=== PATIENT | male | born 1965 | race African-American/Black ===

== ENCOUNTER 2016-08-25 15:36 | Inpatient (IN) ==
[2016-08-25] MEDS ORDERED: ENOXAPARIN 80 MG/0.8 ML SYRINGE SUBCUT STA (15:57)
[2016-08-25] MEDS ORDERED: ASPIRIN 325 MG TABLET PO STA (15:58)
--- NOTE | 2016-08-25 16:01 | EKG Report ---
Stationary ECG Study [facility] ER Test Date: 08/25/2016 3:45:48 PM Pat Name: PAIGE LEY Department: Room: Gender: M Instructor Dramatic Arts: ROSALINDA : 1965 Requested by: Trent Carroll Order Number: [id number] Greg MD: SHERRY SEPULVEDA Intervals [place] Rate: 101 P: 32 W[place]: 128 QRS: 69 QRSD: 90 T: 62 QT: 295 QTc: 353 Interpretive Statements SINUS RHYTHM ST T ABN SUGGESTS EARLY REPOLARIZATION CONSIDER CURRENT OF INJURY IN THE RIGHT CLINICL SETTING ALTHOUGH THIS IS EUIVOCAL Electronically Signed On 08-27-16 09:44:22 GRAPHICS PROGRAMMER by SHERRY SEPULVEDA [id number]
[2016-08-25] MEDS ORDERED: HYDROCORTISONE 100 MG VIAL IV STA (16:02)
--- NOTE | 2016-08-25 16:05 | Emergency Department Note ---
Arrival - Arrival ED Nursing Triage Note: Pt sent from [facility] for c/o CP, Altered mental status, and left foot pain. Foot pain x 8 days, CP x 3 days , and AMS x 2 days family member reports. EMS reported a blood sugar of 54 given 1/2 amp of D50. Mode of Arrival: Stretcher Limitations: Altered Mental Status Source: Significant other, RN Notes Reviewed - History of Present Illness Onset (ago): day(s) (2) <Trent Claros - Last Filed: 08/25/16 16:24> <Warner Damian - Last Filed: 08/25/16 17:04> - Arrival Chief Complaint: Altered Mental Status Stated Complaint: Altered Mental Status Time Seen by Provider: 08/25/16 15:56 - History of Present Illness HPI Narrative: Patient is a 50-year-old black male with a history of renal failure status post renal transplant. The patient has had 2 days of confusion, mental status changes, and left ankle pain. EMS brought the patient to the emergency department apparently from Dr. [facility] who is found to have a low blood pressure. EMS checked the patient's blood sugar and it was noted to be in the 50s. Due to the patient's mental status and confusion patient was given supplemental D50. Patient's mental status did not really improve very much. Patient has been seen in the ER and given steroids over the past several days. He is also on tacrolimus and prednisone. Patient denies any chest pain. (Trent Claros) Allergies/Adverse Reactions: Allergies Allergy/AdvReac Type Severity Reaction Status Date / Time No Known Allergies Allergy Verified 08/11/16 22:05 Home Medications: Home Medications Medication Instructions Recorded Confirmed Type Aspirin [Ecotrin] 81 mg PO DAILY 05/16/16 08/11/16 History Carvedilol [Coreg] 0.5 tablet PO BID 05/16/16 08/11/16 History Folic Acid Tab 1 mg PO DAILY 05/16/16 08/11/16 History Magnesium 250 mg PO DAILY 05/16/16 08/11/16 History Mycophenolate Mofetil Cap 3 tablet PO BID 05/16/16 08/11/16 History [Cellcept] Pantoprazole Tab [Protonix Tab] 40 mg PO BID 05/16/16 08/11/16 History Tacrolimus [Tacrolimus Cap] 4 tablet PO Q12H 05/16/16 08/11/16 History cloNIDine TAB [Catapres Tab] 0.1 mg PO BID PRN 05/16/16 08/11/16 History predniSONE TAB [PredniSONE] 10 mg PO DAILY 05/16/16 08/11/16 History Metoclopramide Tab [Reglan Tab] 5 mg PO QID 06/01/16 08/11/16 History amLODIPine [Norvasc] 10 mg PO DAILY 06/01/16 08/11/16 History Ondansetron Tab [Zofran Tab] 4 mg PO Q6HR PRN 06/24/16 08/11/16 History Acetamin/Codeine 120-12 mg/5Ml 12.5 ml PO Q6H PRN #120 ml 08/11/16 Rx [Tylenol/Codeine Liquid] Azithromycin [Zithromax] 500 mg PO DAILY #5 tablet 08/11/16 Rx Levofloxacin Tab [Levaquin Tab] 750 mg PO DAILY #10 tablet 08/11/16 08/11/16 Rx Review of System - Review of System Constitutional: Absent: chills, fever Respiratory: Absent: cough Cardiovascular: Absent: chest pain Neurological: Present: as per HPI, confusion <Trent Claros - Last Filed: 08/25/16 16:24> Medical,Surgical,& Family Hx - Medical History Cardio: History of: Hypertension Psychological: No history of: Anxiety Disorders, Bipolar Disorder, Depression, Schizophrenia Neurology: No history of: Seizures HEENT: History of: Eye Problem (previous retinal tear RIGHT) Rheumatology: History of;: Gout Renal: History of: Renal Failure, Renal Problems (Kidney transplant - 09/15) Gastrointestinal: History of: GERD, Gastrointestinal Bleed Hematology: No history of: Blood Transfusion Reaction Reproductive: No histroy: Reproductive Cancer Other: No history of: Anesthesia Reactions, HIV - Surgical History Cardiac Surgeries: Patient Denies: Cardiac Catheterization Thoracic Surgeries: Surgical HX of;: Kidney (Renal Surgery) (transplant 2013), Organ Transplant (KIDNEY) Neurologic Surgeries: Patient denies: Neurologic Surgery HEENT Surgeries: Surgical HX of: Tonsilectomy & Adenoidectomy Patient denies: Eye Surgery Abdominal Surgeries: Surgical HX of: Abdominal Surgery (PD catheter placed and removed (Removed 2013)), Cholecystectomy, EGD Orthopedic Surgeries: Patient denies;: Orthopedic Surgery - Family History Family History: Reports;: Family Diabetes (MOM AND BROTHER), Family Hypertension (MOM AND BROTHER) Denies;: Family Anesthesia Reaction, Family Cancer, Family Heart Disease, Family Psychiatric Problems, Family Stroke - Social History Smoking Status: Former smoker <Trent Claros - Last Filed: 08/25/16 16:24> Exam <Trent Claros - Last Filed: 08/25/16 16:24> <Warner Damian - Last Filed: 08/25/16 17:04> Vital Signs: Vital Signs Temperature 96.5 F L 08/25/16 15:42 Pulse Rate 100 H 08/25/16 15:42 Respiratory Rate 26 H 08/25/16 15:42 Blood Pressure 109/74 08/25/16 15:42 O2 Sat by Pulse Oximetry 95 08/25/16 15:42 GENERAL: This is a thin chronically and acutely ill appearing thin black male in no apparent distress. VITAL SIGNS: Reviewed HEENT: Head is atraumatic and normocephalic. Pupils are equal round react to light. Extraocular movements are intact. Conjunctiva is pale. Oropharynx is benign with moist mucous membranes. NECK: Neck is soft and supple without tenderness. There are no masses. There is no lymphadenopathy. LUNGS: Lungs are clear to auscultation. Chest rises symmetrically. There is no chest wall tenderness. CV: Heart is regular rate and rhythm without murmurs rubs or gallops. ABDOMEN: Abdomen is soft, nontender to palpation. There are no abdominal abnormal masses palpated. There is no organomegaly. Bowel sounds are present and active. SKIN: Skin is warm and dry. No rash. EXTREMITIES: Patient has erythema and swelling of the lateral portion of the left ankle. This area is exceedingly tender to touch. NEUROLOGIC: Awake, alert, disoriented to time and place. Cranial nerves II through XII are grossly intact. Motor is 4 over 5 in all extremities bilaterally. (Trent Claros) (Warner Damian) Course - Consultations Time: 15:55 <Trent Claros - Last Filed: 08/25/16 16:24> - Consultations Time: 17:03 <Warner Damian - Last Filed: 08/25/16 17:04> Course Narrative: Care to Dr. Nati at 1600 (Trent Claros) - Consultations Consultation #1: Discussed with Dr. Ramos. EKG reviewed with him. EKG is not felt to represent ST elevation MA. (Trent Claros) Consultation #2: Hospitalist will admit patient (Warner Damian) Results - Labs CBC & BMP: 08/25/16 15:56 - EKG EKG results: interpreted by ERMD - Diagnostic Findings Procedure: Chest x-ray: image reviewed by me (Pulmonary nodule left lower lobe) , CT: image reviewed by me (CT head: No acute intracranial lesion or hemorrhage) <Trent Claros - Last Filed: 08/25/16 16:24> - Labs CBC & BMP: 08/25/16 15:56 08/25/16 15:56 Lab Results: I have reviewed the patients labs <Warner Damian - Last Filed: 08/25/16 17:04> - Impressions EKG: Sinus tachycardia with a rate of 101. ST segment elevation in 2 3 aVF and V2 through V6 which is normal in contour but is elevated. (Trent Claros) Critical Care Time Critical Care Time: Yes Total Critical Care Time: 60 <Warner Damian - Last Filed: 08/25/16 17:04> Disposition <Trent Claros - Last Filed: 08/25/16 16:24> Case discussed with: patient Time of Disposition: 17:04 <Warner Damian - Last Filed: 08/25/16 17:04> Clinical Impression: Altered mental status, Hypotension, Renal failure status post transplant, Left ankle pain, Hyperkalemia Disposition: Still a Patient Condition: Guarded
[2016-08-25 16:13] LABS: Basophils % 0.3 % (0.0-0.8); Eosinophils % 0.1 % (0.00-10.9); Hematocrit 36.7 VOL% (42.0-52.0); Hemoglobin 11.2 GM/DL (14.0-18.0); Immature Granulocytes % 16.9 %; Immature Granulocytes Absolute 2.64 #; Lymphocytes # 0.4 10*3/uL (1.4-4.0); Lymphocytes % 2.6 % (21.2-54.2); Mean Corpuscular HGB Conc 30.5 GM/DL (32-36); Mean Corpuscular Hemoglobin 24 PG (27-34); Mean Corpuscular Volume 79.6 FL (87-102); Mean Platelet Volume 11.2 FL (9.6-12.0); Monocytes # 1.6 10*3/uL (0.11-0.8); Monocytes % 9.9 % (1.7-12.7); Neutrophils % 70.2 % (38.7-73.9); Platelet Count 374 10*3/uL (130-400); Red Blood Count 4.61 10*6/uL (3.8-5.5); White Blood Count 15.6 10*3/uL (4.5-13.71)
--- NOTE | 2016-08-25 16:19 | CT Report ---
CT head/brain wo con Indication: Status changes. CT BRAIN WITHOUT CONTRAST DLP: 1053 mGy*cm Comparison: 06/23/2013. Date of admission: 08/25/2016. Technique: Axial noncontrast CT images of the brain were obtained. Findings: No acute hemorrhage, mass or mass effect. Ventricles and sulci are appropriate for age. Cassidy-white junction is maintained throughout. No focal bone lesions are shown. Polypoid thickening in the right maxillary sinus is present. The remainder paranasal sinuses and mastoid air cells are clear. Impression: No acute intracranial pathology. Right maxillary sinus polyp. PROCEDURE INTERPRETED AT [facility] DEPARTMENT OF RADIOLOGY Final Report Signed by: Julio De La Torre M.D.
--- NOTE | 2016-08-25 16:22 | XRay Report ---
Exam: XR chest 1V portable Date: 08/25/2016 3:57 PM Indication: Altered mental status Comparison: None Technical:AP semierect portable Findings: Examination reveals rounded area of opacification in the left lateral chest measuring up to just below 5 cm. Patchy interstitial infiltrate suspected in the infrahilar regions. This is demonstrated bilaterally. External cardiac leads are present. Mediastinum is otherwise intact. Impression: 1. 5 cm area of rounded the masslike density in the left lateral base. This could represent the underlying malignancy. Mild interstitial thickening present in the lung estrada bilaterally with coarse bronchovascular markings. CT scan of the chest with IV contrast may be beneficial PROCEDURE INTERPRETED AT [facility] DEPARTMENT OF RADIOLOGY Final Report Signed by: Dr. Lawrence Colón
[2016-08-25 16:24] LABS: INR 1.4; PT Patient Result 14.9 SECS; Partial Thromboplastin Time 38.5 SECS (0-40)
[2016-08-25] MEDS ORDERED: ENOXAPARIN 100 MG/ML SYRINGE SUBCUT ONE (16:26)
[2016-08-25] MEDS ORDERED: HYDROCORTISONE 100 MG VIAL ONE (16:26)
[2016-08-25] MEDS ORDERED: ASPIRIN 325 MG TABLET ONE (16:27)
[2016-08-25 16:31] LABS: Ammonia < 10 UMOL/L (11-32)
[2016-08-25 16:39] LABS: Alanine Aminotransferase 18 U/L (16-61); Albumin 1.9 G/DL (3.4-5.0); Alkaline Phosphatase 135 U/L (45-117); Aspartate Amino Transferase 23 U/L (0-37); Blood Urea Nitrogen 71 MG/DL (7-18); Calcium 9.5 MG/DL (8.5-10.1); Glucose 144 MG/DL (74-106); Osmolality,Calculated 302.4 MOS/KG (273-304); Sodium 140 MMOL/L (136-145); Total Protein 5.4 G/DL (6.4-8.3)
[2016-08-25 16:41] LABS: Potassium 6.4 MMOL/L (3.5-5.1)
[2016-08-25] MEDS ORDERED: SODIUM POLYSTYRENE SULFATE 15 GM/60 ML BOTTLE PO STA (16:44)
[2016-08-25] MEDS ORDERED: CALCIUM GLUCONATE 1,000 MG in SODIUM CHLORIDE 0.9% 100 ML IV ONE (16:44)
[2016-08-25 16:46] LABS: Anisocytosis 1+; Band Neutrophils 4 % (0-10); Burr Cells 1+; Lymphocytes 8 % (20-55); Microcytosis 1+; Ovalocytes Few; Platelet Estimate Adequate; Poikilocytosis 2+; Segmented Neutrophils 76 % (50-85); Tear Drop Cells Slight; Total Cells Counted 100
--- NOTE | 2016-08-25 16:48 | XRay Report ---
XR ankle 3V LT Indication: Swelling or edema. Left ankle 3 views: Soft tissue swelling is present. No radiopaque debris identified. No acute fracture. No dislocation. No CT arthritis. Impression: Soft tissue swelling left ankle. PROCEDURE INTERPRETED AT [facility] DEPARTMENT OF RADIOLOGY Final Report Signed by: Julio De La Torre M.D.
[2016-08-25] MEDS ORDERED: CALCIUM GLUCONATE 1,000 MG/10 ML VIAL IV ONE (16:53)
[2016-08-25] MEDS ORDERED: SODIUM POLYSTYRENE SULFATE 15 GM/60 ML BOTTLE ONE (16:53)
[2016-08-25] MEDS ORDERED: ZALEPLON 5 MG CAPSULE PO PRN (17:04)
[2016-08-25] MEDS ORDERED: ONDANSETRON 4 MG/2 ML VIAL IV PRN (17:04)
[2016-08-25] MEDS ORDERED: DOCUSATE SODIUM 100 MG CAPSULE PO PRN (17:04)
--- NOTE | 2016-08-25 17:49 | Hospitalist History & Physical ---
Assessment and Plan - Time spent with patient Time spent with patient: Greater than 30 minutes (due to assessment, plan and documentation) (1) Abnormal EKG Status: Acute Assessment and plan: consulted Dr. Ramos- has seen in the ED Current Visit: Yes (2) ARF (acute renal failure) Status: Acute Assessment and plan: gentle hydration baseline creatinine is typically 2.6-2.8 per pt report Current Visit: Yes (3) Altered mental status Status: Acute Assessment and plan: CT negative neuro consult Current Visit: Yes (4) Hyperkalemia Status: Acute Assessment and plan: calcium gluconate and kayexalate given in ED. redraw at 2100 tonight CBC, CMp in AM Current Visit: Yes (5) Chronic kidney disease, stage III (moderate) Status: Chronic Current Visit: Yes (6) Kidney transplant recipient Status: Chronic Current Visit: Yes History of Present Illness Chief complaint: weakness, decreased appetite History of present illness: Mr. Mcmanus is a 50 year old male who presented to our facility today with complaints of weakness. EKG was abnormal and Dr. Damian has had Dr. Ramos to look at this. Per Dr. Damian's report, ND was ruled out. His potassium is elevated at 6.4 and this has been treated in the ED with calcium gluconate and kayexalate in the ED. Repeat potassium will be drawn tonight at 2100. He did have some altered mental status and CT was negative for acute pathology. Ammonia level is normal as well. CXR was abnormal in the left lower lobe. In comparison to old films, this area has grown in size. WBC is elevated at 15.6, Gap is 19.4, Creatinine is now 3.7 GFR 23. He states that his baseline is typically 2.6-2.8. We will gently hydrate him. I have asked that Neuro see for AMS, Cardiology see for abnormal EKG, and Pulmonary see for his abnormal cxr. Will admit and continue working him up. He states that he is compliant with his anti-rejection medications as well. He lives at home and typically functions independently. Further plan and addendum to follow by Dr. Milind Clifton. Home Medications Medication Instructions Recorded Confirmed Type Aspirin [Ecotrin] 81 mg PO DAILY 05/16/16 08/25/16 History Carvedilol [Coreg] 0.5 tablet PO BID 05/16/16 08/25/16 History Folic Acid Tab 1 mg PO DAILY 05/16/16 08/25/16 History Mycophenolate Mofetil Cap 3 tablet PO Q12H 05/16/16 08/25/16 History [Cellcept] Pantoprazole Tab [Protonix Tab] 40 mg PO BID 05/16/16 08/25/16 History Tacrolimus [Tacrolimus Cap] 4 tablet PO Q12H 05/16/16 08/25/16 History predniSONE TAB [PredniSONE] 10 mg PO DAILY 05/16/16 08/25/16 History amLODIPine [Norvasc] 10 mg PO DAILY 06/01/16 08/25/16 History Allopurinol 100 mg PO DAILY 08/25/16 08/25/16 History HYDROcodone/ACETAMIN 10-325 [[place] 1 tablet PO Q4H PRN 08/25/16 08/25/16 History 10-325] Magnesium Oxide [Magnesium] 500 mg PO DAILY 08/25/16 08/25/16 History Metoclopramide Liquid [Reglan 5 ml PO BID 08/25/16 08/25/16 History Liquid] Allergies Allergy/AdvReac Type Severity Reaction Status Date / Time No Known Allergies Allergy Verified 08/11/16 22:05 Medical,Surgical,& Family Hx - Medical History Cardio: History of: Hypertension Psychological: No history of: Anxiety Disorders, Bipolar Disorder, Depression, Schizophrenia Neurology: No history of: Seizures HEENT: History of: Eye Problem (previous retinal tear RIGHT) Rheumatology: History of;: Gout Renal: History of: Renal Failure, Renal Problems (Kidney transplant - 09/15) Gastrointestinal: History of: GERD, Gastrointestinal Bleed Hematology: No history of: Blood Transfusion Reaction Reproductive: No histroy: Reproductive Cancer Other: No history of: Anesthesia Reactions, HIV - Surgical History Cardiac Surgeries: Patient Denies: Cardiac Catheterization Thoracic Surgeries: Surgical HX of;: Kidney (Renal Surgery) (transplant 2013), Organ Transplant (KIDNEY) Neurologic Surgeries: Patient denies: Neurologic Surgery HEENT Surgeries: Surgical HX of: Tonsilectomy & Adenoidectomy Patient denies: Eye Surgery Abdominal Surgeries: Surgical HX of: Abdominal Surgery (PD catheter placed and removed (Removed 2013)), Cholecystectomy, EGD Orthopedic Surgeries: Patient denies;: Orthopedic Surgery - Family History Family History: Reports;: Family Diabetes (MOM AND BROTHER), Family Hypertension (MOM AND BROTHER) Denies;: Family Anesthesia Reaction, Family Cancer, Family Heart Disease, Family Psychiatric Problems, Family Stroke - Social History Smoking Status: Former smoker Frequency of Alcohol Use: None Type of Drug Use: None Marital Status: Lives With:: Spouse Functional capacity: independent ambulation - Constitutional Constitutional: Present: weakness. Absent: chills, fever(s) - EENT Eyes: Absent: blurry vision, diplopia Ears: Absent: decreased hearing, tinnitus Nose, mouth and throat: Absent: dysphagia, headache(s) - Cardiovascular Cardiovascular: Absent: chest pain at rest, dyspnea on exertion - Respiratory Respiratory: Absent: cough, dyspnea, hemoptysis - Gastrointestinal Gastrointestinal: Absent: abdominal pain, melena, nausea, vomiting - Genitourinary Genitourinary: Absent: difficulty urinating, hematuria - Musculoskeletal Musculoskeletal: Absent: back pain, joint swelling - Neurological Neurological: Present: confusion. Absent: dizziness - Psychiatric Psychiatric: Present: confusion. Absent: anxiety, depression - Endocrine Endocrine: Absent: cold intolerance, heat intolerance - Hematologic/Lymphatic Hematologic/Lymphatic: Absent: easy bleeding, easy bruising Exam - Constitutional Vitals: Period Temp Pulse Resp BP Sys/Stewart Pulse Ox Last 24 Hr 96.5 F 100 26 109/74 95 General appearance: normal weight, no acute distress - Head Head exam: Present: normal inspection, normocephalic - Eye Eye exam: Present: EOMI. Absent: scleral icterus Pupils: Present: SELVIN, normal accommodation - ENT ENT exam: Present: normal exam, normal oropharynx - Neck Neck exam: Present: normal inspection. Absent: lymphadenopathy - Respiratory Respiratory exam: Present: clear to auscultation bilaterally. Absent: accessory muscle use - Cardiovascular Cardiovascular exam: Present: regular rate and rhythm. Absent: carotid bruit - GI/Abdominal GI/Abdominal exam: Present: normal bowel sounds, soft. Absent: tenderness - Extremities Exam Extremities exam: Present: normal inspection. Absent: edema - Back Exam Back exam: Present: normal inspection. Absent: muscle spasm - Neurological Exam Neurological exam: Present: alert, oriented X3 - Psychiatric Psychiatric exam: Present: normal affect, normal mood - Skin Skin exam: Present: normal color, warm, dry, intact Results - Labs CBC & BMP: 08/25/16 15:56 08/25/16 15:56 Lab Results: I have reviewed the past 24 hour labs
[2016-08-25] MEDS ORDERED: COLCHICINE 0.6 MG TABLET PO ONE (20:09)
[2016-08-25] MEDS: METOCLOPRAMIDE 10 MG/10 ML UDCUP PO SCH (21:10)
[2016-08-25] MEDS: CARVEDILOL 12.5 MG TABLET PO SCH (21:10)
[2016-08-25] MEDS: SODIUM CHLORIDE 0.9% 1,000 ML IV SCH (21:57)
[2016-08-25] MEDS: MYCOPHENOLATE MOFETIL 250 MG CAPSULE PO SCH (21:58)
[2016-08-25] MEDS: TACROLIMUS 0.5 MG CAPSULE PO SCH (22:18)
[2016-08-26 04:46] LABS: Basophils % 0.2 % (0.0-0.8); Hematocrit 30.3 VOL% (42.0-52.0); Hemoglobin 9.5 GM/DL (14.0-18.0); Immature Granulocytes % 11.5 %; Immature Granulocytes Absolute 1.49 #; Lymphocytes # 0.6 10*3/uL (1.4-4.0); Lymphocytes % 4.3 % (21.2-54.2); Mean Corpuscular HGB Conc 31.4 GM/DL (32-36); Mean Corpuscular Hemoglobin 24 PG (27-34); Mean Corpuscular Volume 75.8 FL (87-102); Mean Platelet Volume 10.8 FL (9.6-12.0); Monocytes # 1.3 10*3/uL (0.11-0.8); Monocytes % 10.4 % (1.7-12.7); Neutrophils # 9.5 10*3/uL (1.4-7.4); Neutrophils % 73.6 % (38.7-73.9); Platelet Count 383 10*3/uL (130-400); Red Cell Distribution Width 14.1 % (9.3-17.3); White Blood Count 12.9 10*3/uL (4.5-13.71)
[2016-08-26 05:18] LABS: Albumin 1.7 G/DL (3.4-5.0); Bilirubin,Total 0.8 MG/DL (0.2-1.0); Calcium 8.9 MG/DL (8.5-10.1); Magnesium 1.9 MG/DL (1.8-2.4); Osmolality,Calculated 308.8 MOS/KG (273-304); Potassium 4.6 MMOL/L (3.5-5.1)
[2016-08-26 05:27] LABS: Band Neutrophils 2 % (0-10); Burr Cells Slight; Elliptocytes Few; Hypochromasia Slight; Lymphocytes 4 % (20-55); Microcytosis 1+; Platelet Estimate Adequate; Segmented Neutrophils 85 % (50-85); Total Cells Counted 100
--- NOTE | 2016-08-26 06:46 | XRay Report ---
Portable chest. Indication: Shortness of breath. Comparison: August 25, 2016, and August 11, 2016. The heart is normal in size. The lung volumes are normal. Since the exam from August 11, 2016, there has been development of diffuse severe reticulonodular infiltrates. The area of peripheral parenchymal opacity laterally at the left lung base, is vaguely seen, partially secured by the reticulonodular infiltrates. I believe it is very similar in size to the previous study. When compared to yesterday's exam, the reticulonodular infiltrates have worsened as well. No pleural effusion is seen. No pneumothorax is noted. Impression: In the past 2 weeks severe reticulonodular infiltrates have developed. These are nonspecific. The area of focal parenchymal opacity at the left lateral lung base is grossly similar to previous studies. PROCEDURE INTERPRETED AT [facility] DEPARTMENT OF RADIOLOGY Final Report Signed by: Dr. Deborah Francis
[2016-08-26] MEDS: SODIUM CHLORIDE 0.9% 1,000 ML IV SCH ×3 (07:41→20:45)
[2016-08-26 07:52] LABS: Amorphous Crystals,Urine Occasional /HPF (Few); Apearance,Urine CLEAR (Clear); Bilirubin,Urine Negative (Negative); Blood, Urine Negative (Negative); Glucose,Urine (UA) Negative (Negative); Ketones,Urine Negative (Negative); Mucus,Urine Occasional /LPF (Occasional); Nitrite,Urine Negative (Negative); Protein,Urine Negative; Urine Color Yellow (Yellow); Urine Specific Gravity 1.013 (1.001-1.035); Urine Urobilinogen < 2.0 EU/DL (0.2-1.0); WBC,Urine <1 /HPF (0-6)
--- NOTE | 2016-08-26 08:10 | EKG Report ---
Stationary ECG Study [facility] Test Date: 08/26/2016 8:09:13 AM Pat Name: PAIGE LEY Department: Room: 281 Gender: M Senior Systems Analyst: : 1965 Requested by: Reena Daniels Order Number: [id number] Reading MD: SHERRY SEPULVEDA Intervals [place] Rate: 119 P: 49 MT: 130 QRS: 72 QRSD: 93 T: 59 QT: 267 QTc: 338 Interpretive Statements SINUS TACHYCARDIA ABNORMAL RHYTHM ECG Electronically Signed On 08-27-16 09:49:47 FURNACE RELINER by SHERRY SEPULVEDA [email or web address]
[2016-08-26] MEDS ORDERED: NITROGLYCERIN 2% OINT 1 INCH/GM PACK TOP ONE (08:17)
[2016-08-26] MEDS: NITROGLYCERIN 2% OINT 1 INCH/GM PACK TOP SCH ×4 (08:20→23:44)
--- NOTE | 2016-08-26 08:29 | Nephrology Consult Note ---
History of Present Illness Chief complaint: Kidney Transplant recipient History of present illness: Mr. Mcmanus is a 50 year old male with a functioning kidney transplant who presented with left ankle pain compatible with gallop. He also has worsening reticulonodular infiltrates bilaterally present on chest x-ray. He complains of vague chest pain. He has been afebrile but is generally not done well of late and has a low serum albumin and has had weight loss. On physical exam he is a tall man who is thin and has lost weight over the last year or so. Jugular venous distention and his heart without rub or gallop. He has no peripheral edema. His left foot is exquisitely tender is not significantly swollen. Uric acid on admission was 6.4 and he says this pain is compatible with previous episodes of And says he's been hurting approximately 1 week. Impression #1 #2 chronic renal impairment with a kidney transplant with a creatinine at that stable at 3-1/2. Reticulonodular infiltrates worrisome for opportunistic infection Plan pulmonary consult to evaluate for possible opportunistic pulmonary infection. I agree with use of Colchicine. Allopurinol becomes difficult to use with the immunosuppressants Home Medications Medication Instructions Recorded Confirmed Type Aspirin [Ecotrin] 81 mg PO DAILY 05/16/16 08/25/16 History Carvedilol [Coreg] 0.5 tablet PO BID 05/16/16 08/25/16 History Folic Acid Tab 1 mg PO DAILY 05/16/16 08/25/16 History Mycophenolate Mofetil Cap 3 tablet PO Q12H 05/16/16 08/25/16 History [Cellcept] Pantoprazole Tab [Protonix Tab] 40 mg PO BID 05/16/16 08/25/16 History Tacrolimus [Tacrolimus Cap] 4 tablet PO Q12H 05/16/16 08/25/16 History predniSONE TAB [PredniSONE] 10 mg PO DAILY 05/16/16 08/25/16 History amLODIPine [Norvasc] 10 mg PO DAILY 06/01/16 08/25/16 History Allopurinol 100 mg PO DAILY 08/25/16 08/25/16 History HYDROcodone/ACETAMIN 10-325 [[place] 1 tablet PO Q4H PRN 08/25/16 08/25/16 History 10-325] Magnesium Oxide [Magnesium] 500 mg PO DAILY 08/25/16 08/25/16 History Metoclopramide Liquid [Reglan 5 ml PO BID 08/25/16 08/25/16 History Liquid] Allergies Allergy/AdvReac Type Severity Reaction Status Date / Time No Known Allergies Allergy Verified 08/11/16 22:05 Medical,Surgical,& Family Hx - Medical History Cardio: History of: Hypertension Psychological: No history of: Anxiety Disorders, Bipolar Disorder, Depression, Schizophrenia Neurology: No history of: Seizures HEENT: History of: Eye Problem (previous retinal tear RIGHT) Rheumatology: History of;: Gout Renal: History of: Renal Failure, Renal Problems (Kidney transplant - 09/15) Gastrointestinal: History of: GERD, Gastrointestinal Bleed Hematology: History of: Anemia No history of: Blood Transfusion Reaction Reproductive: No histroy: Reproductive Cancer Other: No history of: Anesthesia Reactions, HIV - Surgical History Cardiac Surgeries: Patient Denies: Cardiac Catheterization Thoracic Surgeries: Surgical HX of;: Kidney (Renal Surgery) (transplant 2013), Organ Transplant (KIDNEY) Neurologic Surgeries: Patient denies: Neurologic Surgery HEENT Surgeries: Surgical HX of: Tonsilectomy & Adenoidectomy Patient denies: Eye Surgery Abdominal Surgeries: Surgical HX of: Abdominal Surgery (PD catheter placed and removed (Removed 2013)), Cholecystectomy, EGD Orthopedic Surgeries: Patient denies;: Orthopedic Surgery - Family History Family History: Reports;: Family Diabetes (MOM AND BROTHER), Family Hypertension (MOM AND BROTHER) Denies;: Family Anesthesia Reaction, Family Cancer, Family Heart Disease, Family Psychiatric Problems, Family Stroke - Social History Smoking Status: Former smoker Frequency of Alcohol Use: None Type of Drug Use: None Review of Systems 12 point system: reviewed and no additional remarkable complaints except as stated Exam - Vital Signs Vital signs: Period Temp Pulse Resp BP Sys/Stewart Pulse Ox Last 24 Hr 96.3 F-98.0 F 93-117 18-20 98-140/70-83 90-92 - General Appearance General appearance: well-developed, well-nourished, appears started age Neck: no JVD, no thyromegaly, no carotid bruit, supple Respiratory: no kyphosis, no scoliosis Cardiology: no murmurs, no rub, no gallops, no edema, regular rate, regular rhythm, normal S1, normal S2 Gastrointestinal: normoactive bowel sounds Integumentary: no rash, warm and dry Neurologic: no focal deficit, no asterixis, alert and oriented x3, reflexes 2+ and symmetric, gait normal, strength 5/5 Musculoskeletal: no deformities, no erythema, no cyanosis, no clubbing Psychiatric: mood/affect appropriate, cooperative Results - Labs CBC & BMP: 08/26/16 04:30 08/26/16 04:31 Assessment and Plan (1) Kidney transplant recipient Status: Chronic Current Visit: Yes (2) Chronic kidney disease, stage III (moderate) Status: Chronic Current Visit: Yes (3) Left ankle pain Status: Acute Current Visit: Yes
--- NOTE | 2016-08-26 08:37 | Pulmonology Consult Note ---
Assessment and Plan (1) Reticulonodular infiltrate present on imaging of chest Status: Acute Assessment and plan: The patient has worsening reticular nodular infiltrates that were not present a few weeks ago. There was a lung density present a few weeks ago. He is somewhat immunosuppressed. We will plan a bronchoscopy with transbronchial biopsies. Current Visit: Yes (2) Kidney transplant recipient Status: Chronic Assessment and plan: The patient is on immunosuppressive therapy. His creatinine is up to 3.4. Current Visit: Yes (3) Altered mental status Status: Acute Assessment and plan: The patient is quite confused. Current Visit: Yes (4) Left ankle pain Status: Acute Assessment and plan: Patient says he has gout. His uric acid level is 6.4. Current Visit: Yes (5) ARF (acute renal failure) Status: Acute Assessment and plan: He does have worsening renal insufficiency. He is getting some IV fluids. Current Visit: Yes History of Present Illness Chief complaint: abnormal chest x-ray History of present illness: Mr. Mcmanus is a 50 year old black male that apparently came in last night with some confusion and weakness. He is not a very good historian but he has been followed by renal with a previous renal transplant. He is on immunosuppressive therapy. He apparently has been having a little bit of chest pain and cough. He is complaining of his ankle hurting and felt like he had gout. Otherwise he is not complaining of much now. He was found to have a nodular density in his left lower lobe in early August. Now he comes back with worsening reticular nodular infiltrates. He has been a former smoker. He is not having definite fever. Home Medications Medication Instructions Recorded Confirmed Type Aspirin [Ecotrin] 81 mg PO DAILY 05/16/16 08/25/16 History Carvedilol [Coreg] 0.5 tablet PO BID 05/16/16 08/25/16 History Folic Acid Tab 1 mg PO DAILY 05/16/16 08/25/16 History Mycophenolate Mofetil Cap 3 tablet PO Q12H 05/16/16 08/25/16 History [Cellcept] Pantoprazole Tab [Protonix Tab] 40 mg PO BID 05/16/16 08/25/16 History Tacrolimus [Tacrolimus Cap] 4 tablet PO Q12H 05/16/16 08/25/16 History predniSONE TAB [PredniSONE] 10 mg PO DAILY 05/16/16 08/25/16 History amLODIPine [Norvasc] 10 mg PO DAILY 06/01/16 08/25/16 History Allopurinol 100 mg PO DAILY 08/25/16 08/25/16 History HYDROcodone/ACETAMIN 10-325 [Shiro 1 tablet PO Q4H PRN 08/25/16 08/25/16 History 10-325] Magnesium Oxide [Magnesium] 500 mg PO DAILY 08/25/16 08/25/16 History Metoclopramide Liquid [Reglan 5 ml PO BID 08/25/16 08/25/16 History Liquid] Allergies Allergy/AdvReac Type Severity Reaction Status Date / Time No Known Allergies Allergy Verified 08/11/16 22:05 - Constitutional Constitutional: Present: fatigue, weakness, weight loss. Absent: chills, fever( s) - EENT Eyes: Absent: loss of vision Ears: Absent: decreased hearing Nose, mouth and throat: Present: sore throat. Absent: headache(s) - Cardiovascular Cardiovascular: Present: chest pain at rest, dyspnea. Absent: orthopnea, palpitations - Respiratory Respiratory: Present: cough, dyspnea. Absent: hemoptysis, change in phlegm color - Gastrointestinal Gastrointestinal: Absent: abdominal pain, dysphagia, nausea, vomiting - Genitourinary Genitourinary: Absent: difficulty urinating, dysuria - Musculoskeletal Musculoskeletal: Present: arthralgias - Neurological Neurological: Present: confusion Exam (Pulmonay) H&P - Constitutional Vitals: Period Temp Pulse Resp BP Sys/Stewart Pulse Ox Last 24 Hr 96.3 F-98.0 F 93-117 18-20 98-140/70-83 90-92 General appearance: mild distress, under weight, other (patient does seem quite confused.) - Head Head exam: Present: normal inspection, normocephalic - Eye Eye exam: Present: EOMI. Absent: scleral icterus Pupils: Present: SELVIN - ENT ENT exam: Present: other (unable to see his hypopharynx) - Neck Neck exam: Present: tenderness. Absent: lymphadenopathy, thyromegaly - Respiratory Respiratory exam: Present: rales, rhonchi, other (patient has fairly good breath sounds bilaterally). Absent: accessory muscle use - Cardiovascular Cardiovascular exam: Present: regular rate and rhythm. Absent: gallop, systolic murmur - GI/Abdominal GI/Abdominal exam: Present: soft. Absent: distended, organomegaly, tenderness - Extremities Exam Extremities exam: Present: other (left ankle and foot is not red or swollen.). Absent: calf tenderness, edema - Neurological Exam Neurological exam: Present: altered (patient is quite confused) - Psychiatric Psychiatric exam: Absent: agitated, anxious - Skin Skin exam: Present: warm, dry Medical,Surgical,& Family Hx - Medical History Cardio: History of: Hypertension Psychological: No history of: Anxiety Disorders, Bipolar Disorder, Depression, Schizophrenia Neurology: No history of: Seizures HEENT: History of: Eye Problem (previous retinal tear RIGHT) Rheumatology: History of;: Gout Renal: History of: Renal Failure, Renal Problems (Kidney transplant - 09/15) Gastrointestinal: History of: GERD, Gastrointestinal Bleed Hematology: History of: Anemia No history of: Blood Transfusion Reaction Reproductive: No histroy: Reproductive Cancer Other: No history of: Anesthesia Reactions, HIV - Surgical History Cardiac Surgeries: Patient Denies: Cardiac Catheterization Thoracic Surgeries: Surgical HX of;: Kidney (Renal Surgery) (transplant 2013), Organ Transplant (KIDNEY) Neurologic Surgeries: Patient denies: Neurologic Surgery HEENT Surgeries: Surgical HX of: Tonsilectomy & Adenoidectomy Patient denies: Eye Surgery Abdominal Surgeries: Surgical HX of: Abdominal Surgery (PD catheter placed and removed (Removed 2013)), Cholecystectomy, EGD Orthopedic Surgeries: Patient denies;: Orthopedic Surgery - Family History Family History: Reports;: Family Diabetes (MOM AND BROTHER), Family Hypertension (MOM AND BROTHER) Denies;: Family Anesthesia Reaction, Family Cancer, Family Heart Disease, Family Psychiatric Problems, Family Stroke - Social History Smoking Status: Former smoker Frequency of Alcohol Use: None Type of Drug Use: None Results - Labs CBC & BMP: 08/26/16 04:30 08/26/16 04:31 - Diagnostic Findings Procedure: Chest x-ray: image reviewed by me, report reviewed by me (chest x- ray does have worsening reticular nodular infiltrates. There is a nodular area in his left base.)
[2016-08-26] MEDS ORDERED: COLCHICINE 0.6 MG TABLET PO ONE (08:53)
--- NOTE | 2016-08-26 08:57 | Hospitalist Progress Note ---
Assessment and Plan (1) Reticulonodular infiltrate present on imaging of chest Status: Acute Assessment and plan: The patient has reticulonodular infiltrate on chest x-ray which was consistent with opportunistic infection. The pulmonary doctor anticipates bronchoscopy soon. We will start the patient on azithromycin. We'll recheck electrolytes in the morning and give another dose of colchicine. Current Visit: Yes (2) Kidney transplant recipient Status: Chronic Current Visit: Yes (3) Altered mental status Status: Acute Current Visit: Yes Qualifiers: Altered mental status type: delirium Qualified Code(s): R41.0 - Disorientation, unspecified (4) Left ankle pain Status: Acute Current Visit: Yes Hospitalist: Subjective Interval history: The patient has some delirium. This was not present last night. The patient's speech is perseverant and mental process seems slower. The patient's left ankle pain continues but has improved some after taking colchicine last night. The patient appears diaphoretic Exam - Constitutional Vitals: Period Temp Pulse Resp BP Sys/Stewart Pulse Ox Last 24 Hr 96.3 F-98.0 F 93-117 18-20 98-140/70-83 90-92 Exam: Constitutional System: Mild distress on account of tachycardia and diaphoresis. No tremulousness. Head: Normocephalic, atraumatic. There is moderate bitemporal wasting Ears, Nose and Throat System: No evidence of Otitis or Mastoiditis. No epistaxis or discharge Eyes System: Pupils equal, round, and reactive. Extraocular muscles intact. Neck: Supple, without adenopathy, No jugular venous distention. No thyromegaly , neck mass, or prior surgery apparent. Respiratory System: Chest clear to auscultation. Cardiovascular System: Heart with regular rate and rhythm. No murmur. GI System: Abdomen soft, nontender. Normoactive bowel sounds present. Musculoskeletal System: limbs with no pedal edema. Very tender left ankle but less than yesterday Neurological System: No discernable sensory deficit. No aphasia Psychiatric System: Conversation is perseverant and confused Results - Labs CBC & BMP: 08/26/16 04:30 08/26/16 04:31 Lab Results: I have reviewed the past 24 hour labs
[2016-08-26] MEDS: MYCOPHENOLATE MOFETIL 250 MG CAPSULE PO SCH ×2 (09:03→20:46)
[2016-08-26] MEDS: TACROLIMUS 0.5 MG CAPSULE PO SCH ×2 (09:04→20:46)
[2016-08-26] MEDS: amLODIPine 10 MG TABLET PO SCH (09:04)
[2016-08-26] MEDS: predniSONE 10 MG TABLET PO SCH (09:05)
[2016-08-26] MEDS: METOCLOPRAMIDE 10 MG/10 ML UDCUP PO SCH ×2 (09:05→20:45)
[2016-08-26] MEDS: CARVEDILOL 12.5 MG TABLET PO SCH ×2 (09:05→20:46)
[2016-08-26] MEDS: FOLIC ACID 1 MG TABLET PO SCH (09:05)
[2016-08-26] MEDS: ASPIRIN EC 81 MG TABLET PO SCH (09:05)
[2016-08-26] MEDS: PANTOPRAZOLE 40 MG TABLET PO SCH (09:05)
[2016-08-26 09:24] LABS: Troponin I Only < 0.015 NG/ML (0.00-0.045)
[2016-08-26] MEDS: AZITHROMYCIN INJ 500 MG in SODIUM CHLORIDE 0.9% 250 ML IV SCH (10:55)
[2016-08-26 13:37] LABS: Troponin I Only < 0.015 NG/ML (0.00-0.045)
--- NOTE | 2016-08-26 15:35 | Neurology Consult Note ---
History of Present Illness History of present illness: Mr. Mcmanus is a 50 year old black male with a history of HTN, gout, renal failure with renal transplant, GERD, and GI bleed. He was admitted to the hospital with gouty arthritis pain as well as irregular heartbeat. Neurology is consulted to evaluate his confusion but at the present point he is not confused at all. He can tell me about his pain, but not about much else so the history is mostly obtained from his chart. According to his chart, he has tonsillectomy and addenoidectomy, dialysis cahteter placed and removed, cholecystectomy, and kidney transplant. He tells me he has never seen a machine preservative filler, but I do see where he had a hear cath with Dr. Ramos in April 2009. He is following commands and his speech is fluent. Home Medications Medication Instructions Recorded Confirmed Type Aspirin [Ecotrin] 81 mg PO DAILY 05/16/16 08/25/16 History Carvedilol [Coreg] 0.5 tablet PO BID 05/16/16 08/25/16 History Folic Acid Tab 1 mg PO DAILY 05/16/16 08/25/16 History Mycophenolate Mofetil Cap 3 tablet PO Q12H 05/16/16 08/25/16 History [Cellcept] Pantoprazole Tab [Protonix Tab] 40 mg PO BID 05/16/16 08/25/16 History Tacrolimus [Tacrolimus Cap] 4 tablet PO Q12H 05/16/16 08/25/16 History predniSONE TAB [PredniSONE] 10 mg PO DAILY 05/16/16 08/25/16 History amLODIPine [Norvasc] 10 mg PO DAILY 06/01/16 08/25/16 History Allopurinol 100 mg PO DAILY 08/25/16 08/25/16 History HYDROcodone/ACETAMIN 10-325 [Justice 1 tablet PO Q4H PRN 08/25/16 08/25/16 History 10-325] Magnesium Oxide [Magnesium] 500 mg PO DAILY 08/25/16 08/25/16 History Metoclopramide Liquid [Reglan 5 ml PO BID 08/25/16 08/25/16 History Liquid] Allergies Allergy/AdvReac Type Severity Reaction Status Date / Time No Known Allergies Allergy Verified 08/11/16 22:05 12 point system: reviewed and no additional remarkable complaints except as stated Medical,Surgical,& Family Hx - Medical History Cardio: History of: Hypertension Psychological: No history of: Anxiety Disorders, Bipolar Disorder, Depression, Schizophrenia Neurology: No history of: Seizures HEENT: History of: Eye Problem (previous retinal tear RIGHT) Rheumatology: History of;: Gout Renal: History of: Renal Failure, Renal Problems (Kidney transplant - 09/15) Gastrointestinal: History of: GERD, Gastrointestinal Bleed Hematology: History of: Anemia No history of: Blood Transfusion Reaction Reproductive: No histroy: Reproductive Cancer Other: No history of: Anesthesia Reactions, HIV - Surgical History Cardiac Surgeries: Patient Denies: Cardiac Catheterization Thoracic Surgeries: Surgical HX of;: Kidney (Renal Surgery) (transplant 2013), Organ Transplant (KIDNEY) Neurologic Surgeries: Patient denies: Neurologic Surgery HEENT Surgeries: Surgical HX of: Tonsilectomy & Adenoidectomy Patient denies: Eye Surgery Abdominal Surgeries: Surgical HX of: Abdominal Surgery (PD catheter placed and removed (Removed 2013)), Cholecystectomy, EGD Orthopedic Surgeries: Patient denies;: Orthopedic Surgery - Family History Family History: Reports;: Family Diabetes (MOM AND BROTHER), Family Hypertension (MOM AND BROTHER) Denies;: Family Anesthesia Reaction, Family Cancer, Family Heart Disease, Family Psychiatric Problems, Family Stroke - Social History Smoking Status: Former smoker Frequency of Alcohol Use: None Type of Drug Use: None Exam - Constitutional Vitals: Period Temp Pulse Resp BP Sys/Stewart Pulse Ox Last 24 Hr 96.3 F-98.0 F 93-117 18-24 98-140/67-83 90-97 Exam: GENERAL: Patient is in no acute distress. NECK: Neck is supple. There is no JVD. No carotid bruits present. No thyroid masses. CVS: First and second heart sounds are normal. There is no S3 present. Regular rate and rhythm. RESPIRATORY: Lungs are clear to auscultation without any rales or rhonchi. ABDOMEN: Soft and non-tender. Bowel sounds are present. There is no hepatosplenomegaly. EXT: There is no palpable edema. Peripheral pulses are present. Skin: No rashes Central Nervous system: General: Alert, awake and Oriented x 3 Speech: Fluent Comprehension: Intact and normal Facial expressions: Normal Cranial Nerves: Pupils are equally reactive to light. Extraocular movements are intact. No facial asymmetry seen. Usually estrada are equal. Tongue is midline. Motor: Bulk and Tone is normal. Strength Sensory: Grossly intact for all the modalities of PP, LT and temp sense Reflexes: 1+ and symmetrical Cerebellar function: Normal finger to nose and heel to solo testing. Gait: Not Tested this time Results - Labs CBC & BMP: 08/26/16 04:30 08/26/16 04:31 Assessment and Plan (1) Altered mental status Status: Acute Assessment and plan: This is likely due to metabolic encephalopathy. no evidence of stroke, TIAs, epilepsy or seizures. Mental status is back to baseline. We'll continue watchful of the patient for now. Current Visit: Yes Qualifiers: Altered mental status type: delirium Qualified Code(s): R41.0 - Disorientation, unspecified
[2016-08-26 15:55] LABS: Troponin I Only < 0.015 NG/ML (0.00-0.045)
--- NOTE | 2016-08-26 20:57 | Cardiology Consult Note ---
I, Kristine Chirinos RN, am scribing for, and in the presence of, Nazanin Fisher MD 20:56. Assessment and Plan - Time spent with patient Time spent with patient: Greater than 30 minutes (1) Abnormal EKG Status: Acute Assessment and plan: On presentation the patient had an abnormal ECG with a question of ST elevation in the inferior leads as interpreted by the computer. On evaluation of this ECG , there is significant baseline artifact obscures interpretation. Numerous ECGs didn't show any significant abnormality. There is some J-point elevation in the anterior leads but overall the ECG has a stable appearance from his baseline. His cardiac biomarkers are negative. I do not believe this represents any kind of acute coronary syndrome and his clinical presentation is not necessarily consistent with an acute cardiac presentation. Current Visit: Yes (2) Altered mental status Status: Acute Current Visit: Yes Qualifiers: Altered mental status type: delirium Qualified Code(s): R41.0 - Disorientation, unspecified (3) Kidney transplant recipient Status: Chronic Current Visit: No History of Present Illness - Data of Consult Patient: new to practice Consult date: 08/25/16 Requesting Physician: Milind Clifton - Consult Narrative Reason for consult: abnormal ekg History of present illness: Mr. Mcmanus is a 50 year old black male with a history of HTN, gout, renal failure with renal transplant, GERD, and GI bleed. He is somewhat confused. He can tell me about his pain, but not about much else so the history is mostly obtained from his chart. According to his chart, he has tonsillectomy and addenoidectomy, dialysis cahteter placed and removed, cholecystectomy, and kidney transplant. He tells me he has never seen a log brander, but I do see where he had a hear cath with Dr. Ramos in April 2009. It looks like it was done because of an abnormal stress test that was done for a possible surgery. It showed no evidence of any significant fixed coronary obstruction. He tells me he came in yesterday because of gout in his left foot. The record indicates he was brought in for complaint of chest pain and altered mental status as well. There was question of Acute CT in the ER based on EKG, but that was ruled out. We are being asked to see regarding abnormal EKG. He tells me he had some chest pain earlier this morning that was around his left rib cage that would hurt when he would take a deep breath. That was all he could tell me about it except that the nurse put something on his chest, which was Nitropaste. He couldn't really tell me if that helped or not. He would say it did, then he would say that it didn't. The only other complaint he could tell me was that his left foot is hurting. BUN and creatinine 74 and 3.4 , uric acid is 6.4. Potassium is 4.6, improved after Kayexalate. Troponins have been negative times 2. Chest X-ray showed severe reticulonodular infiltrates. He is in sinus tach with heart rates in the 110's. CC: Milind Clifton MD - Home Medications and Allergies Home Medications: Home Medications Medication Instructions Recorded Confirmed Type Aspirin [Ecotrin] 81 mg PO DAILY 05/16/16 08/25/16 History Carvedilol [Coreg] 0.5 tablet PO BID 05/16/16 08/25/16 History Folic Acid Tab 1 mg PO DAILY 05/16/16 08/25/16 History Mycophenolate Mofetil Cap 3 tablet PO Q12H 05/16/16 08/25/16 History [Cellcept] Pantoprazole Tab [Protonix Tab] 40 mg PO BID 05/16/16 08/25/16 History Tacrolimus [Tacrolimus Cap] 4 tablet PO Q12H 05/16/16 08/25/16 History predniSONE TAB [PredniSONE] 10 mg PO DAILY 05/16/16 08/25/16 History amLODIPine [Norvasc] 10 mg PO DAILY 06/01/16 08/25/16 History Allopurinol 100 mg PO DAILY 08/25/16 08/25/16 History HYDROcodone/ACETAMIN 10-325 [Sharon 1 tablet PO Q4H PRN 08/25/16 08/25/16 History 10-325] Magnesium Oxide [Magnesium] 500 mg PO DAILY 08/25/16 08/25/16 History Metoclopramide Liquid [Reglan 5 ml PO BID 08/25/16 08/25/16 History Liquid] Allergies/Adverse Reactions: Allergies Allergy/AdvReac Type Severity Reaction Status Date / Time No Known Allergies Allergy Verified 08/11/16 22:05 ROS unobtainable: due to mental status (poor historian and confused) - EENT Eyes: Present: other (previous retinal tear) Medical,Surgical,& Family Hx - Medical History Cardio: History of: Hypertension HEENT: History of: Eye Problem (previous retinal tear RIGHT) Rheumatology: History of;: Gout Renal: History of: Renal Failure, Renal Problems (Kidney transplant - 09/15) Gastrointestinal: History of: GERD, Gastrointestinal Bleed Hematology: History of: Anemia - Surgical History Cardiac Surgeries: Sugical HX of: Cardiac Catheterization (negative, done in 2008) Thoracic Surgeries: Surgical HX of;: Kidney (Renal Surgery) (transplant 2013), Organ Transplant (KIDNEY) HEENT Surgeries: Surgical HX of: Tonsilectomy & Adenoidectomy Abdominal Surgeries: Surgical HX of: Abdominal Surgery (PD catheter placed and removed (Removed 2013)), Cholecystectomy, EGD - Family History Family History: Reports;: Family Diabetes (MOM AND BROTHER), Family Hypertension (MOM AND BROTHER) - Social History Smoking Status: Former smoker Frequency of Alcohol Use: None Type of Drug Use: None Physical Examination Vital Signs Temp Pulse Resp BP Pulse Ox 96.5 F L 100 H 26 H 109/74 95 08/25/16 15:42 08/25/16 15:42 08/25/16 15:42 08/25/16 15:42 08/25/16 15:42 General: Present: Appears Well, No Apparent Distress HEENT: Present: Mucus Membranes Moist. Absent: Jaundice, Sinus Tenderness Neck: Present: Supple Neck, Midline Trachea, No JVD/HJR, No Masses Cardiac: Present: Reg Rate and Rhythm, No Murmur, Tachycardia Lungs: Present: Normal Breath Sounds, Oxygen (via NBP), No Wheeze, Rales, Rhonchi Neuro: Absent: Weakness, Essential Tremor Abdomen: Present: Soft, Active Bowel Sounds, No Masses, Non-Tender. Absent: Distended Skin: Present: Clear Musculoskeletal: Present: Pain in Joint (left foot), No Fluid Collection Extremities: Present: No Edema, Normal Upper Extr. Pulses, Normal Lower Extr. Pulses. Absent: Ulceration Noted, Cool Result/EKG - Labs CBC & BMP: 08/26/16 04:30 08/26/16 04:31 Lab Results: I have reviewed the past 24 hour labs Labs: Laboratory Results - last 24 hr 08/25/16 08/26/16 08/26/16 21:30 04:30 04:31 WBC 12.9 RBC 4.00 Hgb 9.5 L Hct 30.3 L MCV 75.8 L MCH 24 L MCHC 31.4 L RDW 14.1 Plt Count 383 MPV 10.8 Neut % (Auto) 73.6 Lymph % (Auto) 4.3 L Patrick % (Auto) 10.4 Eos % (Auto) 0.0 Baso % (Auto) 0.2 Neut # (Auto) 9.5 H Lymph # (Auto) 0.6 L Patrick # (Auto) 1.3 H Eos # (Auto) 0.0 Baso # (Auto) 0.0 Total Counted 100 Immature Gran % 11.5 Nucleated RBC % 0.0 Immature Gran # 1.49 Segmented Neutrophils 85 Band Neutrophils 2 Lymphocytes 4 L Monocytes 9 Nucleated RBCs # 0.00 Platelet Estimate Adequate Hypochromasia Slight Microcytosis 1+ Latesha Cells Slight Elliptocytes Few Morphology Comment Sodium 144 Potassium 5.5 H 4.6 Chloride 111 H Carbon Dioxide 20 L Anion Gap 17.6 H BUN 74 H Creatinine 3.40 H GFR Calculation 26 BUN/Creatinine Ratio 21.00 H Glucose 123 H Calculated Osmolality 308.8 H Calcium 8.9 Magnesium 1.9 Total Bilirubin 0.80 AST 22 ALT 17 Alkaline Phosphatase 128 H Total Creatine Kinase CK-MB (CK-2) Troponin I Total Protein 5.0 L Albumin 1.7 L Globulin 3.3 Albumin/Globulin Ratio 0.5 L Urine Color Urine Appearance Urine pH Ur Specific Newton Urine Protein Urine Glucose (UA) Urine Ketones Urine Blood Urine Nitrate Urine Bilirubin Urine Urobilinogen Urine Leukocytes Urine WBC Amorphous Crystals Urine Mucus Ur Culture Indicated? 08/26/16 08/26/16 06:42 08:37 WBC RBC Hgb Hct MCV MCH MCHC RDW Plt Count MPV Neut % (Auto) Lymph % (Auto) Patrick % (Auto) Eos % (Auto) Baso % (Auto) Neut # (Auto) Lymph # (Auto) Patrick # (Auto) Eos # (Auto) Baso # (Auto) Total Counted Immature Gran % Nucleated RBC % Immature Gran # Segmented Neutrophils Band Neutrophils Lymphocytes Monocytes Nucleated RBCs # Platelet Estimate Hypochromasia Microcytosis Latesha Cells Elliptocytes Morphology Comment Sodium Potassium Chloride Carbon Dioxide Anion Gap BUN Creatinine GFR Calculation BUN/Creatinine Ratio Glucose Calculated Osmolality Calcium Magnesium Total Bilirubin AST ALT Alkaline Phosphatase Total Creatine Kinase 30 L CK-MB (CK-2) < 1.0 Troponin I < 0.015 Total Protein Albumin Globulin Albumin/Globulin Ratio Urine Color Yellow Urine Appearance Clear Urine pH 6.0 Ur Specific Newton 1.013 Urine Protein Negative Urine Glucose (UA) Negative Urine Ketones Negative Urine Blood Negative Urine Nitrate Negative Urine Bilirubin Negative Urine Urobilinogen < 2.0 H Urine Leukocytes Negative Urine WBC <1 Amorphous Crystals Occasional Urine Mucus Occasional Ur Culture Indicated? Not indicated - EKG EKG results: interpreted by me EKG shows: tachycardia, sinus rhythm I, Nazanin Fisher MD, personally performed the services described in this documentation, ascribed by Kristine Chirinos RN in my presence, and it is both accurate and complete .
[2016-08-26] MEDS ORDERED: ENOXAPARIN 30 MG/0.3 ML SYRINGE SUBCUT SCH (21:00)
[2016-08-26] MEDS: MORPHINE 2 MG/1 ML SYRINGE IV PRN (21:12)
--- NOTE | 2016-08-26 21:45 | ECHO Report ---
Young Mcmanus 08/26/2016 Exam Date: 10:40 Referring Physician: Mara Osorio Technologist: VALERIO Age: 50 Ht (in): Wt (lb): MExam Location: [facility] Gender: Echo [id number]: Acute kidney failure, unspecified, Indications:hx kidney transplant, Weakness, Chronic fatigue, unspecified, Altered mental status, Chest pain, unspecified, Abnormal electrocardiogram [ECG] [EKG], Hyperkalemia, Hypotension BP: / HR: SinusRhythm: PoorTechnical Quality: IMPRESSIONS Normal LV systolic function, ejection fraction 60%. Grade 1/4 diastolic dysfunction. Mild concentric left ventricular hypertrophy. Mild tricuspid and pulmonic regurgitation. Pulmonary hypertension with pulmonary artery pressure estimated at 46 mmHg. MEASUREMENTS (Male / Female) Normal Values 2D ECHO LV Diastolic Diameter PLAX 3.7 cm 4.2 - 5.9 / 3.9 - 5.3 cm LV Systolic Diameter PLAX 2.4 cm LV Fractional Shortening PLAX 35.3 % IVS Diastolic Thickness 1.3 cm 0.6 - 1.0 / 0.6 - 0.9 cm LVPW Diastolic Thickness 1.3 cm 0.6 - 1.0 / 0.6 - 0.9 cm RV Internal Dim ED PLAX 2.9 cm Aortic Root Diameter 3.1 cm LA Systolic Diameter LX 3.6 cm 3.0 - 4.0 / 2.7 - 3.8 cm DOPPLER TR Peak Velocity 300.0 cm/s TR Peak Gradient 36.0 mmHg FINDINGS Left Ventricle Normal left ventricular cavity size. Mild left ventricular hypertrophy. Left ventricular ejection fraction is estimated at 60 %. Right Ventricle The right ventricle is normal in size and function. Right Atrium Normal size. Left Atrium Normal size. Mitral Valve Morphologically normal mitral valve without significant stenosis or prolapse. There is no mitral regurgitation. Aortic Valve Morphologically normal aortic valve without significant sclerosis or stenosis. There is no aortic regurgitation. Tricuspid Valve Morphologically normal tricuspid valve. Trace to mild tricuspid valve regurgitation. Tricuspid regurgitation velocities suggest a PAP of 46 mmHg. Pulmonic Valve Morphologically normal pulmonic valve. Mild pulmonary valve regurgitation. Pericardium Normal pericardium without effusion. Aorta Normal ascending aorta dimension. Nazanin Fisher MD (Electronically Signed) 26 August 2016 Final Date: 21:44
[2016-08-27] MEDS: MORPHINE 2 MG/1 ML SYRINGE IV PRN ×2 (01:24→19:40)
[2016-08-27] MEDS: SODIUM CHLORIDE 0.9% 1,000 ML IV SCH ×3 (03:59→23:32)
[2016-08-27 05:27] LABS: Basophils % 0.1 % (0.0-0.8); Hematocrit 30.6 VOL% (42.0-52.0); Hemoglobin 9.6 GM/DL (14.0-18.0); Immature Granulocytes % 8.8 %; Immature Granulocytes Absolute 1.68 #; Lymphocytes # 0.5 10*3/uL (1.4-4.0); Lymphocytes % 2.7 % (21.2-54.2); Mean Corpuscular HGB Conc 31.4 GM/DL (32-36); Mean Corpuscular Hemoglobin 24 PG (27-34); Mean Corpuscular Volume 76.1 FL (87-102); Mean Platelet Volume 11.6 FL (9.6-12.0); Monocytes # 1.3 10*3/uL (0.11-0.8); Monocytes % 6.9 % (1.7-12.7); Neutrophils # 15.5 10*3/uL (1.4-7.4); Neutrophils % 81.5 % (38.7-73.9); Platelet Count 371 10*3/uL (130-400); Red Blood Count 4.02 10*6/uL (3.8-5.5); Red Cell Distribution Width 14.1 % (9.3-17.3)
[2016-08-27 05:59] LABS: Band Neutrophils 6 % (0-10); Lymphocytes 6 % (20-55); Segmented Neutrophils 83 % (50-85); Total Cells Counted 100
[2016-08-27 06:00] LABS: Anisocytosis 1+; Platelet Estimate Normal
[2016-08-27 06:03] LABS: Calcium 9.1 MG/DL (8.5-10.1); Magnesium 1.8 MG/DL (1.8-2.4); Osmolality,Calculated 299.1 MOS/KG (273-304); Potassium 5.1 MMOL/L (3.5-5.1)
[2016-08-27] MEDS: NITROGLYCERIN 2% OINT 1 INCH/GM PACK TOP SCH ×4 (06:15→23:29)
[2016-08-27] MEDS ORDERED: PROMETHAZINE 25 MG/1 ML VIAL IM ONE (08:00)
[2016-08-27] MEDS ORDERED: GLYCOPYRROLATE 0.4 MG/2 ML VIAL IM ONE (08:00)
[2016-08-27] MEDS ORDERED: MEPERIDINE 50 MG/1 ML VIAL IM ONE (08:00)
[2016-08-27] MEDS ORDERED: LIDOCAINE 2% VISCOUS 100 ML BOTTLE SWISH/SPIT ONE (08:30)
[2016-08-27] MEDS ORDERED: LIDOCAINE 1% 20 ML VIAL MISC INJ ONE (08:30)
[2016-08-27] MEDS ORDERED: LIDOCAINE 4% TOP SOLN 50 ML BOTTLE RESP TX ONE (08:30)
[2016-08-27] MEDS ORDERED: MIDAZOLAM 2 MG/2 ML VIAL IV ONE (08:30)
[2016-08-27] MEDS: amLODIPine 10 MG TABLET PO SCH (09:00)
--- NOTE | 2016-08-27 09:06 | Pulmonology Progress Note ---
Pulmonary - PN: Subj Interval history: Patient is a 50-year-old black man that came in with some confusion and atypical chest pain and maybe some shortness of breath. He has had a previous renal transplant and is on immunosuppressive therapy. He came in complaining of gout in his left foot. He was found to have reticular nodular infiltrates throughout his lungs. He had never has had abdominal lung problems. He is felt to have a metabolic encephalopathy. He has had a low-grade fever. We will proceed with a bronchoscopy and trying to get transbronchial biopsies. Exam (Progress Note) - Constitutional Vitals: Period Temp Pulse Resp BP Sys/Stewart Pulse Ox Last 24 Hr 97.6 F-99.6 F 105-128 15-32 97-130/59-74 87-97 Exam: General appearance: mild distress, under weight, other (patient is still confused and does look ill. ) - Head Head exam: Present: normal inspection, normocephalic - Eye Eye exam: Present: EOMI. Absent: scleral icterus Pupils: Present: SELVIN - ENT ENT exam: Present: other (unable to see his hypopharynx) - Neck Neck exam: Present: tenderness. Absent: lymphadenopathy, thyromegaly - Respiratory Respiratory exam: Present: rales, rhonchi, other (patient has fairly good breath sounds bilaterally). Absent: accessory muscle use - Cardiovascular Cardiovascular exam: Present: regular rate and rhythm. Absent: gallop, systolic murmur - GI/Abdominal GI/Abdominal exam: Present: soft. Absent: distended, organomegaly, tenderness - Extremities Exam Extremities exam: Present: other (left ankle and foot is not red or swollen, he still has a lot of soreness.). Absent: calf tenderness, edema - Neurological Exam Neurological exam: Present: altered (patient is quite confused) - Psychiatric Psychiatric exam: Absent: agitated, anxious - Skin Skin exam: Present: warm, dry Results - Labs CBC & BMP: 08/27/16 03:40 08/27/16 03:40 Assessment and Plan (1) Reticulonodular infiltrate present on imaging of chest Status: Acute Assessment and plan: The patient has worsening reticular nodular infiltrates that were not present a few weeks ago. There was a lung density present a few weeks ago. He is somewhat immunosuppressed. We'll go ahead with bronchoscopy and transbronchial biopsies. Current Visit: Yes (2) Kidney transplant recipient Status: Chronic Assessment and plan: The patient is on immunosuppressive therapy. His creatinine is down to 3.0 today. Current Visit: No (3) Altered mental status Status: Acute Assessment and plan: The patient is quite confused. Neurology feels like he has an encephalopathy. Current Visit: Yes Qualifiers: Altered mental status type: delirium Qualified Code(s): R41.0 - Disorientation, unspecified (4) Left ankle pain Status: Acute Assessment and plan: Patient says he has gout. His uric acid level is 6.4. Current Visit: Yes (5) ARF (acute renal failure) Status: Acute Assessment and plan: He does have worsening renal insufficiency. He is getting some IV fluids. His creatinine is a little better at 3.0. Current Visit: Yes
--- NOTE | 2016-08-27 09:10 | Operative Note ---
Date of procedure: 08/27/16 Pre-op diagnosis: bilateral reticulonodular infiltrates Post-op diagnosis: same Procedure: The patient is a 50-year-old black man that has had a renal transplant and is on immunosuppressive therapy. Now he has diffuse reticular nodular infiltrates. A bronchoscopy is done to try to obtain a tissue diagnosis. The patient was taken to the bronchoscopy lab and a timeout was done. Demerol 50 mg, Phenergan 25 mg, Robinul 0.1 mg IM was used for preop. Versed 2 mg IV push and topical lidocaine was used for anesthesia. Procedure: The fiberoptic bronchoscope was passed transnasally through the vocal cords into the lungs. The bronchopulmonary symptoms were identified and specimens obtained. Findings: The vocal cords trachea and luz are all unremarkable. The right upper lobe, right middle lobe, right lower lobe were open. The left upper lobe , lingula, and left lower lobe were open. There are no endobronchial lesions seen. Under fluoroscopy, washings, brushings, and transbronchial biopsies were taken in the left lower lobe and lingula. Multiple biopsies were obtained in the areas of infiltrate. The patient coughs on but otherwise tolerated it well. Impression: Diffuse reticular nodular infiltrates of uncertain etiology. Plan: We will await biopsies and cultures to decide further investigation. Anesthesia: conscious sedation Surgeon / Physician: Ramon Neri Estimated blood loss: none Specimens: other (washings, brushings, and transbronchial biopsies were sent for culture, histology, and cytology.) Condition: stable Disposition: floor Results - Labs CBC & BMP: 08/27/16 03:40 08/27/16 03:40 Discharge Plan - Discharge Medications No Action Carvedilol [Coreg] 0.5 tablet PO BID Tacrolimus [Tacrolimus Cap] 4 tablet PO Q12H predniSONE TAB [PredniSONE] 10 mg PO DAILY Folic Acid Tab 1 mg PO DAILY Aspirin [Ecotrin] 81 mg PO DAILY Mycophenolate Mofetil Cap [Cellcept] 3 tablet PO Q12H Pantoprazole Tab [Protonix Tab] 40 mg PO BID amLODIPine [Norvasc] 10 mg PO DAILY HYDROcodone/ACETAMIN 10-325 [[place] 10-325] 1 tablet PO Q4H PRN PRN Reason: Pain Allopurinol 100 mg PO DAILY Magnesium Oxide [Magnesium] 500 mg PO DAILY Metoclopramide Liquid [Reglan Liquid] 5 ml PO BID - Follow Up or Referral - Forms/Instructions
[2016-08-27] MEDS ORDERED: MIDAZOLAM 2 MG/2 ML VIAL ONE (09:50)
[2016-08-27] MEDS: AZITHROMYCIN INJ 500 MG in SODIUM CHLORIDE 0.9% 250 ML IV SCH (11:32)
--- NOTE | 2016-08-27 13:32 | XRay Report ---
History is post-bronchoscopy Comparison 08/26/2016 Mediastinal contours grossly unchanged Again seen are extensive diffuse bilateral miliary opacities and some additional groundglass opacities. Apparent interval worsening could be related to diffuse edema, worsening of infiltrate or artifactual related to technical differences No pneumothorax or more focal consolidation is seen Impression: No pneumothorax seen. See above PROCEDURE INTERPRETED AT [facility] DEPARTMENT OF RADIOLOGY Final Report Signed by: Dr. Amanda Francis
--- NOTE | 2016-08-27 13:45 | Hospitalist Progress Note ---
Assessment and Plan (1) Reticulonodular infiltrate present on imaging of chest Status: Acute Assessment and plan: The patient has reticulonodular infiltrate on chest x-ray which was consistent with opportunistic infection. Dr. Neri provider bronchoscopy today. The patient shows some gram-positive cocci and fungal elements on Gram stain. I'm going to change azithromycin to reduce risk of interaction with his immunosuppressant medications. I'm going to start on cefepime and Diflucan. Current Visit: Yes (2) Kidney transplant recipient Status: Chronic Current Visit: No (3) Altered mental status Status: Acute Current Visit: Yes Qualifiers: Altered mental status type: delirium Qualified Code(s): R41.0 - Disorientation, unspecified (4) Left ankle pain Status: Acute Current Visit: Yes Hospitalist: Subjective Interval history: Mr. Mcmanus is resting quietly in bed today. He had bronchoscopy this morning. The patient has improving mental status. The patient is tolerating nasal prongs oxygen with O2 sat about 90%. Exam - Constitutional Vitals: Period Temp Pulse Resp BP Sys/Stewart Pulse Ox Last 24 Hr 97.6 F-99.6 F 106-128 10-34 90-130/59-74 87-95 Exam: Constitutional System: Mild distress on account of tachycardia and no diaphoresis today. No tremulousness. Head: Normocephalic, atraumatic. There is moderate bitemporal wasting Ears, Nose and Throat System: No evidence of Otitis or Mastoiditis. No epistaxis or discharge Eyes System: Pupils equal, round, and reactive. Extraocular muscles intact. Neck: Supple, without adenopathy, No jugular venous distention. No thyromegaly , neck mass, or prior surgery apparent. Respiratory System: Chest clear to auscultation. Cardiovascular System: Heart with regular rate and rhythm. No murmur. GI System: Abdomen soft, nontender. Normoactive bowel sounds present. Musculoskeletal System: limbs with no pedal edema. Very tender left ankle but less than yesterday Neurological System: No discernable sensory deficit. No aphasia Psychiatric System: Conversation is perseverant and confused Results - Labs CBC & BMP: 08/27/16 03:40 08/27/16 03:40 Lab Results: I have reviewed the past 24 hour labs
--- NOTE | 2016-08-27 13:55 | Nephrology Progress Note ---
Nephrology - PN: Subj Interval history: Mr. Mcmanus is seen in follow-up of his kidney transplant. His creatinine is down to 3.0 from 3.4. He underwent bronchoscopy today to evaluate the pulmonary infiltrates for any evidence of opportunistic infection. He complains still of his left foot being quite painful. His white count today was 19,000 His affect is still abnormal and he whispers and perseverates when answering questions. He does not have any edema in his chest is clear. He is having a cough but does not have any sputum production. Plan is to continue with some maintenance IV fluids. He seems to be eating poorly. Exam (PN)-Nephrology - Vital Signs Vital signs: Period Temp Pulse Resp BP Sys/Stewart Pulse Ox Last 24 Hr 97.6 F-99.6 F 106-128 10-34 90-130/59-74 87-95 - Lab 08/27/16 03:40 08/27/16 03:40 Most recent lab results Calcium 9.1 MG/DL (8.5-10.1) 08/27/16 03:40 Magnesium 1.8 MG/DL (1.8-2.4) 08/27/16 03:40 Assessment and Plan (1) Kidney transplant recipient Status: Chronic Current Visit: No (2) Chronic kidney disease, stage III (moderate) Status: Chronic Current Visit: Yes (3) Left ankle pain Status: Acute Current Visit: Yes
[2016-08-27] MEDS: ASPIRIN EC 81 MG TABLET PO SCH (13:56)
[2016-08-27] MEDS: FOLIC ACID 1 MG TABLET PO SCH (13:56)
[2016-08-27] MEDS: predniSONE 10 MG TABLET PO SCH (13:56)
[2016-08-27] MEDS: PANTOPRAZOLE 40 MG TABLET PO SCH (13:57)
[2016-08-27] MEDS: CARVEDILOL 12.5 MG TABLET PO SCH ×2 (13:58→20:43)
[2016-08-27] MEDS ORDERED: FLUCONAZOLE INJ 200 MG in PREMIX 1 EACH IV SCH (14:00)
[2016-08-27] MEDS: TACROLIMUS 0.5 MG CAPSULE PO SCH ×2 (14:03→20:43)
[2016-08-27] MEDS: MYCOPHENOLATE MOFETIL 250 MG CAPSULE PO SCH ×2 (14:04→20:43)
[2016-08-27] MEDS: METOCLOPRAMIDE 10 MG/10 ML UDCUP PO SCH ×2 (14:12→20:43)
[2016-08-27] MEDS ORDERED: CEFEPIME 1,000 MG in SODIUM CHLORIDE 0.9% 100 ML IV SCH (15:00)
--- NOTE | 2016-08-27 15:19 | Neurology Progress Note ---
Neurology - PN : Subjective Interval history: Patient seems to doing very poorly. He is lethargic and mumbling. Head CT in the past which was unremarkable. Exam (Progress Note) - Constitutional Vitals: Period Temp Pulse Resp BP Sys/Stewart Pulse Ox Last 24 Hr 97.6 F-99.6 F 106-128 10-34 90-130/59-74 87-95 Exam: GENERAL: Patient is in no acute distress. NECK: Neck is supple. There is no JVD. No carotid bruits present. No thyroid masses. CVS: First and second heart sounds are normal. There is no S3 present. Regular rate and rhythm. RESPIRATORY: Lungs are clear to auscultation without any rales or rhonchi. ABDOMEN: Soft and non-tender. Bowel sounds are present. There is no hepatosplenomegaly. EXT: There is no palpable edema. Peripheral pulses are present. Skin: No rashes Central Nervous system: General: Sleepy but arousable. Speech: Mumbling and very dysarthric type speech. Comprehension: Impaired Facial expressions: Normal Cranial Nerves: Pupils are equally reactive to light. Doll's head eye movements are positive. No facial asymmetry seen. Usually estrada are equal. Tongue is midline. Motor: Bulk and Tone is normal. Strength cannot be assessed Sensory: Cannot be assessed Reflexes: 1+ and symmetrical Cerebellar function: Cannot be assessed Gait: Not Tested this time Results - Labs CBC & BMP: 08/27/16 03:40 08/27/16 03:40 Assessment and Plan (1) Altered mental status Status: Acute Assessment and plan: This is likely due to metabolic encephalopathy. Patient mental status progressively getting worse. Repeat CT head without contrast followed by possible lumbar puncture. Stop cefepime Start Rocephin 2 g IV every 12 Ampicillin 2 g IV every 6 Hold off to acyclovir continue to get a spinal tap done Hold Lovenox for LP Current Visit: Yes Qualifiers: Altered mental status type: delirium Qualified Code(s): R41.0 - Disorientation, unspecified
--- NOTE | 2016-08-27 15:55 | CT Report ---
Exam: CT scan of brain without contrast Date: 08/27/2016 Indication: Confusion Comparison: 08/25/2016 Patient's classification: Emergency department Technical: Images were obtained from the skull base to the vertex without the use of intravenous contrast. Dose reduction was performed with decreasing kv and mA and automated exposure Total DLP: 1103.6 mGy*cm Findings: The brainstem, cerebellum and cerebral hemispheres are intact. The paranasal sinuses are unremarkable. Mastoids are intact. Faint visualization of the polyp described on previous examination the right maxillary antrum. The ventricles are located in normal position without midline shift or mass effect. The globes and sella are intact. Calcification of the falx cerebri present. The calvarium is unremarkable. Impression: 1. Small polyp in the right maxillary antrum faintly seen 2. No acute hemorrhage infarction or mass effect If additional imaging is warranted MRI is recommended without and with gadolinium enhancement PROCEDURE INTERPRETED AT [facility] DEPARTMENT OF RADIOLOGY Final Report Signed by: Dr. Lawrence Colón
[2016-08-27] MEDS: AMPICILLIN INJ 2,000 MG in SODIUM CHLORIDE 0.9% 100 ML IV SCH ×2 (17:48→20:41)
--- NOTE | 2016-08-27 18:02 | Cardiology Progress Note ---
Taran Olvera April RN, am scribing for, and in the presence of, Nazanin Fisher MD 18:02. Assessment and Plan (1) Abnormal EKG Status: Acute Assessment and plan: The patient does not have an acute coronary syndrome, and overall the initial ECG had some baseline artifact leading to misinterpretation. His echocardiogram is unremarkable. He does not appear to have any acute cardiac issues. We will sign off. Please feel free to call should any dynamic or acute cardiac issues arise. Current Visit: Yes (2) Altered mental status Status: Acute Current Visit: Yes Qualifiers: Altered mental status type: delirium Qualified Code(s): R41.0 - Disorientation, unspecified (3) Kidney transplant recipient Status: Chronic Current Visit: No Cardiology - PN: Subj Interval history: Patient is still very drowsy from his bronchoscopy this morning. Oxygen in use via mask, O2 sat 91%. Troponins have been negative. Exam (Progress Note) - Constitutional Vitals: Period Temp Pulse Resp BP Sys/Stewart Pulse Ox Last 24 Hr 97.6 F-99.6 F 105-128 10-34 90-130/59-74 87-97 General appearance: normal weight, no acute distress - Head Head exam: Absent: abrasion, hematoma - Eye Eye exam: Absent: periorbital swelling, laceration to eyelids - ENT ENT exam: Present: normal exam, normal external ear exam - Neck Neck exam: Present: normal inspection. Absent: tenderness - Respiratory Respiratory exam: Present: clear to auscultation bilaterally, other (oxygen via mask). Absent: accessory muscle use, chest wall tenderness, rhonchi, wheezes - Cardiovascular Cardiovascular exam: Present: regular rate and rhythm. Absent: bradycardia, tachycardia - GI/Abdominal GI/Abdominal exam: Present: normal bowel sounds, soft. Absent: distended, mass , tenderness - Extremities Exam Extremities exam: Present: other (gout to left foot, he moans when that foot is touched). Absent: calf tenderness, edema - Back Exam Back exam: Absent: muscle spasm, vertebral tenderness - Neurological Exam Neurological exam: Present: other (still drowsy from procedure this morning). Absent: alert - Skin Skin exam: Present: warm, dry. Absent: abrasion, rash Result/EKG - Labs CBC & BMP: 08/27/16 03:40 08/27/16 03:40 Lab Results: I have reviewed the past 24 hour labs Labs: Laboratory Results - last 24 hr 08/26/16 08/26/16 08/27/16 12:05 15:14 03:40 WBC 19.0 H D RBC 4.02 Hgb 9.6 L Hct 30.6 L MCV 76.1 L MCH 24 L MCHC 31.4 L RDW 14.1 Plt Count 371 MPV 11.6 Neut % (Auto) 81.5 H Lymph % (Auto) 2.7 L Twiggs % (Auto) 6.9 Eos % (Auto) 0.0 Baso % (Auto) 0.1 Neut # (Auto) 15.5 H Lymph # (Auto) 0.5 L [place] # (Auto) 1.3 H Eos # (Auto) 0.0 Baso # (Auto) 0.0 Total Counted 100 Immature Gran % 8.8 Nucleated RBC % 0.0 Immature Gran # 1.68 Segmented Neutrophils 83 Band Neutrophils 6 Lymphocytes 6 L Monocytes 5 Nucleated RBCs # 0.00 Platelet Estimate Normal Anisocytosis 1+ Sodium Potassium Chloride Carbon Dioxide Anion Gap BUN Creatinine GFR Calculation BUN/Creatinine Ratio Glucose Calculated Osmolality Calcium Magnesium Total Creatine Kinase 23 L D 22 L CK-MB (CK-2) < 1.0 < 1.0 Troponin I < 0.015 < 0.015 08/27/16 03:40 WBC RBC Hgb Hct MCV MCH MCHC RDW Plt Count MPV Neut % (Auto) Lymph % (Auto) Twiggs % (Auto) Eos % (Auto) Baso % (Auto) Neut # (Auto) Lymph # (Auto) Twiggs # (Auto) Eos # (Auto) Baso # (Auto) Total Counted Immature Gran % Nucleated RBC % Immature Gran # Segmented Neutrophils Band Neutrophils Lymphocytes Monocytes Nucleated RBCs # Platelet Estimate Anisocytosis Sodium 142 Potassium 5.1 Chloride 109 H Carbon Dioxide 19 L Anion Gap 19.1 H BUN 63 H D Creatinine 3.00 H GFR Calculation 30 BUN/Creatinine Ratio 21.00 H Glucose 85 Calculated Osmolality 299.1 Calcium 9.1 Magnesium 1.8 Total Creatine Kinase CK-MB (CK-2) Troponin I - EKG EKG results: interpreted by me EKG shows: sinus rhythm I, Nazanin Fisher MD, personally performed the services described in this documentation, ascribed by Kristine Chirinos RN in my presence, and it is both accurate and complete 802 .
[2016-08-27] MEDS: cefTRIAXone 2,000 MG in SODIUM CHLORIDE 0.9% 100 ML IV SCH (18:38)
[2016-08-28] MEDS: AMPICILLIN INJ 2,000 MG in SODIUM CHLORIDE 0.9% 100 ML IV SCH ×4 (03:29→23:40)
[2016-08-28] MEDS: cefTRIAXone 2,000 MG in SODIUM CHLORIDE 0.9% 100 ML IV SCH ×2 (04:06→17:10)
[2016-08-28] MEDS: MORPHINE 2 MG/1 ML SYRINGE IV PRN (05:21)
[2016-08-28 05:42] LABS: Basophils % 0.1 % (0.0-0.8); Hematocrit 30.6 VOL% (42.0-52.0); Hemoglobin 9.5 GM/DL (14.0-18.0); Immature Granulocytes % 3.1 %; Immature Granulocytes Absolute 0.53 #; Lymphocytes # 0.3 10*3/uL (1.4-4.0); Lymphocytes % 1.7 % (21.2-54.2); Mean Corpuscular Hemoglobin 24 PG (27-34); Mean Corpuscular Volume 78.3 FL (87-102); Mean Platelet Volume 11.5 FL (9.6-12.0); Monocytes # 0.2 10*3/uL (0.11-0.8); Monocytes % 1.4 % (1.7-12.7); Neutrophils # 15.8 10*3/uL (1.4-7.4); Neutrophils % 93.7 % (38.7-73.9); Platelet Count 330 10*3/uL (130-400); Red Blood Count 3.91 10*6/uL (3.8-5.5); Red Cell Distribution Width 14.5 % (9.3-17.3); White Blood Count 16.8 10*3/uL (4.5-13.71)
[2016-08-28] MEDS: NITROGLYCERIN 2% OINT 1 INCH/GM PACK TOP SCH ×3 (05:49→18:34)
[2016-08-28 06:05] LABS: Band Neutrophils 12 % (0-10); Burr Cells Slight; Elliptocytes Few; Hypochromasia Slight; Lymphocytes 2 % (20-55); Platelet Estimate Adequate; Segmented Neutrophils 83 % (50-85); Total Cells Counted 100
[2016-08-28 06:06] LABS: Microcytosis 1+
[2016-08-28 06:10] LABS: Magnesium 1.8 MG/DL (1.8-2.4); Osmolality,Calculated 308.4 MOS/KG (273-304); Potassium 5.2 MMOL/L (3.5-5.1)
[2016-08-28 08:39] LABS: ABG Base Excess -7.3 MMOL/L (-2.5-2.5); ABG HCO3 18.4 MMOL/L (20-26); ABG Oxygen Saturation 88.3 % (95-100); ABG PCO2 32.8 MM HG (35-48); ABG PH 7.339 (7.35-7.45); ABG PO2 62.3 MM HG (80-95); ABG TCO2 16.3 MMOL/L (23-27)
[2016-08-28 09:11] LABS: Basophils % 0.1 % (0.0-0.8); Hematocrit 30.5 VOL% (42.0-52.0); Hemoglobin 9.3 GM/DL (14.0-18.0); Immature Granulocytes % 3.5 %; Lymphocytes # 0.2 10*3/uL (1.4-4.0); Lymphocytes % 1.3 % (21.2-54.2); Mean Corpuscular HGB Conc 30.5 GM/DL (32-36); Mean Corpuscular Hemoglobin 24 PG (27-34); Mean Corpuscular Volume 78.8 FL (87-102); Mean Platelet Volume 11.4 FL (9.6-12.0); Monocytes # 0.4 10*3/uL (0.11-0.8); Monocytes % 2.2 % (1.7-12.7); Neutrophils # 16.1 10*3/uL (1.4-7.4); Neutrophils % 92.9 % (38.7-73.9); Platelet Count 324 10*3/uL (130-400); Red Blood Count 3.87 10*6/uL (3.8-5.5); Red Cell Distribution Width 14.5 % (9.3-17.3); White Blood Count 17.3 10*3/uL (4.5-13.71)
[2016-08-28 09:11] LABS: Calcium 8.7 MG/DL (8.5-10.1); Osmolality,Calculated 308.4 MOS/KG (273-304); Potassium 4.8 MMOL/L (3.5-5.1)
--- NOTE | 2016-08-28 09:12 | Pulmonology Progress Note ---
Pulmonary - PN: Subj Interval history: Patient is a 50-year-old black man that came in with some confusion and atypical chest pain and maybe some shortness of breath. He has had a previous renal transplant and is on immunosuppressive therapy. He came in complaining of gout in his left foot. He was found to have reticular nodular infiltrates throughout his lungs. This is been fairly rapidly progressing in the infiltrates are worsening. He is more hypoxemic today and is been moved to the ICU. The transbronchial biopsies show marked inflammation but are being sent to a reference center. So far there were no signs of cancer or granulomas. His AFB smears are been negative so far. He is on a nonrebreather now and seems to be relatively comfortable. Exam (Progress Note) - Constitutional Vitals: Period Temp Pulse Resp BP Sys/Stewart Pulse Ox Last 24 Hr 96.7 F-100.5 F 95-128 12-44 90-134/62-79 89-94 Exam: General appearance: marked distress, under weight, other (patient is tachypneic and confused and very weak. ) - Head Head exam: Present: normal inspection, normocephalic - Eye Eye exam: Present: EOMI. Absent: scleral icterus Pupils: Present: SELVIN - ENT ENT exam: Present: other (unable to see his hypopharynx) - Neck Neck exam: Present: tenderness. Absent: lymphadenopathy, thyromegaly - Respiratory Respiratory exam: Present: Patient is tachypneic and has bilateral rales. - Cardiovascular Cardiovascular exam: Present: regular rate and rhythm. Absent: gallop, systolic murmur - GI/Abdominal GI/Abdominal exam: Present: soft. Absent: distended, organomegaly, tenderness - Extremities Exam Extremities exam: Present: other (left ankle and foot is not red or swollen, he still has a lot of soreness.). Absent: calf tenderness, edema - Neurological Exam Neurological exam: Present: altered (patient is quite confused) - Psychiatric Psychiatric exam: Absent: agitated, anxious - Skin Skin exam: Present: warm, dry Results - Labs CBC & BMP: 08/28/16 04:36 08/28/16 04:36 - Diagnostic Findings Procedure: Chest x-ray: image reviewed by me, report reviewed by me (chest x- ray shows worsening bilateral reticular nodular infiltrates.) Assessment and Plan (1) Reticulonodular infiltrate present on imaging of chest Status: Acute Assessment and plan: The patient has worsening reticular nodular infiltrates that were not present a few weeks ago. There was a lung density present a few weeks ago. He is somewhat immunosuppressed. The biopsies are pending. We'll increase his steroids and cover for pneumocystis. Current Visit: Yes (2) Kidney transplant recipient Status: Chronic Assessment and plan: The patient is on immunosuppressive therapy. His creatinine is down to 3.1 today. Current Visit: No (3) Altered mental status Status: Acute Assessment and plan: The patient is quite confused. Neurology feels like he has an encephalopathy. Current Visit: Yes Qualifiers: Altered mental status type: delirium Qualified Code(s): R41.0 - Disorientation, unspecified (4) Left ankle pain Status: Acute Assessment and plan: Patient says he has gout. His uric acid level is 6.4. Current Visit: Yes (5) ARF (acute renal failure) Status: Acute Assessment and plan: He does have worsening renal insufficiency. He is getting some IV fluids. His creatinine is 3.1. Current Visit: Yes
--- NOTE | 2016-08-28 09:18 | XRay Report ---
Referring Physician: Milind Clifton Exam: XR chest 1V portable Date: August 28, 2016 at 8:19 AM Reason: Shortness of breath Comparison: Chest one view portable August 27, 2016 Findings: The heart appears stable in size but is partially obscured by prominent opacities throughout both lungs. These opacities have a nodular appearance and are concerning for pneumonia. Other considerations include pulmonary edema, and underlying neoplasm cannot be excluded. No pneumothorax is identified. The osseous structures appear stable. Impression: There are again prominent opacities throughout all both lungs. These opacities have increased within the mid and lower lung zones. PROCEDURE INTERPRETED AT [facility] DEPARTMENT OF RADIOLOGY Final Report Signed by: Dr. Arben Castro
[2016-08-28 09:41] LABS: Band Neutrophils 10 % (0-10); Burr Cells Slight; Hypochromasia Slight; Lymphocytes 2 % (20-55); Platelet Estimate Adequate; Segmented Neutrophils 87 % (50-85); Total Cells Counted 100
[2016-08-28 09:42] LABS: Microcytosis 1+
--- NOTE | 2016-08-28 09:57 | Nephrology Progress Note ---
Nephrology - PN: Subj Interval history: Mr. Mcmanus is seen in follow-up of his kidney transplant. His creatinine is staying in the 3.1-3.2 range. There is worsening hypoxemia this morning and his chest x-ray looks worse with his reticulonodular infiltrates. He is receiving Bactrim to cover for the possibility of pneumocystis and he did have some fungal elements present on stain of his bronchospasm and so antifungal's are being given as well. He is not alert but is arousable. He is continuing to receive his antirejection medicines. I agree with the considering transfer to [facility] for further diagnostic evaluation of probable opportunistic pulmonary infection. Studies from the transbronchial biopsy are being sent off and hopefully they will help make a diagnosis but apparently that will not happen quickly. For now he is it covered empirically for the fungal possibilities along with pneumocystis. Exam (PN)-Nephrology - Vital Signs Vital signs: Period Temp Pulse Resp BP Sys/Stewart Pulse Ox Last 24 Hr 96.7 F-100.5 F 95-128 20-44 109-134/65-79 89-94 - Lab 08/28/16 Unknown 08/28/16 08:30 Most recent lab results ABG pH 7.339 (7.35-7.45) L 08/28/16 08:27 ABG pCO2 32.8 MM HG (35-48) L 08/28/16 08:27 ABG pO2 62.3 MM HG (80-95) L 08/28/16 08:27 ABG HCO3 18.4 MMOL/L (20-26) L 08/28/16 08:27 ABG O2 Saturation 88.3 % (95-100) L 08/28/16 08:27 Calcium 8.7 MG/DL (8.5-10.1) 08/28/16 08:30 Magnesium 1.8 MG/DL (1.8-2.4) 08/28/16 04:36 Assessment and Plan (1) Kidney transplant recipient Status: Chronic Current Visit: No (2) Chronic kidney disease, stage III (moderate) Status: Chronic Current Visit: Yes (3) Left ankle pain Status: Acute Current Visit: Yes
[2016-08-28] MEDS: methylPREDNISolone SOD SUC 40 MG/1 ML VIAL IV SCH ×3 (10:20→23:41)
[2016-08-28] MEDS: METOCLOPRAMIDE 10 MG/10 ML UDCUP PO SCH ×2 (10:20→23:39)
[2016-08-28] MEDS: amLODIPine 10 MG TABLET PO SCH (10:22)
[2016-08-28] MEDS: PANTOPRAZOLE 40 MG TABLET PO SCH (10:22)
--- NOTE | 2016-08-28 10:22 | Hospitalist Progress Note ---
Assessment and Plan (1) Reticulonodular infiltrate present on imaging of chest Status: Acute Assessment and plan: The patient has reticulonodular infiltrate on chest x-ray which was consistent with opportunistic infection. According to start the patient on Bactrim, acyclovir, and voriconazole today. Standard broad-spectrum antibiotics continue. The patient will be observed in the critical care area and may require intubation if hypoxemia progresses. We will check PCR for CMV and serum cryptococcal antigen test and LDH for further clues. Current Visit: Yes (2) Kidney transplant recipient Status: Chronic Current Visit: No (3) Altered mental status Status: Acute Current Visit: Yes Qualifiers: Altered mental status type: delirium Qualified Code(s): R41.0 - Disorientation, unspecified (4) Left ankle pain Status: Acute Current Visit: Yes Hospitalist: Subjective Interval history: The patient has had worsening hypoxia and progression of reticular nodular infiltrate on chest x-ray. I transferred the patient to the critical care unit this morning. I coordinate care with Dr. Zhang and with Dr. Neri. I called the [facility] transfer [facility] and spoke with Dr. Gregorio Mijares for intensive care unit and with Dr. Panda for renal transplant service. There is no ICU available to accept Mr. Mcmanus but they promised to call and accept him she had one become available. They recommended that we treat the patient for possibilities of pneumocystis with IV Bactrim for CMV with ganciclovir and for fungal possibility with Voriconizole. Due to interaction with Voriconizole, Dr. Panda recommended reducing Prograft to 2 mg bid. He recommended continuing Cellcept at 750 mg bid. I coordinated care with the pharmacist to arrange this regimen. Critical Care Time: 120 minutes Exam - Constitutional Vitals: Period Temp Pulse Resp BP Sys/Stewart Pulse Ox Last 24 Hr 96.7 F-100.5 F 95-128 20-50 102-134/65-79 89-94 Exam: Constitutional System: Moderate distress on account of tachypnea and no diaphoresis today. No tremulousness. Head: Normocephalic, atraumatic. There is moderate bitemporal wasting Ears, Nose and Throat System: No evidence of Otitis or Mastoiditis. No epistaxis or discharge Eyes System: Pupils equal, round, and reactive. Extraocular muscles intact. Neck: Supple, without adenopathy, No jugular venous distention. No thyromegaly , neck mass, or prior surgery apparent. Respiratory System: Chest with diffuse rhonchi to auscultation. Cardiovascular System: Heart with regular rate and rhythm. No murmur. GI System: Abdomen soft, nontender. Normoactive bowel sounds present. Musculoskeletal System: limbs with no pedal edema. Very tender left ankle but less than yesterday Neurological System: No discernable sensory deficit. No aphasia Psychiatric System: Conversation is perseverant and confused Results - Labs CBC & BMP: 08/28/16 Unknown 08/28/16 08:30 Lab Results: I have reviewed the past 24 hour labs
[2016-08-28] MEDS: FOLIC ACID 1 MG TABLET PO SCH (10:23)
[2016-08-28] MEDS: CARVEDILOL 12.5 MG TABLET PO SCH ×2 (10:23→23:40)
[2016-08-28] MEDS: predniSONE 10 MG TABLET PO SCH (10:24)
[2016-08-28] MEDS: TACROLIMUS 0.5 MG CAPSULE PO SCH ×3 (10:24→23:41)
[2016-08-28] MEDS: SODIUM CHLORIDE 0.9% 1,000 ML IV SCH (10:30)
[2016-08-28] MEDS: MYCOPHENOLATE MOFETIL 250 MG CAPSULE PO SCH ×2 (10:33→23:42)
[2016-08-28] MEDS: ASPIRIN EC 81 MG TABLET PO SCH (10:34)
[2016-08-28] MEDS: SULFAMETH/TRIMETH INJ 160 MG in DEXTROSE 5% 250 ML IV SCH ×2 (10:57→18:33)
[2016-08-28] MEDS: VORICONAZOLE INJ 400 MG in SODIUM CHLORIDE 0.9% 100 ML IV SCH ×2 (12:16→23:47)
[2016-08-28] MEDS: GANCICLOVIR IV SCH (12:16)
[2016-08-28] MEDS: SODIUM CHLORIDE 0.9% IV SCH (12:16)
--- NOTE | 2016-08-28 12:41 | Pathology Report from [facility] ---
ACCESSION # : [id number] PATIENT NAME : Young Underwood ORDERING DR : ALYSSA CONLEY MD CLINICAL HX: Reticulonodular Infiltrate POST-OP DX: Same SPECIMEN INFO: Washing,Bronchial,LLL - 30 ml's bloody, cloudy with chunks. CLASS: I CLASS COMMENTS: Benign pulmonary cells, inflammationCELL BLOCK: Same CLASS LEGEND: CLASS 0 Material inadequate for diagnosis because of (see comment) CLASS I Absence of atypical or abnormal cells CLASS II Atypical Cytology but no evidence of malignancy CLASS III Cytology suggestive of but not conclusive for malignancy CLASS IV Cytology strongly suggestive of malignancy CLASS V Cytology conclusive for malignancy SERVICE DATE: 08/27/2016 REPORT DATE: 08/28/2016 PATHOLOGIST: Susi Prado M.D. [facility]
--- NOTE | 2016-08-28 12:41 | Pathology Report from [facility] ---
ACCESSION # : [id number] PATIENT NAME : Young Underwood ORDERING DR : ALYSSA CONLEY MD CLINICAL HX: Reticulonodular Infiltrate POST-OP DX: Same SPECIMEN INFO: Brushing,Bronchial,LLL - 1 brush (Received in [facility]). CLASS: I CLASS COMMENTS: Benign respiratory epithelium.CELL BLOCK: Same CLASS LEGEND: CLASS 0 Material inadequate for diagnosis because of (see comment) CLASS I Absence of atypical or abnormal cells CLASS II Atypical Cytology but no evidence of malignancy CLASS III Cytology suggestive of but not conclusive for malignancy CLASS IV Cytology strongly suggestive of malignancy CLASS V Cytology conclusive for malignancy SERVICE DATE: 08/27/2016 REPORT DATE: 08/28/2016 PATHOLOGIST: Susi Prado M.D. [facility]
[2016-08-28] MEDS: ALBUTEROL/IPRATROPIUM 3 ML NEB RESP TX SCH ×2 (14:20→21:06)
--- NOTE | 2016-08-28 15:29 | Neurology Progress Note ---
Neurology - PN : Subjective Interval history: Patient seems to be doing about the same. He is transferred to ICU. He feels weak all over. It looks like he probably has a fungal infection in the lungs. He is on multiple antibiotics at this time. He is on the waiting list to be transferred to [facility]. Exam (Progress Note) - Constitutional Vitals: Period Temp Pulse Resp BP Sys/Stewart Pulse Ox Last 24 Hr 96.7 F-100.5 F 95-128 18-50 92-134/57-79 88-94 Exam: GENERAL: Patient is in no acute distress. NECK: Neck is supple. There is no JVD. No carotid bruits present. No thyroid masses. CVS: First and second heart sounds are normal. There is no S3 present. Regular rate and rhythm. RESPIRATORY: Lungs are clear to auscultation without any rales or rhonchi. ABDOMEN: Soft and non-tender. Bowel sounds are present. There is no hepatosplenomegaly. EXT: There is no palpable edema. Peripheral pulses are present. Skin: No rashes Central Nervous system: General: Alert and awake sitting at the edge of the bed Speech: His speech is more fluent today Comprehension: Fair Facial expressions: Normal Cranial Nerves: Pupils are equally reactive to light. Extraocular movements are intact. No facial asymmetry seen. Usually estrada are equal. Tongue is midline. Motor: Bulk and Tone is normal. Strength symmetrical Sensory: Unreliable Reflexes: 1+ and symmetrical Cerebellar function: Slow [id number] testing Gait: Not Tested this time Results - Labs CBC & BMP: 08/28/16 Unknown 08/28/16 08:30 Assessment and Plan (1) Altered mental status Status: Acute Assessment and plan: Hold off to LP. Continue current antibiotic coverage. Patient definitely needs to be transferred to [facility]. Current Visit: Yes Qualifiers: Altered mental status type: delirium Qualified Code(s): R41.0 - Disorientation, unspecified
[2016-08-28] MEDS ORDERED: PROPOFOL 200 MG/20 ML VIAL IV ONE ×2 (16:05→16:12)
[2016-08-28] MEDS ORDERED: SUCCINYLCHOLINE 200 MG/10 ML VIAL ONE (16:06)
[2016-08-28] MEDS ORDERED: SUCCINYLCHOLINE 200 MG/10 ML VIAL IV ONE (16:13)
[2016-08-28] MEDS ORDERED: PROPOFOL 1,000 MG/100 ML BOTTLE IV ONE (16:17)
[2016-08-28] MEDS ORDERED: SODIUM CHLORIDE 0.9% 500 ML IV ONE (16:25)
[2016-08-28] MEDS: PROPOFOL 1,000 MG/100 ML BOTTLE IV SCH (16:30)
[2016-08-28 16:47] LABS: Amorphous Crystals,Urine Occasional /HPF (Few); Apearance,Urine Slightly Hazy (Clear); Bilirubin,Urine Negative (Negative); Blood, Urine Small mg/dL (Negative); Glucose,Urine (UA) Negative (Negative); Ketones,Urine Negative (Negative); Nitrite,Urine Negative (Negative); Protein,Urine Negative; Urine Color Yellow (Yellow); Urine Specific Gravity 1.015 (1.001-1.035); WBC,Urine <1 /HPF (0-6)
[2016-08-28 16:59] LABS: ABG Base Excess -10.1 MMOL/L (-2.5-2.5); ABG HCO3 16.3 MMOL/L (20-26); ABG PCO2 51.3 MM HG (35-48); ABG TCO2 17.6 MMOL/L (23-27); Allen Test Positive; Pt O2 Delivery Device Ventilator
--- NOTE | 2016-08-28 17:04 | XRay Report ---
XR chest 1V portable Indication: Intubated. Chest one view: Comparison 0822 hrs. Endotracheal tube is now present, terminating 6 in meters cephalad of luz. Consider advancing slightly. Normal heart size is again shown. Continued extensive consolidation of both lung estrada is stable. Impression: Endotracheal tube position as described. Consider advancing slightly. PROCEDURE INTERPRETED AT [facility] [place] DEPARTMENT OF RADIOLOGY Final Report Signed by: Julio De La Torre M.D.
[2016-08-28 17:24] LABS: ABG PH 7.165 (7.35-7.45)
[2016-08-28] MEDS: NOREPINEPHRINE 8 MG in SODIUM CHLORIDE 0.9% 242 ML IV SCH (17:31)
[2016-08-28] MEDS: SODIUM BICARB INJ 100 MEQ in DEXTROSE 5% 1,000 ML IV SCH (23:42)
[2016-08-29] MEDS: ALBUTEROL/IPRATROPIUM 3 ML NEB RESP TX SCH ×4 (00:58→19:26)
[2016-08-29] MEDS: SULFAMETH/TRIMETH INJ 160 MG in DEXTROSE 5% 250 ML IV SCH ×5 (02:17→21:47)
[2016-08-29] MEDS: NITROGLYCERIN 2% OINT 1 INCH/GM PACK TOP SCH ×4 (02:20→17:26)
[2016-08-29] MEDS: NOREPINEPHRINE 8 MG in SODIUM CHLORIDE 0.9% 242 ML IV SCH ×7 (02:24→23:06)
[2016-08-29] MEDS: PROPOFOL 1,000 MG/100 ML BOTTLE IV SCH ×3 (04:05→21:46)
[2016-08-29] MEDS: AMPICILLIN INJ 2,000 MG in SODIUM CHLORIDE 0.9% 100 ML IV SCH ×4 (04:06→21:48)
[2016-08-29] MEDS: methylPREDNISolone SOD SUC 40 MG/1 ML VIAL IV SCH ×4 (04:08→21:46)
[2016-08-29] MEDS: cefTRIAXone 2,000 MG in SODIUM CHLORIDE 0.9% 100 ML IV SCH ×2 (04:09→16:59)
[2016-08-29 04:10] LABS: ABG Base Excess -8.1 MMOL/L (-2.5-2.5); ABG HCO3 18.6 MMOL/L (20-26); ABG Oxygen Saturation 99.4 % (95-100); ABG PH 7.254 (7.35-7.45); ABG PO2 290.7 MM HG (80-95); ABG TCO2 19.9 MMOL/L (23-27); Pt O2 Delivery Device Ventilator
[2016-08-29] MEDS ORDERED: SODIUM BICARBONATE 50 MEQ/50 ML VIAL IV ONE ×3 (06:07→06:10)
[2016-08-29] MEDS: SODIUM BICARB INJ 100 MEQ in DEXTROSE 5% 1,000 ML IV SCH ×3 (07:07→20:21)
--- NOTE | 2016-08-29 07:13 | Pulmonology Progress Note ---
Pulmonary - PN: Subj Interval history: 50-year-old man that has had kidney transplant and is on immunosuppressive drugs. He has diffuse bilateral infiltrates almost miliary pattern. He's had a bronchoscope done with negative brushings. Washings are showing some fungal elements. Transbronchial biopsies have not been reported. He is on broad- spectrum coverage for fungus virus and bacterial infections. PO2 is up to 290 today. We will reduce his FiO2. Prognosis in this gentleman is guarded. Exam (Progress Note) - Constitutional Vitals: Period Temp Pulse Resp BP Sys/Stewart Pulse Ox Last 24 Hr 97.0 F-97.9 F 90-116 12-523 60-110/42-75 88-100 Exam: Patient is sedated. Blood pressure in the 80s systolic and he is on pressors. Pupils react to light. Orotracheal tube in place. Neck supple. Chest reveals rhonchi bilaterally. Heart normal rate rhythm no murmurs. Abdomen soft no masses bowel sounds present. Extremities no clubbing cyanosis edema. Results - Labs CBC & BMP: 08/28/16 Unknown 08/28/16 08:30 Lab Results: I have reviewed the past 24 hour labs - Diagnostic Findings Procedure: Chest x-ray: image reviewed by me (diffuse bilateral infiltrates tiny nodules ET tube is a little high. We will advance it 2 cm further into him.) Assessment and Plan (1) Acute respiratory failure Status: Acute Assessment and plan: PO2 is 290 on 100% oxygen. We will reduce FiO2. Also reduce tidal volume a little as his airway pressures are high. Current Visit: Yes (2) Kidney transplant recipient Status: Chronic Assessment and plan: He is immunocompromised due to medications for his transplant. Thus he is on broad-spectrum antibiotics for the lung infection. Current Visit: No (3) Chronic kidney disease, stage III (moderate) Status: Chronic Assessment and plan: Creatinine between 3 and 4. Nephrology following. Current Visit: Yes (4) Altered mental status Status: Acute Assessment and plan: Patient is sedated at present. Neurology following. Current Visit: Yes Qualifiers: Altered mental status type: delirium Qualified Code(s): R41.0 - Disorientation, unspecified (5) Reticulonodular infiltrate present on imaging of chest Status: Acute Assessment and plan: Very suspicious for a fungal infection. He is on voriconazole as well as antiviral and antibacterial agents. Await reports from transbronchial biopsies. Also fungal cultures pending. Current Visit: Yes
--- NOTE | 2016-08-29 07:23 | XRay Report ---
XR chest 1V portable Indication: Intubated. Chest one view: Comparison yesterday. NG tube is now present terminating in left upper quadrant. Endotracheal tube is unchanged. Heart size remains normal. Continued severe and diffuse coarsened reticular nodular opacities involve both lungs. No new infiltrates are seen. Impression: NG tube now present. Otherwise no change. PROCEDURE INTERPRETED AT [facility] DEPARTMENT OF RADIOLOGY Final Report Signed by: Julio De La Torre M.D.
[2016-08-29] MEDS ORDERED: SODIUM CHLORIDE 0.9% 500 ML IV ONE (07:48)
--- NOTE | 2016-08-29 08:17 | XRay Report ---
XR chest 1V portable Indication: Endotracheal tube position adjusted. Chest one view: Endotracheal tube has been advanced slightly, now terminating 4 cm cephalad of the luz. A left pneumothorax is now present with a deep sulcus sign. NG tube and diffuse reticulonodular interstitial lung disease is stable. Impression: Adjusted ET tube position. Left pneumothorax. Critical test result discussed with patient's nurse Deborah Leach at 0815 hrs. PROCEDURE INTERPRETED AT [facility] DEPARTMENT OF RADIOLOGY Final Report Signed by: Julio De La Torre M.D.
--- NOTE | 2016-08-29 08:48 | Hospitalist Progress Note ---
Assessment and Plan (1) Reticulonodular infiltrate present on imaging of chest Status: Acute Assessment and plan: The patient has reticulonodular infiltrate on chest x-ray which was consistent with opportunistic infection. According to start the patient on Bactrim, acyclovir, and voriconazole today. Standard broad-spectrum antibiotics continue. The patient has required mechanical ventilation due to deteriorating gas exchange. Chest tube is now being placed by Dr. Caldwell. Were also going to get a central venous access line. No microbiology as yet available. LDH is elevated consistent with pneumocystis pneumonia. Current Visit: Yes (2) Kidney transplant recipient Status: Chronic Current Visit: No (3) Altered mental status Status: Acute Current Visit: Yes Qualifiers: Altered mental status type: delirium Qualified Code(s): R41.0 - Disorientation, unspecified (4) Left ankle pain Status: Acute Current Visit: Yes Hospitalist: Subjective Interval history: The patient has had marginal hemodynamics this morning. Oxygenation has improved since the patient was started on mechanical ventilation. The morning x -ray now reveals left pneumothorax and doctor Paulette has been consult for chest tube placement. Exam - Constitutional Vitals: Period Temp Pulse Resp BP Sys/Stewart Pulse Ox Last 24 Hr 97.4 F-97.9 F 90-116 12-523 60-104/42-75 88-100 Exam: Constitutional System: Moderate distress on account of tachypnea. The patient is orally intubated and mechanically ventilated. NG tube is in place. Head: Normocephalic, atraumatic. There is moderate bitemporal wasting Ears, Nose and Throat System: No evidence of Otitis or Mastoiditis. No epistaxis or discharge Eyes System: Pupils equal, round, and reactive. Extraocular muscles intact. Neck: Supple, without adenopathy, No jugular venous distention. No thyromegaly , neck mass, or prior surgery apparent. Respiratory System: Chest with diffuse rhonchi to auscultation. Cardiovascular System: Heart with regular rate and rhythm. No murmur. GI System: Abdomen soft, nontender. Normoactive bowel sounds present. Musculoskeletal System: limbs with no pedal edema. Very tender left ankle but less than yesterday Neurological System: No discernable sensory deficit. No aphasia Results - Labs CBC & BMP: 08/28/16 Unknown 01/27/17 08:30 - Diagnostic Findings Procedure: Chest x-ray: image reviewed by me (reticular-nodular infiltrate remains and now there is a left pneumothorax)
--- NOTE | 2016-08-29 09:02 | General Surgery Consult Note ---
Assessment and Plan (1) Pneumothorax, left Status: Acute Assessment and plan: This patient has a left-sided pneumothorax and a chest tube will be placed shortly. Consent was obtained from family but I did not time to talk to them due to the emergent nature of the procedure. Current Visit: Yes History of Present Illness Chief complaint: pneumothorax left side History of present illness: Mr. Mcmanus is a 50 year old male with a history of kidney transplant who is admitted with fungal infection and developed respiratory failure requiring intubation yesterday. History was obtained from nursing staff. The lung was dropped today with a pneumothorax on chest x-ray and I was counseled that for chest tube placement. Home Medications Medication Instructions Recorded Confirmed Type Aspirin [Ecotrin] 81 mg PO DAILY 05/16/16 08/25/16 History Carvedilol [Coreg] 0.5 tablet PO BID 05/16/16 08/25/16 History Folic Acid Tab 1 mg PO DAILY 05/16/16 08/25/16 History Mycophenolate Mofetil Cap 3 tablet PO Q12H 05/16/16 08/25/16 History [Cellcept] Pantoprazole Tab [Protonix Tab] 40 mg PO BID 05/16/16 08/25/16 History Tacrolimus [Tacrolimus Cap] 4 tablet PO Q12H 05/16/16 08/25/16 History predniSONE TAB [PredniSONE] 10 mg PO DAILY 05/16/16 08/25/16 History amLODIPine [Norvasc] 10 mg PO DAILY 06/01/16 08/25/16 History Allopurinol 100 mg PO DAILY 08/25/16 08/25/16 History HYDROcodone/ACETAMIN 10-325 [[place] 1 tablet PO Q4H PRN 08/25/16 08/25/16 History 10-325] Magnesium Oxide [Magnesium] 500 mg PO DAILY 08/25/16 08/25/16 History Metoclopramide Liquid [Reglan 5 ml PO BID 08/25/16 08/25/16 History Liquid] Allergies Allergy/AdvReac Type Severity Reaction Status Date / Time No Known Allergies Allergy Verified 08/11/16 22:05 Medical,Surgical,& Family Hx - Medical History Cardio: History of: Hypertension Psychological: No history of: Anxiety Disorders, Bipolar Disorder, Depression, Schizophrenia Neurology: No history of: Seizures HEENT: History of: Eye Problem (previous retinal tear RIGHT) Rheumatology: History of;: Gout Renal: History of: Renal Failure, Renal Problems (Kidney transplant - 09/15) Gastrointestinal: History of: GERD, Gastrointestinal Bleed Hematology: History of: Anemia No history of: Blood Transfusion Reaction Reproductive: No histroy: Reproductive Cancer Other: No history of: Anesthesia Reactions, HIV - Surgical History Cardiac Surgeries: Sugical HX of: Cardiac Catheterization (negative, done in 2008) Thoracic Surgeries: Surgical HX of;: Kidney (Renal Surgery) (transplant 2013), Organ Transplant (KIDNEY) Neurologic Surgeries: Patient denies: Neurologic Surgery HEENT Surgeries: Surgical HX of: Tonsilectomy & Adenoidectomy Patient denies: Eye Surgery Abdominal Surgeries: Surgical HX of: Abdominal Surgery (PD catheter placed and removed (Removed 2013)), Cholecystectomy, EGD Orthopedic Surgeries: Patient denies;: Orthopedic Surgery - Family History Family History: Reports;: Family Diabetes (MOM AND BROTHER), Family Hypertension (MOM AND BROTHER) Denies;: Family Anesthesia Reaction, Family Cancer, Family Heart Disease, Family Psychiatric Problems, Family Stroke - Social History Smoking Status: Former smoker Frequency of Alcohol Use: None Type of Drug Use: None - Constitutional Constitutional: Present: as per HPI - EENT Nose, mouth and throat: Present: as per HPI - Cardiovascular Cardiovascular: Present: as per HPI - Respiratory Respiratory: Present: as per HPI - Gastrointestinal Gastrointestinal: Present: as per HPI - Genitourinary Genitourinary: Present: as per HPI - Musculoskeletal Musculoskeletal: Present: as per HPI - Neurological Neurological: Present: as per HPI - Endocrine Endocrine: Present: as per HPI Hematologic/Lymphatic: Present: as per HPI Exam - Constitutional Vitals: Period Temp Pulse Resp BP Sys/Stewart Pulse Ox Last 24 Hr 97.4 F-97.9 F 90-116 12-523 60-104/42-75 88-100 General appearance: normal weight, no acute distress - Head Head exam: Present: normal inspection, normocephalic - Eye Eye exam: Present: EOMI - ENT ENT exam: Present: normal exam Mouth exam: Present: normal external inspection, normal voice - Neck Neck exam: Present: normal inspection, trachea midline - Respiratory Respiratory exam: Present: clear to auscultation bilaterally. Absent: accessory muscle use, chest wall tenderness - GI/Abdominal GI/Abdominal exam: Present: soft. Absent: distended, guarding - Anus/Rectum Anus/Rectum: rectal mass - Extremities Exam Extremities exam: Present: normal inspection, normal capillary refill - Back Exam Back exam: Present: normal inspection - Neurological Exam Neurological exam: Present: alert - Skin Skin exam: Present: normal color, warm Results - Labs CBC & BMP: 08/28/16 Unknown 08/28/16 08:30 - Diagnostic Findings Procedure: Chest x-ray: image reviewed by me, report reviewed by me (left pneumothorax)
--- NOTE | 2016-08-29 09:05 | Operative Note ---
Date of procedure: 08/29/16 Pre-op diagnosis: left pneumothorax with hypotension Post-op diagnosis: same Procedure: Preoperative diagnosis Left-sided pneumothorax with hypotension Postoperative diagnosis Same Procedures performed Left sided chest tube placement Findings A doe of air was obtained on entry into the chest. The chest tube was placed at 14 cm and hooked up to a Pleur-evac with a small air leak residual in the system Complications None apparent Specimen None Anesthesia Propofol with local Indications Left-sided pneumothorax with hypotension Description of procedure The patient was rolled into the modified lateral decubitus position in his ICU bed. Consent was obtained from family but I did not discuss the procedure with them due to the emergent nature of the procedure. The left chest was prepped and draped sterilely and timeout was called. Full sterile barrier precautions were used. Local anesthetic was administered in the anterior axillary line at the level of the nipple. A nerve block was obtained in the intercostal nerve. An incision was made with an 11 blade scalpel and a hemostat was used to enter the chest cavity bluntly. A trocar based 24 Pashto chest tube was placed angling posteriorly and superiorly into the chest. It was secured at the skin at 14 cm. There was a small air leak present in the system after the chest tube was placed. He was hooked up to suction at 20 cm. A chest x-ray was ordered and an occlusive dressing was applied. Postoperative plan Chest x-ray Anesthesia: local Surgeon / Physician: Joseph Caldwell Estimated blood loss: none Specimens: none sent Condition: critical Disposition: no change Results - Labs CBC & BMP: 08/28/16 Unknown 08/28/16 08:30 Discharge Plan - Discharge Medications No Action Carvedilol [Coreg] 0.5 tablet PO BID Tacrolimus [Tacrolimus Cap] 4 tablet PO Q12H predniSONE TAB [PredniSONE] 10 mg PO DAILY Folic Acid Tab 1 mg PO DAILY Aspirin [Ecotrin] 81 mg PO DAILY Mycophenolate Mofetil Cap [Cellcept] 3 tablet PO Q12H Pantoprazole Tab [Protonix Tab] 40 mg PO BID amLODIPine [Norvasc] 10 mg PO DAILY HYDROcodone/ACETAMIN 10-325 [[place] 10-325] 1 tablet PO Q4H PRN PRN Reason: Pain Allopurinol 100 mg PO DAILY Magnesium Oxide [Magnesium] 500 mg PO DAILY Metoclopramide Liquid [Reglan Liquid] 5 ml PO BID - Follow Up or Referral - Forms/Instructions
[2016-08-29] MEDS: CARVEDILOL 12.5 MG TABLET PO SCH ×2 (09:15→21:45)
[2016-08-29] MEDS: amLODIPine 10 MG TABLET PO SCH (09:15)
--- NOTE | 2016-08-29 09:19 | XRay Report ---
XR chest 1V portable Indication: Chest tube. Chest one view: Left mid chest tube is now present with evacuation of almost all of the left pneumothorax. There is a small degree of a sulcus sign persisting on the left. Remainder of the exam is unchanged. Impression: Left chest tube placement as described with significant decrease in pneumothorax. PROCEDURE INTERPRETED AT [facility] [place] DEPARTMENT OF RADIOLOGY Final Report Signed by: Julio De La Torre M.D.
[2016-08-29] MEDS: PANTOPRAZOLE 40 MG TABLET PO SCH (09:59)
[2016-08-29] MEDS: MYCOPHENOLATE MOFETIL 250 MG CAPSULE PO SCH ×2 (09:59→21:46)
[2016-08-29] MEDS: METOCLOPRAMIDE 10 MG/10 ML UDCUP PO SCH ×2 (09:59→21:45)
[2016-08-29] MEDS: ASPIRIN EC 81 MG TABLET PO SCH (09:59)
[2016-08-29] MEDS: TACROLIMUS 0.5 MG CAPSULE PO SCH ×2 (09:59→21:46)
[2016-08-29] MEDS: FOLIC ACID 1 MG TABLET PO SCH (09:59)
[2016-08-29 10:34] LABS: Albumin 0.8 G/DL (3.4-5.0); Bilirubin,Total 0.6 MG/DL (0.2-1.0); Calcium 5.9 MG/DL (8.5-10.1); Total Protein 2.9 G/DL (6.4-8.3)
[2016-08-29 10:35] LABS: Osmolality,Calculated 328.7 MOS/KG (273-304); Potassium 4.5 MMOL/L (3.5-5.1)
--- NOTE | 2016-08-29 11:39 | Nephrology Progress Note ---
Nephrology - PN: Subj Interval history: Patient is intubated and sedate. Physical exam general patient's chronically ill-appearing, heart is regular rate and rhythm, he has no pitting edema, lungs reveal wheezes throughout worse on the left than the right, abdomen is soft with positive bowel sounds Assessment/plan 1. Renal transplant-patient continues on steroids and immunosuppressive medication, his tacrolimus has been decreased to half the usual dose 2. Pneumonia-continue antibiotics 3. Left ankle pain-patient's uric acid level was around 6.5, he is getting Solu -Medrol I would think this would be adequate treatment for an acute gout attack 4. Acute renal failure on chronic renal failure-patient's creatinine is improved since his admission, his urine output is good we'll continue to monitor this 5. Respiratory failure we'll continue ventilator support 6. Hypernatremia-we'll continue monitor this, I'll increase his free water should his sodium increase tomorrow. I will also start him on some tube feeds and water flushes this may help. 7. Metabolic acidosis will continue his bicarbonate infusion. Exam (PN)-Nephrology - Vital Signs Vital signs: Period Temp Pulse Resp BP Sys/Stewart Pulse Ox Last 24 Hr 97.4 F-98.0 F 80-113 12-523 60-104/42-75 88-100 - Lab 08/28/16 Unknown 08/29/16 09:20 Most recent lab results ABG pH 7.254 (7.35-7.45) L 08/29/16 03:28 ABG pCO2 43.0 MM HG (35-48) 08/29/16 03:28 ABG pO2 290.7 MM HG (80-95) H 08/29/16 03:28 ABG HCO3 18.6 MMOL/L (20-26) L 08/29/16 03:28 ABG O2 Saturation 99.4 % (95-100) 08/29/16 03:28 Calcium 5.9 MG/DL (8.5-10.1) L D 08/29/16 09:20 Magnesium 1.8 MG/DL (1.8-2.4) 08/28/16 04:36
[2016-08-29] MEDS: VORICONAZOLE INJ 400 MG in SODIUM CHLORIDE 0.9% 100 ML IV SCH (12:04)
[2016-08-29] MEDS: GANCICLOVIR IV SCH (12:04)
[2016-08-29] MEDS: SODIUM CHLORIDE 0.9% IV SCH (12:04)
[2016-08-29] MEDS ORDERED: NOREPINEPHRINE 4 MG/4 ML VIAL IV ONE (12:41)
[2016-08-29] MEDS ORDERED: DEXTROSE 50% 25 GM/50 ML VIAL IV PRN (13:11)
[2016-08-29] MEDS ORDERED: GLUCAGON 1 MG VIAL IM PRN (13:11)
--- NOTE | 2016-08-29 13:39 | Operative Note ---
Date of procedure: 08/29/16 Pre-op diagnosis: inadequate venous access Post-op diagnosis: same Procedure: Preoperative diagnosis Inadequate venous access Postoperative diagnosis Same Procedures performed 1. Right internal jugular vein triple-lumen catheter placement 2. Ultrasound guidance and interpretation of images Findings The right internal jugular vein is compressible and was nice and full consistent with adequate resuscitation. He was accessed and nonpulsatile venous blood return was achieved. Ultrasound was used to identify and access the vein. Triple-lumen catheter was placed using Seldinger technique. Complications None apparent Specimen none Anesthesia Propofol with local Blood loss Minimal Indications Inadequate venous access with sepsis and hypotension Description of procedure The patient was placed in Trendelenburg position and the right neck was prepped chlorhexidine and draped sterilely after it was clipped with electric clippers. Full sterile barrier precautions were used. Consent was obtained from family. The ultrasound was used to identify the vascular structures in the right neck and internal jugular vein is compressible and full. Local anesthetic was administered under ultrasound guidance and the vein was accessed on the first staple venous nonpulsatile blood return. A wire was placed easily. The needle was removed. A small skin incision was made alongside the wire with an 11 blade scalpel. Dilator was placed in the subcutaneous tissues and the catheter was then placed over the wire with Seldinger technique. Catheter some of the skin level with 3-0 silk sutures a 15 cm. A sterile dressing was applied of bypass. All 3 lumen returned blood easily and were flushed with saline. The patient was placed back in neutral position and a chest x-ray was ordered. Postoperative plan Chest x-ray Surgeon / Physician: Joseph Caldwell Specimens: none sent Condition: critical Disposition: no change Results - Labs CBC & BMP: 08/28/16 Unknown 08/29/16 09:20 Discharge Plan - Discharge Medications No Action Carvedilol [Coreg] 0.5 tablet PO BID Tacrolimus [Tacrolimus Cap] 4 tablet PO Q12H predniSONE TAB [PredniSONE] 10 mg PO DAILY Folic Acid Tab 1 mg PO DAILY Aspirin [Ecotrin] 81 mg PO DAILY Mycophenolate Mofetil Cap [Cellcept] 3 tablet PO Q12H Pantoprazole Tab [Protonix Tab] 40 mg PO BID amLODIPine [Norvasc] 10 mg PO DAILY HYDROcodone/ACETAMIN 10-325 [[place] 10-325] 1 tablet PO Q4H PRN PRN Reason: Pain Allopurinol 100 mg PO DAILY Magnesium Oxide [Magnesium] 500 mg PO DAILY Metoclopramide Liquid [Reglan Liquid] 5 ml PO BID - Follow Up or Referral - Forms/Instructions
--- NOTE | 2016-08-29 14:08 | XRay Report ---
XR chest 1V portable Indication: Central line placement. Chest one view: Since 0854 hrs., right IJ central line is in place tip in the mid SVC. The remainder of the exam is unchanged. No pneumothorax shown. Impression: Central line placement as described. PROCEDURE INTERPRETED AT [facility] DEPARTMENT OF RADIOLOGY Final Report Signed by: Julio De La Torre M.D.
[2016-08-29] MEDS: INSULIN REGULAR 100 UNIT/ML SUBCUT SCH ×2 (15:30→18:14)
[2016-08-30] MEDS: NITROGLYCERIN 2% OINT 1 INCH/GM PACK TOP SCH ×4 (00:02→17:24)
[2016-08-30] MEDS: INSULIN REGULAR 100 UNIT/ML SUBCUT SCH ×4 (00:13→18:09)
[2016-08-30] MEDS: VORICONAZOLE INJ 400 MG in SODIUM CHLORIDE 0.9% 100 ML IV SCH ×3 (00:13→23:51)
[2016-08-30] MEDS: ALBUTEROL/IPRATROPIUM 3 ML NEB RESP TX SCH ×4 (00:18→20:23)
[2016-08-30] MEDS: NOREPINEPHRINE 8 MG in SODIUM CHLORIDE 0.9% 242 ML IV SCH ×4 (02:36→17:24)
[2016-08-30 03:00] LABS: ABG HCO3 20.8 MMOL/L (20-26); ABG Oxygen Saturation 92.3 % (95-100); ABG PCO2 36.7 MM HG (35-48); ABG PH 7.371 (7.35-7.45); ABG PO2 70.2 MM HG (80-95); ABG TCO2 21.9 MMOL/L (23-27)
[2016-08-30] MEDS: cefTRIAXone 2,000 MG in SODIUM CHLORIDE 0.9% 100 ML IV SCH ×2 (03:55→15:51)
[2016-08-30] MEDS: SULFAMETH/TRIMETH INJ 160 MG in DEXTROSE 5% 250 ML IV SCH ×4 (03:55→23:40)
[2016-08-30] MEDS: methylPREDNISolone SOD SUC 40 MG/1 ML VIAL IV SCH ×4 (03:55→20:43)
[2016-08-30] MEDS: AMPICILLIN INJ 2,000 MG in SODIUM CHLORIDE 0.9% 100 ML IV SCH ×4 (03:55→20:44)
[2016-08-30] MEDS: SODIUM BICARB INJ 100 MEQ in DEXTROSE 5% 1,000 ML IV SCH ×3 (07:08→16:36)
--- NOTE | 2016-08-30 07:57 | Pulmonology Progress Note ---
Pulmonary - PN: Subj Interval history: 50-year-old man that has had kidney transplant and is on immunosuppressive drugs. He has diffuse bilateral infiltrates almost miliary pattern. He's had a bronchoscope done with negative brushings. Washings are showing some fungal elements. Transbronchial biopsies have not been reported. He is on broad- spectrum coverage for fungus virus and bacterial infections. PO2 is up to 290 today. We will reduce his FiO2. Prognosis in this gentleman is guarded. 08/30/2016 patient had spontaneous left pneumothorax yesterday and required chest tube. Lung is well expanded now. He self extubated early this morning. His PO2 is 70 on a nonrebreathing mask at present. He seems comfortable. Chest x-ray looks a little worse but probably from loss of increased airway pressures. We will try to keep him off the ventilator. Ordered BiPAP to use at bedtime and as needed if his O2 sats dropped. Of course he may require reintubation as he does have ARDS. Exam (Progress Note) - Constitutional Vitals: Period Temp Pulse Resp BP Sys/Stewart Pulse Ox Last 24 Hr 96.7 F-98.0 F 76-104 8-38 69-123/46-78 90-100 Exam: Patient is alert Blood pressure in the 110s systolic and he is off pressors. Pupils react to light. NR mask in place. Neck supple. Chest reveals rhonchi bilaterally. Has left chest tube. No visible air leak. Heart normal rate rhythm no murmurs. Abdomen soft no masses bowel sounds present. Extremities no clubbing cyanosis edema. Results - Labs CBC & BMP: 08/28/16 Unknown 08/29/16 09:20 Lab Results: I have reviewed the past 24 hour labs - Diagnostic Findings Procedure: Chest x-ray: image reviewed by me (diffuse bilateral infiltrates. Left chest tube in place.) Assessment and Plan (1) Acute respiratory failure Status: Acute Assessment and plan: PO2 is 290 on 100% oxygen. We will reduce FiO2. Also reduce tidal volume a little as his airway pressures are high. 08/30/2016 patient now on nonrebreathing mask after extubating himself. Hopefully we can keep him off the ventilator now. Ordered BiPAP to use if needed. However may require reintubation during the course of the day. Current Visit: Yes (2) Kidney transplant recipient Status: Chronic Assessment and plan: He is immunocompromised due to medications for his transplant. Thus he is on broad-spectrum antibiotics for the lung infection. 08/30/2016 immunocompromise due to the above. Current Visit: No (3) Chronic kidney disease, stage III (moderate) Status: Chronic Assessment and plan: Creatinine between 3 and 4. Nephrology following. 08/30/2016 creatinine down to 2.4. Current Visit: Yes (4) Altered mental status Status: Acute Assessment and plan: Patient is sedated at present. Neurology following. 08/30/2016 he is a bit confused. Current Visit: Yes Qualifiers: Altered mental status type: delirium Qualified Code(s): R41.0 - Disorientation, unspecified (5) Reticulonodular infiltrate present on imaging of chest Status: Acute Assessment and plan: Very suspicious for a fungal infection. He is on voriconazole as well as antiviral and antibacterial agents. Await reports from transbronchial biopsies. Also fungal cultures pending. 08/30/2016 still no definitive diagnosis from bronchial specimens. Transbronchial biopsy has not been reported as yet. He is on broad-spectrum antibiotics for fungal bacterial or viral infection. Current Visit: Yes
--- NOTE | 2016-08-30 07:58 | XRay Report ---
XR chest 1V portable Indication: Intubated. Chest one view: Since yesterday, patient has been extubated. NG tube, central line, left basilar chest tube, borderline cardiomegaly are unchanged. Lung volumes have decreased slightly with increasing hazy obscuration of both lung bases superimposed on severe diffuse interstitial lung disease. No significant left pneumothorax is seen on the current exam. Impression: Worsening pulmonary hypoinflation with progressive atelectasis following extubation. PROCEDURE INTERPRETED AT [facility] DEPARTMENT OF RADIOLOGY Final Report Signed by: Julio De La Torre M.D.
--- NOTE | 2016-08-30 08:10 | Nephrology Progress Note ---
Nephrology - PN: Subj Interval history: Patient complains of being thirsty. Review of systems pulmonary-the nurse relates that he coughed out his ET tube last night Physical exam general patient's chronically ill-appearing, heart is regular rate and rhythm, he has no pitting edema, lungs reveal coarse breath sounds throughout, abdomen is soft with positive bowel sounds, neuropsych-patient was saying something about an empty aspirin bottle next to his bed Assessment/plan 1. Pneumonia-continue IV antibiotics 2. Renal transplant-continue his immunosuppressive 3. Hypernatremia-I'm going to increase the free water in his tube feeds and allow him to drink as well 4. Metabolic acidosis-we'll continue the bicarbonate infusion 5. Acute renal failure-patient's creatinine is improving, his creatinine today is 2.4 mg/dL Exam (PN)-Nephrology - Vital Signs Vital signs: Period Temp Pulse Resp BP Sys/Stewart Pulse Ox Last 24 Hr 96.7 F-97.1 F 76-104 8-38 69-123/46-78 90-100 - Lab 08/28/16 Unknown 08/29/16 09:20 Most recent lab results ABG pH 7.371 (7.35-7.45) 08/30/16 02:47 ABG pCO2 36.7 MM HG (35-48) 08/30/16 02:47 ABG pO2 70.2 MM HG (80-95) L 08/30/16 02:47 ABG HCO3 20.8 MMOL/L (20-26) 08/30/16 02:47 ABG O2 Saturation 92.3 % (95-100) L 08/30/16 02:47 Calcium 5.9 MG/DL (8.5-10.1) L D 08/29/16 09:20 Magnesium 1.8 MG/DL (1.8-2.4) 08/28/16 04:36
[2016-08-30] MEDS: amLODIPine 10 MG TABLET PO SCH (09:16)
[2016-08-30] MEDS: CARVEDILOL 12.5 MG TABLET PO SCH (09:16)
[2016-08-30] MEDS: METOCLOPRAMIDE 10 MG/10 ML UDCUP PO SCH ×2 (09:28→20:42)
[2016-08-30] MEDS: MYCOPHENOLATE MOFETIL 250 MG CAPSULE PO SCH ×2 (09:29→20:41)
[2016-08-30] MEDS: TACROLIMUS 0.5 MG CAPSULE PO SCH ×2 (09:29→22:15)
[2016-08-30] MEDS: PANTOPRAZOLE 40 MG TABLET PO SCH (09:30)
[2016-08-30] MEDS: ASPIRIN EC 81 MG TABLET PO SCH (09:30)
[2016-08-30] MEDS: FOLIC ACID 1 MG TABLET PO SCH (09:30)
[2016-08-30] MEDS: SODIUM CHLORIDE 0.9% IV SCH (11:47)
[2016-08-30] MEDS: GANCICLOVIR IV SCH (11:47)
--- NOTE | 2016-08-30 13:23 | Hospitalist Progress Note ---
Assessment and Plan (1) Reticulonodular infiltrate present on imaging of chest Status: Acute Assessment and plan: The patient has reticulonodular infiltrate on chest x-ray which was consistent with opportunistic infection. The patient is presently on Bactrim, acyclovir, and voriconazole. Standard broad-spectrum antibiotics continue. The patient has required mechanical ventilation but is now breathing spontaneously with supplemental oxygen. Chest tube has been placed by Dr. Caldwell. LDH is elevated consistent with pneumocystis pneumonia. Current Visit: Yes (2) Kidney transplant recipient Status: Chronic Current Visit: No (3) Altered mental status Status: Acute Current Visit: Yes Qualifiers: Altered mental status type: delirium Qualified Code(s): R41.0 - Disorientation, unspecified (4) Left ankle pain Status: Acute Current Visit: Yes Hospitalist: Subjective Interval history: The patient extubated himself last night. He has been having tachypnea but breathing effectively early this morning until now. Urine output and hemodynamics are improving. Exam - Constitutional Vitals: Period Temp Pulse Resp BP Sys/Setwart Pulse Ox Last 24 Hr 96.7 F-98.3 F 76-108 8-42 80-123/50-85 87-100 Exam: Constitutional System: Moderate distress on account of tachypnea. The patient is no longer intubated. He is breathing spontaneously with tachypnea. NG tube is in place. Head: Normocephalic, atraumatic. There is moderate bitemporal wasting Ears, Nose and Throat System: No evidence of Otitis or Mastoiditis. No epistaxis or discharge Eyes System: Pupils equal, round, and reactive. Extraocular muscles intact. Neck: Supple, without adenopathy, No jugular venous distention. No thyromegaly , neck mass, or prior surgery apparent. Respiratory System: Chest with diffuse rhonchi to auscultation. Cardiovascular System: Heart with regular rate and rhythm. No murmur. GI System: Abdomen soft, nontender. Normoactive bowel sounds present. Musculoskeletal System: limbs with no pedal edema. Very tender left ankle but less than yesterday Neurological System: No discernable sensory deficit. No aphasia Results - Labs CBC & BMP: 08/28/16 Unknown 08/29/16 09:20 Lab Results: I have reviewed the past 24 hour labs
--- NOTE | 2016-08-30 13:37 | General Surgery Progress Note ---
Assessment and Plan (1) Pneumothorax, left Status: Acute Assessment and plan: The airleak appears to have sealed. Continue chest tube to suction for another 24 hours. Current Visit: Yes Subjective Patient reports: Present: no new complaints, afebrile Narrative: The patient self extubated last night. Exam - Constitutional Vitals: Period Temp Pulse Resp BP Sys/Stewart Pulse Ox Last 24 Hr 96.7 F-98.3 F 76-108 8-42 80-123/50-85 87-100 General appearance: normal weight, mild distress - Head Head exam: Present: normal inspection, normocephalic - Eye Eye exam: Present: EOMI Pupils: Present: SELVIN - ENT ENT exam: Present: normal exam Mouth exam: Present: normal external inspection, normal voice - Neck Neck exam: Present: normal inspection, trachea midline - Respiratory Respiratory exam: Present: rales, rhonchi, other (chest tube with no air leak present. Minimal drainage.). Absent: stridor, wheezes - Cardiovascular Cardiovascular exam: Present: tachycardia. Absent: irregular rhythm, systolic murmur - GI/Abdominal GI/Abdominal exam: Present: normal bowel sounds, soft. Absent: tenderness, rebound - Extremities Exam Extremities exam: Present: normal inspection, normal capillary refill - Back Exam Back exam: Present: normal inspection - Neurological Exam Neurological exam: Present: alert, oriented X3 Speech: Present: normal - Skin Skin exam: Present: normal color, warm Results - Labs CBC & BMP: 08/28/16 Unknown 08/29/16 09:20 - Diagnostic Findings Procedure: Chest x-ray: image reviewed by me, report reviewed by me
[2016-08-30] MEDS ORDERED: PROPOFOL 200 MG/20 ML VIAL IV ONE ×2 (14:10→14:18)
[2016-08-30] MEDS ORDERED: SUCCINYLCHOLINE 200 MG/10 ML VIAL ONE (14:10)
[2016-08-30] MEDS ORDERED: SUCCINYLCHOLINE 200 MG/10 ML VIAL IV ONE (14:19)
[2016-08-30] MEDS: PROPOFOL 1,000 MG/100 ML BOTTLE IV SCH ×2 (14:30→23:35)
[2016-08-30 15:05] LABS: ABG Base Excess -3.6 MMOL/L (-2.5-2.5); ABG HCO3 22.3 MMOL/L (20-26); ABG Oxygen Saturation 92.8 % (95-100); ABG PCO2 43.7 MM HG (35-48); ABG PH 7.325 (7.35-7.45); ABG TCO2 23.6 MMOL/L (23-27); Pt O2 Delivery Device Ventilator
--- NOTE | 2016-08-30 15:14 | XRay Report ---
XR chest 1V portable Indication: Intubated. Chest one view: Since this morning, patient is now intubated. Endotracheal tube is 3 cm cephalad of luz. Left basilar chest tube, NG tube, central line, diffuse opacification both lung estrada, obscuration of both lung bases and obscured cardiac borders are unchanged in this morning. Impression: Adequate intubation. Otherwise no change. PROCEDURE INTERPRETED AT [facility] DEPARTMENT OF RADIOLOGY Final Report Signed by: Julio De La Torre M.D.
[2016-08-31] MEDS: CARVEDILOL 12.5 MG TABLET PO SCH ×3 (00:23→21:15)
[2016-08-31] MEDS: NITROGLYCERIN 2% OINT 1 INCH/GM PACK TOP SCH ×4 (00:55→17:49)
[2016-08-31] MEDS: INSULIN REGULAR 100 UNIT/ML SUBCUT SCH ×5 (00:58→23:26)
[2016-08-31] MEDS: ALBUTEROL/IPRATROPIUM 3 ML NEB RESP TX SCH ×4 (01:51→20:45)
[2016-08-31] MEDS: SODIUM BICARB INJ 100 MEQ in DEXTROSE 5% 1,000 ML IV SCH ×2 (02:22→16:08)
[2016-08-31] MEDS: methylPREDNISolone SOD SUC 40 MG/1 ML VIAL IV SCH ×4 (03:53→21:16)
[2016-08-31 03:54] LABS: ABG Base Excess -2.9 MMOL/L (-2.5-2.5); ABG Oxygen Saturation 99.1 % (95-100); ABG PCO2 43.7 MM HG (35-48); ABG PH 7.328 (7.35-7.45); ABG TCO2 21.3 MMOL/L (23-27); Allen Test Positive; Pt O2 Delivery Device Ventilator
[2016-08-31] MEDS: SULFAMETH/TRIMETH INJ 160 MG in DEXTROSE 5% 250 ML IV SCH ×4 (03:54→23:01)
[2016-08-31] MEDS: AMPICILLIN INJ 2,000 MG in SODIUM CHLORIDE 0.9% 100 ML IV SCH ×4 (03:54→21:16)
[2016-08-31 04:33] LABS: Basophils % 0.1 % (0.0-0.8); Hematocrit 26.8 VOL% (42.0-52.0); Hemoglobin 8.7 GM/DL (14.0-18.0); Immature Granulocytes Absolute 0.24 #; Lymphocytes # 0.1 10*3/uL (1.4-4.0); Lymphocytes % 1.2 % (21.2-54.2); Mean Corpuscular HGB Conc 32.5 GM/DL (32-36); Mean Corpuscular Hemoglobin 24 PG (27-34); Mean Corpuscular Volume 75.1 FL (87-102); Mean Platelet Volume 12.8 FL (9.6-12.0); Monocytes # 0.2 10*3/uL (0.11-0.8); Monocytes % 2.5 % (1.7-12.7); NRBC # 0.03 10*3/uL; Neutrophils # 7.6 10*3/uL (1.4-7.4); Neutrophils % 93.2 % (38.7-73.9); Platelet Count 257 10*3/uL (130-400); Red Blood Count 3.57 10*6/uL (3.8-5.5); White Blood Count 8.1 10*3/uL (4.5-13.71)
[2016-08-31 04:46] LABS: Calcium 8.4 MG/DL (8.5-10.1); Osmolality,Calculated 325.8 MOS/KG (273-304); Potassium 4.2 MMOL/L (3.5-5.1)
[2016-08-31] MEDS: cefTRIAXone 2,000 MG in SODIUM CHLORIDE 0.9% 100 ML IV SCH ×2 (05:00→16:08)
[2016-08-31 05:01] LABS: Phosphorous 5.4 MG/DL (2.5-4.9)
[2016-08-31] MEDS ORDERED: HYALURONIDASE 200 UNIT/ML VIAL SUBCUT ONE (05:41)
[2016-08-31 05:46] LABS: Lymphocytes 3 % (20-55); Segmented Neutrophils 97 % (50-85)
[2016-08-31 05:47] LABS: Elliptocytes Few; Platelet Estimate Normal; Tear Drop Cells 2+
[2016-08-31 05:48] LABS: Burr Cells 2+
[2016-08-31 05:49] LABS: Total Cells Counted 100
--- NOTE | 2016-08-31 07:51 | XRay Report ---
Referring Physician: Anil Ortiz MD Exam: XR chest 1V portable Date: August 31, 2016 at 3:24 AM Reason: Mechanical ventilation, respiratory failure Comparison: Chest one view portable August 30, 2016 Findings: An endotracheal tube, right IJ catheter, feeding tube and left chest tube are again present. The cardiac silhouette is partially obscured but appears stable in size. There are prominent heterogeneous opacities within both lungs, mainly at the lower lung zones. This could represent pulmonary edema and/or pneumonia. No pneumothorax is identified, but there is scattered soft tissue air at the left chest wall. This could also be mild right pleural fluid and minimal left pleural fluid. The osseous structures appear stable. Impression: There has been no significant change. PROCEDURE INTERPRETED AT [facility] DEPARTMENT OF RADIOLOGY Final Report Signed by: Dr. Arben Castro
--- NOTE | 2016-08-31 08:09 | Hospitalist Progress Note ---
Assessment and Plan (1) Reticulonodular infiltrate present on imaging of chest Status: Acute Assessment and plan: The patient has reticulonodular infiltrate on chest x-ray which was consistent with opportunistic infection. The patient is presently on Bactrim, acyclovir, and voriconazole. Standard broad-spectrum antibiotics continue. Chest tube has been placed by Dr. Caldwell. LDH is elevated consistent with pneumocystis pneumonia. We have no culture data available yet with the exception of Yojana which was cultured from the bronchoscopy specimens Current Visit: Yes (2) Kidney transplant recipient Status: Chronic Current Visit: No (3) Altered mental status Status: Acute Current Visit: Yes Qualifiers: Altered mental status type: delirium Qualified Code(s): R41.0 - Disorientation, unspecified (4) Left ankle pain Status: Acute Current Visit: Yes Hospitalist: Subjective Interval history: This is a 50-year-old man with renal transplant taking immunosuppressant regimen. He presented to the hospital with shortness of breath and developed respiratory failure which appears to be due to pneumocystis. I coordinated care with the renal transplant service at [facility]. They recommended threefold treatment with Bactrim for pneumocystis, Voriconazole for fungal disease possibilities, and ganciclovir for CMV. The patient remains on broad-spectrum antibiotic as well. The patient is tolerating tube feedings. The patient is mechanically ventilated and oxygenation which was difficult at first has begun to improve. The patient developed pneumothorax on the left-hand side probably on account of pneumocystis. I anticipate slow steady recovery if the patient if no further complications occur. Renal function has been stable with creatinine of about 3. Exam - Constitutional Vitals: Period Temp Pulse Resp BP Sys/Stewart Pulse Ox Last 24 Hr 97.3 F-97.8 F 85-108 15-45 86-121/53-85 75-100 Exam: Constitutional System: Moderate distress on account of tachypnea. The patient extubated himself on Wednesday morning but tired and required reintubation on Wednesday evening Head: Normocephalic, atraumatic. There is moderate bitemporal wasting Ears, Nose and Throat System: No evidence of Otitis or Mastoiditis. No epistaxis or discharge Eyes System: Pupils equal, round, and reactive. Extraocular muscles intact. Neck: Supple, without adenopathy, No jugular venous distention. No thyromegaly , neck mass, or prior surgery apparent. Respiratory System: Chest with diffuse rhonchi to auscultation. There is a left chest tube and right internal jugular central venous line Cardiovascular System: Heart with regular rate and rhythm. No murmur. GI System: Abdomen soft, nontender. Normoactive bowel sounds present. Musculoskeletal System: limbs with no pedal edema. Very tender left ankle but less than when admitted Neurological System: No discernable sensory deficit. No aphasia Results - Labs CBC & BMP: 08/31/16 03:40 08/31/16 03:40 Lab Results: I have reviewed the past 24 hour labs
[2016-08-31] MEDS ORDERED: SODIUM CHLORIDE 0.9% 250 ML IV PRN (08:14)
--- NOTE | 2016-08-31 08:16 | Pulmonology Progress Note ---
Pulmonary - PN: Subj Interval history: Patient is a 50-year-old black man that came in with some confusion and atypical chest pain and maybe some shortness of breath. He has had a previous renal transplant and is on immunosuppressive therapy. He came in complaining of gout in his left foot. He was found to have reticular nodular infiltrates throughout his lungs. He developed worsening respiratory failure and has been on the ventilator. He self extubated himself over the weekend had to be reintubated. He did develop a left pneumothorax and has a chest tube now. His lung compliance is not very bad and his chest x-ray is a little more stable. So far there is been nothing on cultures other than yeast. His oxygenation is better. Exam (Progress Note) - Constitutional Vitals: Period Temp Pulse Resp BP Sys/Stewart Pulse Ox Last 24 Hr 97.3 F-97.8 F 85-108 15-45 86-121/53-85 75-100 Exam: General appearance: no distress, under weight, he looks reasonably comfortable on the ventilator at present. - Head Head exam: Present: normal inspection, normocephalic - Eye Eye exam: Present: EOMI. Absent: scleral icterus Pupils: Present: SELVIN - ENT ENT exam: Present: The ET tube is in good position. - Neck Neck exam: Present: tenderness. Absent: lymphadenopathy, thyromegaly - Respiratory Respiratory exam: Present: He has good breath sounds bilaterally with very mild crackles. He has a left chest tube in place with no air leak now. - Cardiovascular Cardiovascular exam: Present: regular rate and rhythm. Absent: gallop, systolic murmur - GI/Abdominal GI/Abdominal exam: Present: soft. Absent: distended, organomegaly, tenderness - Extremities Exam Extremities exam: Present: other (left ankle and foot is not red or swollen, he still has a lot of soreness.). Absent: calf tenderness, edema - Neurological Exam Neurological exam: Present: Patient does respond and does require sedation. - Psychiatric Psychiatric exam: Absent: agitated, anxious - Skin Skin exam: Present: warm, dry Results - Labs CBC & BMP: 08/31/16 03:40 08/31/16 03:40 Labs: His PO2 is 214 with a PCO2 of 43 and pH is 7.32 - Diagnostic Findings Procedure: Chest x-ray: image reviewed by me, report reviewed by me (chest x- ray still shows extensive bilateral infiltrates although it may be a little better.) Assessment and Plan (1) Reticulonodular infiltrate present on imaging of chest Status: Acute Assessment and plan: The patient has worsening reticular nodular infiltrates that were not present a few weeks ago. There was a lung density present a few weeks ago. He is somewhat immunosuppressed. Nothing is showing up on culture so far. We'll continue broad-spectrum antibiotics. Current Visit: Yes (2) Kidney transplant recipient Status: Chronic Assessment and plan: The patient is on immunosuppressive therapy. His creatinine is down to 3.2 today. Current Visit: No (3) Altered mental status Status: Acute Assessment and plan: The patient responding now on the ventilator but he does require some sedation. Current Visit: Yes Qualifiers: Altered mental status type: delirium Qualified Code(s): R41.0 - Disorientation, unspecified (4) Left ankle pain Status: Acute Assessment and plan: Patient says he has gout. His uric acid level is 6.4. Current Visit: Yes (5) ARF (acute renal failure) Status: Acute Assessment and plan: He does have worsening renal insufficiency. His creatinine is fairly stable at 3.2. Current Visit: Yes
[2016-08-31 08:33] LABS: ABG Base Excess -2.2 MMOL/L (-2.5-2.5); ABG HCO3 23.4 MMOL/L (20-26); ABG Oxygen Saturation 97.4 % (95-100); ABG PCO2 43.3 MM HG (35-48); ABG TCO2 24.7 MMOL/L (23-27); Allen Test Positive; Pt O2 Delivery Device Ventilator
[2016-08-31] MEDS: PROPOFOL 1,000 MG/100 ML BOTTLE IV SCH ×2 (09:03→16:51)
[2016-08-31] MEDS: amLODIPine 10 MG TABLET PO SCH (09:10)
[2016-08-31] MEDS: ASPIRIN EC 81 MG TABLET PO SCH (09:53)
[2016-08-31] MEDS: PANTOPRAZOLE 40 MG TABLET PO SCH (09:53)
[2016-08-31] MEDS: FOLIC ACID 1 MG TABLET PO SCH (09:53)
[2016-08-31] MEDS: METOCLOPRAMIDE 10 MG/10 ML UDCUP PO SCH ×2 (09:53→21:15)
[2016-08-31] MEDS: NOREPINEPHRINE 8 MG in SODIUM CHLORIDE 0.9% 242 ML IV SCH ×2 (09:55→17:49)
[2016-08-31] MEDS: TACROLIMUS 0.5 MG CAPSULE PO SCH ×2 (10:42→21:17)
[2016-08-31] MEDS: MYCOPHENOLATE MOFETIL 250 MG CAPSULE PO SCH ×2 (10:43→21:14)
--- NOTE | 2016-08-31 10:43 | General Surgery Progress Note ---
Assessment and Plan (1) Pneumothorax, left Status: Acute Assessment and plan: The airleak appears to have returned and is very small. Continue chest tube to suction for another 24 hours. Current Visit: Yes Subjective Patient reports: Present: afebrile Narrative: The patient was reintubated yesterday. Exam - Constitutional Vitals: Period Temp Pulse Resp BP Sys/Stewart Pulse Ox Last 24 Hr 97.3 F-98.4 F 85-105 15-45 86-129/53-85 75-100 General appearance: normal weight, mild distress - Head Head exam: Present: normal inspection, normocephalic - ENT ENT exam: Present: normal exam Mouth exam: Present: normal external inspection - Neck Neck exam: Present: normal inspection, trachea midline - Respiratory Respiratory exam: Present: decreased breath sounds, rales, rhonchi, other ( chest she has a very small air leak and minimal drainage). Absent: accessory muscle use, chest wall tenderness - Cardiovascular Cardiovascular exam: Present: RRR. Absent: systolic murmur, tachycardia - GI/Abdominal GI/Abdominal exam: Present: soft. Absent: tenderness, rebound - Extremities Exam Extremities exam: Present: normal inspection, normal capillary refill - Back Exam Back exam: Present: normal inspection - Neurological Exam Neurological exam: Present: alert, oriented X3 Speech: Present: normal - Skin Skin exam: Present: normal color, warm Results - Labs CBC & BMP: 08/31/16 03:40 08/31/16 03:40 - Diagnostic Findings Procedure: Chest x-ray: image reviewed by me, report reviewed by me
[2016-08-31] MEDS: VORICONAZOLE INJ 400 MG in SODIUM CHLORIDE 0.9% 100 ML IV SCH ×2 (12:16→23:01)
[2016-08-31] MEDS: GANCICLOVIR IV SCH (13:59)
[2016-08-31] MEDS: SODIUM CHLORIDE 0.9% IV SCH (13:59)
--- NOTE | 2016-08-31 15:35 | Nephrology Progress Note ---
Nephrology - PN: Subj Interval history: Ms. Mcmanus is seen in follow-up of his kidney transplant. He has stable renal function with a creatinine of 3.2. He's developed a left pneumothorax and has a chest tube and is still requiring ventilator assistance. His chest x- rays generally no worse than it was on Wednesday in fact may be a touch better he continues to receive antifungal treatment. His bronchial washings did grow Yojana albicans. Is also receiving other therapy for empiric treatment of opportunistic infection specifically pneumocystis. Exam (PN)-Nephrology - Vital Signs Vital signs: Period Temp Pulse Resp BP Sys/Stewart Pulse Ox Last 24 Hr 97.3 F-98.8 F 85-105 14-32 93-129/53-74 94-100 - Lab 08/31/16 03:40 08/31/16 03:40 Most recent lab results ABG pH 7.350 (7.35-7.45) 08/31/16 08:20 ABG pCO2 43.3 MM HG (35-48) 08/31/16 08:20 ABG pO2 110.0 MM HG (80-95) H 08/31/16 08:20 ABG HCO3 23.4 MMOL/L (20-26) 08/31/16 08:20 ABG O2 Saturation 97.4 % (95-100) 08/31/16 08:20 Calcium 8.4 MG/DL (8.5-10.1) L 08/31/16 03:40 Phosphorus 5.4 MG/DL (2.5-4.9) H 08/31/16 03:40 Magnesium 2.0 MG/DL (1.8-2.4) 08/31/16 03:40 Assessment and Plan (1) Kidney transplant recipient Status: Chronic Current Visit: No (2) Chronic kidney disease, stage III (moderate) Status: Chronic Current Visit: Yes (3) Left ankle pain Status: Acute Current Visit: Yes
--- NOTE | 2016-08-31 16:42 | Neurology Progress Note ---
Neurology - PN : Subjective Interval history: Patient is a 50-year-old black man that came in with some confusion and atypical chest pain and maybe some shortness of breath. He has had a previous renal transplant and is on immunosuppressive therapy. He came in complaining of gout in his left foot. He was found to have reticular nodular infiltrates throughout his lungs. He developed worsening respiratory failure and has been on the ventilator. He self extubated himself over the weekend had to be reintubated. He did develop a left pneumothorax and has a chest tube now. Mentally seems to be doing okay even though he is on vent and on to prevent. He is following commands appropriately. Exam (Progress Note) - Constitutional Vitals: Period Temp Pulse Resp BP Sys/Stewart Pulse Ox Last 24 Hr 97.3 F-98.8 F 85-105 14-32 93-129/53-74 95-100 Exam: GENERAL: Patient is in no acute distress. NECK: Neck is supple. There is no JVD. No carotid bruits present. No thyroid masses. CVS: First and second heart sounds are normal. There is no S3 present. Regular rate and rhythm. RESPIRATORY: Lungs are clear to auscultation without any rales or rhonchi. ABDOMEN: Soft and non-tender. Bowel sounds are present. There is no hepatosplenomegaly. EXT: There is no palpable edema. Peripheral pulses are present. Skin: No rashes Central Nervous system: General: Alert and awake Speech: On vent Comprehension: Fair Facial expressions: Normal Cranial Nerves: Pupils are equally reactive to light. Extraocular movements are intact. No facial asymmetry seen. Visual estrada are equal. Tongue is midline. Motor: Bulk and Tone is normal. Strength symmetrical, moving all 4 extremities. Sensory: Unreliable Reflexes: 1+ and symmetrical Cerebellar function: Slow [id number] testing Gait: Not Tested this time Results - Labs CBC & BMP: 08/31/16 03:40 08/31/16 03:40 Assessment and Plan (1) Altered mental status Status: Acute Assessment and plan: Hold off to LP. Continue current antibiotic coverage. No new recommendations from neuro standpoint. Continued supportive management. Current Visit: Yes Qualifiers: Altered mental status type: delirium Qualified Code(s): R41.0 - Disorientation, unspecified
[2016-09-01] MEDS: ALBUTEROL/IPRATROPIUM 3 ML NEB RESP TX SCH ×4 (01:01→19:50)
[2016-09-01] MEDS: NITROGLYCERIN 2% OINT 1 INCH/GM PACK TOP SCH ×4 (02:08→17:47)
[2016-09-01] MEDS: cefTRIAXone 2,000 MG in SODIUM CHLORIDE 0.9% 100 ML IV SCH ×2 (03:05→16:03)
[2016-09-01] MEDS: methylPREDNISolone SOD SUC 40 MG/1 ML VIAL IV SCH ×4 (03:05→21:20)
[2016-09-01] MEDS: AMPICILLIN INJ 2,000 MG in SODIUM CHLORIDE 0.9% 100 ML IV SCH ×4 (03:06→21:20)
[2016-09-01] MEDS: PROPOFOL 1,000 MG/100 ML BOTTLE IV SCH ×4 (03:14→21:30)
[2016-09-01 03:31] LABS: Allen Test Positive; Pt O2 Delivery Device Ventilator
[2016-09-01 03:32] LABS: ABG HCO3 24.4 MMOL/L (20-26); ABG PCO2 48.5 MM HG (35-48); ABG PO2 123.8 MM HG (80-95); ABG TCO2 25.9 MMOL/L (23-27)
[2016-09-01 03:47] LABS: Basophils % 0.1 % (0.0-0.8); Hematocrit 34.5 VOL% (42.0-52.0); Hemoglobin 11.2 GM/DL (14.0-18.0); Immature Granulocytes Absolute 0.19 #; Lymphocytes # 0.1 10*3/uL (1.4-4.0); Lymphocytes % 1.3 % (21.2-54.2); Mean Corpuscular HGB Conc 32.5 GM/DL (32-36); Mean Corpuscular Hemoglobin 25 PG (27-34); Mean Corpuscular Volume 77.9 FL (87-102); Mean Platelet Volume 12.8 FL (9.6-12.0); Monocytes # 0.2 10*3/uL (0.11-0.8); Monocytes % 1.9 % (1.7-12.7); NRBC # 0.03 10*3/uL; Neutrophils # 9.2 10*3/uL (1.4-7.4); Neutrophils % 94.7 % (38.7-73.9); Platelet Count 229 T/CUMM (130-400); Red Blood Count 4.43 MC/CUMM (3.8-5.5); Red Cell Distribution Width 15.6 % (9.3-17.3); White Blood Count 9.7 T/CUMM (4-12)
[2016-09-01] MEDS: SULFAMETH/TRIMETH INJ 160 MG in DEXTROSE 5% 250 ML IV SCH ×3 (03:51→16:02)
[2016-09-01 04:01] LABS: Lactic Acid 2.7 MMOL/L (0.4-2.0)
[2016-09-01 04:10] LABS: Blood Urea Nitrogen 102 MG/DL (7-18); Calcium 8.6 MG/DL (8.5-10.1); Glucose 307 MG/DL (74-106); Magnesium 2.1 MG/DL (1.8-2.4); Osmolality,Calculated 326.1 MOS/KG (273-304); Potassium 4.5 MMOL/L (3.5-5.1); Sodium 142 MMOL/L (136-145); Troponin I Only < 0.015 NG/ML (0.00-0.045)
[2016-09-01 05:18] LABS: Hypochromasia 2+; Lymphocytes 2 % (20-55); Microcytosis 1+; Nucleated Red Blood Cells 1 (0-5); Segmented Neutrophils 97 % (50-85); Total Cells Counted 100
[2016-09-01 05:19] LABS: Platelet Estimate Adequate
[2016-09-01] MEDS: INSULIN REGULAR 100 UNIT/ML SUBCUT SCH ×3 (06:00→17:54)
--- NOTE | 2016-09-01 07:08 | XRay Report ---
Referring Physician: Milind Clifton Exam: XR chest 1V portable Date: September 01, 2016 at 3:28 AM Reason: Pneumonia Comparison: Chest one view portable August 31, 2016 Findings: An endotracheal tube, feeding tube, right IJ catheter and left chest tube are again present. The cardiac silhouette is upper normal in size. There are prominent heterogeneous opacities within both lungs, mainly at the lower lung zones. This could represent pulmonary edema and/or pneumonia. Pneumonia is favored. No pneumothorax is identified, but there is mild soft tissue air at the left chest wall. The osseous structures appear stable. Impression: There is slight improved aeration of both lungs. However, there are persistent prominent opacities bilaterally. PROCEDURE INTERPRETED AT [facility] DEPARTMENT OF RADIOLOGY Final Report Signed by: Dr. Arben Castro
--- NOTE | 2016-09-01 07:48 | Pulmonology Progress Note ---
Pulmonary - PN: Subj Interval history: Patient is a 50-year-old black man that came in with some confusion and atypical chest pain and maybe some shortness of breath. He has had a previous renal transplant and is on immunosuppressive therapy. He came in complaining of gout in his left foot. He was found to have reticular nodular infiltrates throughout his lungs. He developed worsening respiratory failure and has been on the ventilator. He self extubated himself over the weekend had to be reintubated. He did develop a left pneumothorax and has a chest tube now. He is still tachypneic on the ventilator but is x-ray is improving. He is not having any fever now and his blood pressure stable. His urine output has been adequate but his creatinine is 3.2. Overall he is relatively stable on the ventilator. Exam (Progress Note) - Constitutional Vitals: Period Temp Pulse Resp BP Sys/Stewart Pulse Ox Last 24 Hr 97.3 F-98.8 F 93-106 14-32 95-129/54-75 94-100 Exam: General appearance: no distress, under weight, he looks reasonably comfortable on the ventilator at present. He is still tachypneic with his oxygenation is okay. - Head Head exam: Present: normal inspection, normocephalic - Eye Eye exam: Present: EOMI. Absent: scleral icterus Pupils: Present: SELVIN - ENT ENT exam: Present: The ET tube is in good position. - Neck Neck exam: Present: tenderness. Absent: lymphadenopathy, thyromegaly - Respiratory Respiratory exam: Present: He has good breath sounds bilaterally and his lungs sound okay but he does have some crackles and rhonchi present. He has a left chest tube in place with no air leak now. - Cardiovascular Cardiovascular exam: Present: regular rate and rhythm. Absent: gallop, systolic murmur - GI/Abdominal GI/Abdominal exam: Present: soft. Absent: distended, organomegaly, tenderness - Extremities Exam Extremities exam: Present: other (left ankle and foot is not red or swollen, he still has a lot of soreness.). Absent: calf tenderness, edema - Neurological Exam Neurological exam: Present: Patient does respond and does require sedation. - Psychiatric Psychiatric exam: Absent: agitated, anxious - Skin Skin exam: Present: warm, dry Results - Labs CBC & BMP: 09/01/16 03:30 09/01/16 03:30 Labs: His PO2 is 123 with a PCO2 of 48 and a pH is 7.32. - Diagnostic Findings Procedure: Chest x-ray: image reviewed by me, report reviewed by me (chest x- ray does show improvement in the infiltrates.) Assessment and Plan (1) Reticulonodular infiltrate present on imaging of chest Status: Acute Assessment and plan: The patient has worsening reticular nodular infiltrates that were not present a few weeks ago. There was a lung density present a few weeks ago. He is somewhat immunosuppressed. Nothing is showing up on culture so far. We'll continue broad-spectrum antibiotics. His x-ray does appear to be improving now. We'll continue with his broad-spectrum antibiotics so far. Current Visit: Yes (2) Kidney transplant recipient Status: Chronic Assessment and plan: The patient is on immunosuppressive therapy. His creatinine is stable at 3.2 today. Current Visit: No (3) Altered mental status Status: Acute Assessment and plan: The patient responding now on the ventilator but he does require some sedation. Current Visit: Yes Qualifiers: Altered mental status type: delirium Qualified Code(s): R41.0 - Disorientation, unspecified (4) Left ankle pain Status: Acute Assessment and plan: Patient says he has gout. His uric acid level is 6.4. Current Visit: Yes (5) ARF (acute renal failure) Status: Acute Assessment and plan: He does have worsening renal insufficiency. His creatinine is fairly stable at 3.2. Current Visit: Yes
--- NOTE | 2016-09-01 08:42 | Nephrology Progress Note ---
Nephrology - PN: Subj Interval history: Mr. Young Mcmanus is seen in follow-up of his kidney transplant and pneumonia. His creatinine is stable at 3.2. He remains on a ventilator and has his left chest tube which is to gravity drainage now with no gross airleak. He has some chemosis or scleral edema on the right particularly. He is unresponsive, sedate on the ventilator. His chest x-ray appears to be improving. Plan is for continued antibiotic and antifungal therapy. He has grown Yojana albicans from bronchial washings. Exam (PN)-Nephrology - Vital Signs Vital signs: Period Temp Pulse Resp BP Sys/Stewart Pulse Ox Last 24 Hr 97.3 F-98.8 F 93-106 14-32 95-122/54-75 94-100 - Lab 09/01/16 03:30 09/01/16 03:30 Most recent lab results ABG pH 7.320 (7.35-7.45) L 09/01/16 03:05 ABG pCO2 48.5 MM HG (35-48) H 09/01/16 03:05 ABG pO2 123.8 MM HG (80-95) H 09/01/16 03:05 ABG HCO3 24.4 MMOL/L (20-26) 09/01/16 03:05 ABG O2 Saturation 98.0 % (95-100) 09/01/16 03:05 Calcium 8.6 MG/DL (8.5-10.1) 09/01/16 03:30 Phosphorus 5.4 MG/DL (2.5-4.9) H 08/31/16 03:40 Magnesium 2.1 MG/DL (1.8-2.4) 09/01/16 03:30 Assessment and Plan (1) Kidney transplant recipient Status: Chronic Current Visit: No (2) Chronic kidney disease, stage III (moderate) Status: Chronic Current Visit: Yes (3) Left ankle pain Status: Acute Current Visit: Yes
[2016-09-01] MEDS: ASPIRIN EC 81 MG TABLET PO SCH (08:48)
[2016-09-01] MEDS: FOLIC ACID 1 MG TABLET PO SCH (08:48)
[2016-09-01] MEDS: PANTOPRAZOLE 40 MG TABLET PO SCH (08:48)
[2016-09-01] MEDS: CARVEDILOL 12.5 MG TABLET PO SCH ×2 (08:48→21:21)
[2016-09-01] MEDS: METOCLOPRAMIDE 10 MG/10 ML UDCUP PO SCH ×2 (08:50→21:21)
[2016-09-01] MEDS: MYCOPHENOLATE MOFETIL 250 MG CAPSULE PO SCH ×2 (08:50→21:22)
[2016-09-01] MEDS: amLODIPine 10 MG TABLET PO SCH (08:50)
--- NOTE | 2016-09-01 09:20 | Hospitalist Progress Note ---
Assessment and Plan (1) Acute respiratory failure Status: Acute Assessment and plan: He likely has underlying PNA, Agree with current antibiotics especially given his immunosuppressed state. Appreciate pulmonology for assistance with vent management. Current Visit: Yes (2) Chronic kidney disease, stage III (moderate) Status: Chronic Current Visit: Yes (3) Reticulonodular infiltrate present on imaging of chest Status: Acute Current Visit: Yes (4) Hyperglycemia, drug-induced Status: Acute Assessment and plan: hyperglycemia is likely related to steroids he is receiving we'll continue with sliding scale insulin. Current Visit: Yes Hospitalist: Subjective Interval history: Due to-year-old male with history of chronic disease and history of renal transplantation with chronic immunosuppressive medications presented and was found to have reticular nodule infiltrates. Patient eventually progressed to respiratory failure where he required intubation. There were no overnight events. He is on broad-spectrum antibiotics thus for only Yojana albicans growing from his bronchial washings. Exam - Constitutional Vitals: Period Temp Pulse Resp BP Sys/Stewart Pulse Ox Last 24 Hr 97.3 F-98.8 F 93-106 14-32 95-122/54-75 94-100 General appearance: no acute distress - Head Head exam: Present: normocephalic, atraumatic - Eye Eye exam: Present: other (scleral edema) - Respiratory Respiratory exam: Present: rhonchi - Cardiovascular Cardiovascular exam: Present: regular rate and rhythm - GI/Abdominal GI/Abdominal exam: Present: hypoactive bowel sounds, soft - Neurological Exam Neurological exam: Present: other (sedated) - Skin Skin exam: Present: warm, dry Results - Labs CBC & BMP: 09/01/16 03:30 09/01/16 03:30 - Diagnostic Findings Procedure: Chest x-ray: report reviewed by me (bilateral lower opacities but improved areation)
[2016-09-01] MEDS: TACROLIMUS 0.5 MG CAPSULE PO SCH ×2 (09:38→21:21)
--- NOTE | 2016-09-01 11:21 | General Surgery Progress Note ---
Assessment and Plan (1) Pneumothorax, left Status: Acute Assessment and plan: There is no air leak today. The chest tube was placed to waterseal. Repeat chest x-ray tomorrow. Current Visit: Yes Subjective Patient reports: Present: no new complaints, afebrile Exam - Constitutional Vitals: Period Temp Pulse Resp BP Sys/Stewart Pulse Ox Last 24 Hr 97.3 F-98.8 F 93-106 14-32 95-122/54-75 94-100 General appearance: normal weight, mild distress - Head Head exam: Present: normal inspection - Eye Eye exam: Present: EOMI - ENT ENT exam: Present: normal exam Mouth exam: Present: normal external inspection - Neck Neck exam: Present: normal inspection, trachea midline - Respiratory Respiratory exam: Present: other (chest tube with no air leak, minimal output) - Cardiovascular Cardiovascular exam: Present: RRR. Absent: tachycardia - GI/Abdominal GI/Abdominal exam: Present: soft. Absent: tenderness, rebound - Extremities Exam Extremities exam: Present: normal inspection, normal capillary refill - Back Exam Back exam: Present: normal inspection - Neurological Exam Neurological exam: Present: alert, oriented X3 Speech: Present: normal - Skin Skin exam: Present: normal color, warm Results - Labs CBC & BMP: 09/01/16 03:30 09/01/16 03:30 - Diagnostic Findings Procedure: Chest x-ray: image reviewed by me, report reviewed by me
[2016-09-01] MEDS: SODIUM CHLORIDE 0.9% IV SCH (11:34)
[2016-09-01] MEDS: GANCICLOVIR IV SCH (11:34)
[2016-09-01] MEDS: VORICONAZOLE INJ 400 MG in SODIUM CHLORIDE 0.9% 100 ML IV SCH (11:34)
[2016-09-01] MEDS: SODIUM BICARB INJ 100 MEQ in DEXTROSE 5% 1,000 ML IV SCH ×3 (12:08→16:03)
--- NOTE | 2016-09-01 14:00 | Physician Query Form ---
CLICK EDIT DOCUMENT TO SELECT QUERY ANSWER --> OK --> SIGN Terra Dillon RN Clinical Social Work Case Manager W) [phone] (f) [phone] [email or web address] PROVIDERS: Make your selection(s) from the choices in EACH section by typing an "x" and enter comments in the comment section. Please use your independent medical judgment in providing your response. This request does not imply that any particular answer is desired or expected. CLINICAL INDICATORS: (Providers should not edit this section) Based on documentation of "His bronchial washings did grow Yojana albicans". Pt. treated with IV Diflucan. Based on the above, could you clarify the appropriate diagnosis, if significant , that supports the above abnormalities and additional evaluation, monitoring, and/or treatment rendered: (x ) Pt. treated for yojana of the lung ( ) Pt. not treated for yojana of the lung ( ) Other, please specify: ( ) Clinically unable to determine COMMENTS: Use of terms such as suspected, likely, or probable (associated with a specific diagnosis that is being evaluated, monitored, or treated as if it exists) are acceptable and can be restated in the discharge summary if not ruled out. MTDD
[2016-09-01] MEDS: SODIUM CHLORIDE 0.45% 1,000 ML IV SCH (16:33)
[2016-09-02] MEDS: SULFAMETH/TRIMETH INJ 160 MG in DEXTROSE 5% 250 ML IV SCH ×5 (00:05→22:28)
[2016-09-02] MEDS: VORICONAZOLE INJ 400 MG in SODIUM CHLORIDE 0.9% 100 ML IV SCH ×3 (00:06→23:46)
[2016-09-02] MEDS: ALBUTEROL/IPRATROPIUM 3 ML NEB RESP TX SCH ×4 (01:04→19:48)
[2016-09-02] MEDS: INSULIN REGULAR 100 UNIT/ML SUBCUT SCH ×5 (01:04→23:54)
[2016-09-02] MEDS: NITROGLYCERIN 2% OINT 1 INCH/GM PACK TOP SCH ×4 (01:06→17:22)
[2016-09-02] MEDS: MORPHINE 2 MG/1 ML SYRINGE IV PRN ×3 (01:47→22:21)
[2016-09-02] MEDS: cefTRIAXone 2,000 MG in SODIUM CHLORIDE 0.9% 100 ML IV SCH ×2 (03:39→15:47)
[2016-09-02] MEDS: methylPREDNISolone SOD SUC 40 MG/1 ML VIAL IV SCH ×4 (03:41→22:18)
[2016-09-02 04:00] LABS: ABG Base Excess -3.7 MMOL/L (-2.5-2.5); ABG HCO3 21.4 MMOL/L (20-26); ABG Oxygen Saturation 98.2 % (95-100); ABG PCO2 45.1 MM HG (35-48); ABG PH 7.309 (7.35-7.45); ABG TCO2 20.6 MMOL/L (23-27); Allen Test Positive; Pt O2 Delivery Device Ventilator
[2016-09-02] MEDS: AMPICILLIN INJ 2,000 MG in SODIUM CHLORIDE 0.9% 100 ML IV SCH ×4 (04:58→22:18)
[2016-09-02] MEDS: PROPOFOL 1,000 MG/100 ML BOTTLE IV SCH ×3 (05:05→23:15)
--- NOTE | 2016-09-02 06:14 | XRay Report ---
Referring Physician: Joseph Caldwell Exam: XR chest 1V portable Date: September 02, 2016 at 3:21 AM Reason: Chest tube Comparison: Chest one view portable September 01, 2016 Findings: An endotracheal tube, feeding tube, right IJ catheter and left chest tube are again present. The cardiac silhouette is upper normal in size. There are heterogeneous opacities throughout both lungs, mainly at the lower lung zones. This could represent pulmonary edema and/or pneumonia. No pneumothorax is identified. The osseous structures appear stable. Impression: There is decreased soft tissue air at the left chest wall and minimal improved aeration at the left lung base. The study is otherwise similar to before. PROCEDURE INTERPRETED AT [facility] DEPARTMENT OF RADIOLOGY Final Report Signed by: Dr. Arben Castro
--- NOTE | 2016-09-02 07:15 | Event Note ---
The patient appears to have no changes. His chest tube has minimal output and there is no air leak on water seal with good reexpansion of the lung on chest x- ray. I would prefer to leave the chest tube in until the patient is extubated because this occurred while he was on the ventilator from presumed barotrauma. I have discussed this plan with the nurses and I will loosely follow the patient until extubation. If it appears as though he is going to fail extubation for a prolonged period of time, we can consider removing the chest tube prior to extubation to reduce risk of infection but for now I like to sit tight and try to wait until he is extubated to remove the tube
[2016-09-02] MEDS: NOREPINEPHRINE 8 MG in SODIUM CHLORIDE 0.9% 242 ML IV SCH ×2 (07:30→16:36)
--- NOTE | 2016-09-02 07:51 | Pulmonology Progress Note ---
Pulmonary - PN: Subj Interval history: Patient is a 50-year-old black man that came in with some confusion and atypical chest pain and maybe some shortness of breath. He has had a previous renal transplant and is on immunosuppressive therapy. He came in complaining of gout in his left foot. He was found to have reticular nodular infiltrates throughout his lungs. He developed worsening respiratory failure and has been on the ventilator. He self extubated himself over the weekend had to be reintubated. He did develop a left pneumothorax and has a chest tube now. The patient has been fairly stable on the ventilator and his lung compliance is better. His chest x-ray is much improved. So far there still nothing on culture. Transbronchial biopsies are still pending. He still has a low-grade fever but his vital signs been stable. His urine output has been okay. Overall he continues to improve. Exam (Progress Note) - Constitutional Vitals: Period Temp Pulse Resp BP Sys/Stewart Pulse Ox Last 24 Hr 97.2 F-99.4 F 90-109 18-31 85-116/53-71 96-100 Exam: General appearance: no distress, under weight, he looks reasonably comfortable on the ventilator at present. He is responding and looks more comfortable. - Head Head exam: Present: normal inspection, normocephalic - Eye Eye exam: Present: EOMI. has some scleral edema now. Pupils: Present: SELVIN - ENT ENT exam: Present: The ET tube is in good position. - Neck Neck exam: Present: tenderness. Absent: lymphadenopathy, thyromegaly - Respiratory Respiratory exam: Present: He has good breath sounds bilaterally and his lungs sound better with better air movement. His lung compliance is much better. He has no air leak now. - Cardiovascular Cardiovascular exam: Present: regular rate and rhythm. Absent: gallop, systolic murmur - GI/Abdominal GI/Abdominal exam: Present: soft. Absent: distended, organomegaly, tenderness - Extremities Exam Extremities exam: Present: other (left ankle and foot is not red or swollen, he still has a lot of soreness.). Absent: calf tenderness, edema - Neurological Exam Neurological exam: Present: Patient does respond and does require sedation. - Psychiatric Psychiatric exam: Absent: agitated, anxious - Skin Skin exam: Present: warm, dry Results - Labs CBC & BMP: 09/01/16 03:30 09/01/16 03:30 Labs: His PO2 is 128 with a PCO2 of 45 and a pH is 7.3 - Diagnostic Findings Procedure: Chest x-ray: image reviewed by me, report reviewed by me (chest x- ray shows improving infiltrates bilaterally.) Assessment and Plan (1) Reticulonodular infiltrate present on imaging of chest Status: Acute Assessment and plan: The patient has diffuse reticular nodule infiltrates that are improving. This looks like he has an improving infection. We will check on his transbronchial biopsies. We'll continue broad-spectrum antibiotics for now. Current Visit: Yes (2) Kidney transplant recipient Status: Chronic Assessment and plan: The patient is on immunosuppressive therapy. His creatinine is stable at 3.2 today. He does have fairly good urine output. Current Visit: No (3) Altered mental status Status: Acute Assessment and plan: The patient responding now on the ventilator but he does require some sedation. Current Visit: Yes Qualifiers: Altered mental status type: delirium Qualified Code(s): R41.0 - Disorientation, unspecified (4) Left ankle pain Status: Acute Assessment and plan: Patient says he has gout. His uric acid level is 6.4. Current Visit: Yes (5) ARF (acute renal failure) Status: Acute Assessment and plan: He does have worsening renal insufficiency. His creatinine is fairly stable at 3.2. He is diuresing reasonably well at present. Current Visit: Yes
--- NOTE | 2016-09-02 08:07 | Nephrology Progress Note ---
Nephrology - PN: Subj Interval history: Mr. Mcmanus is seen in follow-up of his chronic renal failure his functioning kidney transplant. Creatinine is been ranging 3.2 3.4. He remains ventilated but chest x-ray is improving. Does not appear to be leaking with his left chest tube to waterseal and the plan is to leave that until he is extubated. His serum albumin is 0.8. We will supplement that with some 25% albumin. Exam (PN)-Nephrology - Vital Signs Vital signs: Period Temp Pulse Resp BP Sys/Stewart Pulse Ox Last 24 Hr 97.2 F-99.4 F 90-109 18-31 85-116/53-71 96-100 - Lab 09/01/16 03:30 09/01/16 03:30 Most recent lab results ABG pH 7.309 (7.35-7.45) L 09/02/16 03:55 ABG pCO2 45.1 MM HG (35-48) 09/02/16 03:55 ABG pO2 128.0 MM HG (80-95) H 09/02/16 03:55 ABG HCO3 21.4 MMOL/L (20-26) 09/02/16 03:55 ABG O2 Saturation 98.2 % (95-100) 09/02/16 03:55 Calcium 8.6 MG/DL (8.5-10.1) 09/01/16 03:30 Phosphorus 5.4 MG/DL (2.5-4.9) H 08/31/16 03:40 Magnesium 2.1 MG/DL (1.8-2.4) 09/01/16 03:30 Assessment and Plan (1) Kidney transplant recipient Status: Chronic Current Visit: No (2) Chronic kidney disease, stage III (moderate) Status: Chronic Current Visit: Yes (3) Left ankle pain Status: Acute Current Visit: Yes
[2016-09-02 08:14] LABS: Basophils % 0.1 % (0.0-0.8); Hemoglobin 10.8 GM/DL (14.0-18.0); Immature Granulocytes % 2.5 %; Immature Granulocytes Absolute 0.26 #; Lymphocytes # 0.1 10*3/uL (1.4-4.0); Mean Corpuscular HGB Conc 32.7 GM/DL (32-36); Mean Corpuscular Hemoglobin 25 PG (27-34); Mean Corpuscular Volume 77.1 FL (87-102); Mean Platelet Volume 13.6 FL (9.6-12.0); Monocytes # 0.2 10*3/uL (0.11-0.8); Monocytes % 1.5 % (1.7-12.7); NRBC # 0.03 10*3/uL; Neutrophils # 9.8 10*3/uL (1.4-7.4); Neutrophils % 94.9 % (38.7-73.9); Platelet Count 200 T/CUMM (130-400); Red Blood Count 4.28 MC/CUMM (3.8-5.5); Red Cell Distribution Width 15.4 % (9.3-17.3); White Blood Count 10.4 T/CUMM (4-12)
[2016-09-02 08:36] LABS: Calcium 9.1 MG/DL (8.5-10.1); Osmolality,Calculated 328.5 MOS/KG (273-304); Potassium 4.8 MMOL/L (3.5-5.1)
[2016-09-02 08:42] LABS: Hypochromasia 1+; Lymphocytes 1 % (20-55); Microcytosis 1+; Segmented Neutrophils 98 % (50-85); Total Cells Counted 100
[2016-09-02 08:43] LABS: Platelet Estimate Adequate
[2016-09-02] MEDS: ALBUMIN 25% 12.5 GM in PREMIX 1 EACH IV SCH ×2 (09:22→10:19)
[2016-09-02] MEDS: PANTOPRAZOLE 40 MG TABLET PO SCH (09:24)
[2016-09-02] MEDS: ASPIRIN EC 81 MG TABLET PO SCH (09:24)
[2016-09-02] MEDS: METOCLOPRAMIDE 10 MG/10 ML UDCUP PO SCH ×2 (09:24→20:10)
[2016-09-02] MEDS: FOLIC ACID 1 MG TABLET PO SCH (09:25)
[2016-09-02] MEDS: TACROLIMUS 0.5 MG CAPSULE PO SCH ×2 (09:25→22:16)
--- NOTE | 2016-09-02 09:25 | Hospitalist Progress Note ---
Assessment and Plan (1) Acute respiratory failure Status: Acute Assessment and plan: He likely has underlying PNA, Agree with current antibiotics especially given his immunosuppressed state. Appreciate pulmonology for assistance with vent management. 09/02/16; chest xray is better today and will continue with antibiotics and weaning protocol per pulmonology Current Visit: Yes (2) Chronic kidney disease, stage III (moderate) Status: Chronic Current Visit: Yes (3) Reticulonodular infiltrate present on imaging of chest Status: Acute Current Visit: Yes (4) Hyperglycemia, drug-induced Status: Acute Assessment and plan: hyperglycemia is likely related to steroids he is receiving we'll continue with sliding scale insulin. Current Visit: Yes (5) Hypoalbuminemia Status: Acute Assessment and plan: he will be started on albumin replacement as he does have some edema Current Visit: Yes Hospitalist: Subjective Interval history: 50-year-old male history of chronic kidney disease ICU bed 122 respiratory distress with appears to be pneumonia. Overall his chest x-ray is improving. [facility] immunosuppressant medications secondary to renal transplantation. Exam - Constitutional Vitals: Period Temp Pulse Resp BP Sys/Stewart Pulse Ox Last 24 Hr 97.2 F-99.4 F 90-109 18-31 85-116/53-71 95-100 General appearance: no acute distress - Head Head exam: Present: normocephalic, atraumatic - Respiratory Respiratory exam: Present: rhonchi - Cardiovascular Cardiovascular exam: Present: regular rate and rhythm - GI/Abdominal GI/Abdominal exam: Present: normal bowel sounds, soft - Neurological Exam Neurological exam: Present: other (sedated) - Skin Skin exam: Present: warm, intact Results - Labs CBC & BMP: 09/02/16 08:07 09/02/16 08:07
[2016-09-02] MEDS: MYCOPHENOLATE MOFETIL 250 MG CAPSULE PO SCH ×2 (09:26→20:09)
[2016-09-02] MEDS: CARVEDILOL 12.5 MG TABLET PO SCH ×2 (09:27→20:10)
[2016-09-02] MEDS: amLODIPine 10 MG TABLET PO SCH (09:28)
[2016-09-02] MEDS: GANCICLOVIR IV SCH (11:40)
[2016-09-02] MEDS: SODIUM CHLORIDE 0.9% IV SCH (11:40)
[2016-09-02] MEDS: SODIUM CHLORIDE 0.45% 1,000 ML IV SCH (12:42)
--- NOTE | 2016-09-02 17:26 | Neurology Progress Note ---
Neurology - PN : Subjective Interval history: A little more sleepy today. Still following commands occasionally. No other new problems reported. No seizures reported. Is still on vent. Exam (Progress Note) - Constitutional Vitals: Period Temp Pulse Resp BP Sys/Stewart Pulse Ox Last 24 Hr 96.9 F-99.4 F 90-105 18-31 85-120/40-74 95-100 Exam: GENERAL: Patient is in no acute distress. NECK: Neck is supple. There is no JVD. No carotid bruits present. No thyroid masses. CVS: First and second heart sounds are normal. There is no S3 present. Regular rate and rhythm. RESPIRATORY: Lungs are clear to auscultation without any rales or rhonchi. ABDOMEN: Soft and non-tender. Bowel sounds are present. There is no hepatosplenomegaly. EXT: There is no palpable edema. Peripheral pulses are present. Skin: No rashes Central Nervous system: General: Sleepy but arousable Speech: On vent Comprehension: Fair Facial expressions: Normal Cranial Nerves: Pupils are equally reactive to light. Extraocular movements are intact. No facial asymmetry seen. Visual estrada are equal. Tongue is midline. Motor: Bulk and Tone is normal. Strength symmetrical, moving all 4 extremities however very weakly today. Sensory: Unreliable Reflexes: 1+ and symmetrical Cerebellar function: Slow [id number] testing Gait: Not Tested this time Results - Labs CBC & BMP: 09/02/16 08:07 09/02/16 08:07 Assessment and Plan (1) Altered mental status Status: Acute Assessment and plan: Continue current antibiotic coverage. No new recommendations from neuro standpoint. Continued supportive management. We'll continue watchful observation. Current Visit: Yes Qualifiers: Altered mental status type: delirium Qualified Code(s): R41.0 - Disorientation, unspecified
[2016-09-03] MEDS: ALBUTEROL/IPRATROPIUM 3 ML NEB RESP TX SCH ×4 (00:36→20:15)
[2016-09-03] MEDS: NITROGLYCERIN 2% OINT 1 INCH/GM PACK TOP SCH ×4 (00:45→17:20)
[2016-09-03 03:40] LABS: Allen Test Positive; Pt O2 Delivery Device Ventilator
[2016-09-03 03:41] LABS: ABG Base Excess -3.2 MMOL/L (-2.5-2.5); ABG HCO3 21.7 MMOL/L (20-26); ABG Oxygen Saturation 97.5 % (95-100); ABG PCO2 40.5 MM HG (35-48); ABG PH 7.348 (7.35-7.45); ABG TCO2 20.2 MMOL/L (23-27)
[2016-09-03] MEDS: methylPREDNISolone SOD SUC 40 MG/1 ML VIAL IV SCH ×4 (04:45→21:43)
[2016-09-03] MEDS: AMPICILLIN INJ 2,000 MG in SODIUM CHLORIDE 0.9% 100 ML IV SCH ×4 (04:45→21:43)
[2016-09-03] MEDS: cefTRIAXone 2,000 MG in SODIUM CHLORIDE 0.9% 100 ML IV SCH ×2 (04:45→16:49)
[2016-09-03] MEDS: SULFAMETH/TRIMETH INJ 160 MG in DEXTROSE 5% 250 ML IV SCH ×4 (04:45→23:19)
[2016-09-03 05:51] LABS: Basophils % 0.1 % (0.0-0.8); Hematocrit 31.5 VOL% (42.0-52.0); Hemoglobin 10.3 GM/DL (14.0-18.0); Immature Granulocytes % 2.4 %; Immature Granulocytes Absolute 0.21 #; Lymphocytes # 0.1 10*3/uL (1.4-4.0); Lymphocytes % 1.2 % (21.2-54.2); Mean Corpuscular HGB Conc 32.7 GM/DL (32-36); Mean Corpuscular Hemoglobin 25 PG (27-34); Mean Platelet Volume 12.8 FL (9.6-12.0); Monocytes # 0.2 10*3/uL (0.11-0.8); NRBC # 0.03 10*3/uL; Neutrophils # 8.4 10*3/uL (1.4-7.4); Neutrophils % 94.3 % (38.7-73.9); Platelet Count 196 T/CUMM (130-400); Red Blood Count 4.09 MC/CUMM (3.8-5.5); Red Cell Distribution Width 15.4 % (9.3-17.3); White Blood Count 8.9 T/CUMM (4-12)
[2016-09-03 06:24] LABS: Hypochromasia 1+; Lymphocytes 2 % (20-55); Ovalocytes Slight; Platelet Estimate Normal; Segmented Neutrophils 97 % (50-85); Total Cells Counted 100
[2016-09-03 06:25] LABS: Microcytosis 1+
[2016-09-03 06:27] LABS: Osmolality,Calculated 331.5 MOS/KG (273-304); Potassium 5.3 MMOL/L (3.5-5.1)
[2016-09-03 06:38] LABS: Phosphorous 7.4 MG/DL (2.5-4.9)
[2016-09-03] MEDS: INSULIN REGULAR 100 UNIT/ML SUBCUT SCH ×4 (06:42→23:18)
[2016-09-03] MEDS: PROPOFOL 1,000 MG/100 ML BOTTLE IV SCH ×2 (06:55→15:31)
--- NOTE | 2016-09-03 07:55 | XRay Report ---
Referring Physician: Joseph Caldwell Exam: XR chest 1V portable Date: September 03, 2016 at 6:25 AM Reason: Respiratory distress Comparison: Chest one view portable September 02, 2016 Findings: An endotracheal tube, right IJ catheter, feeding tube and left chest tube are again in place. The cardiac silhouette is normal in size. There are heterogeneous opacities throughout both lungs, mainly within the lower lung zones. This could represent pulmonary edema and/or pneumonia. No pneumothorax is identified. The osseous structures appear stable. Impression: There has been no significant change. PROCEDURE INTERPRETED AT [facility] DEPARTMENT OF RADIOLOGY Final Report Signed by: Dr. Arben Castro [facility]US[facility]
--- NOTE | 2016-09-03 07:55 | Pulmonology Progress Note ---
Pulmonary - PN: Subj Interval history: Patient is a 50-year-old black man that came in with some confusion and atypical chest pain and maybe some shortness of breath. He has had a previous renal transplant and is on immunosuppressive therapy. He came in complaining of gout in his left foot. He was found to have reticular nodular infiltrates throughout his lungs. He developed worsening respiratory failure and has been on the ventilator. He self extubated himself over the weekend had to be reintubated. He did develop a left pneumothorax and has a chest tube now. The patient has done better the last few days and is more responsive. His oxygenation has improved and his lung compliance is much better. His chest x- rays improving in the infiltrates are much less. His biopsy report is still pending. He has good urine output with an albumin infusion but his creatinine is still 3.4. Overall he is reasonably stable at this point. Exam (Progress Note) - Constitutional Vitals: Period Temp Pulse Resp BP Sys/Stewart Pulse Ox Last 24 Hr 96.9 F-98.4 F 86-105 20-29 82-120/40-74 95-100 Exam: General appearance: no distress, under weight, he looks reasonably comfortable on the ventilator at present. He is responding and moving his extremities. His vital signs are stable on the ventilator. - Head Head exam: Present: normal inspection, normocephalic - Eye Eye exam: Present: EOMI. has some scleral edema now. The swelling is better today. Pupils: Present: SELVIN - ENT ENT exam: Present: The ET tube is in good position. - Neck Neck exam: Present: tenderness. Absent: lymphadenopathy, thyromegaly - Respiratory Respiratory exam: Present: He has good breath sounds bilaterally and his lungs sound better with better air movement. His lung compliance is much better. He has no air leak now. - Cardiovascular Cardiovascular exam: Present: regular rate and rhythm. Absent: gallop, systolic murmur - GI/Abdominal GI/Abdominal exam: Present: soft. Absent: distended, organomegaly, tenderness - Extremities Exam Extremities exam: Present: other (left ankle and foot is not red or swollen, he still has a lot of soreness.). Absent: calf tenderness, edema - Neurological Exam Neurological exam: Present: Patient does respond and is following commands. - Psychiatric Psychiatric exam: Absent: agitated, anxious - Skin Skin exam: Present: warm, dry Results - Labs CBC & BMP: 09/03/16 03:19 09/03/16 03:19 Labs: His PO2 is 107 with a PCO2 of 40 and pH is 7.34 - Diagnostic Findings Procedure: Chest x-ray: image reviewed by me, report reviewed by me (chest x- ray shows improvement of the bilateral infiltrates.) Assessment and Plan (1) Reticulonodular infiltrate present on imaging of chest Status: Acute Assessment and plan: The patient has diffuse reticular nodule infiltrates that are improving. This looks like he has an improving infection. His transbronchial biopsies are still pending. We will continue present therapy since he is improving. We will start weaning trials. Current Visit: Yes (2) Kidney transplant recipient Status: Chronic Assessment and plan: The patient is on immunosuppressive therapy. His creatinine is stable at 3.4 today. He does have fairly good urine output. Current Visit: No (3) Altered mental status Status: Acute Assessment and plan: The patient responding now on the ventilator but he does require some sedation. He does follow commands easily. Current Visit: Yes Qualifiers: Altered mental status type: delirium Qualified Code(s): R41.0 - Disorientation, unspecified (4) Left ankle pain Status: Acute Assessment and plan: Patient says he has gout. His uric acid level is 6.4. Current Visit: Yes (5) ARF (acute renal failure) Status: Acute Assessment and plan: He does have worsening renal insufficiency. His creatinine is fairly stable at 3.4. He is diuresing reasonably well at present. Current Visit: Yes
[2016-09-03] MEDS: ALBUMIN 25% 12.5 GM in PREMIX 1 EACH IV SCH (08:17)
[2016-09-03] MEDS: TACROLIMUS 0.5 MG CAPSULE PO SCH ×2 (08:18→20:15)
[2016-09-03] MEDS: FOLIC ACID 1 MG TABLET PO SCH (08:18)
[2016-09-03] MEDS: ASPIRIN EC 81 MG TABLET PO SCH (08:18)
[2016-09-03] MEDS: MYCOPHENOLATE MOFETIL 250 MG CAPSULE PO SCH ×2 (08:18→20:15)
[2016-09-03] MEDS: PANTOPRAZOLE 40 MG TABLET PO SCH (08:18)
[2016-09-03] MEDS: amLODIPine 10 MG TABLET PO SCH (08:19)
[2016-09-03] MEDS: METOCLOPRAMIDE 10 MG/10 ML UDCUP PO SCH ×2 (08:19→20:15)
[2016-09-03] MEDS: SODIUM CHLORIDE 0.45% 1,000 ML IV SCH ×3 (08:36→15:41)
--- NOTE | 2016-09-03 08:39 | Hospitalist Progress Note ---
Assessment and Plan (1) Acute respiratory failure Status: Acute Assessment and plan: He likely has underlying PNA, Agree with current antibiotics especially given his immunosuppressed state. Appreciate pulmonology for assistance with vent management. 09/02/16; chest xray is better today and will continue with antibiotics and weaning protocol per pulmonology 09/03/16: This is likely secondary to underlying lung. Continue with current mechanical mental support of her pulmonology's note they will begin to initiate weaning trials. It appears that his mental status is improving S once sedation started down he appears to be following simple commands. Current Visit: Yes (2) Chronic kidney disease, stage III (moderate) Status: Chronic Current Visit: Yes (3) Reticulonodular infiltrate present on imaging of chest Status: Acute Assessment and plan: 09/03/16: most likely infection cause as appears to be improving with antibiotics. Current Visit: Yes (4) Hyperglycemia, drug-induced Status: Acute Assessment and plan: hyperglycemia is likely related to steroids he is receiving we'll continue with sliding scale insulin. Current Visit: Yes (5) Hypoalbuminemia Status: Acute Assessment and plan: he will be started on albumin replacement as he does have some edema Current Visit: Yes (6) Kidney transplant recipient Status: Chronic Current Visit: No (7) Hyperkalemia, diminished renal excretion Status: Acute Assessment and plan: will give some Kayexalate given he has not had a bowel movement over the past few days also Current Visit: Yes Hospitalist: Subjective Interval history: 50-year-old male who presented with some confusion and developed some respiratory distress initially to be intubated. His chest x-ray did reveal reticular nodular patient is a bilateral lungs. Overall clinically is fixed chest x-ray still shows the diffuse opacities but is slowly improving as his mental status once sedation is turned down. Patient is on several antibiotics along with antifungal given he was on immunosuppressive medications as result of being a renal transplant recipient. Exam - Constitutional Vitals: Period Temp Pulse Resp BP Sys/Stewart Pulse Ox Last 24 Hr 96.7 F-98.4 F 86-105 20-29 82-120/40-74 95-100 General appearance: no acute distress - Head Head exam: Present: normocephalic, atraumatic - Respiratory Respiratory exam: Present: clear to auscultation bilaterally - Cardiovascular Cardiovascular exam: Present: regular rate and rhythm - GI/Abdominal GI/Abdominal exam: Present: normal bowel sounds, soft - Skin Skin exam: Present: warm, intact Results - Labs CBC & BMP: 09/03/16 03:19 09/03/16 03:19 - Diagnostic Findings Procedure: Chest x-ray: report reviewed by me (table of bilateral opacities in both lungs greater basilar)
[2016-09-03] MEDS ORDERED: SODIUM POLYSTYRENE SULFATE 15 GM/60 ML BOTTLE PO STA (08:41)
[2016-09-03] MEDS: CARVEDILOL 12.5 MG TABLET PO SCH ×2 (10:14→20:15)
[2016-09-03] MEDS: GANCICLOVIR IV SCH (12:04)
[2016-09-03] MEDS: VORICONAZOLE INJ 400 MG in SODIUM CHLORIDE 0.9% 100 ML IV SCH ×2 (12:04→23:18)
[2016-09-03] MEDS: SODIUM CHLORIDE 0.9% IV SCH (12:04)
--- NOTE | 2016-09-03 13:53 | Nephrology Progress Note ---
Nephrology - PN: Subj Interval history: Mr. Mcmanus is seen in follow-up of his chronic renal impairment with a functioning kidney transplant. He is edematous and is responsive despite being sedated on a ventilator. His blood pressures 100 210 systolic off pressors. He needs to be diuresed and we will try that paying attention to his BUN and creatinine as we do that and of course his blood pressure. Should we drop his pressure we may not be able to diurese him. He does have the chemosis of the right eye and particular and we will use some Lacri-Lube to try to minimize the drying that's likely going on. Exam (PN)-Nephrology - Vital Signs Vital signs: Period Temp Pulse Resp BP Sys/Stewart Pulse Ox Last 24 Hr 96.7 F-97.4 F 86-102 12-33 82-106/55-68 97-100 - Lab 09/03/16 03:19 09/03/16 03:19 Most recent lab results ABG pH 7.348 (7.35-7.45) L 09/03/16 03:20 ABG pCO2 40.5 MM HG (35-48) 09/03/16 03:20 ABG pO2 107.0 MM HG (80-95) H 09/03/16 03:20 ABG HCO3 21.7 MMOL/L (20-26) 09/03/16 03:20 ABG O2 Saturation 97.5 % (95-100) 09/03/16 03:20 Calcium 9.0 MG/DL (8.5-10.1) 09/03/16 03:19 Phosphorus 7.4 MG/DL (2.5-4.9) H 09/03/16 03:19 Magnesium 2.0 MG/DL (1.8-2.4) 09/03/16 03:19 Assessment and Plan (1) Kidney transplant recipient Status: Chronic Current Visit: No (2) Chronic kidney disease, stage III (moderate) Status: Chronic Current Visit: Yes (3) Left ankle pain Status: Acute Current Visit: Yes
[2016-09-03] MEDS ORDERED: FUROSEMIDE INJ 100 MG in SODIUM CHLORIDE 0.9% 50 ML IV ONE ×2 (13:55→16:00)
[2016-09-03] MEDS: NOREPINEPHRINE 8 MG in SODIUM CHLORIDE 0.9% 242 ML IV SCH (16:50)
[2016-09-03] MEDS: MINERAL OIL/PETROLATUM OPH OINT 3.5 GM TUBE RIGHT EYE SCH (20:15)
[2016-09-04] MEDS: NITROGLYCERIN 2% OINT 1 INCH/GM PACK TOP SCH ×5 (00:32→23:50)
[2016-09-04] MEDS: PROPOFOL 1,000 MG/100 ML BOTTLE IV SCH ×4 (00:33→18:22)
[2016-09-04] MEDS: ALBUTEROL/IPRATROPIUM 3 ML NEB RESP TX SCH ×4 (01:08→19:46)
[2016-09-04] MEDS: cefTRIAXone 2,000 MG in SODIUM CHLORIDE 0.9% 100 ML IV SCH ×2 (03:52→15:50)
[2016-09-04] MEDS: SULFAMETH/TRIMETH INJ 160 MG in DEXTROSE 5% 250 ML IV SCH ×4 (03:53→22:45)
[2016-09-04] MEDS: AMPICILLIN INJ 2,000 MG in SODIUM CHLORIDE 0.9% 100 ML IV SCH ×4 (03:53→21:20)
[2016-09-04] MEDS: methylPREDNISolone SOD SUC 40 MG/1 ML VIAL IV SCH ×4 (03:53→21:20)
[2016-09-04 04:56] LABS: Basophils % 0.1 % (0.0-0.8); Hematocrit 30.2 VOL% (42.0-52.0); Immature Granulocytes % 2.2 %; Immature Granulocytes Absolute 0.24 #; Lymphocytes # 0.1 10*3/uL (1.4-4.0); Lymphocytes % 1.3 % (21.2-54.2); Mean Corpuscular HGB Conc 33.1 GM/DL (32-36); Mean Corpuscular Hemoglobin 25 PG (27-34); Mean Corpuscular Volume 74.4 FL (87-102); Mean Platelet Volume 13.6 FL (9.6-12.0); Monocytes # 0.2 10*3/uL (0.11-0.8); Monocytes % 1.9 % (1.7-12.7); NRBC # 0.03 10*3/uL; Neutrophils # 10.2 10*3/uL (1.4-7.4); Neutrophils % 94.5 % (38.7-73.9); Platelet Count 234 T/CUMM (130-400); Red Blood Count 4.06 MC/CUMM (3.8-5.5); Red Cell Distribution Width 15.2 % (9.3-17.3); White Blood Count 10.8 T/CUMM (4-12)
[2016-09-04 05:22] LABS: Osmolality,Calculated 336.7 MOS/KG (273-304); Potassium 4.9 MMOL/L (3.5-5.1)
[2016-09-04 06:05] LABS: Hypochromasia 1+; Lymphocytes 2 % (20-55); Microcytosis 1+; Platelet Estimate Adequate; Segmented Neutrophils 97 % (50-85); Total Cells Counted 100
[2016-09-04 06:06] LABS: Ovalocytes Slight
[2016-09-04] MEDS: INSULIN REGULAR 100 UNIT/ML SUBCUT SCH ×3 (06:41→17:46)
--- NOTE | 2016-09-04 06:59 | General Surgery Progress Note ---
Assessment and Plan (1) Pneumothorax, left Status: Acute Assessment and plan: Continue chest tube to water seal. I'll see the patient again on Wednesday and the surgery team can see him as needed over the weekend otherwise. Current Visit: Yes Subjective Patient reports: Present: no new complaints, afebrile Exam - Constitutional Vitals: Period Temp Pulse Resp BP Sys/Stewart Pulse Ox Last 24 Hr 95.5 F-97.4 F 90-107 12-33 90-124/58-85 96-100 General appearance: mild distress, over weight - Head Head exam: Present: normal inspection, normocephalic - Eye Eye exam: Present: EOMI Pupils: Present: SELVIN - ENT ENT exam: Present: normal exam Mouth exam: Present: normal external inspection, normal voice - Neck Neck exam: Present: normal inspection, trachea midline - Respiratory Respiratory exam: Present: other (chest tube has no air leak. Minimal output.) - GI/Abdominal GI/Abdominal exam: Present: normal bowel sounds, soft. Absent: tenderness, rebound - Extremities Exam Extremities exam: Present: normal inspection, normal capillary refill - Back Exam Back exam: Present: normal inspection - Skin Skin exam: Present: normal color, warm Results - Labs CBC & BMP: 09/04/16 03:45 09/04/16 03:45 - Diagnostic Findings Procedure: Chest x-ray: image reviewed by me
--- NOTE | 2016-09-04 07:34 | XRay Report ---
Referring Physician: Joseph Caldwell Exam: XR chest 1V portable Date: September 04, 2016 at 3:08 AM Reason: Respiratory failure Comparison: Chest 2 views September 03, 2016 Findings: An endotracheal tube, right IJ catheter, feeding tube and left chest tube are again in place. The cardiac silhouette is normal in size. There are scattered heterogeneous opacities within both lungs, mainly at the lung bases. This could represent pulmonary edema and/or pneumonia. No pneumothorax is identified. The osseous structures appear stable. Impression: There has been no significant change. PROCEDURE INTERPRETED AT [facility] DEPARTMENT OF RADIOLOGY Final Report Signed by: Dr. Arben Castro
[2016-09-04] MEDS: PANTOPRAZOLE 40 MG VIAL IV SCH (08:10)
[2016-09-04] MEDS: METOCLOPRAMIDE 10 MG/10 ML UDCUP PO SCH ×2 (08:10→21:21)
[2016-09-04] MEDS: ASPIRIN EC 81 MG TABLET PO SCH (08:10)
[2016-09-04] MEDS: FOLIC ACID 1 MG TABLET PO SCH (08:11)
[2016-09-04] MEDS: TACROLIMUS 0.5 MG CAPSULE PO SCH ×2 (08:11→21:22)
[2016-09-04] MEDS: MYCOPHENOLATE MOFETIL 250 MG CAPSULE PO SCH ×2 (08:11→21:22)
[2016-09-04] MEDS: CARVEDILOL 12.5 MG TABLET PO SCH ×2 (08:11→21:24)
[2016-09-04] MEDS: amLODIPine 10 MG TABLET PO SCH (08:11)
[2016-09-04] MEDS: ALBUMIN 25% 12.5 GM in PREMIX 1 EACH IV SCH (08:12)
--- NOTE | 2016-09-04 08:59 | Nephrology Progress Note ---
Nephrology - PN: Subj Interval history: Mr. Mcmanus is seen in follow-up of his chronic renal impairment. His creatinine is 3.5 BUN is now 155 which is due to steroids and altered volume. He is edematous and quite hypoalbuminemic. He is receiving 12-1/2 g of albumin IV daily in addition to his tube feedings. Did receive some Lasix yesterday and did not have a big diuresis but with his pressure of 95 200 think is probably best to continue to emphasize nutrition, control blood sugars better and continued to supplement albumin for now rather than trying to diurese him. His chest x-ray is much improved. He remains on therapy for pneumocystis, fungal and bacterial infections. The transbronchial biopsy pathology has been sent off and is pending but he is clearly improving. He is arousable and is stable on the ventilator with good long compliance. Our plan is to continue support and I think his BUN will settle back down once he is able to come off steroids. Exam (PN)-Nephrology - Vital Signs Vital signs: Period Temp Pulse Resp BP Sys/Stewart Pulse Ox Last 24 Hr 95.5 F-97.4 F 94-107 12-33 90-124/58-85 96-100 - Lab 09/04/16 03:45 09/04/16 03:45 Most recent lab results ABG pH 7.348 (7.35-7.45) L 09/03/16 03:20 ABG pCO2 40.5 MM HG (35-48) 09/03/16 03:20 ABG pO2 107.0 MM HG (80-95) H 09/03/16 03:20 ABG HCO3 21.7 MMOL/L (20-26) 09/03/16 03:20 ABG O2 Saturation 97.5 % (95-100) 09/03/16 03:20 Calcium 9.0 MG/DL (8.5-10.1) 09/04/16 03:45 Phosphorus 7.4 MG/DL (2.5-4.9) H 09/03/16 03:19 Magnesium 2.0 MG/DL (1.8-2.4) 09/03/16 03:19 Assessment and Plan (1) Kidney transplant recipient Status: Chronic Current Visit: No (2) Chronic kidney disease, stage III (moderate) Status: Chronic Current Visit: Yes (3) Left ankle pain Status: Acute Current Visit: Yes
[2016-09-04] MEDS: INSULIN GLARGINE 100 UNIT/ML SUBCUT SCH (09:23)
--- NOTE | 2016-09-04 09:23 | Pulmonology Progress Note ---
Pulmonary - PN: Subj Interval history: Patient is a 50-year-old black man that came in with some confusion and atypical chest pain and maybe some shortness of breath. He has had a previous renal transplant and is on immunosuppressive therapy. He came in complaining of gout in his left foot. He was found to have reticular nodular infiltrates throughout his lungs. He developed worsening respiratory failure and has been on the ventilator. He self extubated himself over the weekend had to be reintubated. He did develop a left pneumothorax and has a chest tube now. The patient has done better the last few days and is more responsive. He did do 4 hours of CPAP yesterday. His chest x-ray is much improved. His oxygenation has been stable. His biopsies are still pending. Exam (Progress Note) - Constitutional Vitals: Period Temp Pulse Resp BP Sys/Stewart Pulse Ox Last 24 Hr 95.5 F-97.4 F 94-107 12-33 90-124/58-85 96-100 Exam: General appearance: no distress, under weight, he looks reasonably comfortable on the ventilator at present. He is responding and moving his extremities. He did do CPAP fairly well. - Head Head exam: Present: normal inspection, normocephalic - Eye Eye exam: Present: EOMI. has some scleral edema now. The swelling is better today. Pupils: Present: SELVIN - ENT ENT exam: Present: The ET tube is in good position. - Neck Neck exam: Present: tenderness. Absent: lymphadenopathy, thyromegaly - Respiratory Respiratory exam: Present: He has good breath sounds bilaterally and his lungs sound better with better air movement. His lung compliance is much better. He has no air leak now. - Cardiovascular Cardiovascular exam: Present: regular rate and rhythm. Absent: gallop, systolic murmur - GI/Abdominal GI/Abdominal exam: Present: soft. Absent: distended, organomegaly, tenderness - Extremities Exam Extremities exam: Present: other (left ankle and foot is not red or swollen, he still has a lot of soreness.). Absent: calf tenderness, edema - Neurological Exam Neurological exam: Present: Patient does respond and is following commands. - Psychiatric Psychiatric exam: Absent: agitated, anxious - Skin Skin exam: Present: warm, dry Results - Labs CBC & BMP: 09/04/16 03:45 09/04/16 03:45 - Diagnostic Findings Procedure: Chest x-ray: image reviewed by me, report reviewed by me (his chest x -ray continues to improve.) Assessment and Plan (1) Reticulonodular infiltrate present on imaging of chest Status: Acute Assessment and plan: The patient has diffuse reticular nodule infiltrates that are improving. This looks like he has an improving infection. His transbronchial biopsies are still pending. He is starting to wean better and his chest x-ray continues to improve. Hopefully can extubate him in a few days. Current Visit: Yes (2) Kidney transplant recipient Status: Chronic Assessment and plan: The patient is on immunosuppressive therapy. His creatinine is stable at 3.5 today. He does have fairly good urine output. Current Visit: No (3) Altered mental status Status: Acute Assessment and plan: The patient responding now on the ventilator but he does require some sedation. He does follow commands easily. Overall he does look better. Current Visit: Yes Qualifiers: Altered mental status type: delirium Qualified Code(s): R41.0 - Disorientation, unspecified (4) Left ankle pain Status: Acute Assessment and plan: Patient says he has gout. He is not having much swelling now. Current Visit: Yes (5) ARF (acute renal failure) Status: Acute Assessment and plan: He does have worsening renal insufficiency. His creatinine is fairly stable at 3.5. His urine output has been stable. Current Visit: Yes
--- NOTE | 2016-09-04 09:28 | Hospitalist Progress Note ---
Assessment and Plan (1) Acute respiratory failure Status: Acute Assessment and plan: He likely has underlying PNA, Agree with current antibiotics especially given his immunosuppressed state. Appreciate pulmonology for assistance with vent management. 09/02/16; chest xray is better today and will continue with antibiotics and weaning protocol per pulmonology 09/03/16: This is likely secondary to underlying lung. Continue with current mechanical mental support of her pulmonology's note they will begin to initiate weaning trials. It appears that his mental status is improving S once sedation started down he appears to be following simple commands. 09/04/16: continue current vent management, IV abx/antifungal as he is responding and until final bronchial washings are back. Current Visit: Yes (2) Chronic kidney disease, stage III (moderate) Status: Chronic Assessment and plan: elevated BUN, appreciate renal and there recommendations Current Visit: Yes (3) Reticulonodular infiltrate present on imaging of chest Status: Acute Assessment and plan: 09/03/16: most likely infection cause as appears to be improving with antibiotics. Current Visit: Yes (4) Hyperglycemia, drug-induced Status: Acute Assessment and plan: hyperglycemia is likely related to steroids he is receiving we'll continue with sliding scale insulin. Current Visit: Yes (5) Hypoalbuminemia Status: Acute Assessment and plan: he will be started on albumin replacement as he does have some edema 09/04/16: currently receiving daily replacement Current Visit: Yes (6) Kidney transplant recipient Status: Chronic Current Visit: No (7) Hyperkalemia, diminished renal excretion Status: Resolved Assessment and plan: will give some Kayexalate given he has not had a bowel movement over the past few days also Current Visit: Yes (8) Hyperglycemia, drug-induced Status: Acute Assessment and plan: may have to increase insulin dosage and start some basal insulin Current Visit: Yes Hospitalist: Subjective Interval history: She is a 50-year-old male that was on immunosuppressive medication receiving a renal transplantation. She presented with complaints of shortness of breath and eventually developed respiratory distress we had to be intubated. Currently he is on broad-spectrum antibiotics and antifungal and appears to be improving. His chest x-ray is slowly improving. He dated approximately 4 hours yesterday per the nursing staff with his weaning protocol. He still has elevation in his BU in which renal failure was relates related to the steroids and imbalance in this volume with him also having a low albumin. Exam - Constitutional Vitals: Period Temp Pulse Resp BP Sys/Stewart Pulse Ox Last 24 Hr 95.5 F-97.4 F 94-107 12-33 90-124/58-85 96-100 General appearance: no acute distress - Respiratory Respiratory exam: Present: clear to auscultation bilaterally - Cardiovascular Cardiovascular exam: Present: regular rate and rhythm - GI/Abdominal GI/Abdominal exam: Present: normal bowel sounds, soft - Extremities Exam Extremities exam: Present: edema - Neurological Exam Neurological exam: Present: other (sedated) - Skin Skin exam: Present: warm, dry Results - Labs CBC & BMP: 09/04/16 03:45 09/04/16 03:45
--- NOTE | 2016-09-04 10:13 | EKG Report ---
Stationary ECG Study [facility] Test Date: 09/04/2016 9:39:59 AM Pat Name: PAIGE LEY Department: Room: 122 Gender: M Tableau Analyst: JE : 1965 Requested by: Julio Beckett Order Number: [id number] Reading MD: VITA WAGGONER Intervals [place] Rate: 87 P: 44 ID: [id number] QRS: 51 QRSD: 100 T: 38 QT: 368 QTc: 413 Interpretive Statements SINUS RHYTHM Electronically Signed On 09-04-16 18:05:39 BRAKE RELINER by VITA WAGGONER [email or web address]
[2016-09-04 10:26] LABS: Troponin I Only 0.022 NG/ML (0.00-0.045)
[2016-09-04] MEDS: SODIUM CHLORIDE 0.9% IV SCH (11:04)
[2016-09-04] MEDS: VORICONAZOLE INJ 400 MG in SODIUM CHLORIDE 0.9% 100 ML IV SCH ×2 (11:04→22:45)
[2016-09-04] MEDS: GANCICLOVIR IV SCH (11:04)
[2016-09-04] MEDS: SODIUM CHLORIDE 0.45% 1,000 ML IV SCH ×2 (14:05→16:52)
[2016-09-04] MEDS: NOREPINEPHRINE 8 MG in SODIUM CHLORIDE 0.9% 242 ML IV SCH (17:26)
[2016-09-04] MEDS: MINERAL OIL/PETROLATUM OPH OINT 3.5 GM TUBE RIGHT EYE SCH (21:21)
[2016-09-05] MEDS: INSULIN REGULAR 100 UNIT/ML SUBCUT SCH ×4 (00:02→18:26)
[2016-09-05] MEDS: ALBUTEROL/IPRATROPIUM 3 ML NEB RESP TX SCH ×4 (02:11→19:37)
[2016-09-05 02:44] LABS: ABG Base Excess -4.5 MMOL/L (-2.5-2.5); ABG HCO3 20.6 MMOL/L (20-26); ABG Oxygen Saturation 94.9 % (95-100); ABG PCO2 35.3 MM HG (35-48); ABG PH 7.366 (7.35-7.45); ABG PO2 81.3 MM HG (80-95); ABG TCO2 18.5 MMOL/L (23-27); Allen Test Positive; Pt O2 Delivery Device Ventilator
[2016-09-05] MEDS: PROPOFOL 1,000 MG/100 ML BOTTLE IV SCH ×4 (03:00→20:07)
[2016-09-05] MEDS: AMPICILLIN INJ 2,000 MG in SODIUM CHLORIDE 0.9% 100 ML IV SCH ×4 (03:57→21:07)
[2016-09-05] MEDS: methylPREDNISolone SOD SUC 40 MG/1 ML VIAL IV SCH ×4 (03:57→21:08)
[2016-09-05] MEDS: cefTRIAXone 2,000 MG in SODIUM CHLORIDE 0.9% 100 ML IV SCH ×2 (03:58→16:19)
[2016-09-05] MEDS: SULFAMETH/TRIMETH INJ 160 MG in DEXTROSE 5% 250 ML IV SCH ×4 (04:56→22:32)
[2016-09-05 05:12] LABS: Calcium 9.1 MG/DL (8.5-10.1); Osmolality,Calculated 335.8 MOS/KG (273-304); Potassium 5.3 MMOL/L (3.5-5.1)
[2016-09-05] MEDS: NITROGLYCERIN 2% OINT 1 INCH/GM PACK TOP SCH ×4 (05:32→23:52)
--- NOTE | 2016-09-05 08:14 | Pulmonology Progress Note ---
Pulmonary - PN: Subj Interval history: Patient is a 50-year-old black man that came in with some confusion and atypical chest pain and maybe some shortness of breath. He has had a previous renal transplant and is on immunosuppressive therapy. He came in complaining of gout in his left foot. He was found to have reticular nodular infiltrates throughout his lungs. He developed worsening respiratory failure and has been on the ventilator. He self extubated himself over the weekend had to be reintubated. He did develop a left pneumothorax and has a chest tube now. The patient has been stable on the ventilator and his chest x-ray is improving. Yesterday he did CPAP for hours. His oxygenation has been stable and he has been more alert. We still do not have his path report back yet. Exam (Progress Note) - Constitutional Vitals: Period Temp Pulse Resp BP Sys/Stewart Pulse Ox Last 24 Hr 96.8 F-99.1 F 70-111 18-33 86-119/55-73 94-100 Exam: General appearance: no distress, under weight, he looks reasonably comfortable on the ventilator at present. He is responding and moving his extremities. He continues to do CPAP very well now. - Head Head exam: Present: normal inspection, normocephalic - Eye Eye exam: Present: EOMI. the sclerae edema is much better now. Pupils: Present: SELVIN - ENT ENT exam: Present: The ET tube is in good position. - Neck Neck exam: Present: tenderness. Absent: lymphadenopathy, thyromegaly - Respiratory Respiratory exam: Present: He has good breath sounds bilaterally and his lungs sound better with better air movement. His lung compliance is much better. He has no air leak now. - Cardiovascular Cardiovascular exam: Present: regular rate and rhythm. Absent: gallop, systolic murmur - GI/Abdominal GI/Abdominal exam: Present: soft. Absent: distended, organomegaly, tenderness - Extremities Exam Extremities exam: Present: other (left ankle and foot is not red or swollen, he still has a lot of soreness.). Absent: calf tenderness, edema - Neurological Exam Neurological exam: Present: Patient does respond and is following commands. - Psychiatric Psychiatric exam: Absent: agitated, anxious - Skin Skin exam: Present: warm, dry Results - Labs CBC & BMP: 09/04/16 03:45 09/05/16 04:45 Labs: His PO2 is 81 with a PCO2 of 35 and a pH of 7.36. - Diagnostic Findings Procedure: Chest x-ray: image reviewed by me, report reviewed by me (chest x- ray continues to improve.) Assessment and Plan (1) Reticulonodular infiltrate present on imaging of chest Status: Acute Assessment and plan: The patient has diffuse reticular nodule infiltrates that are improving. This looks like he has an improving infection. His transbronchial biopsies are still pending. He is doing CPAP trials well and is doing much better. We will try to extubate him Wednesday. Current Visit: Yes (2) Kidney transplant recipient Status: Chronic Assessment and plan: The patient is on immunosuppressive therapy. His creatinine is stable at 3.6 today. He does have fairly good urine output. Current Visit: No (3) Altered mental status Status: Acute Assessment and plan: The patient responding now on the ventilator but he does require some sedation. He does follow commands easily. He has been moving his extremities okay. Current Visit: Yes Qualifiers: Altered mental status type: delirium Qualified Code(s): R41.0 - Disorientation, unspecified (4) Left ankle pain Status: Acute Assessment and plan: Patient says he has gout. He is not having much swelling now. Current Visit: Yes (5) ARF (acute renal failure) Status: Acute Assessment and plan: He does have worsening renal insufficiency. His creatinine is fairly stable at 3.6. His urine output has been stable. Current Visit: Yes
[2016-09-05] MEDS: PANTOPRAZOLE 40 MG VIAL IV SCH (08:40)
[2016-09-05] MEDS: INSULIN GLARGINE 100 UNIT/ML SUBCUT SCH (08:41)
[2016-09-05] MEDS: ASPIRIN EC 81 MG TABLET PO SCH (08:49)
[2016-09-05] MEDS: METOCLOPRAMIDE 10 MG/10 ML UDCUP PO SCH ×2 (08:49→21:08)
[2016-09-05] MEDS: MYCOPHENOLATE MOFETIL 250 MG CAPSULE PO SCH ×2 (08:50→21:09)
[2016-09-05] MEDS: CARVEDILOL 12.5 MG TABLET PO SCH ×2 (08:50→21:08)
[2016-09-05] MEDS: amLODIPine 10 MG TABLET PO SCH (08:51)
[2016-09-05] MEDS: FOLIC ACID 1 MG TABLET PO SCH (08:51)
[2016-09-05] MEDS: TACROLIMUS 0.5 MG CAPSULE PO SCH ×2 (08:51→21:08)
--- NOTE | 2016-09-05 09:16 | XRay Report ---
Portable chest Date:[09/05/2016] Clinical history: Ventilator Comparison: 09/04/2016 Technique: Portable AP sitting chest Findings: The heart is normal in size with stable supportive devices. Left chest tube unchanged in position with no definite pneumothorax. Minimal reduction diffuse parenchymal findings in the lungs with stable mediastinum and osseous structures. Impression: Minimally improved edema/infiltration. Stable left chest tube with no definite pneumothorax. PROCEDURE INTERPRETED AT [facility] DEPARTMENT OF RADIOLOGY Final Report Signed by: Dr. Rea Maxwell
--- NOTE | 2016-09-05 09:55 | Hospitalist Progress Note ---
Assessment and Plan (1) Pneumothorax, left Status: Acute Assessment and plan: CT in place Current Visit: Yes (2) Reticulonodular infiltrate present on imaging of chest Status: Acute Assessment and plan: pulm following, abx Current Visit: Yes (3) Acute respiratory failure Status: Acute Current Visit: Yes (4) Altered mental status Status: Acute Current Visit: Yes Qualifiers: Altered mental status type: delirium Qualified Code(s): R41.0 - Disorientation, unspecified (5) Kidney transplant recipient Status: Chronic Assessment and plan: nephro on board monitoring Current Visit: No (6) Chronic kidney disease, stage III (moderate) Status: Chronic Assessment and plan: per nephro Current Visit: Yes (7) Self extubation Status: Acute Assessment and plan: Self extubate over the weekend and got reintubated developed pneumothorax currently on CT as stated above Current Visit: Yes Hospitalist: Subjective Interval history: Patient intubated on mechanical ventilation. No acute events reported by the nurse. ROS unobtainable due to patient's current condition. No fever or vomiting reported. Of note the patient pulled out the ET tube over the weekend and was reintubated again and developed chest pneumothorax and the chest tube is currently in place. Exam - Constitutional Vitals: Period Temp Pulse Resp BP Sys/Stewart Pulse Ox Last 24 Hr 96.8 F-99.1 F 70-113 18-33 92-119/55-73 96-100 Exam: General: Intubated on mechanical ventilation, NAD Neck: No JVD Heart S1-S2 present, RRR Lungs:Coarse Exp BS on Rt chest anteriorly, no wheezing. Chest tube in place abd: soft, NT Ext:mild Todd edema skin: warm, dry : no scrotal edema Results - Labs CBC & BMP: 09/04/16 03:45 09/05/16 04:45
[2016-09-05] MEDS: GANCICLOVIR IV SCH (10:36)
[2016-09-05] MEDS: VORICONAZOLE INJ 400 MG in SODIUM CHLORIDE 0.9% 100 ML IV SCH ×2 (10:36→22:33)
[2016-09-05] MEDS: SODIUM CHLORIDE 0.9% IV SCH (10:36)
--- NOTE | 2016-09-05 13:04 | Nephrology Progress Note ---
Nephrology - PN: Subj Interval history: He remains on the ventilator. Blood pressure is stable. Exam (PN)-Nephrology - Vital Signs Vital signs: Period Temp Pulse Resp BP Sys/Stewart Pulse Ox Last 24 Hr 96.8 F-99.1 F 70-113 18-33 92-119/55-73 96-100 Exam: Gen.: Sedated on ventilator ENT: Pupils equal round reactive to light. Neck: Supple. No JVD or bruit. Cardiovascular: Regular rate and rhythm. No murmur rub or gallop Lungs: Clear. Chest tube on left Abdomen: Soft. Nontender. Positive bowel sounds. No organomegaly Extremities: 2+ edema - Lab 09/04/16 03:45 09/05/16 04:45 Most recent lab results ABG pH 7.366 (7.35-7.45) 09/05/16 02:30 ABG pCO2 35.3 MM HG (35-48) 09/05/16 02:30 ABG pO2 81.3 MM HG (80-95) 09/05/16 02:30 ABG HCO3 20.6 MMOL/L (20-26) 09/05/16 02:30 ABG O2 Saturation 94.9 % (95-100) L 09/05/16 02:30 Calcium 9.1 MG/DL (8.5-10.1) 09/05/16 04:45 Phosphorus 7.4 MG/DL (2.5-4.9) H 09/03/16 03:19 Magnesium 2.0 MG/DL (1.8-2.4) 09/03/16 03:19 Assessment and Plan (1) Chronic kidney disease, stage III (moderate) Status: Chronic Assessment and plan: 50-year-old man with: * Renal transplant * Chronic renal failure stage III. Renal function stable. Albumin low * Pneumonia * Pneumothorax Current Visit: Yes (2) Acute respiratory failure Status: Acute Current Visit: Yes (3) Hypoalbuminemia Status: Acute Current Visit: Yes (4) Pneumothorax, left Status: Acute Current Visit: Yes (5) Reticulonodular infiltrate present on imaging of chest Status: Acute Current Visit: Yes (6) Kidney transplant recipient Status: Chronic Current Visit: No
[2016-09-05] MEDS ORDERED: SODIUM POLYSTYRENE SULFATE 15 GM/60 ML BOTTLE PO STA (15:51)
[2016-09-05] MEDS: ALBUTEROL 2.5 MG/3 ML NEB RESP TX SCH ×2 (16:15→16:22)
[2016-09-05] MEDS: SODIUM CHLORIDE 0.45% 1,000 ML IV SCH ×2 (17:03→20:09)
[2016-09-05] MEDS: NOREPINEPHRINE 8 MG in SODIUM CHLORIDE 0.9% 242 ML IV SCH (18:17)
[2016-09-05] MEDS: MINERAL OIL/PETROLATUM OPH OINT 3.5 GM TUBE RIGHT EYE SCH (21:09)
[2016-09-06] MEDS: INSULIN REGULAR 100 UNIT/ML SUBCUT SCH ×4 (00:23→17:58)
[2016-09-06] MEDS: ALBUTEROL/IPRATROPIUM 3 ML NEB RESP TX SCH ×4 (00:24→20:06)
[2016-09-06] MEDS: AMPICILLIN INJ 2,000 MG in SODIUM CHLORIDE 0.9% 100 ML IV SCH ×4 (03:08→21:03)
[2016-09-06] MEDS: methylPREDNISolone SOD SUC 40 MG/1 ML VIAL IV SCH ×3 (03:08→21:01)
[2016-09-06] MEDS: cefTRIAXone 2,000 MG in SODIUM CHLORIDE 0.9% 100 ML IV SCH ×2 (03:09→15:31)
[2016-09-06] MEDS: SULFAMETH/TRIMETH INJ 160 MG in DEXTROSE 5% 250 ML IV SCH ×4 (03:50→22:49)
[2016-09-06] MEDS: PROPOFOL 1,000 MG/100 ML BOTTLE IV SCH ×4 (04:47→21:50)
[2016-09-06] MEDS: NITROGLYCERIN 2% OINT 1 INCH/GM PACK TOP SCH ×4 (05:32→23:57)
--- NOTE | 2016-09-06 07:33 | Pulmonology Progress Note ---
Pulmonary - PN: Subj Interval history: Patient is a 50-year-old black man that came in with some confusion and atypical chest pain and maybe some shortness of breath. He has had a previous renal transplant and is on immunosuppressive therapy. He came in complaining of gout in his left foot. He was found to have reticular nodular infiltrates throughout his lungs. He developed worsening respiratory failure and has been on the ventilator. He self extubated himself over the weekend had to be reintubated. He did develop a left pneumothorax and has a chest tube now. The patient was very restless yesterday and had to be sedated. He is comfortable at present on the ventilator. His O2 saturations are okay and his chest x-ray looks better. His blood pressure and heart rate of been okay. Exam (Progress Note) - Constitutional Vitals: Period Temp Pulse Resp BP Sys/Stewart Pulse Ox Last 24 Hr 97.4 F-99.1 F 99-113 15-28 89-116/50-73 96-98 Exam: General appearance: no distress, under weight, he looks reasonably comfortable on the ventilator at present. He is sedated this morning. - Head Head exam: Present: normal inspection, normocephalic - Eye Eye exam: Present: EOMI. the sclerae edema is much better now. Pupils: Present: SELVIN - ENT ENT exam: Present: The ET tube is in good position. - Neck Neck exam: Present: tenderness. Absent: lymphadenopathy, thyromegaly - Respiratory Respiratory exam: Present: He has good breath sounds bilaterally and his lungs sound better with better air movement. His lung compliance is much better. He has no air leak now. - Cardiovascular Cardiovascular exam: Present: regular rate and rhythm. Absent: gallop, systolic murmur - GI/Abdominal GI/Abdominal exam: Present: soft. Absent: distended, organomegaly, tenderness - Extremities Exam Extremities exam: Present: other (left ankle and foot is not red or swollen, he still has a lot of soreness.). Absent: calf tenderness, edema - Neurological Exam Neurological exam: Present: Patient does respond and is following commands. He did get a little anxious yesterday. - Psychiatric Psychiatric exam: Absent: agitated, anxious - Skin Skin exam: Present: warm, dry Results - Labs CBC & BMP: 09/04/16 03:45 09/05/16 04:45 - Diagnostic Findings Procedure: Chest x-ray: image reviewed by me, report reviewed by me (chest x- ray looks better.) Assessment and Plan (1) Reticulonodular infiltrate present on imaging of chest Status: Acute Assessment and plan: The patient has diffuse reticular nodule infiltrates that are improving. This looks like he has an improving infection. His transbronchial biopsies are still pending. He is doing CPAP trials well and is doing much better. Overall his lungs look better and will try to extubate him tomorrow. Current Visit: Yes (2) Kidney transplant recipient Status: Chronic Assessment and plan: The patient is on immunosuppressive therapy. His creatinine is stable at 3.6 today. He does have fairly good urine output. Current Visit: No (3) Altered mental status Status: Acute Assessment and plan: The patient responding now on the ventilator but he does require some sedation. He was anxious yesterday and is sedated now. Current Visit: Yes Qualifiers: Altered mental status type: delirium Qualified Code(s): R41.0 - Disorientation, unspecified (4) Left ankle pain Status: Acute Assessment and plan: Patient says he has gout. He is not having much swelling now. Current Visit: Yes (5) ARF (acute renal failure) Status: Acute Assessment and plan: He does have worsening renal insufficiency. He has no lab this morning. Current Visit: Yes
--- NOTE | 2016-09-06 08:31 | Hospitalist Progress Note ---
Assessment and Plan (1) Pneumothorax, left Status: Acute Assessment and plan: CT in place Current Visit: Yes (2) Reticulonodular infiltrate present on imaging of chest Status: Acute Assessment and plan: pulm following, abx Current Visit: Yes (3) Acute respiratory failure Status: Acute Current Visit: Yes (4) Altered mental status Status: Acute Current Visit: Yes Qualifiers: Altered mental status type: delirium Qualified Code(s): R41.0 - Disorientation, unspecified (5) Kidney transplant recipient Status: Chronic Assessment and plan: nephro on board monitoring Current Visit: No (6) Chronic kidney disease, stage III (moderate) Status: Chronic Assessment and plan: per nephro Current Visit: Yes (7) Self extubation Status: Acute Assessment and plan: Self extubate over the weekend and got reintubated developed pneumothorax currently on CT as stated above Current Visit: Yes (8) Hyperkalemia Status: Acute Current Visit: Yes (9) Hyperkalemia Status: Acute Assessment and plan: was 5.3. Given Kayexalate and albuterol treatment will check potassium today. Current Visit: Yes Hospitalist: Subjective Interval history: Patient still intubated on mechanical ventilation and sedation. No fever or seizure reported overnight. Otherwise unobtainable because of the patient's current condition. Exam - Constitutional Vitals: Period Temp Pulse Resp BP Sys/Stewart Pulse Ox Last 24 Hr 97.4 F-98.6 F 99-113 15-28 89-116/50-73 96-98 Exam: General: Intubated on mechanical ventilation and sedation, NAD Neck: No JVD Heart S1-S2 present, RRR Lungs:Coarse Exp BS on Rt chest anteriorly, no wheezing. Chest tube in place on the left side abd: soft, NT Ext:mild upper and lower extremities edema skin: warm, dry : no scrotal edema Results - Labs CBC & BMP: 09/04/16 03:45 09/05/16 04:45
[2016-09-06] MEDS: PANTOPRAZOLE 40 MG VIAL IV SCH (08:38)
[2016-09-06] MEDS: INSULIN GLARGINE 100 UNIT/ML SUBCUT SCH (08:42)
[2016-09-06] MEDS: METOCLOPRAMIDE 10 MG/10 ML UDCUP PO SCH ×2 (08:44→21:02)
[2016-09-06] MEDS: MYCOPHENOLATE MOFETIL 250 MG CAPSULE PO SCH ×2 (08:44→21:02)
[2016-09-06] MEDS: CARVEDILOL 12.5 MG TABLET PO SCH (08:45)
[2016-09-06] MEDS: TACROLIMUS 0.5 MG CAPSULE PO SCH ×2 (08:45→21:02)
[2016-09-06] MEDS: FOLIC ACID 1 MG TABLET PO SCH (08:45)
[2016-09-06] MEDS: ASPIRIN EC 81 MG TABLET PO SCH (08:45)
--- NOTE | 2016-09-06 08:45 | XRay Report ---
Portable chest Date:[09/06/2016] Clinical history: Ventilator Comparison: 09/05/2016 Technique: Portable AP sitting chest Findings: The heart is normal in size with stable supportive devices. Reduced parenchymal findings in the lungs with no significant pneumothorax in patient with residual left chest tube. Stable mediastinum and osseous structures. Impression: Supportive devices are stable in position with improved pulmonary edema/infiltration. No definite pneumothorax identified. PROCEDURE INTERPRETED AT [facility] DEPARTMENT OF RADIOLOGY Final Report Signed by: Dr. Rea Maxwell
[2016-09-06] MEDS: amLODIPine 10 MG TABLET PO SCH (08:50)
[2016-09-06 09:49] LABS: Calcium 9.2 MG/DL (8.5-10.1); Osmolality,Calculated 342.8 MOS/KG (273-304); Potassium 5.6 MMOL/L (3.5-5.1)
[2016-09-06] MEDS ORDERED: SODIUM POLYSTYRENE SULFATE 15 GM/60 ML BOTTLE RECTAL ONE (10:32)
[2016-09-06] MEDS ORDERED: ALBUTEROL 2.5 MG/3 ML NEB RESP TX ONE (10:37)
[2016-09-06] MEDS: GANCICLOVIR IV SCH (11:06)
[2016-09-06] MEDS: VORICONAZOLE INJ 400 MG in SODIUM CHLORIDE 0.9% 100 ML IV SCH ×2 (11:06→22:49)
[2016-09-06] MEDS: SODIUM CHLORIDE 0.9% IV SCH (11:06)
--- NOTE | 2016-09-06 12:00 | Nephrology Progress Note ---
Nephrology - PN: Subj Interval history: Blood pressure has been low since yesterday. He remains on the ventilator Exam (PN)-Nephrology - Vital Signs Vital signs: Period Temp Pulse Resp BP Sys/Stewart Pulse Ox Last 24 Hr 97.4 F-98.6 F 99-113 15-28 89-116/50-73 96-97 Exam: en.: Sedated on ventilator ENT: Pupils equal round reactive to light. Neck: Supple. No JVD or bruit. Cardiovascular: Regular rate and rhythm. No murmur rub or gallop Lungs: Clear. Chest tube on left Abdomen: Soft. Nontender. Positive bowel sounds. No organomegaly Extremities: 2+ edema - Lab 09/04/16 03:45 09/06/16 09:00 Most recent lab results ABG pH 7.366 (7.35-7.45) 09/05/16 02:30 ABG pCO2 35.3 MM HG (35-48) 09/05/16 02:30 ABG pO2 81.3 MM HG (80-95) 09/05/16 02:30 ABG HCO3 20.6 MMOL/L (20-26) 09/05/16 02:30 ABG O2 Saturation 94.9 % (95-100) L 09/05/16 02:30 Calcium 9.2 MG/DL (8.5-10.1) 09/06/16 09:00 Phosphorus 7.4 MG/DL (2.5-4.9) H 09/03/16 03:19 Magnesium 2.0 MG/DL (1.8-2.4) 09/03/16 03:19 Assessment and Plan (1) Chronic kidney disease, stage III (moderate) Status: Chronic Assessment and plan: 50-year-old man with: * Renal transplant. * Chronic renal failure stage III. Renal function worse, likely due to hypotension. Systolic pressure has been less than 100 since yesterday. Amlodipine discontinued. Coreg decreased to 3.125 mg * Pneumonia * Pneumothorax Current Visit: Yes (2) Acute respiratory failure Status: Acute Current Visit: Yes (3) Hypoalbuminemia Status: Acute Current Visit: Yes (4) Pneumothorax, left Status: Acute Current Visit: Yes (5) Reticulonodular infiltrate present on imaging of chest Status: Acute Current Visit: Yes (6) Kidney transplant recipient Status: Chronic Current Visit: No
[2016-09-06] MEDS: SODIUM CHLORIDE 0.45% 1,000 ML IV SCH (16:31)
[2016-09-06] MEDS: NOREPINEPHRINE 8 MG in SODIUM CHLORIDE 0.9% 242 ML IV SCH (17:45)
[2016-09-06] MEDS: CARVEDILOL 3.125 MG TABLET PO SCH (21:02)
[2016-09-06] MEDS: MINERAL OIL/PETROLATUM OPH OINT 3.5 GM TUBE RIGHT EYE SCH (21:03)
[2016-09-07] MEDS: INSULIN REGULAR 100 UNIT/ML SUBCUT SCH ×5 (00:07→23:54)
[2016-09-07] MEDS: ALBUTEROL/IPRATROPIUM 3 ML NEB RESP TX SCH ×4 (01:18→18:49)
[2016-09-07] MEDS: AMPICILLIN INJ 2,000 MG in SODIUM CHLORIDE 0.9% 100 ML IV SCH ×4 (03:48→20:50)
[2016-09-07] MEDS: cefTRIAXone 2,000 MG in SODIUM CHLORIDE 0.9% 100 ML IV SCH ×2 (03:48→16:06)
[2016-09-07 04:28] LABS: Calcium 9.2 MG/DL (8.5-10.1); Osmolality,Calculated 348.5 MOS/KG (273-304); Potassium 5.6 MMOL/L (3.5-5.1)
[2016-09-07] MEDS: SULFAMETH/TRIMETH INJ 160 MG in DEXTROSE 5% 250 ML IV SCH ×4 (04:54→22:17)
[2016-09-07] MEDS: PROPOFOL 1,000 MG/100 ML BOTTLE IV SCH ×3 (04:55→19:48)
[2016-09-07 05:00] LABS: ABG Base Excess -4.9 MMOL/L (-2.5-2.5); ABG HCO3 20.4 MMOL/L (20-26); ABG Oxygen Saturation 98.5 % (95-100); ABG PCO2 35.3 MM HG (35-48); ABG PH 7.361 (7.35-7.45); ABG TCO2 18.4 MMOL/L (23-27); Allen Test Positive; Pt O2 Delivery Device Ventilator
[2016-09-07] MEDS: NITROGLYCERIN 2% OINT 1 INCH/GM PACK TOP SCH ×4 (05:23→23:21)
[2016-09-07] MEDS: SODIUM CHLORIDE 0.45% 1,000 ML IV SCH ×2 (05:23→16:54)
--- NOTE | 2016-09-07 07:23 | XRay Report ---
XR chest 1V portable Indication: Ventilator Comparison: Chest x-ray dated September 06, 2016 Technique: Single frontal view of the chest Findings: Endotracheal tube and right-sided central venous catheter appear grossly unchanged in positioning. Interval repositioning of the left-sided chest tube with tip projecting over the left hemidiaphragm. No new focal consolidation, pleural effusion, or pneumothorax. Osseous and surrounding soft tissue structures appear grossly unchanged. IMPRESSION: No adverse interval change. PROCEDURE INTERPRETED AT [facility] DEPARTMENT OF RADIOLOGY Final Report Signed by: Dr Don Ordonez
--- NOTE | 2016-09-07 07:30 | General Surgery Progress Note ---
Assessment and Plan (1) Pneumothorax, left Status: Acute Assessment and plan: Continue chest tube to water seal. Leave chest tube in place until patient is off of positive pressure ventilation Current Visit: Yes Subjective Patient reports: Present: afebrile Exam - Constitutional Vitals: Period Temp Pulse Resp BP Sys/Stewart Pulse Ox Last 24 Hr 98 F-98.7 F 93-118 15-28 84-123/47-73 91-997 General appearance: no acute distress, over weight - Head Head exam: Present: normal inspection, normocephalic - Eye Eye exam: Present: EOMI - ENT ENT exam: Present: normal exam Mouth exam: Present: normal external inspection - Neck Neck exam: Present: normal inspection, trachea midline - Respiratory Respiratory exam: Present: other (chest tube with no air leak or drainage). Absent: clear to auscultation bilaterally, accessory muscle use, chest wall tenderness - Cardiovascular Cardiovascular exam: Present: RRR. Absent: systolic murmur, tachycardia - GI/Abdominal GI/Abdominal exam: Present: soft. Absent: tenderness, rebound - Extremities Exam Extremities exam: Present: normal inspection, normal capillary refill - Back Exam Back exam: Present: normal inspection - Neurological Exam Neurological exam: Present: alert, oriented X3 Speech: Present: normal - Skin Skin exam: Present: normal color, warm Results - Labs CBC & BMP: 09/04/16 03:45 09/07/16 03:45 - Diagnostic Findings Procedure: Chest x-ray: image reviewed by me
--- NOTE | 2016-09-07 07:45 | Pulmonology Progress Note ---
Pulmonary - PN: Subj Interval history: Patient is a 50-year-old black man that has had a previous kidney transplant and came in with diffuse infiltrates that worsened fairly quickly. He had a be put on the ventilator. We did get transbronchial biopsies but they're still pending. His been on multiple antibiotics and his chest x-ray has continued to improve over the past week. His oxygenation is better and his x-rays are markedly improved. However his renal function is a little worse and he has significant peripheral edema. His blood pressure has been on the low side and his medicines have been adjusted. He has been getting restless and agitated when trying to do CPAP. He should be able to come off the ventilator soon. Exam (Progress Note) - Constitutional Vitals: Period Temp Pulse Resp BP Sys/Stewart Pulse Ox Last 24 Hr 98 F-98.7 F 93-118 15-28 84-123/47-73 91-997 Exam: General appearance: no distress, under weight, he looks reasonably comfortable on the ventilator when he is sedated but he's been agitated at times. - Head Head exam: Present: normal inspection, normocephalic - Eye Eye exam: Present: EOMI. the sclerae edema is much better now. Pupils: Present: SELVIN - ENT ENT exam: Present: The ET tube is in good position. - Neck Neck exam: Present: tenderness. Absent: lymphadenopathy, thyromegaly - Respiratory Respiratory exam: Present: He has good breath sounds bilaterally and his lungs sound better with better air movement. His lung compliance is much better. He has no air leak now. - Cardiovascular Cardiovascular exam: Present: regular rate and rhythm. Absent: gallop, systolic murmur - GI/Abdominal GI/Abdominal exam: Present: soft. Absent: distended, organomegaly, tenderness - Extremities Exam Extremities exam: Present: He does have a lot of swelling in his arms and legs now. - Neurological Exam Neurological exam: Present: Patient has been restless over the weekend and has required sedation. - Psychiatric Psychiatric exam: Absent: agitated, anxious - Skin Skin exam: Present: warm, dry Results - Labs CBC & BMP: 09/04/16 03:45 09/07/16 03:45 Labs: His PO2 is 128 with a PCO2 of 35 and a pH is 7.36. - Diagnostic Findings Procedure: Chest x-ray: image reviewed by me, report reviewed by me (chest x- ray shows improved infiltrates.) Assessment and Plan (1) Reticulonodular infiltrate present on imaging of chest Status: Acute Assessment and plan: The patient has diffuse reticular nodule infiltrates that are improving. This looks like he has an improving infection. His transbronchial biopsies are still pending. He has not done as well on CPAP trials because of his anxiety. Otherwise his lungs are much better. Current Visit: Yes (2) Kidney transplant recipient Status: Chronic Assessment and plan: The patient is on immunosuppressive therapy. His creatinine is stable at 4.0 today. He does have fairly good urine output. Current Visit: No (3) Altered mental status Status: Acute Assessment and plan: The patient has been responding fairly well but he still gets very restless. Current Visit: Yes Qualifiers: Altered mental status type: delirium Qualified Code(s): R41.0 - Disorientation, unspecified (4) Left ankle pain Status: Acute Assessment and plan: Patient says he has gout. He is not having much swelling now. Current Visit: Yes (5) ARF (acute renal failure) Status: Acute Assessment and plan: He does have worsening renal insufficiency. His creatinine is up to 4.0. Current Visit: Yes
[2016-09-07 08:19] LABS: Calcium 9.1 MG/DL (8.5-10.1); Osmolality,Calculated 344.7 MOS/KG (273-304); Potassium 5.6 MMOL/L (3.5-5.1)
[2016-09-07] MEDS: INSULIN GLARGINE 100 UNIT/ML SUBCUT SCH (08:25)
[2016-09-07] MEDS: methylPREDNISolone SOD SUC 40 MG/1 ML VIAL IV SCH ×2 (08:26→20:48)
[2016-09-07] MEDS: TACROLIMUS 0.5 MG CAPSULE PO SCH ×2 (08:26→20:50)
[2016-09-07] MEDS: MYCOPHENOLATE MOFETIL 250 MG CAPSULE PO SCH ×2 (08:26→20:49)
[2016-09-07] MEDS: PANTOPRAZOLE 40 MG VIAL IV SCH (08:26)
[2016-09-07] MEDS: FOLIC ACID 1 MG TABLET PO SCH (08:27)
[2016-09-07] MEDS: ASPIRIN EC 81 MG TABLET PO SCH (08:27)
[2016-09-07] MEDS: CARVEDILOL 3.125 MG TABLET PO SCH ×2 (08:27→20:49)
[2016-09-07] MEDS: METOCLOPRAMIDE 10 MG/10 ML UDCUP PO SCH ×2 (08:29→20:49)
--- NOTE | 2016-09-07 09:03 | Hospitalist Progress Note ---
Assessment and Plan (1) Pneumothorax, left Status: Acute Assessment and plan: CT in place, surgery service following Current Visit: Yes (2) Reticulonodular infiltrate present on imaging of chest Status: Acute Assessment and plan: pulm following, abx Current Visit: Yes (3) Acute respiratory failure Status: Acute Current Visit: Yes (4) Altered mental status Status: Acute Current Visit: Yes Qualifiers: Altered mental status type: delirium Qualified Code(s): R41.0 - Disorientation, unspecified (5) Kidney transplant recipient Status: Chronic Assessment and plan: nephro on board monitoring Current Visit: No (6) Chronic kidney disease, stage III (moderate) Status: Chronic Assessment and plan: per nephro Current Visit: Yes (7) Self extubation Status: Acute Assessment and plan: Self extubate over the weekend and got reintubated developed pneumothorax currently on CT as stated above Current Visit: Yes (8) Hyperkalemia Status: Acute Assessment and plan: kayexalate and albuterol. K 5.6 Current Visit: Yes (9) Fluid overload Status: Acute Assessment and plan: The cause is multifactorial but patient has retained large amount of fluid since admission. Nephrology is following we'll see if the patient can tolerate diureses or if he is a candidate for dialysis temporarily. We'll check left upper extremity ultrasound since it is larger than the right side. Current Visit: Yes Hospitalist: Subjective Interval history: No acute events overnight reported. Patient still intubated on mechanical ventilation. No fever or seizure reported overnight. ROS unobtainable because of patient's current condition. Exam - Constitutional Vitals: Period Temp Pulse Resp BP Sys/Stewart Pulse Ox Last 24 Hr 97.2 F-98.7 F 93-118 15-28 84-123/47-73 91-997 Exam: General: Intubated on mechanical ventilation and sedation, NAD Neck: No JVD Heart distant S1-S2, RRR Lungs:Coarse Exp BS on Rt chest anteriorly, no wheezing. Chest tube in place on the left side abd: soft, NT Ext:mild upper and lower extremities edema skin: warm, dry : no scrotal edema Results - Labs CBC & BMP: 09/04/16 03:45 09/07/16 07:32
[2016-09-07] MEDS: VORICONAZOLE INJ 400 MG in SODIUM CHLORIDE 0.9% 100 ML IV SCH ×2 (10:00→22:17)
--- NOTE | 2016-09-07 11:48 | Ultrasound Report ---
US venous doppler UE LT Indication: Left upper extremity more edematous than the right. Comparison: None. Technique: Grayscale, spectral, and color Doppler interrogation of the left upper extremity veins was performed. Augmentation and compression was performed. Findings: Grayscale, color Doppler, and pulsed Doppler evaluation of the veins of the left upper extremity demonstrate no evidence of deep venous thrombosis. Please note that the distal cephalic and proximal-mid basilic veins are not visualized. IMPRESSION: No evidence of deep venous thrombosis in the left upper extremity. PROCEDURE INTERPRETED AT [facility] ([facility]) DEPARTMENT OF RADIOLOGY Final Report Signed by: Dr Don Ordonez
[2016-09-07] MEDS: GANCICLOVIR IV SCH (12:50)
[2016-09-07] MEDS: SODIUM CHLORIDE 0.9% IV SCH (12:50)
[2016-09-07] MEDS ORDERED: LORazepam 2 MG/1 ML VIAL IV ONE (13:03)
--- NOTE | 2016-09-07 14:12 | CT Report ---
CT head/brain wo con Indication: New onset tremors, corneal edema Comparison: CT brain dated August 27, 2016. Technique: Multiple axial tomographic images of the brain were obtained without use of intravenous contrast. Findings: Midline structures are nondisplaced. There is no acute intracranial hemorrhage or evidence of hydrocephalus. Mild periventricular and subcortical hypoattenuation noted which is nonspecific but consistent with chronic microvascular ischemic change. Bilateral mastoid effusions, greater on the right. Patchy mucosal thickening of the paranasal sinuses. IMPRESSION: Bilateral mastoid effusions noted, greater on the right. Mastoiditis not excluded. Paranasal sinus disease noted. No acute intracranial hemorrhage, midline shift, or hydrocephalus. PROCEDURE INTERPRETED AT [facility] DEPARTMENT OF RADIOLOGY Final Report Signed by: Dr Don Ordonez
--- NOTE | 2016-09-07 14:27 | Nephrology Progress Note ---
Nephrology - PN: Subj Interval history: Mr. Mcmanus is seen in follow-up of his chronic renal failure with his renal transplant. His creatinine is crept up to 4 but his BUN is now 199. This is due to multiple factors including steroids and worsening kidney function. He is arousable once sedation is turned off. He is still on the ventilator. His chest x-ray is much improved over admission. He had a very low albumin last week and has been receiving IV albumin. He still has generous peripheral edema and his weight reflects that. This may be difficult to remove with dialysis due to the low albumin but we will try to do that. I think lowering his BUN and getting rid of some of this fluid may well help. As mentioned we may find that he's resistant to attempts to remove volume. We will ask Dr. Caldwell to place a femoral dialysis catheter. I think this will be only needed short term as his renal function should return to baseline. Exam (PN)-Nephrology - Vital Signs Vital signs: Period Temp Pulse Resp BP Sys/Stewart Pulse Ox Last 24 Hr 97.2 F-98.4 F 105-118 16-28 83-123/42-97 91-997 - Lab 09/04/16 03:45 09/07/16 07:32 Most recent lab results ABG pH 7.361 (7.35-7.45) 09/07/16 04:35 ABG pCO2 35.3 MM HG (35-48) 09/07/16 04:35 ABG pO2 128.0 MM HG (80-95) H 09/07/16 04:35 ABG HCO3 20.4 MMOL/L (20-26) 09/07/16 04:35 ABG O2 Saturation 98.5 % (95-100) 09/07/16 04:35 Calcium 9.1 MG/DL (8.5-10.1) 09/07/16 07:32 Phosphorus 8.0 MG/DL (2.5-4.9) H 09/07/16 03:45 Magnesium 2.0 MG/DL (1.8-2.4) 09/07/16 03:45 Assessment and Plan (1) Kidney transplant recipient Status: Chronic Current Visit: No (2) Chronic kidney disease, stage III (moderate) Status: Chronic Current Visit: Yes (3) Left ankle pain Status: Acute Current Visit: Yes
--- NOTE | 2016-09-07 17:16 | Neurology Progress Note ---
Neurology - PN : Subjective Interval history: Patient developed some questionable jerking and shaking this morning. The exact duration is not known but it didn't last more than a few seconds. CT of the head revealed no acute abnormalities. EEG has also been done. Exam (Progress Note) - Constitutional Vitals: Period Temp Pulse Resp BP Sys/Stewart Pulse Ox Last 24 Hr 97.2 F-98.4 F 102-118 16-26 74-123/42-97 91-997 Exam: GENERAL: Patient is in no acute distress. NECK: Neck is supple. There is no JVD. No carotid bruits present. No thyroid masses. CVS: First and second heart sounds are normal. There is no S3 present. Regular rate and rhythm. RESPIRATORY: Lungs are clear to auscultation without any rales or rhonchi. ABDOMEN: Soft and non-tender. Bowel sounds are present. There is no hepatosplenomegaly. EXT: There is no palpable edema. Peripheral pulses are present. Skin: No rashes Central Nervous system: General: Sleepy but arousable Speech: On vent Comprehension: Fair Facial expressions: Normal Cranial Nerves: Pupils are equally reactive to light. Extraocular movements are intact. No facial asymmetry seen. Visual estrada are equal. Tongue is midline. Motor: Bulk and Tone is normal. Strength symmetrical, moving all 4 extremities however very weakly today. Sensory: Unreliable Reflexes: 1+ and symmetrical Cerebellar function: Slow [id number] testing Gait: Not Tested this time Results - Labs CBC & BMP: 09/04/16 03:45 09/07/16 07:32 Assessment and Plan (1) Altered mental status Status: Acute Assessment and plan: Continue current supportive management. I doubt he had a seizure. No new recommendations from neuro standpoint. We'll continue watchful observation. We will review EEG once available. Current Visit: Yes Qualifiers: Altered mental status type: delirium Qualified Code(s): R41.0 - Disorientation, unspecified
[2016-09-07] MEDS: MUPIROCIN 2% OINT 22 GM TUBE TOP SCH ×2 (20:48→21:11)
[2016-09-08] MEDS: MUPIROCIN 2% OINT 22 GM TUBE TOP SCH ×2 (01:33→05:38)
[2016-09-08] MEDS: ALBUTEROL/IPRATROPIUM 3 ML NEB RESP TX SCH ×4 (01:34→19:18)
[2016-09-08] MEDS: AMPICILLIN INJ 2,000 MG in SODIUM CHLORIDE 0.9% 100 ML IV SCH (03:12)
[2016-09-08] MEDS: cefTRIAXone 2,000 MG in SODIUM CHLORIDE 0.9% 100 ML IV SCH (03:12)
[2016-09-08] MEDS: SULFAMETH/TRIMETH INJ 160 MG in DEXTROSE 5% 250 ML IV SCH (04:05)
[2016-09-08 04:16] LABS: Basophils % 0.1 % (0.0-0.8); Hemoglobin 7.9 GM/DL (14.0-18.0); Immature Granulocytes % 2.5 %; Lymphocytes # 0.2 10*3/uL (1.4-4.0); Lymphocytes % 0.9 % (21.2-54.2); Mean Corpuscular HGB Conc 32.9 GM/DL (32-36); Mean Corpuscular Hemoglobin 25 PG (27-34); Mean Corpuscular Volume 76.7 FL (87-102); Mean Platelet Volume 13.4 FL (9.6-12.0); Monocytes # 0.5 10*3/uL (0.11-0.8); Monocytes % 2.5 % (1.7-12.7); Neutrophils # 18.5 10*3/uL (1.4-7.4); Platelet Count 303 T/CUMM (130-400); Red Blood Count 3.13 MC/CUMM (3.8-5.5); Red Cell Distribution Width 15.8 % (9.3-17.3); White Blood Count 19.7 T/CUMM (4-12)
[2016-09-08 04:39] LABS: Lymphocytes 2 % (20-55); Platelet Estimate Adequate; Segmented Neutrophils 97 % (50-85); Total Cells Counted 100
[2016-09-08 04:40] LABS: Hypochromasia Slight; Microcytosis 1+
[2016-09-08 04:56] LABS: Calcium 9.1 MG/DL (8.5-10.1); Osmolality,Calculated 347.4 MOS/KG (273-304)
[2016-09-08 04:59] LABS: Potassium 6.3 MMOL/L (3.5-5.1)
[2016-09-08] MEDS: NITROGLYCERIN 2% OINT 1 INCH/GM PACK TOP SCH ×3 (05:38→18:02)
[2016-09-08] MEDS ORDERED: SODIUM BICARBONATE 50 MEQ/50 ML VIAL IV ONE (05:48)
[2016-09-08] MEDS: INSULIN REGULAR 100 UNIT/ML SUBCUT SCH ×4 (06:01→23:33)
--- NOTE | 2016-09-08 06:34 | Pulmonology Progress Note ---
Pulmonary - PN: Subj Interval history: Patient is a 50-year-old black man that has had a previous kidney transplant and came in with diffuse infiltrates that worsened fairly quickly. He had a be put on the ventilator. We did get transbronchial biopsies but they're still pending. His been on multiple antibiotics and his chest x-ray has continued to improve over the past week. His oxygenation is better and his x-rays are markedly improved. He continues to have problems with poor urine output and anasarca and peripheral edema. He is going to have a dialysis catheter placed today and start dialysis. He had a negative CT of his head yesterday there is a question of some seizures although it did not sound like it. Patient still gets agitated when off sedation. Overall his pulmonary status is better and looks like he could probably come off the ventilator soon. Exam (Progress Note) - Constitutional Vitals: Period Temp Pulse Resp BP Sys/Stewart Pulse Ox Last 24 Hr 97.2 F-98.3 F 102-119 20-26 72-122/42-97 96-997 Exam: General appearance: no distress, under weight, he looks reasonably comfortable on the ventilator when he is sedated but he's been agitated at times. - Head Head exam: Present: normal inspection, normocephalic - Eye Eye exam: Present: EOMI. the sclerae edema is much better now. Pupils: Present: SELVIN - ENT ENT exam: Present: The ET tube is in good position. - Neck Neck exam: Present: tenderness. Absent: lymphadenopathy, thyromegaly - Respiratory Respiratory exam: Present: He has good breath sounds bilaterally and his lungs sound better with better air movement. His lung compliance is much better. He has no air leak now. His chest x-rays better and his lungs sound okay. - Cardiovascular Cardiovascular exam: Present: regular rate and rhythm. Absent: gallop, systolic murmur - GI/Abdominal GI/Abdominal exam: Present: soft. Absent: distended, organomegaly, tenderness - Extremities Exam Extremities exam: Present: He does have a lot of swelling in his arms and legs now. - Neurological Exam Neurological exam: Present: Patient has been restless over the weekend and has required sedation. - Psychiatric Psychiatric exam: Absent: agitated, anxious - Skin Skin exam: Present: warm, dry Results - Labs CBC & BMP: 09/08/16 03:50 09/08/16 03:50 - Diagnostic Findings Procedure: Chest x-ray: image reviewed by me, report reviewed by me (chest x- ray shows improvement in the infiltrates.) Assessment and Plan (1) Reticulonodular infiltrate present on imaging of chest Status: Acute Assessment and plan: The patient has diffuse reticular nodule infiltrates that are improving. This looks like he has an improving infection. His transbronchial biopsies are still pending. His chest x-ray has improved but he still doesn't do CPAP very well. He will have dialysis today. Current Visit: Yes (2) Kidney transplant recipient Status: Chronic Assessment and plan: The patient is on immunosuppressive therapy. His creatinine is stable at 3.9 today. He does have fairly good urine output. Current Visit: No (3) Altered mental status Status: Acute Assessment and plan: The patient has been responding fairly well but he still gets very restless. He did have a negative CT of his head. Current Visit: Yes Qualifiers: Altered mental status type: delirium Qualified Code(s): R41.0 - Disorientation, unspecified (4) Left ankle pain Status: Acute Assessment and plan: Patient says he has gout. He is not having much swelling now. Current Visit: Yes (5) ARF (acute renal failure) Status: Acute Assessment and plan: He does have worsening renal insufficiency. His creatinine is up to 3.9. Current Visit: Yes
--- NOTE | 2016-09-08 07:25 | General Surgery Progress Note ---
Assessment and Plan (1) Pneumothorax, left Status: Acute Assessment and plan: Continue chest tube to water seal. Leave chest tube in place until patient is off of positive pressure ventilation Current Visit: Yes (2) ARF (acute renal failure) Status: Acute Assessment and plan: The patient will have a temporary dialysis catheter placed in the groin today. We have obtained consent from family. Current Visit: Yes Subjective Patient reports: Present: afebrile Narrative: The patient is failing weaning trials on the ventilator. His potassium is 6.3 today and nephrology's request dialysis catheter. This is both for volume overload and hyperkalemia. His chest tube has no air leak. Exam - Constitutional Vitals: Period Temp Pulse Resp BP Sys/Stewart Pulse Ox Last 24 Hr 97.2 F-98.3 F 102-119 20-26 72-122/42-97 96-100 General appearance: normal weight, mild distress - Head Head exam: Present: normal inspection - Eye Eye exam: Present: EOMI - ENT ENT exam: Present: normal exam Mouth exam: Present: normal external inspection - Neck Neck exam: Present: normal inspection, trachea midline - Respiratory Respiratory exam: Present: clear to auscultation bilaterally, other (there is no air leak on the chest tube). Absent: accessory muscle use, chest wall tenderness - Cardiovascular Cardiovascular exam: Present: tachycardia. Absent: systolic murmur - GI/Abdominal GI/Abdominal exam: Present: normal bowel sounds, soft. Absent: distended - Extremities Exam Extremities exam: Present: normal inspection, normal capillary refill Results - Labs CBC & BMP: 09/08/16 03:50 09/08/16 03:50 - Diagnostic Findings Procedure: Chest x-ray: image reviewed by me (no pneumothorax)
--- NOTE | 2016-09-08 07:51 | XRay Report ---
XR chest 1V portable Indication: Ventilator Comparison: Chest x-ray dated September 07, 2016 Technique: Single frontal view of the chest Findings: Endotracheal tube stable positioning. Right-sided vascular catheter appears grossly unchanged. Left-sided chest tube appears similar in positioning considering change in technique. Minimal bibasilar opacities appear similar to prior examination. Osseous and surrounding soft tissue structures appear grossly unchanged. IMPRESSION: No adverse interval change. PROCEDURE INTERPRETED AT [facility] DEPARTMENT OF RADIOLOGY Final Report Signed by: Dr Don Ordonez
--- NOTE | 2016-09-08 08:28 | Nephrology Progress Note ---
Nephrology - PN: Subj Interval history: Mr. Mcmanus is seen in follow-up of his chronic renal failure with his kidney transplant. Creatinine is now 3.9 BUNs 199. Potassium 63. We will begin dialysis today to decrease this volume and help with some of his metabolic issues. We will plan to dialyze about 2 hours today and get what fluid we can he may require albumin support to do that. We will probably be dialyzing daily in an effort to get rid of this fluid. Appreciate Dr. Caldwell open up again the dialysis catheter. Mr. Mcmanus remains on the ventilator but he is responsive. Exam (PN)-Nephrology - Vital Signs Vital signs: Period Temp Pulse Resp BP Sys/Stewart Pulse Ox Last 24 Hr 97.4 F-98.3 F 102-120 20-26 72-122/42-97 96-100 - Lab 09/08/16 03:50 09/08/16 03:50 Most recent lab results ABG pH 7.361 (7.35-7.45) 09/07/16 04:35 ABG pCO2 35.3 MM HG (35-48) 09/07/16 04:35 ABG pO2 128.0 MM HG (80-95) H 09/07/16 04:35 ABG HCO3 20.4 MMOL/L (20-26) 09/07/16 04:35 ABG O2 Saturation 98.5 % (95-100) 09/07/16 04:35 Calcium 9.1 MG/DL (8.5-10.1) 09/08/16 03:50 Phosphorus 8.0 MG/DL (2.5-4.9) H 09/07/16 03:45 Magnesium 2.0 MG/DL (1.8-2.4) 09/07/16 03:45 Assessment and Plan (1) Kidney transplant recipient Status: Chronic Current Visit: No (2) Chronic kidney disease, stage III (moderate) Status: Chronic Current Visit: Yes (3) Left ankle pain Status: Acute Current Visit: Yes
--- NOTE | 2016-09-08 09:12 | Hospitalist Progress Note ---
Assessment and Plan (1) Acute respiratory failure Status: Acute Assessment and plan: He likely has underlying PNA, Agree with current antibiotics especially given his immunosuppressed state. Appreciate pulmonology for assistance with vent management. 09/02/16; chest xray is better today and will continue with antibiotics and weaning protocol per pulmonology 09/03/16: This is likely secondary to underlying lung. Continue with current mechanical mental support of her pulmonology's note they will begin to initiate weaning trials. It appears that his mental status is improving S once sedation started down he appears to be following simple commands. 09/04/16: continue current vent management, IV abx/antifungal as he is responding and until final bronchial washings are back. 09/08/16: His chest x-ray is slowly improving. They will continue with the weaning process per pulmonology protocol. Current Visit: Yes (2) Chronic kidney disease, stage III (moderate) Status: Chronic Assessment and plan: elevated BUN, appreciate renal and there recommendations 09/08/16: His creatinine is staying fairly stable but his BUN and his continue to rise. He does have 3-4+ pitting edema. Despite him given albumin over the weekend he is developed more edema. He will began hemodialysis today. I discussed this with Dr. Zhang who states that he will only given approximately 2 hours as he does not want to drop his BUN to fast which can cause seizure. At this time I do appreciate nephrology for their input and assistance. We'll continue to monitor patient closely. Also have to monitor his blood pressure as he is running a little over side of normal and this could drop even further wants dialysis is initiated. Current Visit: Yes (3) Reticulonodular infiltrate present on imaging of chest Status: Acute Assessment and plan: 09/03/16: most likely infection cause as appears to be improving with antibiotics. Current Visit: Yes (4) Hyperglycemia, drug-induced Status: Acute Assessment and plan: hyperglycemia is likely related to steroids he is receiving we'll continue with sliding scale insulin. Current Visit: Yes (5) Hypoalbuminemia Status: Acute Assessment and plan: he will be started on albumin replacement as he does have some edema 09/04/16: currently receiving daily replacement Current Visit: Yes (6) Kidney transplant recipient Status: Chronic Current Visit: No (7) Hyperkalemia, diminished renal excretion Status: Resolved Assessment and plan: will give some Kayexalate given he has not had a bowel movement over the past few days also Current Visit: Yes (8) Hyperglycemia, drug-induced Status: Acute Assessment and plan: may have to increase insulin dosage and start some basal insulin Current Visit: Yes Hospitalist: Subjective Interval history: Patient there have with a initially thought were seizure-like activity on yesterday but EEG been done and CT were negative. These is since resolved. He does have significant amount of edema with plans to start dialysis today. I do agree with Dr. Neri about de-escalating antibiotics as bronchial washings only grew out use he is on antifungal. Exam - Constitutional Vitals: Period Temp Pulse Resp BP Sys/Stewart Pulse Ox Last 24 Hr 97.4 F-98.3 F 102-124 20-26 72-122/45-97 96-100 General appearance: other (critically ill-appearing male who is sedated and intubated appears to be comfortable on mechanical ventilation) - Respiratory Respiratory exam: Present: clear to auscultation bilaterally - Cardiovascular Cardiovascular exam: Present: regular rate and rhythm - GI/Abdominal GI/Abdominal exam: Present: normal bowel sounds, soft - Extremities Exam Extremities exam: Present: edema - Neurological Exam Neurological exam: Present: other (sedated) - Skin Skin exam: Present: warm, intact Results - Labs CBC & BMP: 09/08/16 03:50 09/08/16 03:50
--- NOTE | 2016-09-08 09:29 | Ophthalmology Consultation ---
Assessment and Plan (1) Chemosis of conjunctiva of both eyes Problem details: The inferior conjunctiva is chemotic ou and some exposure/ drying is noted Status: Acute Assessment and plan: The chemosis is related to his systemic fluid overload and should resolve as his condition improves... For now we will attempt to limit the exposure and drying of this tissue... Bacitracin oph ointment and lacrilube should be applied to exposed conjunctival tissue at least QID and as often as needed to prevent drying. Will recheck daily until improved. Current Visit: Yes History of Present Illness Chief complaint: conjunctival edema and exposure, corneal abrasion History of present illness: Mr. Mcmanus is a 50 year old male with h/o kidney transplantation currently in ICU and on vent with resp. failure. Past ocular history is not available. Ophthalmology is consulted to evaluate swollen and exposed conjunctiva and r/o corneal abrasion. Home Medications Medication Instructions Recorded Confirmed Type Aspirin [Ecotrin] 81 mg PO DAILY 05/16/16 08/25/16 History Carvedilol [Coreg] 0.5 tablet PO BID 05/16/16 08/25/16 History Folic Acid Tab 1 mg PO DAILY 05/16/16 08/25/16 History Mycophenolate Mofetil Cap 3 tablet PO Q12H 05/16/16 08/25/16 History [Cellcept] Pantoprazole Tab [Protonix Tab] 40 mg PO BID 05/16/16 08/25/16 History Tacrolimus [Tacrolimus Cap] 4 tablet PO Q12H 05/16/16 08/25/16 History predniSONE TAB [PredniSONE] 10 mg PO DAILY 05/16/16 08/25/16 History amLODIPine [Norvasc] 10 mg PO DAILY 06/01/16 08/25/16 History Allopurinol 100 mg PO DAILY 08/25/16 08/25/16 History HYDROcodone/ACETAMIN 10-325 [Reading 1 tablet PO Q4H PRN 08/25/16 08/25/16 History 10-325] Magnesium Oxide [Magnesium] 500 mg PO DAILY 08/25/16 08/25/16 History Metoclopramide Liquid [Reglan 5 ml PO BID 08/25/16 08/25/16 History Liquid] Allergies Allergy/AdvReac Type Severity Reaction Status Date / Time No Known Allergies Allergy Verified 08/11/16 22:05 Medical,Surgical,& Family Hx - Medical History Cardio: History of: Hypertension Psychological: No history of: Anxiety Disorders, Bipolar Disorder, Depression, Schizophrenia Neurology: No history of: Seizures HEENT: History of: Eye Problem (previous retinal tear RIGHT) Rheumatology: History of;: Gout Renal: History of: Renal Failure, Renal Problems (Kidney transplant - 09/15) Gastrointestinal: History of: GERD, Gastrointestinal Bleed Hematology: History of: Anemia No history of: Blood Transfusion Reaction Reproductive: No histroy: Reproductive Cancer Other: No history of: Anesthesia Reactions, HIV - Surgical History Cardiac Surgeries: Sugical HX of: Cardiac Catheterization (negative, done in 2008) Thoracic Surgeries: Surgical HX of;: Kidney (Renal Surgery) (transplant 2013), Organ Transplant (KIDNEY) Neurologic Surgeries: Patient denies: Neurologic Surgery HEENT Surgeries: Surgical HX of: Tonsilectomy & Adenoidectomy Patient denies: Eye Surgery Abdominal Surgeries: Surgical HX of: Abdominal Surgery (PD catheter placed and removed (Removed 2013)), Cholecystectomy, EGD Orthopedic Surgeries: Patient denies;: Orthopedic Surgery - Family History Family History: Reports;: Family Diabetes (MOM AND BROTHER), Family Hypertension (MOM AND BROTHER) Denies;: Family Anesthesia Reaction, Family Cancer, Family Heart Disease, Family Psychiatric Problems, Family Stroke - Social History Smoking Status: Former smoker Frequency of Alcohol Use: None Type of Drug Use: None Ophthalmology Exam - Constitutional Vitals: Vital Signs Temp Pulse Resp BP Pulse Ox 98.2 F 116 H 22 79/50 100 09/08/16 04:00 09/08/16 09:00 09/08/16 09:00 09/08/16 09:00 09/08/16 09:00 Intake and Output 09/07/16 09/08/16 09/08/16 23:59 07:59 15:59 Intake Total 520 / 520 958.3 / 958.3 0 / 0 Output Total 800 / 800 690 / 690 370 / 370 Balance -280 / -280 268.3 / 268.3 -370 / -370 Intake: IV 460 / 460 868.3 / 868.3 Ampicillin Inj 2,000 mg 100 / 100 100 / 100 In Ns 100 ml @ 200 mls/hr IV Q6H COUNTS INCLUDE 234 BEDS AT THE [facility] Rx#: [id number] DIPRIVAN 1,000 mg In 100 0 / 0 48.3 / 48.3 ml @ 10 MCG/KG/MIN 4.491 mls/hr IV TITRATE IB[facility] Rx# :[id number] Bactrim Inj 160 mg In D5 260 / 260 520 / 520 250 ml @ 167 mls/hr IV Q6H [facility] Rx#:[id number] Vfend Inj 400 mg In Ns 100 / 100 100 ml @ 50 mls/hr IV Q12H [facility] Rx#:[id number] Rocephin 2,000 mg In Ns 100 / 100 100 / 100 100 ml @ 200 mls/hr IV Q12H COUNTS INCLUDE 234 BEDS AT THE [facility] Rx#:[id number] Oral 0 / 0 0 / 0 0 / 0 Tube Feeding Flush 60 / 60 90 / 90 0 / 0 Output: Chest Tube Drainage 0 / 0 0 / 0 0 / 0 Left Lateral Chest 0 / 0 0 / 0 0 / 0 Urine 800 / 800 690 / 690 370 / 370 Stool 0 / 0 0 / 0 0 / 0 Other: Tube Feeding 45 45 45 Emesis 0 0 Voiding Method Indwelling Catheter Indwelling Catheter Indwelling Catheter Weight 44.497 kg Patient Weight 09/08/16 23:59 Weight 44.497 kg - Expanded Eye Exam Eye Exam Slit lamp exam: performed (bedside exam only (ICU on vent)) Eyelids: bilateral: normal inspection Pupils: Bilateral: size mm (2-3 mm ou; poorly reactive) Sclera: bilateral: normal inspection (There is 2+ inferior chemosis with some exposure and drying) Anterior chamber: bilateral: normal inspection Posterior chamber: bilateral: deferred (dilated exam deferred for now (vent)) Results - Labs CBC & BMP: 09/08/16 03:50 09/08/16 03:50
[2016-09-08] MEDS: METOCLOPRAMIDE 10 MG/10 ML UDCUP PO SCH ×2 (09:36→20:07)
[2016-09-08] MEDS: PANTOPRAZOLE 40 MG VIAL IV SCH (09:36)
[2016-09-08] MEDS: methylPREDNISolone SOD SUC 40 MG/1 ML VIAL IV SCH ×2 (09:37→20:08)
[2016-09-08] MEDS: INSULIN GLARGINE 100 UNIT/ML SUBCUT SCH (09:37)
[2016-09-08] MEDS: FOLIC ACID 1 MG TABLET PO SCH (09:38)
[2016-09-08] MEDS: TACROLIMUS 0.5 MG CAPSULE PO SCH ×2 (09:38→20:08)
[2016-09-08] MEDS: CARVEDILOL 3.125 MG TABLET PO SCH ×2 (09:38→20:08)
[2016-09-08] MEDS: ASPIRIN EC 81 MG TABLET PO SCH (09:38)
[2016-09-08] MEDS: MYCOPHENOLATE MOFETIL 250 MG CAPSULE PO SCH ×2 (09:38→20:08)
[2016-09-08] MEDS: VORICONAZOLE INJ 400 MG in SODIUM CHLORIDE 0.9% 100 ML IV SCH (10:57)
[2016-09-08] MEDS: BACITRACIN OPH OINT 3.5 GM TUBE BOTH EYES SCH ×10 (10:58→22:57)
--- NOTE | 2016-09-08 12:28 | Operative Note ---
Date of procedure: 09/08/16 Pre-op diagnosis: acute renal failure with hyperkalemia and volume overload Post-op diagnosis: same Procedure: Preoperative diagnosis Acute renal failure with hyperkalemia and volume overload Postoperative diagnosis Same Procedures performed Right femoral dialysis catheter placement Ultrasound guidance and interpretation of images Findings The common femoral vein was accessed in a similar technique was used to place a dialysis catheter. Complications none apparent Specimens None Anesthesia None Blood loss Minimal Indications Acute renal failure with volume overload and hyperkalemia Description of procedure The patient was placed supine position in his ICU bed. The right groin was clipped with closure clippers and prepped and draped sterilely with chlorhexidine. Full sterile barrier precautions were used. Ultrasound was used to identify the right common femoral vein which was accessed with a needle and Seldinger technique was used to place a dialysis catheter 20 cm in length with 3 lm. All 3 ports returned blood easily and were flushed with saline and heparin. Nonpulsatile venous blood return was obtained from all 3 lm. Ultrasound was repeated confirm venous placement of the catheter. Catheter ready for use Implants: 20cm dialysis catheter Surgeon / Physician: Joseph Caldwell Estimated blood loss: minimal Condition: critical Disposition: no change Results - Labs CBC & BMP: 09/08/16 03:50 09/08/16 03:50 Discharge Plan - Discharge Medications No Action Carvedilol [Coreg] 0.5 tablet PO BID Tacrolimus [Tacrolimus Cap] 4 tablet PO Q12H predniSONE TAB [PredniSONE] 10 mg PO DAILY Folic Acid Tab 1 mg PO DAILY Aspirin [Ecotrin] 81 mg PO DAILY Mycophenolate Mofetil Cap [Cellcept] 3 tablet PO Q12H Pantoprazole Tab [Protonix Tab] 40 mg PO BID amLODIPine [Norvasc] 10 mg PO DAILY HYDROcodone/ACETAMIN 10-325 [[place] 10-325] 1 tablet PO Q4H PRN PRN Reason: Pain Allopurinol 100 mg PO DAILY Magnesium Oxide [Magnesium] 500 mg PO DAILY Metoclopramide Liquid [Reglan Liquid] 5 ml PO BID - Follow Up or Referral - Forms/Instructions
[2016-09-08 14:21] LABS: Hepatitis A Ab IgM Quant 0.18 Index; Hepatitis A Ab IgM Result Negative (Negative); Hepatitis B Core IgM Quant 0.19 Index; Hepatitis B Core IgM Result Negative (Negative); Hepatitis B Surface Ag Quant < 0.10 Index; Hepatitis B Surface Ag Result Negative (Negative); Hepatitis C Virus Ab Quant 0.05 Index; Hepatitis C Virus Ab Result Negative (Negative)
[2016-09-08] MEDS: SODIUM CHLORIDE 0.45% 1,000 ML IV SCH ×2 (14:43→17:01)
[2016-09-08] MEDS: ALBUMIN 25% 12.5 GM in PREMIX 1 EACH IV PRN (15:04)
--- NOTE | 2016-09-08 15:10 | Dialysis Note ---
Dialysis Note - Dialysis Note Mr. Mcmanus is tolerating his first hemodialysis. His blood pressure is about 85 systolic were giving albumin to support that. Fluid removal is going to be difficult with this hypotension but we will continue to try. Our plan is to dialyze tomorrow and try for more fluid.
--- NOTE | 2016-09-08 15:14 | Neurology Progress Note ---
Neurology - PN : Subjective Interval history: Mr. Cooper is is still on vent. He is getting dialyzed right now. EEG revealed one seizure. Exam (Progress Note) - Constitutional Vitals: Period Temp Pulse Resp BP Sys/Stewart Pulse Ox Last 24 Hr 97.4 F-98.3 F 107-124 20-111 71-114/43-79 96-100 Exam: GENERAL: Patient is in no acute distress. NECK: Neck is supple. There is no JVD. No carotid bruits present. No thyroid masses. CVS: First and second heart sounds are normal. There is no S3 present. Regular rate and rhythm. RESPIRATORY: Lungs are clear to auscultation without any rales or rhonchi. ABDOMEN: Soft and non-tender. Bowel sounds are present. There is no hepatosplenomegaly. EXT: There is no palpable edema. Peripheral pulses are present. Skin: No rashes Central Nervous system: General: Sleepy but arousable Speech: On vent Comprehension: Fair Facial expressions: Normal Cranial Nerves: Pupils are equally reactive to light. Extraocular movements are intact. No facial asymmetry seen. Visual estrada are equal. Tongue is midline. Motor: Bulk and Tone is normal. Strength symmetrical, moving all 4 extremities however very weakly today. Sensory: Unreliable Reflexes: 1+ and symmetrical Cerebellar function: Slow [id number] testing Gait: Not Tested this time Results - Labs CBC & BMP: 09/08/16 03:50 09/08/16 03:50 Assessment and Plan (1) Altered mental status Status: Acute Assessment and plan: Continue current supportive management. Patient had one seizure on EEG recorded. We'll start Keppra 500 IV every 12 Current Visit: Yes Qualifiers: Altered mental status type: delirium Qualified Code(s): R41.0 - Disorientation, unspecified
[2016-09-08] MEDS ORDERED: HEPARIN 10,000 UNIT/10 ML VIAL IV SCH (16:00)
[2016-09-08] MEDS: PROPOFOL 1,000 MG/100 ML BOTTLE IV SCH (16:59)
[2016-09-08] MEDS: DESITIN 4OZ/NYSTATIN 15 GRAM MIXTURE PASTE TOP SCH (20:58)
[2016-09-09] MEDS: NITROGLYCERIN 2% OINT 1 INCH/GM PACK TOP SCH ×4 (00:27→17:35)
[2016-09-09] MEDS: BACITRACIN OPH OINT 3.5 GM TUBE BOTH EYES SCH ×23 (00:28→23:30)
[2016-09-09] MEDS: ALBUTEROL/IPRATROPIUM 3 ML NEB RESP TX SCH ×4 (01:35→19:07)
[2016-09-09 04:45] LABS: Basophils % 0.1 % (0.0-0.8); Hematocrit 19.5 VOL% (42.0-52.0); Immature Granulocytes % 4.5 %; Lymphocytes # 0.1 10*3/uL (1.4-4.0); Lymphocytes % 1.2 % (21.2-54.2); Mean Corpuscular HGB Conc 32.8 GM/DL (32-36); Mean Corpuscular Hemoglobin 25 PG (27-34); Mean Corpuscular Volume 75.3 FL (87-102); Mean Platelet Volume 14.1 FL (9.6-12.0); Monocytes # 0.3 10*3/uL (0.11-0.8); Neutrophils # 10.1 10*3/uL (1.4-7.4); Neutrophils % 91.2 % (38.7-73.9); Platelet Count 272 T/CUMM (130-400); Red Blood Count 2.59 MC/CUMM (3.8-5.5); Red Cell Distribution Width 15.9 % (9.3-17.3); White Blood Count 11.1 T/CUMM (4-12)
[2016-09-09 05:04] LABS: Hemoglobin 6.4 GM/DL (14.0-18.0)
[2016-09-09 05:11] LABS: Calcium 8.6 MG/DL (8.5-10.1)
[2016-09-09] MEDS: INSULIN REGULAR 100 UNIT/ML SUBCUT SCH ×3 (05:14→17:40)
[2016-09-09 05:18] LABS: Hypersegmented Neutrophil Few; Hypochromasia 1+; Lymphocytes 2 % (20-55); Microcytosis 1+; Nucleated Red Blood Cells 1 (0-5); Platelet Estimate Adequate; Segmented Neutrophils 96 % (50-85); Total Cells Counted 100
[2016-09-09 05:19] LABS: Ovalocytes Slight
[2016-09-09] MEDS ORDERED: SODIUM CHLORIDE 0.9% 250 ML IV PRN (05:27)
--- NOTE | 2016-09-09 06:12 | Pulmonology Progress Note ---
Pulmonary - PN: Subj Interval history: Patient is a 50-year-old black man that has had a previous kidney transplant and came in with diffuse infiltrates that worsened fairly quickly. He had a be put on the ventilator. We did get transbronchial biopsies but they're still pending. His been on multiple antibiotics and his chest x-ray has continued to improve over the past week. His oxygenation is better and his x-rays are markedly improved. He continues to have problems with poor urine output and anasarca and peripheral edema. He underwent dialysis yesterday but was not able to get out much fluid because of his blood pressure. He is still been quite comfortable on the ventilator. His EEG showed seizure and he started on medications. He has not been able to do CPAP very well lately. His pathology report mainly just showed inflammation and no signs of malignancy or granulomas. There apparently was no signs of pneumocystis or other unusual organisms. His pneumonia is improving. Exam (Progress Note) - Constitutional Vitals: Period Temp Pulse Resp BP Sys/Stewart Pulse Ox Last 24 Hr 97.6 F-98.8 F 95-124 8-111 71-113/41-79 98-100 Exam: General appearance: no distress, under weight, he looks reasonably comfortable on the ventilator. - Head Head exam: Present: normal inspection, normocephalic - Eye Eye exam: Present: EOMI. the sclerae edema is still present. Pupils: Present: SELVIN - ENT ENT exam: Present: The ET tube is in good position. - Neck Neck exam: Present: tenderness. Absent: lymphadenopathy, thyromegaly - Respiratory Respiratory exam: Present: He has good breath sounds bilaterally and his lungs sound better with better air movement. His lung compliance is much better. He has no air leak now. He still has some rhonchi but is moving air okay. - Cardiovascular Cardiovascular exam: Present: regular rate and rhythm. Absent: gallop, systolic murmur - GI/Abdominal GI/Abdominal exam: Present: soft. Absent: distended, organomegaly, tenderness - Extremities Exam Extremities exam: Present: He does have a lot of swelling in his arms and legs now. He remains quite edematous. - Neurological Exam Neurological exam: Present: Patient has been restless over the weekend and has required sedation. - Psychiatric Psychiatric exam: Absent: agitated, anxious - Skin Skin exam: Present: warm, dry Results - Labs CBC & BMP: 09/09/16 02:40 09/09/16 02:40 Assessment and Plan (1) Reticulonodular infiltrate present on imaging of chest Status: Acute Assessment and plan: The patient has diffuse reticular nodule infiltrates that are improving. This looks like he has an improving infection. His transbronchial biopsies did not show anything but inflammation. We will stop the sulfa since it may be causing some problems with his kidneys. Overall his pneumonia is getting better. Current Visit: Yes (2) Kidney transplant recipient Status: Chronic Assessment and plan: The patient is on immunosuppressive therapy. His creatinine is stable at 3.5 today. He will probably get dialysis again today. Current Visit: No (3) Altered mental status Status: Acute Assessment and plan: The patient apparently had a seizure on his EKG and is getting medications. Current Visit: Yes Qualifiers: Altered mental status type: delirium Qualified Code(s): R41.0 - Disorientation, unspecified (4) Left ankle pain Status: Acute Assessment and plan: Patient says he has gout. He is not having much swelling now. Current Visit: Yes (5) ARF (acute renal failure) Status: Acute Assessment and plan: He does have worsening renal insufficiency. He was started on dialysis yesterday. Current Visit: Yes (6) Anemia Status: Acute Assessment and plan: His hemoglobin is now down to 6.4 and he will need transfusions. Current Visit: Yes
--- NOTE | 2016-09-09 07:45 | General Surgery Progress Note ---
Assessment and Plan (1) Pneumothorax, left Status: Acute Assessment and plan: The chest tube will be removed today. I was hoping to leave it in until the patient was off of positive pressure but I think at this point it is becoming a source of infection risk as a foreign body in the lung is been out for several days on chest x-ray. It does look like there may be a small pneumothorax on the right side on today's found but I canceled this as a rib intrapleural line we will follow this with radiology shortly. Current Visit: Yes (2) ARF (acute renal failure) Status: Acute Assessment and plan: Continue dialysis as tolerated through groin catheter. Current Visit: Yes Subjective Patient reports: Present: afebrile Narrative: A dialysis catheter was place in the right femoral vein yesterday. The patient still on the ventilator. Chest x-ray shows no pneumothorax with chest tube coursing down towards the diaphragm. Exam - Constitutional Vitals: Period Temp Pulse Resp BP Sys/Stewart Pulse Ox Last 24 Hr 97.6 F-98.8 F 95-124 8-111 71-113/41-79 98-100 General appearance: no acute distress, over weight - Head Head exam: Present: normal inspection, normocephalic - Eye Eye exam: Present: EOMI - ENT ENT exam: Present: normal exam Mouth exam: Present: normal external inspection - Neck Neck exam: Present: normal inspection, trachea midline - Respiratory Respiratory exam: Present: clear to auscultation bilaterally, other (no air leak on chest tube, no drainage). Absent: accessory muscle use, chest wall tenderness - Cardiovascular Cardiovascular exam: Present: tachycardia. Absent: irregular rhythm, systolic murmur - GI/Abdominal GI/Abdominal exam: Present: soft. Absent: tenderness, rebound - Extremities Exam Extremities exam: Present: normal inspection, normal capillary refill - Back Exam Back exam: Present: normal inspection - Skin Skin exam: Present: normal color, warm Results - Labs CBC & BMP: 09/09/16 02:40 09/09/16 02:40 - Diagnostic Findings Procedure: Chest x-ray: image reviewed by me
--- NOTE | 2016-09-09 07:47 | XRay Report ---
XR chest 1V portable Indication: Chest tube Comparison: Chest x-ray dated September 08, 2016 Technique: Single frontal view of the chest Findings: Lines and tubes appear grossly unchanged in positioning. Mildly progressed bibasilar atelectasis/consolidation. Trace right pneumothorax suggested inferiorly. Question trace left pneumothorax. Osseous and surrounding soft tissue structures appear grossly unchanged. IMPRESSION: As above. Findings discussed with nurse Maritza Richardson at time of dictation. PROCEDURE INTERPRETED AT [facility] DEPARTMENT OF RADIOLOGY Final Report Signed by: Dr Don Ordonez
--- NOTE | 2016-09-09 08:21 | Nephrology Progress Note ---
Nephrology - PN: Subj Interval history: Mr. Mcmanus is seen in follow-up of his acute superimposed on chronic renal failure with his kidney transplant. He underwent 2 hours of hemodialysis yesterday and tolerated it poorly with hypotension. His BUN is down but we did not get much fluid off. We will try again today with by giving more albumin during dialysis hoping to mobilize fluid and intravascular compartment. His hematocrit is below 20 and he'll receive 2 units packed red cells today. I'll outlook is poor. Tacrolimus level was checked 1 week ago and was therapeutic but we need to continue to watch that. Exam (PN)-Nephrology - Vital Signs Vital signs: Period Temp Pulse Resp BP Sys/Stewart Pulse Ox Last 24 Hr 97.6 F-98.8 F 95-121 8-111 71-113/41-74 98-100 - Lab 09/09/16 02:40 09/09/16 02:40 Most recent lab results ABG pH 7.361 (7.35-7.45) 09/07/16 04:35 ABG pCO2 35.3 MM HG (35-48) 09/07/16 04:35 ABG pO2 128.0 MM HG (80-95) H 09/07/16 04:35 ABG HCO3 20.4 MMOL/L (20-26) 09/07/16 04:35 ABG O2 Saturation 98.5 % (95-100) 09/07/16 04:35 Calcium 8.6 MG/DL (8.5-10.1) 09/09/16 02:40 Phosphorus 8.0 MG/DL (2.5-4.9) H 09/07/16 03:45 Magnesium 2.0 MG/DL (1.8-2.4) 09/07/16 03:45 Assessment and Plan (1) Kidney transplant recipient Status: Chronic Current Visit: No (2) Chronic kidney disease, stage III (moderate) Status: Chronic Current Visit: Yes (3) Left ankle pain Status: Acute Current Visit: Yes
--- NOTE | 2016-09-09 08:33 | Hospitalist Progress Note ---
Assessment and Plan (1) Acute respiratory failure Status: Acute Assessment and plan: He likely has underlying PNA, Agree with current antibiotics especially given his immunosuppressed state. Appreciate pulmonology for assistance with vent management. 09/02/16; chest xray is better today and will continue with antibiotics and weaning protocol per pulmonology 09/03/16: This is likely secondary to underlying lung. Continue with current mechanical mental support of her pulmonology's note they will begin to initiate weaning trials. It appears that his mental status is improving S once sedation started down he appears to be following simple commands. 09/04/16: continue current vent management, IV abx/antifungal as he is responding and until final bronchial washings are back. 09/08/16: His chest x-ray is slowly improving. They will continue with the weaning process per pulmonology protocol. 09/09/16: X-ray is improving us for BRONCHIAL wash cultures have been negative. He is still intubated. Current Visit: Yes (2) Chronic kidney disease, stage III (moderate) Status: Chronic Assessment and plan: elevated BUN, appreciate renal and there recommendations 09/08/16: His creatinine is staying fairly stable but his BUN and his continue to rise. He does have 3-4+ pitting edema. Despite him given albumin over the weekend he is developed more edema. He will began hemodialysis today. I discussed this with Dr. Zhang who states that he will only given approximately 2 hours as he does not want to drop his BUN to fast which can cause seizure. At this time I do appreciate nephrology for their input and assistance. We'll continue to monitor patient closely. Also have to monitor his blood pressure as he is running a little over side of normal and this could drop even further wants dialysis is initiated. 09/09/16:Steadily rise his BUN and and edema he did do approximately 2 hours of hemodialysis on yesterday. According to nephrology note they were unable to remove a significant amount of fluid given he more hypotensive. He will do dialysis again today. He also does feel has hyperkalemia and anemia which will be addressed during hemodialysis. Current Visit: Yes (3) Reticulonodular infiltrate present on imaging of chest Status: Acute Assessment and plan: 09/03/16: most likely infection cause as appears to be improving with antibiotics. Current Visit: Yes (4) Hyperglycemia, drug-induced Status: Acute Assessment and plan: hyperglycemia is likely related to steroids he is receiving we'll continue with sliding scale insulin. Current Visit: Yes (5) Hypoalbuminemia Status: Acute Assessment and plan: he will be started on albumin replacement as he does have some edema 09/04/16: currently receiving daily replacement Current Visit: Yes (6) Kidney transplant recipient Status: Chronic Current Visit: No (7) Hyperkalemia, diminished renal excretion Status: Resolved Assessment and plan: will give some Kayexalate given he has not had a bowel movement over the past few days also Current Visit: Yes (8) Hyperglycemia, drug-induced Status: Acute Assessment and plan: may have to increase insulin dosage and start some basal insulin Current Visit: Yes (9) Anemia in CKD (chronic kidney disease) Status: Acute Assessment and plan: Plan is for him to receive 2 units of blood during dialysis today. Current Visit: Yes (10) Chemosis of conjunctiva of both eyes Status: Acute Assessment and plan: Appreciate ophthalmology for their input will continue with their recommendations. Current Visit: Yes Hospitalist: Subjective Interval history: Patient is 50-year-old male with history of renal transplant who is on chronic immunosuppressive medications were present and quickly developed respiratory distress with bilateral reticulonodular infiltrates. He was initially covered with broad-spectrum antibiotics and antifungals given his immunosuppressive history. Restrictive standpoint he is somewhat improved. He still is somewhat hypotensive and becomes even more hypotensive while initiated on hemodialysis yesterday. Exam - Constitutional Vitals: Period Temp Pulse Resp BP Sys/Stewart Pulse Ox Last 24 Hr 97.6 F-98.8 F 95-121 8-111 71-113/41-74 98-100 General appearance: other (sedated and intubated) - Head Head exam: Present: normocephalic, atraumatic - Eye Eye exam: Present: other (chemosis of bilateral eyes) - Respiratory Respiratory exam: Present: clear to auscultation bilaterally - Cardiovascular Cardiovascular exam: Present: tachycardia - GI/Abdominal GI/Abdominal exam: Present: normal bowel sounds, soft - Extremities Exam Extremities exam: Present: edema - Skin Skin exam: Present: warm, intact Results - Labs CBC & BMP: 09/09/16 02:40 09/09/16 02:40
[2016-09-09] MEDS: PANTOPRAZOLE 40 MG VIAL IV SCH (09:28)
[2016-09-09] MEDS: methylPREDNISolone SOD SUC 40 MG/1 ML VIAL IV SCH ×2 (09:28→20:52)
[2016-09-09] MEDS: TACROLIMUS 0.5 MG CAPSULE PO SCH ×2 (09:46→20:56)
[2016-09-09] MEDS: ASPIRIN EC 81 MG TABLET PO SCH (09:46)
[2016-09-09] MEDS: METOCLOPRAMIDE 10 MG/10 ML UDCUP PO SCH ×2 (09:46→20:57)
[2016-09-09] MEDS: CARVEDILOL 3.125 MG TABLET PO SCH ×2 (09:46→20:56)
[2016-09-09] MEDS: MYCOPHENOLATE MOFETIL 250 MG CAPSULE PO SCH ×2 (09:46→20:57)
[2016-09-09] MEDS: FOLIC ACID 1 MG TABLET PO SCH (09:46)
[2016-09-09] MEDS: INSULIN GLARGINE 100 UNIT/ML SUBCUT SCH (09:47)
[2016-09-09] MEDS: DESITIN 4OZ/NYSTATIN 15 GRAM MIXTURE PASTE TOP SCH ×2 (09:47→21:08)
--- NOTE | 2016-09-09 09:47 | Operative Note ---
Date of procedure: 09/09/16 Pre-op diagnosis: right sided pneumothorax Post-op diagnosis: same Procedure: Preoperative diagnosis Right sided pneumothorax on positive pressure ventilation Postoperative diagnosis Same Procedures performed Right-sided chest tube placement Findings There was no doe of air on entry into the chest. Chest tube was placed at 16 cm Complications None apparent Blood loss Minimal Anesthesia propofol with local Indications Right-sided pneumothorax Description of procedure The patient was placed in the supine position on the in his right arm was placed above his head. The chest wall was prepped with chlorhexidine and draped sterilely. Timeout was called. Local anesthetic was administered in the fifth intercosta and an incision was made 11 blade scalpel. The chest was entered bluntly with a hemostat and a trocar base chest tube system was used to place a 24 [place] chest tube at 16 cm which went in easily and was secured at the skin with 0 silk suture. An occlusive Vaseline gauze type dressing was applied and the chest tube was hooked up to a Pleur-evac system on low suction at 20 cm. Chest x-ray was ordered. Postoperative plan Chest x-ray Implants: 24 [place] chest tube Anesthesia: local Surgeon / Physician: Joseph Caldwell Condition: critical Disposition: no change Results - Labs CBC & BMP: 09/09/16 02:40 09/09/16 02:40 Discharge Plan - Discharge Medications No Action Carvedilol [Coreg] 0.5 tablet PO BID Tacrolimus [Tacrolimus Cap] 4 tablet PO Q12H predniSONE TAB [PredniSONE] 10 mg PO DAILY Folic Acid Tab 1 mg PO DAILY Aspirin [Ecotrin] 81 mg PO DAILY Mycophenolate Mofetil Cap [Cellcept] 3 tablet PO Q12H Pantoprazole Tab [Protonix Tab] 40 mg PO BID amLODIPine [Norvasc] 10 mg PO DAILY HYDROcodone/ACETAMIN 10-325 [[place] 10-325] 1 tablet PO Q4H PRN PRN Reason: Pain Allopurinol 100 mg PO DAILY Magnesium Oxide [Magnesium] 500 mg PO DAILY Metoclopramide Liquid [Reglan Liquid] 5 ml PO BID - Follow Up or Referral - Forms/Instructions
--- NOTE | 2016-09-09 10:44 | XRay Report ---
XR chest 1V portable Indication: Chest tube Comparison: 08 September 2016 Findings: The heart and mediastinum are stable in size and configuration. Small pneumothorax is present on the right similar to previous exam. Chest tube is been added in the right hemithorax. Remaining lines and tubes are unchanged in position. The pulmonary vascularity is normal in caliber. No lung infiltrates, effusions, pneumothorax or other abnormality is demonstrated. Impression: Addition of chest tube on the right, no other significant changes. PROCEDURE INTERPRETED AT [facility] DEPARTMENT OF RADIOLOGY Final Report Signed by: Dr. Mike Toledo
--- NOTE | 2016-09-09 11:43 | Ophthalmology Progress Note ---
Assessment and Plan (1) Chemosis of conjunctiva of both eyes Problem details: The inferior conjunctiva is chemotic ou and some exposure/ drying is noted Status: Acute Assessment and plan: The chemosis is stable today.... the conjunctival tissue is being lubricated appropriately...will continue current care and may add steroid ointment in next 1-2 days if not improving Current Visit: Yes Ophthalmology Exam - Constitutional Vitals: Vital Signs Temp Pulse Resp BP Pulse Ox 97.1 F L 105 H 22 115/77 99 09/09/16 08:00 09/09/16 10:00 09/09/16 10:00 09/09/16 10:00 09/09/16 10:00 Intake and Output 09/08/16 09/09/16 09/09/16 23:59 07:59 15:59 Intake Total 215 / 215 90 / 90 196.7 / 196.7 Output Total 555 / 555 675 / 675 370 / 370 Balance -340 / -340 -585 / -585 -173.3 / -173.3 Intake: IV 155 / 155 106.7 / 106.7 Albumin 25% 12.5 gm/50 ml 50 / 50 In Premix 1 Each @ 120 mls/hr IV ONCE PRN Rx#: [id number] DIPRIVAN 1,000 mg In 100 1.7 / 1.7 ml @ 10 MCG/KG/MIN 4.491 mls/hr IV TITRATE [facility] Rx# :[id number] Keppra Inj 500 mg In Ns 105 / 105 105 / 105 100 ml @ 400 mls/hr IV Q12H [facility] Rx#:[id number] Oral 0 / 0 Tube Feeding Flush 60 / 60 90 / 90 90 / 90 Output: Chest Tube Drainage 0 / 0 Left Lateral Chest 0 / 0 Urine 555 / 555 675 / 675 370 / 370 Stool 0 / 0 Other: Tube Feeding 45 45 45 Emesis 0 Voiding Method Indwelling Catheter Indwelling Catheter Indwelling Catheter Weight 103.1 kg Patient Weight 09/09/16 23:59 Weight 103.1 kg - Expanded Eye Exam Eye Exam Eyelids: bilateral: other (stable chemosis ou) Results - Labs CBC & BMP: 09/09/16 02:40 09/09/16 02:40
[2016-09-09] MEDS: ALBUMIN 25% 12.5 GM in PREMIX 1 EACH IV PRN (14:15)
--- NOTE | 2016-09-09 15:40 | Pathology Report from [facility] ---
ACCESSION # : [id number] PATIENT NAME : Paige Mcmanus ORDERING DR : ALYSSA CONLEY MD CLINICAL HX: Infiltrate (reticulonodular infiltrate) POST-OP DX: Same SPECIMEN INFO: LLL bronchial biopsies x 6 GROSS DESCRIPTION: The specimen is received in formalin labeled with the patient 's name Paige Mcmanus consists of multiple hester pink white mucosal tissue fragments measuring 0.8 x 0.9 cm. Submitted in one cassette. DIAGNOSIS FOR PAIGE MCMANUS: LLL BRONCHIAL BIOPSIES x 6: Inflammatory process, referred to [facility] for evaluation.The following is a consultation report from Dr. Vladimir Stewart at [facility], [place], [place]:LUNG, LEFT LOWER LOBE, BRONCHIAL BIOPSIES: Nodular intra-alveolar collections of polymorphonuclear cells with focal organization. One likely possibility is organizing bronchopneumonia. Given the clinical history, a search for unusual organisms might be worthwhile.Special stains: AFB negative; GMS fungus negative; Pneumocystis stain shows some non-specific staining which appears to debris within macrophages.(APS/ BLW). SERVICE DATE: 08/27/2016 REPORT DATE: 09/09/2016 PATHOLOGIST: Susi Prado M.D. [facility]
[2016-09-09] MEDS: PROPOFOL 1,000 MG/100 ML BOTTLE IV SCH (16:13)
--- NOTE | 2016-09-09 16:23 | Dialysis Note ---
Dialysis Note - Dialysis Note Mr. Levine is seen during his hemodialysis. He is not allowing fluid removal. That is he is dropping his blood pressure with attempts at fluid removal. He is receiving 2 units packed red cells today and has received 12-1/ 2 g of albumin on dialysis today. He is awake on a ventilator he is responding and following commands eyes are open and is making eye contact. His quinine will be tomorrow. We will plan to dialyze him again tomorrow and hopefully be able to get fluid off then but we anticipated that dialysis would not be a great way to get fluid off but we will continue to try
[2016-09-09] MEDS: SODIUM CHLORIDE 0.45% 1,000 ML IV SCH (17:28)
[2016-09-10] MEDS: INSULIN REGULAR 100 UNIT/ML SUBCUT SCH ×4 (00:04→17:57)
[2016-09-10] MEDS: NITROGLYCERIN 2% OINT 1 INCH/GM PACK TOP SCH ×4 (00:07→17:57)
[2016-09-10] MEDS: BACITRACIN OPH OINT 3.5 GM TUBE BOTH EYES SCH ×23 (00:30→23:30)
[2016-09-10] MEDS: ALBUTEROL/IPRATROPIUM 3 ML NEB RESP TX SCH ×4 (02:39→20:09)
[2016-09-10] MEDS: SODIUM CHLORIDE 0.45% 1,000 ML IV SCH ×2 (03:21→16:11)
[2016-09-10 03:47] LABS: Hemoglobin 8.1 GM/DL (14.0-18.0); Immature Granulocytes % 7.5 %; Immature Granulocytes Absolute 0.57 #; Lymphocytes # 0.2 10*3/uL (1.4-4.0); Mean Corpuscular HGB Conc 32.4 GM/DL (32-36); Mean Corpuscular Hemoglobin 26 PG (27-34); Mean Corpuscular Volume 81.2 FL (87-102); Mean Platelet Volume 13.7 FL (9.6-12.0); Monocytes # 0.3 10*3/uL (0.11-0.8); Monocytes % 3.8 % (1.7-12.7); Neutrophils # 6.6 10*3/uL (1.4-7.4); Neutrophils % 86.7 % (38.7-73.9); Platelet Count 240 T/CUMM (130-400); Red Blood Count 3.08 MC/CUMM (3.8-5.5); Red Cell Distribution Width 16.9 % (9.3-17.3); White Blood Count 7.6 T/CUMM (4-12)
[2016-09-10 04:02] LABS: Calcium 8.4 MG/DL (8.5-10.1); Magnesium 1.9 MG/DL (1.8-2.4); Osmolality,Calculated 334.1 MOS/KG (273-304); Potassium 5.6 MMOL/L (3.5-5.1)
[2016-09-10 04:13] LABS: Phosphorous 6.7 MG/DL (2.5-4.9); Prealbumin 28.8 MG/DL (20-40)
[2016-09-10 05:25] LABS: Band Neutrophils 1 % (0-10); Lymphocytes 2 % (20-55); Segmented Neutrophils 94 % (50-85); Total Cells Counted 100
[2016-09-10 05:40] LABS: Hypochromasia 1+; Microcytosis 1+
[2016-09-10 05:41] LABS: Ovalocytes Slight; Platelet Estimate Adequate
--- NOTE | 2016-09-10 07:31 | XRay Report ---
XR chest 1V portable Indication: Chest tubes Comparison: Chest x-ray dated September 09, 2016 Technique: Single frontal view of the chest Findings: Lines and tubes stable in positioning. Continued mild bibasilar atelectasis/consolidation with question of small bilateral pleural fluid. No definite pneumothorax. Cardiomediastinal silhouette is stable in appearance. Osseous and soft tissue structures appear grossly unchanged. IMPRESSION: No adverse interval change. PROCEDURE INTERPRETED AT [facility] DEPARTMENT OF RADIOLOGY Final Report Signed by: Dr Don Ordonez
--- NOTE | 2016-09-10 08:25 | General Surgery Progress Note ---
Assessment and Plan (1) Pneumothorax, left Status: Acute Assessment and plan: I decided to leave the left-sided chest tube in yesterday when the patient had developed a right-sided pneumothorax and he now has bilateral chest tubes. There is no air leak. I like to keep the tubes and until he is off positive pressure since she has developed pneumothorax bilaterally well on the ventilator. Current Visit: Yes (2) ARF (acute renal failure) Status: Acute Assessment and plan: Continue dialysis as tolerated through groin catheter. Current Visit: Yes Subjective Patient reports: Present: afebrile Exam - Constitutional Vitals: Period Temp Pulse Resp BP Sys/Stewart Pulse Ox Last 24 Hr 97.2 F-97.6 F 90-113 12-26 81-115/55-78 98-100 General appearance: mild distress, over weight - Head Head exam: Present: normal inspection - Eye Eye exam: Present: EOMI - ENT ENT exam: Present: normal exam Mouth exam: Present: normal external inspection - Neck Neck exam: Present: normal inspection, trachea midline - Respiratory Respiratory exam: Present: clear to auscultation bilaterally, other (bilateral chest tubes with no discernable air leak.). Absent: accessory muscle use, chest wall tenderness - Cardiovascular Cardiovascular exam: Present: tachycardia. Absent: irregular rhythm, systolic murmur - GI/Abdominal GI/Abdominal exam: Present: soft. Absent: tenderness, rebound - Extremities Exam Extremities exam: Present: normal inspection, normal capillary refill - Back Exam Back exam: Present: normal inspection - Neurological Exam Neurological exam: Present: alert, oriented X3 Speech: Present: normal - Skin Skin exam: Present: normal color, warm Results - Labs CBC & BMP: 09/10/16 02:50 09/10/16 02:50 - Diagnostic Findings Procedure: Chest x-ray: image reviewed by me, report reviewed by me
--- NOTE | 2016-09-10 08:32 | Hospitalist Progress Note ---
Assessment and Plan (1) Acute respiratory failure Status: Acute Assessment and plan: He likely has underlying PNA, Agree with current antibiotics especially given his immunosuppressed state. Appreciate pulmonology for assistance with vent management. 09/02/16; chest xray is better today and will continue with antibiotics and weaning protocol per pulmonology 09/03/16: This is likely secondary to underlying lung. Continue with current mechanical mental support of her pulmonology's note they will begin to initiate weaning trials. It appears that his mental status is improving S once sedation started down he appears to be following simple commands. 09/04/16: continue current vent management, IV abx/antifungal as he is responding and until final bronchial washings are back. 09/08/16: His chest x-ray is slowly improving. They will continue with the weaning process per pulmonology protocol. 09/09/16: X-ray is improving us for BRONCHIAL wash cultures have been negative. He is still intubated. 09/10/16: Clinical he is doing much better. Plan is to try to extubate him today. He'll has a right chest TV in the CDU developing small right pneumothorax. Current Visit: Yes (2) Chronic kidney disease, stage III (moderate) Status: Chronic Assessment and plan: elevated BUN, appreciate renal and there recommendations 09/08/16: His creatinine is staying fairly stable but his BUN and his continue to rise. He does have 3-4+ pitting edema. Despite him given albumin over the weekend he is developed more edema. He will began hemodialysis today. I discussed this with Dr. Zhang who states that he will only given approximately 2 hours as he does not want to drop his BUN to fast which can cause seizure. At this time I do appreciate nephrology for their input and assistance. We'll continue to monitor patient closely. Also have to monitor his blood pressure as he is running a little over side of normal and this could drop even further wants dialysis is initiated. 09/09/16:Steadily rise his BUN and and edema he did do approximately 2 hours of hemodialysis on yesterday. According to nephrology note they were unable to remove a significant amount of fluid given he more hypotensive. He will do dialysis again today. He also does feel has hyperkalemia and anemia which will be addressed during hemodialysis. Current Visit: Yes (3) Reticulonodular infiltrate present on imaging of chest Status: Acute Assessment and plan: 09/03/16: most likely infection cause as appears to be improving with antibiotics. 09/10/16: Antibiotics have been stopped as stress x-rays much improved. Cultures along with bronchial washings were all negative. Current Visit: Yes (4) Hyperglycemia, drug-induced Status: Acute Assessment and plan: hyperglycemia is likely related to steroids he is receiving we'll continue with sliding scale insulin. Current Visit: Yes (5) Hypoalbuminemia Status: Acute Assessment and plan: he will be started on albumin replacement as he does have some edema 09/04/16: currently receiving daily replacement Current Visit: Yes (6) Kidney transplant recipient Status: Chronic Current Visit: No (7) Hyperkalemia, diminished renal excretion Status: Resolved Assessment and plan: will give some Kayexalate given he has not had a bowel movement over the past few days also Current Visit: Yes (8) Hyperglycemia, drug-induced Status: Acute Assessment and plan: may have to increase insulin dosage and start some basal insulin Current Visit: Yes (9) Anemia in CKD (chronic kidney disease) Status: Acute Assessment and plan: Plan is for him to receive 2 units of blood during dialysis today. Current Visit: Yes (10) Chemosis of conjunctiva of both eyes Status: Acute Assessment and plan: Appreciate ophthalmology for their input will continue with their recommendations. Current Visit: Yes Hospitalist: Subjective Interval history: Patient had an uneventful night. He is awake and following simple commands this morning. He does have a right chest tube in. Exam - Constitutional Vitals: Period Temp Pulse Resp BP Sys/Stewart Pulse Ox Last 24 Hr 97.2 F-97.6 F 90-113 12-26 81-115/55-78 98-100 General appearance: no acute distress (intubated) - Head Head exam: Present: normocephalic, atraumatic - Eye Eye exam: Present: conjunctival injection Pupils: Present: SELVIN - ENT ENT exam: Present: normal exam - Respiratory Respiratory exam: Present: clear to auscultation bilaterally - Cardiovascular Cardiovascular exam: Present: regular rate and rhythm - GI/Abdominal GI/Abdominal exam: Present: normal bowel sounds, soft - Extremities Exam Extremities exam: Present: edema - Neurological Exam Neurological exam: Present: alert - Skin Skin exam: Present: warm, intact Results - Labs CBC & BMP: 09/10/16 02:50 09/10/16 02:50
[2016-09-10] MEDS: TACROLIMUS 0.5 MG CAPSULE PO SCH ×2 (08:40→21:41)
[2016-09-10] MEDS: METOCLOPRAMIDE 10 MG/10 ML UDCUP PO SCH ×2 (08:40→21:40)
[2016-09-10] MEDS: CARVEDILOL 3.125 MG TABLET PO SCH ×2 (08:41→21:40)
[2016-09-10] MEDS: ASPIRIN EC 81 MG TABLET PO SCH (08:41)
[2016-09-10] MEDS: FOLIC ACID 1 MG TABLET PO SCH (08:42)
[2016-09-10] MEDS: MYCOPHENOLATE MOFETIL 250 MG CAPSULE PO SCH ×2 (08:42→21:40)
[2016-09-10] MEDS: methylPREDNISolone SOD SUC 40 MG/1 ML VIAL IV SCH ×2 (08:42→21:41)
[2016-09-10] MEDS: INSULIN GLARGINE 100 UNIT/ML SUBCUT SCH (08:42)
[2016-09-10] MEDS: PANTOPRAZOLE 40 MG VIAL IV SCH (08:43)
[2016-09-10] MEDS: DESITIN 4OZ/NYSTATIN 15 GRAM MIXTURE PASTE TOP SCH ×2 (08:43→21:53)
--- NOTE | 2016-09-10 09:12 | Pulmonology Progress Note ---
Pulmonary - PN: Subj Interval history: Patient is a 50-year-old black man that has had a previous kidney transplant and came in with diffuse infiltrates that worsened fairly quickly. He had a be put on the ventilator. We did get transbronchial biopsies but they're still pending. His been on multiple antibiotics and his chest x-ray has continued to improve over the past week. His oxygenation is better and his x-rays are markedly improved. He continues to have problems with poor urine output and anasarca and peripheral edema. He underwent dialysis yesterday but was not able to get out much fluid because of his blood pressure. He also had to get a right chest tube for small pneumothorax. He actually looks much better today and is more alert. He has done CPAP without any problems. His chest x-ray looks better. We will try him off the ventilator today. Exam (Progress Note) - Constitutional Vitals: Period Temp Pulse Resp BP Sys/Stewart Pulse Ox Last 24 Hr 97.2 F-97.6 F 90-113 12-26 81-115/55-78 98-100 Exam: General appearance: no distress, under weight, he is more alert and trying to respond a little better. - Head Head exam: Present: normal inspection, normocephalic - Eye Eye exam: Present: EOMI. the sclerae edema is still present. The chemosis looks better. Pupils: Present: SELVIN - ENT ENT exam: Present: The ET tube is in good position. - Neck Neck exam: Present: tenderness. Absent: lymphadenopathy, thyromegaly - Respiratory Respiratory exam: Present: He has good breath sounds bilaterally and his lungs sound better with better air movement. His lung compliance is much better. He has no air leak now. He did get a right chest tube also. He is doing fairly well on CPAP. - Cardiovascular Cardiovascular exam: Present: regular rate and rhythm. Absent: gallop, systolic murmur - GI/Abdominal GI/Abdominal exam: Present: soft. Absent: distended, organomegaly, tenderness - Extremities Exam Extremities exam: Present: He has less swelling of his extremities. - Neurological Exam Neurological exam: Present: Patient is more alert and cooperative now. - Psychiatric Psychiatric exam: Absent: agitated, anxious - Skin Skin exam: Present: warm, dry Results - Labs CBC & BMP: 09/10/16 02:50 09/10/16 02:50 - Diagnostic Findings Procedure: Chest x-ray: image reviewed by me, report reviewed by me (chest x- ray shows mild bibasilar infiltrates.) Assessment and Plan (1) Reticulonodular infiltrate present on imaging of chest Status: Acute Assessment and plan: The patient has diffuse reticular nodule infiltrates that are improving. This looks like he has an improving infection. His transbronchial biopsies did not show anything but inflammation. We will stop the sulfa since it may be causing some problems with his kidneys. His respiratory status has improved. We will try him off the ventilator today. Current Visit: Yes (2) Kidney transplant recipient Status: Chronic Assessment and plan: The patient is on immunosuppressive therapy. His creatinine is better at 2.9 after dialysis. Current Visit: No (3) Altered mental status Status: Acute Assessment and plan: The patient apparently had a seizure on his EKG and is getting medications. Current Visit: Yes Qualifiers: Altered mental status type: delirium Qualified Code(s): R41.0 - Disorientation, unspecified (4) Left ankle pain Status: Resolved Assessment and plan: Patient says he has gout. He is not having any swelling now. Current Visit: No (5) ARF (acute renal failure) Status: Acute Assessment and plan: He does have worsening renal insufficiency. He was started on dialysis and does seem to be doing better. Current Visit: Yes (6) Anemia Status: Acute Assessment and plan: His hemoglobin is better after transfusions. His hematocrit is 25 today. Current Visit: Yes
--- NOTE | 2016-09-10 09:23 | Nephrology Progress Note ---
Nephrology - PN: Subj Interval history: Mr. Mcmanus is seen in follow-up of his acute on chronic renal impairment in his kidney transplant. He is improved and is responding appropriately today. He will likely be extubated today. He remains hypotensive with pressures of approximately 95 systolic. We been having a difficult time getting fluid off with dialysis but he has improved and his BUN is falling. I do not know if the improvement in his mental status is due to the improved BUN but for now we will continue with dialysis to try to get some of this excess fluid off and further lower his BUN. Hopefully will soon be able to come off steroids. He is making good urine volumes. We will check another tacrolimus level tomorrow morning. Exam (PN)-Nephrology - Vital Signs Vital signs: Period Temp Pulse Resp BP Sys/Stewart Pulse Ox Last 24 Hr 97.2 F-97.6 F 90-113 12- 81-115/55-78 98-100 - Lab 09/10/16 02:50 09/10/16 02:50 Most recent lab results ABG pH 7.361 (7.35-7.45) 09/07/16 04:35 ABG pCO2 35.3 MM HG (35-48) 09/07/16 04:35 ABG pO2 128.0 MM HG (80-95) H 09/07/16 04:35 ABG HCO3 20.4 MMOL/L (20-26) 09/07/16 04:35 ABG O2 Saturation 98.5 % (95-100) 09/07/16 04:35 Calcium 8.4 MG/DL (8.5-10.1) L 09/10/16 02:50 Phosphorus 6.7 MG/DL (2.5-4.9) H 09/10/16 02:50 Magnesium 2.0 MG/DL (1.8-2.4) 09/10/16 02:50 Assessment and Plan (1) Kidney transplant recipient Status: Chronic Current Visit: No (2) Chronic kidney disease, stage III (moderate) Status: Chronic Current Visit: Yes
--- NOTE | 2016-09-10 12:12 | Ophthalmology Progress Note ---
Assessment and Plan (1) Chemosis of conjunctiva of both eyes Problem details: The inferior conjunctiva is chemotic ou and some exposure/ drying is noted Status: Acute Assessment and plan: The chemosis is showing early improvement today, left side better than right. For now we will continue current lubrication and recheck daily. Current Visit: Yes Ophthalmology Exam - Constitutional Vitals: Vital Signs Temp Pulse Resp BP Pulse Ox 97.3 F L 114 H 28 H 100/65 100 09/10/16 04:00 09/10/16 11:00 09/10/16 11:00 09/10/16 11:00 09/10/16 11:00 Intake and Output 09/09/16 09/10/16 09/10/16 23:59 07:59 15:59 Intake Total 225 / 225 1195 / 1195 60 / 60 Output Total 772 / 772 775 / 775 705 / 705 Balance -547 / -547 420 / 420 -645 / -645 Intake: IV 105 / 105 1105 / 1105 1/2Ns 1,000 ml @ 30 mls/ 1000 / 1000 hr IV .Q24H IBETH Rx#: [id number] Keppra Inj 500 mg In Ns 105 / 105 105 / 105 100 ml @ 400 mls/hr IV Q12H IBETH Rx#:[id number] Tube Feeding Flush 120 / 120 90 / 90 60 / 60 Output: Chest Tube Drainage 2 / 2 10 / 10 Left Lateral Chest 0 / 0 Right Lateral Chest 2 / 2 10 / 10 Urine 770 / 770 775 / 775 695 / 695 Other: Tube Feeding 45 45 45 Voiding Method Indwelling Catheter Indwelling Catheter Indwelling Catheter # Bowel Movements 1 1 1 Weight 102.4 kg Patient Weight 09/10/16 23:59 Weight 102.4 kg - Expanded Eye Exam Eye Exam Eyelids: bilateral: other (conjunctival chemosis is slowly improving) Sclera: bilateral: normal inspection Anterior chamber: bilateral: normal inspection Results - Labs CBC & BMP: 09/10/16 02:50 09/10/16 02:50
--- NOTE | 2016-09-10 15:09 | Neurology Progress Note ---
Benja Olvera Chassity, am scribing for, and in the presence of, Abdiaziz King MD 15 :03. Neurology - PN : Subjective Interval history: Patient is alert and awake. He is following commands. Moving all 4 extremities. He had a few shaking spells this morning but it is unclear weather or not it is seizures. Exam (Progress Note) - Constitutional Vitals: Period Temp Pulse Resp BP Sys/Stewart Pulse Ox Last 24 Hr 97.1 F-98.8 F 94-117 8-25 85-115/45-78 98-100 Exam: GENERAL: Patient is in no acute distress. NECK: Neck is supple. There is no JVD. No carotid bruits present. No thyroid masses. CVS: First and second heart sounds are normal. There is no S3 present. Regular rate and rhythm. RESPIRATORY: Lungs are clear to auscultation without any rales or rhonchi. ABDOMEN: Soft and non-tender. Bowel sounds are present. There is no hepatosplenomegaly. EXT: There is no palpable edema. Peripheral pulses are present. Skin: No rashes Central Nervous system: General: alert and awake Speech: On vent Comprehension: Fair Facial expressions: Normal Cranial Nerves: Pupils are equally reactive to light. Extraocular movements are intact. No facial asymmetry seen. Visual estrada are equal. Tongue is midline. Motor: Bulk and Tone is normal. Strength symmetrical, moving all 4 extremities however very weakly today. Sensory: Unreliable Reflexes: 1+ and symmetrical Cerebellar function: Slow [id number] testing Gait: Not Tested this time Results - Labs CBC & BMP: 09/09/16 02:40 09/09/16 02:40 Assessment and Plan (1) Altered mental status Status: Acute Assessment and plan: Continue current supportive management. Continue Keppra 500 IV Q 12. Current Visit: Yes Qualifiers: Altered mental status type: delirium Qualified Code(s): R41.0 - Disorientation, unspecified Fernando Olvera Aamir, MD, personally performed the services described in this documentation, ascribed by Shelby Yousif in my presence, and it is both accurate and complete 509 .
--- NOTE | 2016-09-10 15:11 | Neurology Progress Note ---
Neurology - PN : Subjective Interval history: Patient seems to be doing better. He is extubated. He is alert and awake and following simple commands. He is edematous in all 4 extremities though. He is getting dialysis. Exam (Progress Note) - Constitutional Vitals: Period Temp Pulse Resp BP Sys/Stewart Pulse Ox Last 24 Hr 97.2 F-97.6 F 88-120 12-38 81-115/55-77 20-100 Exam: GENERAL: Patient is in no acute distress. NECK: Neck is supple. There is no JVD. No carotid bruits present. No thyroid masses. CVS: First and second heart sounds are normal. There is no S3 present. Regular rate and rhythm. RESPIRATORY: Lungs are clear to auscultation without any rales or rhonchi. ABDOMEN: Soft and non-tender. Bowel sounds are present. There is no hepatosplenomegaly. EXT: There is no palpable edema. Peripheral pulses are present. Skin: No rashes Central Nervous system: General: alert and awake Speech: Extubated however is still cannot talk much. Comprehension: Fair Facial expressions: Normal Cranial Nerves: Pupils are equally reactive to light. Extraocular movements are intact. No facial asymmetry seen. Visual estrada are equal. Tongue is midline. Motor: Bulk and Tone is normal. Strength symmetrical, moving all 4 extremities however very weakly . Sensory: Unreliable Reflexes: 1+ and symmetrical Cerebellar function: Slow [id number] testing Gait: Not Tested this time Results - Labs CBC & BMP: 09/10/16 02:50 09/10/16 02:50 Assessment and Plan (1) Altered mental status Status: Acute Assessment and plan: Patient has been seizure-free. Continue current supportive management. Continue current AEDs. We will watch him closely. Current Visit: Yes Qualifiers: Altered mental status type: delirium Qualified Code(s): R41.0 - Disorientation, unspecified
[2016-09-10] MEDS: ALBUMIN 25% 12.5 GM in PREMIX 1 EACH IV PRN (15:18)
[2016-09-10] MEDS: PROPOFOL 1,000 MG/100 ML BOTTLE IV SCH (16:11)
[2016-09-10] MEDS: ACETAMINOPHEN 325 MG TABLET PO PRN (19:33)
[2016-09-10] MEDS: ACETAMINOPHEN/CODEINE 120-12 MG/5 ML 12.5 ML UDCUP PO PRN (21:38)
[2016-09-10] MEDS: NOREPINEPHRINE 8 MG in SODIUM CHLORIDE 0.9% 242 ML IV SCH (23:05)
[2016-09-11] MEDS: BACITRACIN OPH OINT 3.5 GM TUBE BOTH EYES SCH ×24 (00:30→23:30)
[2016-09-11] MEDS: ALBUTEROL/IPRATROPIUM 3 ML NEB RESP TX SCH ×4 (01:14→20:54)
[2016-09-11] MEDS: INSULIN REGULAR 100 UNIT/ML SUBCUT SCH ×4 (01:14→18:34)
[2016-09-11] MEDS: NITROGLYCERIN 2% OINT 1 INCH/GM PACK TOP SCH ×4 (01:15→17:37)
[2016-09-11] MEDS: ACETAMINOPHEN/CODEINE 120-12 MG/5 ML 12.5 ML UDCUP PO PRN ×4 (01:42→21:34)
[2016-09-11 03:45] LABS: ABG Base Excess -2.1 MMOL/L (-2.5-2.5); ABG HCO3 22.6 MMOL/L (20-26); ABG Oxygen Saturation 99.4 % (95-100); ABG PH 7.409 (7.35-7.45); ABG TCO2 20.7 MMOL/L (23-27); Pt O2 Delivery Device BIPAP
[2016-09-11 04:34] LABS: Calcium 8.2 MG/DL (8.5-10.1); Osmolality,Calculated 328.7 MOS/KG (273-304); Potassium 5.3 MMOL/L (3.5-5.1)
[2016-09-11 04:51] LABS: Hematocrit 21.2 VOL% (42.0-52.0); Hemoglobin 6.8 GM/DL (14.0-18.0); Immature Granulocytes % 18.8 %; Immature Granulocytes Absolute 0.75 #; Lymphocytes # 0.1 10*3/uL (1.4-4.0); Lymphocytes % 3.3 % (21.2-54.2); Mean Corpuscular HGB Conc 32.1 GM/DL (32-36); Mean Corpuscular Hemoglobin 27 PG (27-34); Mean Corpuscular Volume 82.5 FL (87-102); Mean Platelet Volume 13.1 FL (9.6-12.0); Monocytes # 0.2 10*3/uL (0.11-0.8); Neutrophils % 73.9 % (38.7-73.9); Platelet Count 210 T/CUMM (130-400); Red Blood Count 2.57 MC/CUMM (3.8-5.5); Red Cell Distribution Width 16.2 % (9.3-17.3)
[2016-09-11 05:40] LABS: Band Neutrophils 5 % (0-10); Lymphocytes 1 % (20-55); Segmented Neutrophils 88 % (50-85); Total Cells Counted 100
[2016-09-11 05:44] LABS: Hypochromasia 1+; Microcytosis 1+
[2016-09-11 05:45] LABS: Ovalocytes Slight; Platelet Estimate Adequate
--- NOTE | 2016-09-11 07:18 | Case Mgmt Physician Query Form ---
LONG STAY PHYSICIAN RECERTIFICATION *This form is to be completed for all Medicare patients before they reach day 20 of their hospitalization. Please complete each section as appropriate.* I certify that hospitalization, and continued hospitalization, for this patient is medically necessary as follows: 1) Reasons of either continued hospitalization of the patient for medical treatment or medically required diagnostic study or special or unusual services for cost outlier cases are as follows: Complicated medical illness with Respiratory failure requiring prolong intubation, IVONE on CKD and now with upper GI bleed 2) Estimated time patient will need to remain in hospital: 3) Plan for Post Hospital Care: ( ) Home with Primary Care Follow up ( ) Home with Home Health Follow up (x ) LTACH/ Acute Care Rehab/ SNF/Custodial ( ) Other: If you have any questions, please contact me. Thank you, Amanda Moy RN Case Management P: [phone] F [phone] E: [email or web address]
--- NOTE | 2016-09-11 07:52 | XRay Report ---
XR chest 1V portable Indication: Bilateral chest tubes Comparison: Chest x-ray dated September 10, 2016 Technique: Single frontal view of the chest Findings: Interval extubation. Left-sided chest tube and right-sided venous catheter appear grossly unchanged. Right-sided chest tube appears grossly unchanged. Cardiomediastinal silhouette is stable in configuration. Grossly unchanged bibasilar opacification considering change in technique. Osseous and surrounding soft tissue structures appear grossly unchanged. IMPRESSION: No adverse interval change. PROCEDURE INTERPRETED AT [facility] DEPARTMENT OF RADIOLOGY Final Report Signed by: Dr Don Ordonez
--- NOTE | 2016-09-11 08:08 | General Surgery Progress Note ---
Assessment and Plan (1) Pneumothorax, left Status: Acute Assessment and plan: We will place both chest tubes on water seal. If the patient remains extubated over the weekend and I'll start moving his chest tubes on Wednesday. Current Visit: Yes (2) ARF (acute renal failure) Status: Acute Assessment and plan: Continue dialysis as tolerated through groin catheter. Current Visit: Yes Subjective Patient reports: Present: no new complaints, afebrile Narrative: The patient was extubated yesterday. He is on BiPAP right now. Exam - Constitutional Vitals: Period Temp Pulse Resp BP Sys/Stewart Pulse Ox Last 24 Hr 97.8 F-97.9 F 88-128 16-39 81-126/51-79 20-100 General appearance: no acute distress, over weight - Head Head exam: Present: normal inspection, normocephalic - Eye Eye exam: Present: EOMI Pupils: Present: SELVIN - ENT ENT exam: Present: normal exam Mouth exam: Present: normal external inspection, normal voice - Neck Neck exam: Present: normal inspection, trachea midline - Respiratory Respiratory exam: Present: clear to auscultation bilaterally, other (there is no air leak on either chest tube. There is no drainage from the Pleur-evac.). Absent: accessory muscle use, chest wall tenderness - Cardiovascular Cardiovascular exam: Present: tachycardia. Absent: irregular rhythm, systolic murmur - GI/Abdominal GI/Abdominal exam: Present: normal bowel sounds, soft. Absent: distended, tenderness - Extremities Exam Extremities exam: Present: normal inspection, normal capillary refill - Back Exam Back exam: Present: normal inspection - Neurological Exam Neurological exam: Present: alert, oriented X3 Speech: Present: normal - Skin Skin exam: Present: normal color, warm Results - Labs CBC & BMP: 09/11/16 03:45 09/11/16 03:45 - Diagnostic Findings Procedure: Chest x-ray: image reviewed by me
--- NOTE | 2016-09-11 08:18 | Pulmonology Progress Note ---
Pulmonary - PN: Subj Interval history: Patient is a 50-year-old black man that has had a previous kidney transplant and came in with diffuse infiltrates that worsened fairly quickly. He had a be put on the ventilator. We did get transbronchial biopsies but they're still pending. His been on multiple antibiotics and his chest x-ray has continued to improve over the past week. His oxygenation is better and his x-rays are markedly improved. He continues to have problems with poor urine output and anasarca and peripheral edema. He underwent dialysis yesterday but was not able to get out much fluid because of his blood pressure. He also had to get a right chest tube for small pneumothorax. He was extubated yesterday and for sometime he did have a little bit of trouble with his breathing. He did require BiPAP some. He got more fluid off with dialysis yesterday. He actually looks much more comfortable today. He is resting comfortably on 50% oxygen. His chest x-ray and ABGs are quite stable. He does look a little more alert and calmer this morning. Exam (Progress Note) - Constitutional Vitals: Period Temp Pulse Resp BP Sys/Stewart Pulse Ox Last 24 Hr 97.8 F-97.9 F 88-128 16-39 81-126/51-79 20-100 Exam: General appearance: no distress, under weight, he is more alert and looks quite comfortable this morning. - Head Head exam: Present: normal inspection, normocephalic - Eye Eye exam: Present: EOMI. the sclerae edema is still present. The chemosis looks better. Pupils: Present: SELVIN - ENT ENT exam: Present: Has dry mucous membranes and intact cranial nerves . - Neck Neck exam: Present: tenderness. Absent: lymphadenopathy, thyromegaly - Respiratory Respiratory exam: Present: He has good breath sounds bilaterally and his lungs sound better with only some minimal rhonchi now. Her chest tubes appear stable with no air leak. - Cardiovascular Cardiovascular exam: Present: regular rate with a sinus tachycardia. Absent: gallop, systolic murmur - GI/Abdominal GI/Abdominal exam: Present: soft. No tenderness or rebound. The anasarca is better. Absent: distended, organomegaly, tenderness - Extremities Exam Extremities exam: Present: He has less swelling of his extremities. - Neurological Exam Neurological exam: Present: Patient is more alert and cooperative now. He seems to be resting fairly well now. - Psychiatric Psychiatric exam: Absent: agitated, anxious - Skin Skin exam: Present: warm, dry Results - Labs CBC & BMP: 09/11/16 03:45 09/11/16 03:45 Labs: His PO2 is 185 with a PCO2 of 35 and a pH of 7.4 - Diagnostic Findings Procedure: Chest x-ray: image reviewed by me, report reviewed by me (chest x- ray still shows mild bibasilar infiltrates) Assessment and Plan (1) Reticulonodular infiltrate present on imaging of chest Status: Acute Assessment and plan: The patient has diffuse reticular nodule infiltrates that are improving. This looks like he has an improving infection. His transbronchial biopsies did not show anything but inflammation. We will stop the sulfa since it may be causing some problems with his kidneys. He was extubated yesterday and did have some problems for a little while. He looks like he is breathing better today. Current Visit: Yes (2) Kidney transplant recipient Status: Chronic Assessment and plan: The patient is on immunosuppressive therapy. His creatinine is better at 2.4 after dialysis. Current Visit: No (3) Altered mental status Status: Acute Assessment and plan: The patient apparently had a seizure on his EEG and is getting medications. He is fairly alert now. Current Visit: Yes Qualifiers: Altered mental status type: delirium Qualified Code(s): R41.0 - Disorientation, unspecified (4) ARF (acute renal failure) Status: Acute Assessment and plan: He does have worsening renal insufficiency. He was started on dialysis and does seem to be doing better. He will probably continue with dialysis today. Current Visit: Yes (5) Anemia Status: Acute Assessment and plan: His hemoglobin is down to 6.8 again. He will probably need to be transfused soon. Current Visit: Yes
[2016-09-11] MEDS: PANTOPRAZOLE 40 MG VIAL IV SCH ×2 (09:34→21:48)
[2016-09-11] MEDS: methylPREDNISolone SOD SUC 40 MG/1 ML VIAL IV SCH ×2 (09:34→21:34)
[2016-09-11] MEDS: INSULIN GLARGINE 100 UNIT/ML SUBCUT SCH (09:35)
[2016-09-11] MEDS: FOLIC ACID 1 MG TABLET PO SCH (09:35)
[2016-09-11] MEDS: MYCOPHENOLATE MOFETIL 250 MG CAPSULE PO SCH ×2 (09:35→21:33)
[2016-09-11] MEDS: ASPIRIN EC 81 MG TABLET PO SCH (09:35)
[2016-09-11] MEDS: METOCLOPRAMIDE 10 MG/10 ML UDCUP PO SCH ×2 (09:35→21:33)
[2016-09-11] MEDS: TACROLIMUS 0.5 MG CAPSULE PO SCH ×2 (09:35→21:34)
[2016-09-11] MEDS: DESITIN 4OZ/NYSTATIN 15 GRAM MIXTURE PASTE TOP SCH ×2 (09:36→21:37)
[2016-09-11] MEDS: CARVEDILOL 3.125 MG TABLET PO SCH ×2 (09:40→21:34)
--- NOTE | 2016-09-11 12:36 | Gastrointestinal Consult Note ---
Assessment and Plan (1) Gastrointestinal hemorrhage with melena Status: Acute Assessment and plan: I strongly suspect this patient has NG tube erosions that have resulted in his bleeding with his mental status change he is unlikely to be able to do without some sort of additional feeding-- I suggest we consider use of a Dobbhoff instead, since he cannot come off of the tube feeds likely for the next day or 2. Protonix 40 mg twice daily as strongly suggested as well. At this particular point I feel that he is too unstable to consider doing endoscopic evaluation for the melena. Current Visit: Yes (2) Moderate malnutrition Status: Acute Assessment and plan: The patient will likely require ongoing Dobbhoff feeding until he is able to take oral nutrition himself without risk of aspiration and in a sufficient quantity to circumvent need for additional feedings. I don't see this happening in the immediate future on CPAP and is unstable as he is. Current Visit: Yes (3) Acute posthemorrhagic anemia Status: Acute Assessment and plan: Into the watching the patient post transfusion, her David twice daily and minimize use of anticoagulants. Current Visit: Yes History of Present Illness Chief complaint: anemia with hematocrit down to 19% and dark stools History of present illness: Mr. Mcmanus is a 50 year old male who has a history of prior kidney transplant in 2013 who was brought in with a opportunistic infection secondary to his medial suppressive drugs and acute an mental status change which is at this point been treated with antibiotics/antifungal agents after initial bronchoscopy on 08/27 demonstrating nodules and up the left pneumothorax treated with chest tube 08/29-- the patient self extubated back on August 30 but had to be reintubated and is recently just been able to come off the vent as of today. He is on CPAP at the bedside now he does not complain of any abdominal pain but still has required his NG tube over these last several weeks to give him nutritional repletion. He is guaiac 4+ positive with dark stools and has had a decrease in his hematocrit, despite recently going on dialysis in order to treatment of his opportunistic infection. He has required a total of 4 units thus far it appears that he is about to get another 2 units after his hematocrit dropped down to 19.5% on 09/09/16, he did not respond well to the first 2 units given as his hematocrit is still 21.2% today on 09/11/16. His baseline hematocrit runs between 34 and 36%. Nurses state that he does not typically have diarrhea or constipation. He is unable to provide much in the way of verbal history at this time. Most of the history is taken from the chart and the EMR. Bronchial washings just showed Yojana albicans for which he has completed treatment. Home Medications Medication Instructions Recorded Confirmed Type Aspirin [Ecotrin] 81 mg PO DAILY 05/16/16 08/25/16 History Carvedilol [Coreg] 0.5 tablet PO BID 05/16/16 08/25/16 History Folic Acid Tab 1 mg PO DAILY 05/16/16 08/25/16 History Mycophenolate Mofetil Cap 3 tablet PO Q12H 05/16/16 08/25/16 History [Cellcept] Pantoprazole Tab [Protonix Tab] 40 mg PO BID 05/16/16 08/25/16 History Tacrolimus [Tacrolimus Cap] 4 tablet PO Q12H 05/16/16 08/25/16 History predniSONE TAB [PredniSONE] 10 mg PO DAILY 05/16/16 08/25/16 History amLODIPine [Norvasc] 10 mg PO DAILY 06/01/16 08/25/16 History Allopurinol 100 mg PO DAILY 08/25/16 08/25/16 History HYDROcodone/ACETAMIN 10-325 [[place] 1 tablet PO Q4H PRN 08/25/16 08/25/16 History 10-325] Magnesium Oxide [Magnesium] 500 mg PO DAILY 08/25/16 08/25/16 History Metoclopramide Liquid [Reglan 5 ml PO BID 08/25/16 08/25/16 History Liquid] Allergies Allergy/AdvReac Type Severity Reaction Status Date / Time No Known Allergies Allergy Verified 08/11/16 22:05 Medical,Surgical,& Family Hx - Medical History Cardio: History of: Hypertension Psychological: No history of: Anxiety Disorders, Bipolar Disorder, Depression, Schizophrenia Neurology: No history of: Seizures HEENT: History of: Eye Problem (previous retinal tear RIGHT) Rheumatology: History of;: Gout Renal: History of: Renal Failure, Renal Problems (Kidney transplant - 09/15) Gastrointestinal: History of: GERD, Gastrointestinal Bleed Hematology: History of: Anemia No history of: Blood Transfusion Reaction Reproductive: No histroy: Reproductive Cancer Other: No history of: Anesthesia Reactions, HIV - Surgical History Cardiac Surgeries: Sugical HX of: Cardiac Catheterization (negative, done in 2008) Thoracic Surgeries: Surgical HX of;: Kidney (Renal Surgery) (transplant 2013), Organ Transplant (KIDNEY) Neurologic Surgeries: Patient denies: Neurologic Surgery HEENT Surgeries: Surgical HX of: Tonsilectomy & Adenoidectomy Patient denies: Eye Surgery Abdominal Surgeries: Surgical HX of: Abdominal Surgery (PD catheter placed and removed (Removed 2013)), Cholecystectomy, EGD Orthopedic Surgeries: Patient denies;: Orthopedic Surgery - Family History Family History: Reports;: Family Diabetes (MOM AND BROTHER), Family Hypertension (MOM AND BROTHER) Denies;: Family Anesthesia Reaction, Family Cancer, Family Heart Disease, Family Psychiatric Problems, Family Stroke - Social History Smoking Status: Former smoker Frequency of Alcohol Use: None Type of Drug Use: None ROS unobtainable: due to mental status Exam - Constitutional Vitals: Period Temp Pulse Resp BP Sys/Stewart Pulse Ox Last 24 Hr 97.0 F-97.9 F 88-128 16-39 81-126/51-79 20-100 General appearance: severe distress Exam: Constitutional: Well-developed, well-nourished, swollen black male who is groggy and in respiratory distress/tachypnea Head and face: Head: Normocephalic atraumatic but somewhat swollen Eyes: Conjunctiva without injection, no gross scleral icterus, pupils equal and round bilaterally-- he has profuse lacrimation from his right eye Ears: Intact to conversation in both ears Nose: External appearance is normal, nares patent Mouth: Unable to assess secondary to CPAP Neck: Normal appearance, no masses or tenderness, trachea midline Thyroid: Gland midline and appropriate size for age Respiratory: Patient is tachypnic was somewhat coarse respiratory sounds and decreased breath sounds at the bases Cardiovascular: Regular rate and rhythm, normal S1, S2, the exam is without rubs, murmurs or gallops. Gastrointestinal: Nontender to palpation, normal active bowel sounds, tone normal without rigidity or guarding, no masses present, no hepatomegaly, no spleen tip felt. No rectal exam obtained-- nurses report dark stools that are grossly guaiac positive on Hemoccult. Lymphatic: Neck without adenopathy, axilla without lymphadenopathy present Musculoskeletal: The patient has 2+ edema in all extremities Skin and subcutaneous tissue: No rashes or ulcerations noted, normal skin turgor, digits and nails without clubbing/cyanosis/deformities. Neurologic: The patient simply shakes his head no to all questions asked Psychiatric: Unable to assess secondary to patient's mental status. Results - Labs CBC & BMP: 09/11/16 03:45 09/11/16 03:45
--- NOTE | 2016-09-11 13:00 | Hospitalist Progress Note ---
Assessment and Plan (1) Kidney transplant recipient Status: Chronic Current Visit: No (2) Hypotension Status: Acute Assessment and plan: He is back on Levophed again. Current Visit: Yes (3) Reticulonodular infiltrate present on imaging of chest Status: Acute Assessment and plan: Continue present management as per Pulmonary. Current Visit: Yes (4) Gastrointestinal hemorrhage with melena Status: Acute Assessment and plan: GI has been consulted. Current Visit: Yes (5) Acute respiratory failure Status: Acute Assessment and plan: Stable on BiPAP post extubation. Continue present management as per Pulmonary. Current Visit: Yes (6) Acute posthemorrhagic anemia Status: Acute Assessment and plan: His anemia is multifactorial. His Hct has decreased to 21. He will be transfused 2 units of PRBC's. Current Visit: Yes (7) ARF (acute renal failure) Status: Acute Assessment and plan: He continues on hemodialysis as per Nephrology. Current Visit: Yes Hospitalist: Subjective Interval history: Pulmonary, Cardiology, Nephrology, and Neurology notes are appreciated. Patient is awake and comfortable. He has experienced a large hemoccult positive BM. Exam - Constitutional Vitals: Period Temp Pulse Resp BP Sys/Stewart Pulse Ox Last 24 Hr 97.0 F-97.9 F 88-128 16-39 81-126/51-79 20-100 General appearance: no acute distress - Head Head exam: Present: normal inspection - Neck Neck exam: Present: normal inspection - Respiratory Respiratory exam: Present: clear to auscultation bilaterally, other (BiPAP) - Cardiovascular Cardiovascular exam: Present: regular rate and rhythm - GI/Abdominal GI/Abdominal exam: Present: normal bowel sounds, soft - Extremities Exam Extremities exam: Present: normal inspection - Neurological Exam Neurological exam: Present: alert - Skin Skin exam: Present: normal color Results - Labs CBC & BMP: 09/11/16 03:45 09/11/16 03:45
--- NOTE | 2016-09-11 13:33 | Dialysis Note ---
Dialysis Note - Dialysis Note Mr. Mcmanus is seen during his hemodialysis. He is awake blood pressure is 95 systolic and we will be giving 2 units of packed red cells during dialysis and giving albumin as needed to support his blood pressure. We hope to be a remove about 3 kg of fluid he is grossly edematous still. He is breathing with BiPAP and is awake and seems is oriented
--- NOTE | 2016-09-11 15:02 | Neurology Progress Note ---
Neurology - PN : Subjective Interval history: Neurologically the patient is unchanged. No new problems reported. No more seizures reported. Following commands. Moving all 4 extremities weakly. Exam (Progress Note) - Constitutional Vitals: Period Temp Pulse Resp BP Sys/Stewart Pulse Ox Last 24 Hr 96.8 F-97.9 F 93-128 16-39 81-126/51-79 85-100 Exam: GENERAL: Patient is in no acute distress. NECK: Neck is supple. There is no JVD. No carotid bruits present. No thyroid masses. CVS: First and second heart sounds are normal. There is no S3 present. Regular rate and rhythm. RESPIRATORY: Lungs are clear to auscultation without any rales or rhonchi. ABDOMEN: Soft and non-tender. Bowel sounds are present. There is no hepatosplenomegaly. EXT: There is no palpable edema. Peripheral pulses are present. Skin: No rashes Central Nervous system: General: alert and awake Speech: Extubated however is still cannot talk much. Comprehension: Fair Facial expressions: Normal Cranial Nerves: Pupils are equally reactive to light. Extraocular movements are intact. No facial asymmetry seen. Visual estrada are equal. Tongue is midline. Motor: Bulk and Tone is normal. Strength symmetrical, moving all 4 extremities however very weakly . Sensory: Unreliable Reflexes: 1+ and symmetrical Cerebellar function: Slow [id number] testing Gait: Not Tested this time Results - Labs CBC & BMP: 09/11/16 03:45 09/11/16 03:45 Assessment and Plan (1) Altered mental status Status: Acute Assessment and plan: Patient has been seizure-free. Continue current supportive management. Continue current AEDs. We will watch him closely. No new recommendations today Current Visit: Yes Qualifiers: Altered mental status type: delirium Qualified Code(s): R41.0 - Disorientation, unspecified
--- NOTE | 2016-09-11 16:10 | XRay Report ---
Portable chest Date: 09/11/2016 Clinical history: Feeding tube placement Comparison: 09/11/2016 Technique: Portable AP sitting chest Findings: The tip of the feeding tube projects in the medial fundus of the stomach. Impression: The tip of the feeding tube projects in the medial fundus of the stomach. Ideally the tube should be advanced farther into the stomach. PROCEDURE INTERPRETED AT [facility] DEPARTMENT OF RADIOLOGY Final Report Signed by: Dr. Rea Maxwell
[2016-09-11] MEDS: PROPOFOL 1,000 MG/100 ML BOTTLE IV SCH (17:33)
[2016-09-11] MEDS: SODIUM CHLORIDE 0.45% 1,000 ML IV SCH ×2 (17:34→17:35)
[2016-09-11] MEDS: NOREPINEPHRINE 8 MG in SODIUM CHLORIDE 0.9% 242 ML IV SCH (17:36)
[2016-09-12] MEDS: NITROGLYCERIN 2% OINT 1 INCH/GM PACK TOP SCH ×4 (00:19→18:18)
[2016-09-12] MEDS: INSULIN REGULAR 100 UNIT/ML SUBCUT SCH ×4 (00:19→17:56)
[2016-09-12] MEDS: BACITRACIN OPH OINT 3.5 GM TUBE BOTH EYES SCH ×20 (00:20→23:30)
[2016-09-12] MEDS: ALBUTEROL/IPRATROPIUM 3 ML NEB RESP TX SCH ×4 (01:04→20:14)
--- NOTE | 2016-09-12 07:58 | Pulmonology Progress Note ---
Pulmonary - PN: Subj Interval history: Patient with history of kidney transplant. Clinically doing better now. Weaned off bipap this mornig. Sats are staying good. Exam (Progress Note) - Constitutional Vitals: Period Temp Pulse Resp BP Sys/Stewart Pulse Ox Last 24 Hr 96.8 F-97.6 F 86-125 13-44 76-131/52-89 50-100 General appearance: no acute distress - ENT ENT exam: Present: normal exam - Respiratory Respiratory exam: Absent: accessory muscle use, stridor, wheezes Results - Labs CBC & BMP: 09/11/16 03:45 09/11/16 03:45 Lab Results: I have reviewed the past 24 hour labs Assessment and Plan (1) Kidney transplant recipient Status: Chronic Assessment and plan: Getting dialysis later today per nursing report. Requiring small amount of levophed to keep BP up for dilaysis Current Visit: No (2) Reticulonodular infiltrate present on imaging of chest Status: Acute Assessment and plan: stable. Nonspecific inflammation on transbrnochs per report. Doing ok off bipap at this point. Will cont to monitor Current Visit: Yes
--- NOTE | 2016-09-12 08:52 | Nephrology Progress Note ---
Nephrology - PN: Subj Interval history: Mr. Mcmanus is seen in follow-up of his acute on chronic renal failure and renal transplant. He's been dialyze daily this week in an effort to lower his BUN and try to remove some of this considerable edema. He still has a good bit of edema but we were able to get off over 2 L of ultrafiltrate yesterday. We will ultrafilter him again today and dialyze him. His it he is arousable and his chest is clear. He does have quite a bit of edema and is hypoalbuminemic. We can use the albumin for blood pressure support during dialysis. He is requiring very little vasopressor and has a systolic 110. Exam (PN)-Nephrology - Vital Signs Vital signs: Period Temp Pulse Resp BP Sys/Stewart Pulse Ox Last 24 Hr 96.8 F-97.6 F 86-125 13-44 76-131/52-89 50-100 - Lab 09/11/16 03:45 09/11/16 03:45 Most recent lab results ABG pH 7.409 (7.35-7.45) 09/11/16 03:10 ABG pCO2 35.0 MM HG (35-48) 09/11/16 03:10 ABG pO2 185.0 MM HG (80-95) H 09/11/16 03:10 ABG HCO3 22.6 MMOL/L (20-26) 09/11/16 03:10 ABG O2 Saturation 99.4 % (95-100) 09/11/16 03:10 Calcium 8.2 MG/DL (8.5-10.1) L 09/11/16 03:45 Phosphorus 6.7 MG/DL (2.5-4.9) H 09/10/16 02:50 Magnesium 2.0 MG/DL (1.8-2.4) 09/11/16 03:45 Assessment and Plan (1) Kidney transplant recipient Status: Chronic Current Visit: No (2) Chronic kidney disease, stage III (moderate) Status: Chronic Current Visit: Yes
[2016-09-12 09:05] LABS: Basophils % 0.4 % (0.0-0.8); Eosinophils % 0.4 % (0.00-10.9); Hematocrit 25.2 VOL% (42.0-52.0); Hemoglobin 8.3 GM/DL (14.0-18.0); Immature Granulocytes % 11.1 %; Immature Granulocytes Absolute 0.27 #; Lymphocytes # 0.2 10*3/uL (1.4-4.0); Lymphocytes % 6.6 % (21.2-54.2); Mean Corpuscular HGB Conc 32.9 GM/DL (32-36); Mean Corpuscular Hemoglobin 28 PG (27-34); Mean Corpuscular Volume 85.4 FL (87-102); Mean Platelet Volume 12.7 FL (9.6-12.0); Monocytes # 0.1 10*3/uL (0.11-0.8); Monocytes % 4.5 % (1.7-12.7); Neutrophils # 1.9 10*3/uL (1.4-7.4); Platelet Count 191 T/CUMM (130-400); Red Blood Count 2.95 MC/CUMM (3.8-5.5); White Blood Count 2.4 T/CUMM (4-12)
[2016-09-12] MEDS: PANTOPRAZOLE 40 MG VIAL IV SCH ×2 (09:21→21:26)
[2016-09-12] MEDS: METOCLOPRAMIDE 10 MG/10 ML UDCUP PO SCH ×2 (09:21→21:25)
[2016-09-12] MEDS: FOLIC ACID 1 MG TABLET PO SCH (09:22)
[2016-09-12] MEDS: MYCOPHENOLATE MOFETIL 250 MG CAPSULE PO SCH ×2 (09:22→21:25)
[2016-09-12] MEDS: methylPREDNISolone SOD SUC 40 MG/1 ML VIAL IV SCH ×2 (09:22→21:26)
[2016-09-12] MEDS: TACROLIMUS 0.5 MG CAPSULE PO SCH ×2 (09:22→21:25)
[2016-09-12] MEDS: CARVEDILOL 3.125 MG TABLET PO SCH ×2 (09:23→21:25)
[2016-09-12] MEDS: DESITIN 4OZ/NYSTATIN 15 GRAM MIXTURE PASTE TOP SCH (09:24)
[2016-09-12 09:31] LABS: Band Neutrophils 3 % (0-10); Hypochromasia 1+; Lymphocytes 7 % (20-55); Platelet Estimate Normal; Segmented Neutrophils 86 % (50-85); Total Cells Counted 100
[2016-09-12 09:32] LABS: Microcytosis 1+
[2016-09-12 10:29] LABS: Alanine Aminotransferase 47 U/L (16-61); Albumin 1.3 G/DL (3.4-5.0); Alkaline Phosphatase 136 U/L (45-117); Aspartate Amino Transferase 25 U/L (0-37); Bilirubin,Total < 0.39 MG/DL (0.2-1.0); Blood Urea Nitrogen 91 MG/DL (7-18); Calcium 8.4 MG/DL (8.5-10.1); Glucose 98 MG/DL (74-106); Osmolality,Calculated 319.4 MOS/KG (273-304); Potassium 4.4 MMOL/L (3.5-5.1); Sodium 147 MMOL/L (136-145); Total Protein 3.2 G/DL (6.4-8.3)
--- NOTE | 2016-09-12 11:30 | Hospitalist Progress Note ---
Assessment and Plan (1) Kidney transplant recipient Status: Chronic Current Visit: No (2) Hypotension Status: Acute Assessment and plan: He is off Levophed.. Current Visit: Yes (3) Reticulonodular infiltrate present on imaging of chest Status: Acute Assessment and plan: Continue present management as per Pulmonary. Current Visit: Yes (4) Gastrointestinal hemorrhage with melena Status: Acute Assessment and plan: He is stable. Hct today is 25.7. Current Visit: Yes (5) Acute respiratory failure Status: Acute Assessment and plan: As above. Continue present management as per Pulmonary. Current Visit: Yes (6) Acute posthemorrhagic anemia Status: Acute Assessment and plan: His anemia is multifactorial. His Hct increased to 25.7 post transfusion. Current Visit: Yes (7) ARF (acute renal failure) Status: Acute Assessment and plan: He continues on hemodialysis as per Nephrology. Current Visit: Yes (8) Diabetes mellitus Status: Acute Assessment and plan: He was begun on glargine 30 units daily while on high dose steroids. He requires now a reduction of his glargine dose. Since his steroids have been decreased, the present dose is too high. Will decrease the dose to 15 units daily. Current Visit: Yes Qualifiers: Diabetes mellitus type: type 1 Diabetes mellitus complication status: with kidney complications Hospitalist: Subjective Interval history: He is significantly better today. He underwent dialysis yesterday with removal of 2100 ml of fluid. He is off BiPAP and on a ventimask. He is much more alert and active. His HR has decreased to approximately 90/min. Exam - Constitutional Vitals: Period Temp Pulse Resp BP Sys/Stewart Pulse Ox Last 24 Hr 96.8 F-97.6 F 86-125 13-44 76-131/52-89 50-100 General appearance: no acute distress - Head Head exam: Present: normal inspection - Neck Neck exam: Present: normal inspection - Respiratory Respiratory exam: Present: clear to auscultation bilaterally - Cardiovascular Cardiovascular exam: Present: regular rate and rhythm - GI/Abdominal GI/Abdominal exam: Present: normal bowel sounds, soft, other (nontender) - Extremities Exam Extremities exam: Present: normal inspection - Neurological Exam Neurological exam: Present: alert - Skin Skin exam: Present: normal color Results - Labs CBC & BMP: 09/12/16 08:54 09/12/16 08:54
[2016-09-12] MEDS: INSULIN GLARGINE 100 UNIT/ML SUBCUT SCH (12:00)
--- NOTE | 2016-09-12 13:11 | Dialysis Note ---
Dialysis Note - Dialysis Note Mr. Dowell is seen during his hemodialysis. He is tolerating well today and is more alert his blood pressure is staying up enough to where able to get fluid off. We'll get an 3 kg off today. We will continue our efforts said removing fluid with dialysis of next week. We anticipate his next dialysis on September 14
--- NOTE | 2016-09-12 13:57 | Gastrointestinal Progress Note ---
Assessment and Plan (1) Gastrointestinal hemorrhage with melena Status: Acute Assessment and plan: I strongly suspect this patient has NG tube erosions that have resulted in his bleeding with his mental status change he is unlikely to be able to do without some sort of additional feeding-- I suggest we consider use of a Dobbhoff instead, since he cannot come off of the tube feeds likely for the next day or 2. Protonix 40 mg twice daily as strongly suggested as well. At this particular point I feel that he is too unstable to consider doing endoscopic evaluation for the melena. 09/12/16-- over the last 24 hours patient has made a remarkable recovery, with hematocrit now stable and minimal passage of any further blood per rectum-- he is talking would like to have some food, since his Dobbhoff is in place I will likely try him on some clear liquids to see how he tolerates this and then removed the Dobbhoff if he does adequately this afternoon. May consider a full liquid diet versus a renal diet tomorrow if he feels up to it. Current Visit: Yes (2) Moderate malnutrition Status: Acute Assessment and plan: The patient will likely require ongoing Dobbhoff feeding until he is able to take oral nutrition himself without risk of aspiration and in a sufficient quantity to circumvent need for additional feedings. I don't see this happening in the immediate future on CPAP and is unstable as he is. 09/12/16--We'll continue watching the patient's hematocrit and clear liquid diet this afternoon with potential removal of the Dobbhoff if he tolerates clears, without choking or aspiration. Potential advancement to a more solid diet tomorrow. Current Visit: Yes (3) Acute posthemorrhagic anemia Status: Acute Assessment and plan: Continue watching the patient post transfusion, protonix twice daily and minimize use of anticoagulants. Again the hematocrit is stable at 25%. We will continue monitoring this. Current Visit: Yes Gastroenterology - PN: Subj Interval history: The patient is now able answer questions and can converse in a more logical fashion. He states that he is famished, and actually use that word and describing the way that he feels. He states that he is able to chew and would like to have something more solid but I think we need to start him on some clear liquid diet before we advance him further. I will hold off his tube feeds and if he does adequately tomorrow morning will likely start either full liquid diet versus renal diet as appropriate. At present he is tolerating 45 mL per hour per Dobbhoff. His hematocrit is stable. His output from the rectum has been dark per nursing staff although she has not witnessed this is herself today. Exam (Progress Note) - Constitutional Vitals: Period Temp Pulse Resp BP Sys/Stewart Pulse Ox Last 24 Hr 96.8 F-97.6 F 86-125 13-44 76-131/52-89 50-100 General appearance: no acute distress - Head Head exam: Present: normocephalic - Eye Eye exam: Present: EOMI - Respiratory Respiratory exam: Present: clear to auscultation bilaterally, other (currently on nasal cannula). Absent: rhonchi, stridor, wheezes - Cardiovascular Cardiovascular exam: Present: regular rate and rhythm - GI/Abdominal GI/Abdominal exam: Present: normal bowel sounds, tenderness (none), soft. Absent: distended, guarding, rebound - Extremities Exam Extremities exam: Present: edema (there was severe especially in the left upper extremity) - Neurological Exam Neurological exam: Present: alert, oriented X3, altered - Psychiatric Psychiatric exam: Present: normal mood - Skin Skin exam: Present: warm Results - Labs CBC & BMP: 09/12/16 08:54 09/12/16 08:54
[2016-09-12] MEDS: NOREPINEPHRINE 8 MG in SODIUM CHLORIDE 0.9% 242 ML IV SCH (17:45)
[2016-09-12] MEDS: SODIUM CHLORIDE 0.45% 1,000 ML IV SCH (17:55)
[2016-09-13] MEDS: DESITIN 4OZ/NYSTATIN 15 GRAM MIXTURE PASTE TOP SCH ×3 (00:16→21:26)
[2016-09-13] MEDS: BACITRACIN OPH OINT 3.5 GM TUBE BOTH EYES SCH ×12 (00:16→21:25)
[2016-09-13] MEDS: NITROGLYCERIN 2% OINT 1 INCH/GM PACK TOP SCH ×4 (00:18→17:35)
[2016-09-13] MEDS: ALBUTEROL/IPRATROPIUM 3 ML NEB RESP TX SCH ×4 (00:42→19:59)
[2016-09-13 08:09] LABS: Hematocrit 25.2 VOL% (42.0-52.0); Hemoglobin 8.1 GM/DL (14.0-18.0); Immature Granulocytes % 13.6 %; Immature Granulocytes Absolute 0.34 #; Lymphocytes # 0.2 10*3/uL (1.4-4.0); Lymphocytes % 6.8 % (21.2-54.2); Mean Corpuscular HGB Conc 32.1 GM/DL (32-36); Mean Corpuscular Hemoglobin 28 PG (27-34); Mean Corpuscular Volume 87.5 FL (87-102); Mean Platelet Volume 12.5 FL (9.6-12.0); Monocytes # 0.2 10*3/uL (0.11-0.8); Monocytes % 9.6 % (1.7-12.7); Neutrophils # 1.8 10*3/uL (1.4-7.4); Platelet Count 188 T/CUMM (130-400); Red Blood Count 2.88 MC/CUMM (3.8-5.5); Red Cell Distribution Width 15.9 % (9.3-17.3); White Blood Count 2.5 T/CUMM (4-12)
[2016-09-13] MEDS: methylPREDNISolone SOD SUC 40 MG/1 ML VIAL IV SCH (08:29)
[2016-09-13] MEDS: INSULIN GLARGINE 100 UNIT/ML SUBCUT SCH (08:29)
[2016-09-13] MEDS: TACROLIMUS 0.5 MG CAPSULE PO SCH ×2 (08:30→21:22)
[2016-09-13] MEDS: CARVEDILOL 3.125 MG TABLET PO SCH ×2 (08:30→21:22)
[2016-09-13] MEDS: MYCOPHENOLATE MOFETIL 250 MG CAPSULE PO SCH ×2 (08:30→21:20)
[2016-09-13] MEDS: PANTOPRAZOLE 40 MG VIAL IV SCH ×2 (08:30→21:26)
[2016-09-13] MEDS: FOLIC ACID 1 MG TABLET PO SCH (08:30)
[2016-09-13] MEDS: METOCLOPRAMIDE 10 MG/10 ML UDCUP PO SCH ×2 (08:30→21:24)
[2016-09-13] MEDS: INSULIN REGULAR 100 UNIT/ML SUBCUT SCH ×4 (08:31→21:24)
--- NOTE | 2016-09-13 08:33 | Hospitalist Progress Note ---
Assessment and Plan (1) Kidney transplant recipient Status: Chronic Current Visit: No (2) Hypotension Status: Acute Assessment and plan: BP is 111/66 today. Current Visit: Yes (3) Reticulonodular infiltrate present on imaging of chest Status: Acute Assessment and plan: Continue present management as per Pulmonary. He is not on antibiotics. Current Visit: Yes (4) Gastrointestinal hemorrhage with melena Status: Acute Assessment and plan: No further evidence of bleeding. As per GI. Current Visit: Yes (5) Acute respiratory failure Status: Acute Assessment and plan: As above. Continue present management as per Pulmonary. Current Visit: Yes (6) Acute posthemorrhagic anemia Status: Acute Assessment and plan: His anemia is multifactorial. His H/H today is 25.2/8.1. Current Visit: Yes (7) ARF (acute renal failure) Status: Acute Assessment and plan: He continues on hemodialysis as per Nephrology. Current Visit: Yes (8) Diabetes mellitus Status: Acute Assessment and plan: He continues on glargine 15 units daily and regular insulin coverage. Current Visit: Yes Qualifiers: Diabetes mellitus type: type 1 Diabetes mellitus complication status: with kidney complications Hospitalist: Subjective Interval history: Patient is doing very well. He is awake and alert. He is tolerating a liquid diet and requesting solid food. He is not experiencing dyspnea or having any BRBPR. Exam - Constitutional Vitals: Period Temp Pulse Resp BP Sys/Stewart Pulse Ox Last 24 Hr 97.0 F-99.2 F 82-112 17-35 83-138/58-90 93-100 General appearance: no acute distress - Head Head exam: Present: normal inspection - Neck Neck exam: Present: normal inspection - Respiratory Respiratory exam: Present: clear to auscultation bilaterally - Cardiovascular Cardiovascular exam: Present: regular rate and rhythm - GI/Abdominal GI/Abdominal exam: Present: normal bowel sounds, soft, other (nontender) - Extremities Exam Extremities exam: Present: normal inspection - Neurological Exam Neurological exam: Present: alert - Skin Skin exam: Present: normal color Results - Labs CBC & BMP: 09/13/16 08:02 09/12/16 08:54
--- NOTE | 2016-09-13 08:45 | Ophthalmology Progress Note ---
Assessment and Plan (1) Chemosis of conjunctiva of both eyes Problem details: The inferior conjunctiva is chemotic ou and some exposure/ drying is noted Status: Acute Assessment and plan: Much better today.... the chemosis is near resolution today....will decrease topical lubrication to TID and recheck tomorrow Current Visit: Yes Opthalmology - PN: Subj Interval history: This morning he is awake and states eyes are a little blurry but no discomfort Ophthalmology Exam - Constitutional Vitals: Vital Signs Temp Pulse Resp BP Pulse Ox 98.2 F 99 H 20 111/66 96 09/13/16 08:00 09/13/16 08:00 09/13/16 08:00 09/13/16 08:00 09/13/16 08:00 Intake and Output 09/12/16 09/13/16 09/13/16 23:59 07:59 15:59 Intake Total 1135.5 / 1135.5 225 / 225 240 / 240 Output Total 3490 / 3490 660 / 660 135 / 135 Balance -2354.5 / -2354.5 -435 / -435 105 / 105 Intake: IV 915.5 / 915.5 105 / 105 Levophed 8 mg In Ns 242 1.5 / 1.5 ml @ 2 MCG/MIN 3.75 mls/ hr IV TITRATE IBETH Rx#: [id number] 1/2Ns 1,000 ml @ 30 mls/ 809 / 809 hr IV .Q24H IBETH Rx#: [id number] Keppra Inj 500 mg In Ns 105 / 105 105 / 105 100 ml @ 400 mls/hr IV Q12H IBETH Rx#:[id number] Oral 220 / 220 120 / 120 240 / 240 Output: Chest Tube Drainage 0 / 0 0 / 0 Left Lateral Chest 0 / 0 0 / 0 Right Lateral Chest 0 / 0 0 / 0 Urine 490 / 490 660 / 660 135 / 135 Stool 0 / 0 0 / 0 Hemodialysis 3000 / 3000 Other: Emesis 0 Voiding Method Indwelling Catheter Indwelling Catheter Indwelling Catheter # Bowel Movements 1 Weight 95 kg Patient Weight 09/13/16 23:59 Weight 95 kg - Expanded Eye Exam Eye Exam Eyelids: bilateral: normal inspection, other (Chemosis near resolution OU) Sclera: bilateral: normal inspection Anterior chamber: bilateral: normal inspection Posterior chamber: bilateral: deferred Results - Labs CBC & BMP: 09/13/16 08:02 09/12/16 08:54
[2016-09-13 08:46] LABS: Band Neutrophils 1 % (0-10); Hypochromasia 1+; Lymphocytes 7 % (20-55); Microcytosis 1+; Ovalocytes Slight; Platelet Estimate Normal; Segmented Neutrophils 86 % (50-85); Total Cells Counted 100
--- NOTE | 2016-09-13 08:59 | Nephrology Progress Note ---
Nephrology - PN: Subj Interval history: Mr. Mcmanus is seen in follow-up of his chronic renal failure and acute component in the presence of his kidney transplant. He is now extubated and conversant he is oriented and calm. He has considerable edema and blood pressure is better now to 110 systolic without any pressors. Our plan is to continue efforts at decreasing this edema with dialysis. We will also try diuretic therapy now that his blood pressure is better. We'll decrease his steroids. He was taking 10 mg of prednisone at home we will resume 20 mg of prednisone and stop the IV steroids for now. He is eating and swallowing without difficulty. He is able to take his medicines. Exam (PN)-Nephrology - Vital Signs Vital signs: Period Temp Pulse Resp BP Sys/Stewart Pulse Ox Last 24 Hr 97.0 F-99.2 F 82-112 17-35 83-138/58-90 93-100 - Lab 09/13/16 08:02 09/12/16 08:54 Most recent lab results ABG pH 7.409 (7.35-7.45) 09/11/16 03:10 ABG pCO2 35.0 MM HG (35-48) 09/11/16 03:10 ABG pO2 185.0 MM HG (80-95) H 09/11/16 03:10 ABG HCO3 22.6 MMOL/L (20-26) 09/11/16 03:10 ABG O2 Saturation 99.4 % (95-100) 09/11/16 03:10 Calcium 8.4 MG/DL (8.5-10.1) L 09/12/16 08:54 Phosphorus 6.7 MG/DL (2.5-4.9) H 09/10/16 02:50 Magnesium 2.0 MG/DL (1.8-2.4) 09/11/16 03:45 Assessment and Plan (1) Kidney transplant recipient Status: Chronic Current Visit: No (2) Chronic kidney disease, stage III (moderate) Status: Chronic Current Visit: Yes
[2016-09-13 10:19] LABS: Albumin 1.3 G/DL (3.4-5.0); Bilirubin,Total 0.4 MG/DL (0.2-1.0); Calcium 8.3 MG/DL (8.5-10.1); Osmolality,Calculated 315.7 MOS/KG (273-304); Potassium 4.2 MMOL/L (3.5-5.1); Total Protein 3.3 G/DL (6.4-8.3)
--- NOTE | 2016-09-13 11:18 | Event Note ---
09/13/[address] in [address] with no air leak and minimal drainage
[2016-09-13] MEDS: predniSONE 20 MG TABLET PO SCH (12:29)
[2016-09-13] MEDS: FUROSEMIDE 40 MG/4 ML VIAL IV SCH (15:37)
--- NOTE | 2016-09-13 16:22 | Gastrointestinal Progress Note ---
Assessment and Plan (1) Gastrointestinal hemorrhage with melena Status: Acute Assessment and plan: I strongly suspect this patient has NG tube erosions that have resulted in his bleeding with his mental status change he is unlikely to be able to do without some sort of additional feeding-- I suggest we consider use of a Dobbhoff instead, since he cannot come off of the tube feeds likely for the next day or 2. Protonix 40 mg twice daily as strongly suggested as well. At this particular point I feel that he is too unstable to consider doing endoscopic evaluation for the melena. 09/12/16-- over the last 24 hours patient has made a remarkable recovery, with hematocrit now stable and minimal passage of any further blood per rectum-- he is talking would like to have some food, since his Dobbhoff is in place I will likely try him on some clear liquids to see how he tolerates this and then removed the Dobbhoff if he does adequately this afternoon. May consider a full liquid diet versus a renal diet tomorrow if he feels up to it. 09/13/16--the patient is now taking renal diet adequately, he has his Dobbhoff removed and has not vomiting any blood, stools seem brown at this time and his hematocrit is completely stable. Given his recent illness we will hold off on pursuing endoscopy at this time. If he begins to have again hematemesis or melena in the short-term would certainly consider pursuing endoscopy at that time. Current Visit: Yes (2) Moderate malnutrition Status: Acute Assessment and plan: The patient will likely require ongoing Dobbhoff feeding until he is able to take oral nutrition himself without risk of aspiration and in a sufficient quantity to circumvent need for additional feedings. I don't see this happening in the immediate future on CPAP and is unstable as he is. 09/12/16--We'll continue watching the patient's hematocrit and clear liquid diet this afternoon with potential removal of the Dobbhoff if he tolerates clears, without choking or aspiration. Potential advancement to a more solid diet tomorrow. 09/13/16-- The patient's hematocrit has been stable and he is now starting on a renal diet, I expect that he will have some mild diarrhea with this (as he has bowel edema that will prevent him from maximally digesting his nutrients), this diarrhea will improve with time. Current Visit: Yes (3) Acute posthemorrhagic anemia Status: Acute Assessment and plan: Continue watching the patient post transfusion, protonix twice daily and minimize use of anticoagulants. Again the hematocrit is stable at 25%. We will continue monitoring this. 09/13/16-- No change, we'll be sending off at this time, please contact me again if I can be of any further help. Current Visit: Yes Gastroenterology - PN: Subj Interval history: She is doing fine today. He is tolerating his feeds well and was switched over to solid diet. He is having bowel movements that are not black, and his hematocrit is stable at 25.2%. For my standpoint he can be sent up to the floor. Exam (Progress Note) - Constitutional Vitals: Period Temp Pulse Resp BP Sys/Stewart Pulse Ox Last 24 Hr 98.2 F-99.5 F 77-112 17-35 83-138/59-90 93-100 General appearance: no acute distress - Head Head exam: Present: normocephalic, atraumatic - Eye Eye exam: Present: EOMI Pupils: Present: SELVIN - Neck Neck exam: Present: normal inspection - Respiratory Respiratory exam: Present: clear to auscultation bilaterally. Absent: rhonchi, stridor, wheezes - Cardiovascular Cardiovascular exam: Present: regular rate and rhythm, systolic murmur - GI/Abdominal GI/Abdominal exam: Present: normal bowel sounds, soft. Absent: distended, guarding, tenderness, rebound - Neurological Exam Neurological exam: Present: alert, oriented X3, other (the patient's mentation appears to be completely intact including his sense of humor) - Psychiatric Psychiatric exam: Present: normal affect, normal mood - Skin Skin exam: Present: warm Results - Labs CBC & BMP: 09/13/16 08:02 09/13/16 08:00
[2016-09-13] MEDS: SODIUM CHLORIDE 0.45% 1,000 ML IV SCH (17:33)
[2016-09-13] MEDS: ACETAMINOPHEN 325 MG TABLET PO PRN (21:22)
[2016-09-14] MEDS: NITROGLYCERIN 2% OINT 1 INCH/GM PACK TOP SCH ×4 (01:08→17:53)
[2016-09-14] MEDS: ALBUTEROL/IPRATROPIUM 3 ML NEB RESP TX SCH ×4 (01:50→19:25)
[2016-09-14] MEDS: ACETAMINOPHEN 325 MG TABLET PO PRN ×2 (02:53→09:02)
[2016-09-14] MEDS: SODIUM CHLORIDE 0.45% 1,000 ML IV SCH ×2 (03:45→16:34)
[2016-09-14 04:03] LABS: Hematocrit 25.1 VOL% (42.0-52.0); Hemoglobin 8.2 GM/DL (14.0-18.0); Immature Granulocytes % 13.8 %; Immature Granulocytes Absolute 0.19 #; Lymphocytes # 0.2 10*3/uL (1.4-4.0); Lymphocytes % 16.7 % (21.2-54.2); Mean Corpuscular HGB Conc 32.7 GM/DL (32-36); Mean Corpuscular Hemoglobin 28 PG (27-34); Mean Corpuscular Volume 84.5 FL (87-102); Mean Platelet Volume 13.1 FL (9.6-12.0); Monocytes # 0.2 10*3/uL (0.11-0.8); Monocytes % 12.3 % (1.7-12.7); Neutrophils # 0.8 10*3/uL (1.4-7.4); Neutrophils % 57.2 % (38.7-73.9); Platelet Count 214 T/CUMM (130-400); Red Blood Count 2.97 MC/CUMM (3.8-5.5); White Blood Count 1.4 T/CUMM (4-12)
[2016-09-14 04:28] LABS: Albumin 1.3 G/DL (3.4-5.0); Bilirubin,Total 0.6 MG/DL (0.2-1.0); Calcium 8.4 MG/DL (8.5-10.1); Osmolality,Calculated 308.8 MOS/KG (273-304); Total Protein 3.3 G/DL (6.4-8.3)
[2016-09-14] MEDS: ACETAMINOPHEN/CODEINE 120-12 MG/5 ML 12.5 ML UDCUP PO PRN ×2 (04:34→10:39)
[2016-09-14 05:01] LABS: Band Neutrophils 2 % (0-10); Hypochromasia 1+; Lymphocytes 21 % (20-55); Microcytosis 1+; Segmented Neutrophils 67 % (50-85); Total Cells Counted 100
[2016-09-14 05:02] LABS: Platelet Estimate Adequate
[2016-09-14] MEDS: INSULIN REGULAR 100 UNIT/ML SUBCUT SCH ×4 (07:43→21:30)
--- NOTE | 2016-09-14 08:25 | General Surgery Progress Note ---
Assessment and Plan (1) Pneumothorax, left Status: Acute Assessment and plan: Follow-up chest film today. Remove chest tubes if no pneumothorax Current Visit: Yes (2) ARF (acute renal failure) Status: Acute Assessment and plan: Continue dialysis as tolerated through groin catheter. Current Visit: Yes Subjective Patient reports: Present: no new complaints, afebrile Exam - Constitutional Vitals: Period Temp Pulse Resp BP Sys/Stewart Pulse Ox Last 24 Hr 97.6 F-99.5 F 77-121 18-33 98-120/65-87 86-100 General appearance: normal weight, no acute distress - Head Head exam: Present: normal inspection, normocephalic - Eye Eye exam: Present: EOMI Pupils: Present: SELVIN - ENT ENT exam: Present: normal exam Mouth exam: Present: normal external inspection, normal voice - Neck Neck exam: Present: normal inspection, trachea midline - Respiratory Respiratory exam: Present: clear to auscultation bilaterally, other (bilateral chest tubes with no air leak and no drainage). Absent: accessory muscle use, chest wall tenderness - Cardiovascular Cardiovascular exam: Present: tachycardia. Absent: irregular rhythm, systolic murmur - GI/Abdominal GI/Abdominal exam: Present: soft. Absent: tenderness, rebound - Extremities Exam Extremities exam: Present: normal inspection, normal capillary refill - Back Exam Back exam: Present: normal inspection - Neurological Exam Neurological exam: Present: alert, oriented X3 Speech: Present: normal - Skin Skin exam: Present: normal color, warm Results - Labs CBC & BMP: 09/14/16 03:11 09/14/16 03:11
[2016-09-14] MEDS: INSULIN GLARGINE 100 UNIT/ML SUBCUT SCH (08:28)
--- NOTE | 2016-09-14 08:38 | Nephrology Progress Note ---
Nephrology - PN: Subj Interval history: Mr. Mcmanus is seen in follow-up of his acute on chronic renal failure with his renal transplant. He is better in that he is awake and appropriate. He still has considerable edema. His blood pressures better to 115 systolic off of pressors. His white count is down to 1400 and I think this reflects tacrolimus and CellCept toxicity. We will reduce the dose of those drugs and continue with efforts at diuresis and dialysis to remove fluid. I'd like to get rid of some of the peripheral edema and hopes that we can get him ambulatory quicker. We have a tacrolimus level pending and we will check a mycophenolate level as well. Exam (PN)-Nephrology - Vital Signs Vital signs: Period Temp Pulse Resp BP Sys/Stewart Pulse Ox Last 24 Hr 97.6 F-99.5 F 77-121 18-33 98-120/65-87 86-100 - Lab 09/14/16 03:11 09/14/16 03:11 Most recent lab results ABG pH 7.409 (7.35-7.45) 09/11/16 03:10 ABG pCO2 35.0 MM HG (35-48) 09/11/16 03:10 ABG pO2 185.0 MM HG (80-95) H 09/11/16 03:10 ABG HCO3 22.6 MMOL/L (20-26) 09/11/16 03:10 ABG O2 Saturation 99.4 % (95-100) 09/11/16 03:10 Calcium 8.4 MG/DL (8.5-10.1) L 09/14/16 03:11 Phosphorus 6.7 MG/DL (2.5-4.9) H 09/10/16 02:50 Magnesium 2.0 MG/DL (1.8-2.4) 09/11/16 03:45 Assessment and Plan (1) Kidney transplant recipient Status: Chronic Current Visit: No (2) Chronic kidney disease, stage III (moderate) Status: Chronic Current Visit: Yes
--- NOTE | 2016-09-14 08:39 | XRay Report ---
Portable chest Date: 09/14/2016 Clinical history: Chest 2 Comparison: 09/11/2016 Technique: Portable AP sitting chest Findings: The heart is minimally enlarged with removal of the nasogastric tube. Stable right IJ CVP line and bilateral chest tubes. Progressive diffuse parenchymal findings with minimally larger pleural effusions. No significant pneumothorax. Stable mediastinum and osseous structures. Impression: Motion artifact. Progressive bilateral pneumonia/pulmonary edema with larger pleural effusions. Stable supportive devices with no significant pneumothorax. PROCEDURE INTERPRETED AT [facility] OF [facility]OLOG[facility] Final Report Signed by: Dr. Rea Maxwell
[2016-09-14] MEDS ORDERED: methylPREDNISolone SOD SUC 125 MG/2 ML VIAL IV ONE (08:44)
--- NOTE | 2016-09-14 08:49 | Pulmonology Progress Note ---
Pulmonary - PN: Subj Interval history: Patient is a 50-year-old black man that has had a previous kidney transplant and came in with diffuse infiltrates that worsened fairly quickly. He had a be put on the ventilator. We did get transbronchial biopsies but they're still pending. His been on multiple antibiotics and his chest x-ray has continued to improve over the past week. His oxygenation is better and his x-rays are markedly improved. He continues to have problems with poor urine output and anasarca and peripheral edema. He underwent dialysis yesterday but was not able to get out much fluid because of his blood pressure. He also had to get a right chest tube for small pneumothorax. Over the weekend he did fairly well and he seems to be more alert. He is breathing comfortably on low-flow oxygen. He says he feels better. He still has some edema and will have dialysis today. He does not have any air leaks and hopefully can get his chest tubes out today. Exam (Progress Note) - Constitutional Vitals: Period Temp Pulse Resp BP Sys/Stewart Pulse Ox Last 24 Hr 97.6 F-99.5 F 77-121 18-33 98-120/65-87 86-100 Exam: General appearance: no distress, under weight, he is more alert and seems to be talking better and in no distress. - Head Head exam: Present: normal inspection, normocephalic - Eye Eye exam: Present: EOMI. the sclerae edema is still present. The chemosis looks better. Pupils: Present: SELVIN - ENT ENT exam: Present: Has dry mucous membranes and intact cranial nerves . - Neck Neck exam: Present: tenderness. Absent: lymphadenopathy, thyromegaly - Respiratory Respiratory exam: Present: He has good breath sounds bilaterally and his lungs do sound clear today. His chest tubes appear stable with no air leak. - Cardiovascular Cardiovascular exam: Present: regular rate with no definite gallop. - GI/Abdominal GI/Abdominal exam: Present: soft. No tenderness or rebound. The anasarca is better. Absent: distended, organomegaly, tenderness - Extremities Exam Extremities exam: Present: He has less swelling of his extremities. - Neurological Exam Neurological exam: Present: Patient is more alert and cooperative now. He is talking better today. - Psychiatric Psychiatric exam: Absent: agitated, anxious - Skin Skin exam: Present: warm, dry Results - Labs CBC & BMP: 09/14/16 03:11 09/14/16 03:11 - Diagnostic Findings Procedure: Chest x-ray: image reviewed by me, report reviewed by me (chest x- ray is a poor inspiratory view with bibasilar infiltrates.) Assessment and Plan (1) Reticulonodular infiltrate present on imaging of chest Status: Acute Assessment and plan: The patient has diffuse reticular nodule infiltrates and the biopsies were negative for definite organism. Clinically he has been doing better. Hopefully we can increase his activity. Current Visit: Yes (2) Kidney transplant recipient Status: Chronic Assessment and plan: The patient is on immunosuppressive therapy. His counts are on the low side and his medicines are being reduced. He will have dialysis today. Current Visit: No (3) Altered mental status Status: Acute Assessment and plan: The patient apparently had a seizure on his EEG and is getting medications. He is talking more appropriate today. Current Visit: Yes Qualifiers: Altered mental status type: delirium Qualified Code(s): R41.0 - Disorientation, unspecified (4) ARF (acute renal failure) Status: Acute Assessment and plan: He is doing better and his creatinine is down to 1.9. He will get dialysis today. Current Visit: Yes (5) Anemia Status: Acute Assessment and plan: His hematocrit is around 25 and stable. Current Visit: Yes
[2016-09-14] MEDS ORDERED: FUROSEMIDE 20 MG/2 ML VIAL ONE (08:54)
[2016-09-14] MEDS: METOCLOPRAMIDE 10 MG/10 ML UDCUP PO SCH ×2 (09:00→21:28)
[2016-09-14] MEDS: FUROSEMIDE 40 MG/4 ML VIAL IV SCH ×2 (09:01→16:33)
[2016-09-14] MEDS: ASPIRIN EC 81 MG TABLET PO SCH (09:03)
[2016-09-14] MEDS: CARVEDILOL 3.125 MG TABLET PO SCH ×2 (09:03→21:28)
[2016-09-14] MEDS: FOLIC ACID 1 MG TABLET PO SCH (09:03)
[2016-09-14] MEDS: predniSONE 20 MG TABLET PO SCH (09:03)
[2016-09-14] MEDS: BACITRACIN OPH OINT 3.5 GM TUBE BOTH EYES SCH ×3 (09:04→21:29)
[2016-09-14] MEDS: DESITIN 4OZ/NYSTATIN 15 GRAM MIXTURE PASTE TOP SCH ×2 (09:04→21:29)
--- NOTE | 2016-09-14 09:35 | Hospitalist Progress Note ---
Assessment and Plan (1) Acute respiratory failure Status: Acute Assessment and plan: He likely has underlying PNA, Agree with current antibiotics especially given his immunosuppressed state. Appreciate pulmonology for assistance with vent management. 09/02/16; chest xray is better today and will continue with antibiotics and weaning protocol per pulmonology 09/03/16: This is likely secondary to underlying lung. Continue with current mechanical mental support of her pulmonology's note they will begin to initiate weaning trials. It appears that his mental status is improving S once sedation started down he appears to be following simple commands. 09/04/16: continue current vent management, IV abx/antifungal as he is responding and until final bronchial washings are back. 09/08/16: His chest x-ray is slowly improving. They will continue with the weaning process per pulmonology protocol. 09/09/16: X-ray is improving us for BRONCHIAL wash cultures have been negative. He is still intubated. 09/10/16: Clinical he is doing much better. Plan is to try to extubate him today. He'll has a right chest TV in the CDU developing small right pneumothorax. 09/14/16: Abdomen extubated tolerating nasal cannula. His O2 sats are good he still has bilateral chest tubes and chest x-ray still shows pulmonary edema with bilateral pleural effusions. Pulmonology is managing we'll continue with the recommendations. Current Visit: Yes (2) Chronic kidney disease, stage III (moderate) Status: Chronic Assessment and plan: elevated BUN, appreciate renal and there recommendations 09/08/16: His creatinine is staying fairly stable but his BUN and his continue to rise. He does have 3-4+ pitting edema. Despite him given albumin over the weekend he is developed more edema. He will began hemodialysis today. I discussed this with Dr. Zhang who states that he will only given approximately 2 hours as he does not want to drop his BUN to fast which can cause seizure. At this time I do appreciate nephrology for their input and assistance. We'll continue to monitor patient closely. Also have to monitor his blood pressure as he is running a little over side of normal and this could drop even further wants dialysis is initiated. 09/09/16:Steadily rise his BUN and and edema he did do approximately 2 hours of hemodialysis on yesterday. According to nephrology note they were unable to remove a significant amount of fluid given he more hypotensive. He will do dialysis again today. He also does feel has hyperkalemia and anemia which will be addressed during hemodialysis. Current Visit: Yes (3) Hyperglycemia, drug-induced Status: Acute Assessment and plan: hyperglycemia is likely related to steroids he is receiving we'll continue with sliding scale insulin. Current Visit: Yes (4) Hypoalbuminemia Status: Acute Assessment and plan: he will be started on albumin replacement as he does have some edema 09/04/16: currently receiving daily replacement Current Visit: Yes (5) Kidney transplant recipient Status: Chronic Current Visit: No (6) Hyperkalemia, diminished renal excretion Status: Resolved Assessment and plan: will give some Kayexalate given he has not had a bowel movement over the past few days also Current Visit: Yes (7) Anemia in CKD (chronic kidney disease) Status: Acute Assessment and plan: Plan is for him to receive 2 units of blood during dialysis today. Current Visit: Yes (8) Leukopenia Status: Acute Assessment and plan: This is acute I do agree with nephrology assessment this is likely due to his immunosuppressive medications that he takes for his renal cell transportation. Please level drawn and per nephrology's recommendations his dosages have been decreased. Current Visit: Yes (9) Left ankle pain Status: Acute Assessment and plan: Given the warmth of the left ankle along with the swelling and being very tender to the touch I'm concerned that he likely has an acute gout flare. We' ll go ahead and give him a one-time dose of 125 of IV methylprednisolone as you are he is on daily prednisone. Will have to stay away from NSAIDs because he had a recent GI bleed and his underlying renal function. Also will continue to obtain a orthopedic consultation for possible aspiration to thin fluid to the lab for analyses. Current Visit: Yes Hospitalist: Subjective Interval history: Bed asleep but he is arousable. He still has increased work breathing. His only complaint is left ankle pain which is swollen but he does have generalized anasarca with peripheral edema. The left ankle is also warmer than the right Exam - Constitutional Vitals: Period Temp Pulse Resp BP Sys/Stewart Pulse Ox Last 24 Hr 97.6 F-99.5 F 77-121 18-33 98-120/65-79 86-100 General appearance: no acute distress - Head Head exam: Present: normocephalic, atraumatic - Eye Eye exam: Present: EOMI Pupils: Present: SELVIN - Neck Neck exam: Present: normal inspection - Respiratory Respiratory exam: Present: clear to auscultation bilaterally - Cardiovascular Cardiovascular exam: Present: regular rate and rhythm - GI/Abdominal GI/Abdominal exam: Present: normal bowel sounds, soft - Extremities Exam Extremities exam: Present: edema - Expanded Left Lower Ankle exam: Present: swelling, tenderness - Neurological Exam Neurological exam: Present: alert, oriented X3, CN II-XII intact - Psychiatric Psychiatric exam: Present: normal affect, normal mood - Skin Skin exam: Present: warm, intact Results - Labs CBC & BMP: 09/14/16 03:11 09/14/16 03:11 - Diagnostic Findings Procedure: Chest x-ray: report reviewed by me (pulmonary edema with bilateral pleural effusions)
[2016-09-14] MEDS: PANTOPRAZOLE 40 MG VIAL IV SCH ×2 (09:39→21:28)
[2016-09-14] MEDS: TACROLIMUS 0.5 MG CAPSULE PO SCH ×2 (09:39→21:28)
--- NOTE | 2016-09-14 15:13 | Neurology Progress Note ---
Neurology - PN : Subjective Interval history: Patient seems to be doing much better neurologically. No new problems reported. No more seizures reported. More alert and awake and talking. Following commands appropriately. Exam (Progress Note) - Constitutional Vitals: Period Temp Pulse Resp BP Sys/Stewart Pulse Ox Last 24 Hr 97.6 F-98.8 F 84-129 18-33 94-120/60-79 86-99 Exam: GENERAL: Patient is in no acute distress. NECK: Neck is supple. There is no JVD. No carotid bruits present. No thyroid masses. CVS: First and second heart sounds are normal. There is no S3 present. Regular rate and rhythm. RESPIRATORY: Lungs are clear to auscultation without any rales or rhonchi. ABDOMEN: Soft and non-tender. Bowel sounds are present. There is no hepatosplenomegaly. EXT: There is no palpable edema. Peripheral pulses are present. Skin: No rashes Central Nervous system: General: alert and awake Speech: Fluent Comprehension: Fair Facial expressions: Normal Cranial Nerves: Pupils are equally reactive to light. Extraocular movements are intact. No facial asymmetry seen. Visual estrada are equal. Tongue is midline. Motor: Bulk and Tone is normal. Strength symmetrical, moving all 4 extremities however very weakly . Sensory: Unreliable Reflexes: 1+ and symmetrical Cerebellar function: Slow [id number] testing Gait: Not Tested this time Results - Labs CBC & BMP: 09/14/16 03:11 09/14/16 03:11 Assessment and Plan (1) Altered mental status Status: Acute Assessment and plan: Patient has been seizure-free. Change Keppra to by mouth Continue other supportive treatment. Current Visit: Yes Qualifiers: Altered mental status type: delirium Qualified Code(s): R41.0 - Disorientation, unspecified
--- NOTE | 2016-09-14 16:01 | XRay Report ---
Portable chest Date: 09/14/2016 Clinical history: Removal of chest tubes Comparison: 09/14/2016 Technique: Portable AP sitting chest Findings: The heart is minimally enlarged with interval removal of the chest tubes. Stable right IJ CVP line. Persistent diffuse parenchymal findings are noted in the lungs with small pleural effusions. Small right lateral pneumothorax in the right lower lung zone. The finding measures 6 mm from the pleural line to the lateral chest wall in the area of the chest tube tract. Impression: Removal of the chest tubes. Residual very small right pneumothorax laterally in the right lower lung zone in the area of the chest tube tract. Persistent diffuse pulmonary edema/infiltration with associated atelectasis and small pleural effusions. This report was called to patient's nurse, Michaela at 3:50 PM on 09/14/2016. Portable chest results PROCEDURE INTERPRETED AT [facility] DEPARTMENT OF RADIOLOGY Final Report Signed by: Dr. Rea Maxwell
[2016-09-14] MEDS: levETIRAcetam 500 MG TABLET PO SCH (21:28)
[2016-09-15] MEDS: NITROGLYCERIN 2% OINT 1 INCH/GM PACK TOP SCH ×2 (00:42→06:37)
[2016-09-15] MEDS: ALBUTEROL/IPRATROPIUM 3 ML NEB RESP TX SCH ×4 (03:01→19:46)
--- NOTE | 2016-09-15 07:18 | XRay Report ---
XR chest 1V portable Indication: Chest tubes. Chest one view: No chest tubes are present. Central line, borderline cardiomegaly and granular opacification of both lung estrada diffusely appears unchanged. The tiny right lateral base pneumothorax is almost completely resolved, decreased from yesterday. Impression: Decreasing right pneumothorax at the lateral right lung base. Otherwise no change. PROCEDURE INTERPRETED AT [facility] DEPARTMENT OF RADIOLOGY Final Report Signed by: Julio De La Torre M.D.
--- NOTE | 2016-09-15 07:23 | Pulmonology Progress Note ---
Pulmonary - PN: Subj Interval history: Patient is a 50-year-old black man that has had a previous kidney transplant and came in with diffuse infiltrates that worsened fairly quickly. He had a be put on the ventilator. We did get transbronchial biopsies but they're still pending. His been on multiple antibiotics and his chest x-ray has continued to improve over the past week. His oxygenation is better and his x-rays are markedly improved. He has continued to get better and looks quite comfortable now. He is on low-flow oxygen and says he's not that short of breath. He is more alert and talking clearly. 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 He has not been able to use his arms and legs very well at all. He is starting physical therapy. His chest tubes are out and his chest x-ray still shows infiltrates but is stable. Exam (Progress Note) - Constitutional Vitals: Period Temp Pulse Resp BP Sys/Stewart Pulse Ox Last 24 Hr 98.3 F-99.0 F 81-129 15-33 94-131/60-83 89-100 Exam: General appearance: no distress, under weight, he is more alert and looks much more calmer and more comfortable. - Head Head exam: Present: normal inspection, normocephalic - Eye Eye exam: Present: EOMI. the sclerae edema is still present. The chemosis looks better. Pupils: Present: SELVIN - ENT ENT exam: Present: Has dry mucous membranes and intact cranial nerves . - Neck Neck exam: Present: tenderness. Absent: lymphadenopathy, thyromegaly - Respiratory Respiratory exam: Present: He has good breath sounds bilaterally and his lungs do sound clear today. His chest tubes are out now. - Cardiovascular Cardiovascular exam: Present: regular rate with no definite gallop. - GI/Abdominal GI/Abdominal exam: Present: soft. No tenderness or rebound. The anasarca is better. Absent: distended, organomegaly, tenderness - Extremities Exam Extremities exam: Present: He has less swelling of his extremities. His extremities are very weak. - Neurological Exam Neurological exam: Present: Patient is more alert and cooperative now. He is talking better today. - Psychiatric Psychiatric exam: Absent: agitated, anxious - Skin Skin exam: Present: warm, dry Results - Labs CBC & BMP: 09/14/16 03:11 09/14/16 03:11 - Diagnostic Findings Procedure: Chest x-ray: image reviewed by me, report reviewed by me (chest x- ray still shows bilateral infiltrates worse in the lower lobes.) Assessment and Plan (1) Reticulonodular infiltrate present on imaging of chest Status: Acute Assessment and plan: The patient has diffuse reticular nodule infiltrates and the biopsies were negative for definite organism. Clinically he has been doing better. He certainly looks like he is breathing comfortably and his O2 saturations are better. He still has infiltrates on x-ray however. Current Visit: Yes (2) Kidney transplant recipient Status: Chronic Assessment and plan: The patient is on immunosuppressive therapy. His counts are on the low side and his medicines are being reduced. Overall he does appear stable. Current Visit: No (3) Altered mental status Status: Acute Assessment and plan: The patient apparently had a seizure on his EEG and is getting medications. He has not had any further seizures and is much more alert. Current Visit: Yes Qualifiers: Altered mental status type: delirium Qualified Code(s): R41.0 - Disorientation, unspecified (4) ARF (acute renal failure) Status: Acute Assessment and plan: He is doing better and his creatinine is down to 1.9. He has done fairly well with dialysis. Current Visit: Yes (5) Anemia Status: Acute Assessment and plan: His hematocrit is around 25 and stable. Current Visit: Yes (6) Critical illness myopathy Status: Acute Assessment and plan: The patient is extremely weak and is unable to use his arms and legs very well at all. He is starting physical therapy. Current Visit: Yes
[2016-09-15] MEDS: INSULIN REGULAR 100 UNIT/ML SUBCUT SCH ×4 (07:25→20:52)
--- NOTE | 2016-09-15 07:35 | General Surgery Progress Note ---
Assessment and Plan (1) Pneumothorax, left Status: Acute Assessment and plan: Chest tubes have been removed. There is a decreasing right pneumothorax but otherwise the chest x-ray looks stable and improving from my standpoint. I will sign off. Please call back with further questions. Current Visit: Yes (2) ARF (acute renal failure) Status: Acute Assessment and plan: Continue dialysis as tolerated through groin catheter. Current Visit: Yes Subjective Patient reports: Present: no new complaints, afebrile Exam - Constitutional Vitals: Period Temp Pulse Resp BP Sys/Stewart Pulse Ox Last 24 Hr 97.6 F-99.0 F 81-129 15-33 94-134/60-85 89-100 General appearance: normal weight, no acute distress - Head Head exam: Present: normal inspection, normocephalic - Eye Eye exam: Present: EOMI Pupils: Present: SELVIN - ENT ENT exam: Present: normal exam Mouth exam: Present: normal external inspection, normal voice - Neck Neck exam: Present: normal inspection, trachea midline - Respiratory Respiratory exam: Present: clear to auscultation bilaterally. Absent: accessory muscle use, chest wall tenderness - Cardiovascular Cardiovascular exam: Present: tachycardia. Absent: systolic murmur - GI/Abdominal GI/Abdominal exam: Present: normal bowel sounds, soft. Absent: tenderness, rebound - Extremities Exam Extremities exam: Present: normal inspection, normal capillary refill - Back Exam Back exam: Present: normal inspection - Neurological Exam Neurological exam: Present: alert, oriented X3 Speech: Present: normal - Skin Skin exam: Present: normal color, warm Results - Labs CBC & BMP: 09/14/16 03:11 09/14/16 03:11 - Diagnostic Findings Procedure: Chest x-ray: image reviewed by me, report reviewed by me (decreasing right pneumothorax)
[2016-09-15] MEDS: FUROSEMIDE 40 MG/4 ML VIAL IV SCH ×2 (08:05→15:24)
[2016-09-15] MEDS: PANTOPRAZOLE 40 MG VIAL IV SCH ×2 (08:05→20:50)
[2016-09-15] MEDS: CARVEDILOL 3.125 MG TABLET PO SCH ×2 (08:05→20:50)
[2016-09-15] MEDS: ASPIRIN EC 81 MG TABLET PO SCH (08:05)
[2016-09-15] MEDS: predniSONE 20 MG TABLET PO SCH (08:05)
[2016-09-15] MEDS: FOLIC ACID 1 MG TABLET PO SCH (08:06)
[2016-09-15] MEDS: INSULIN GLARGINE 100 UNIT/ML SUBCUT SCH (08:06)
[2016-09-15] MEDS: ACETAMINOPHEN 325 MG TABLET PO PRN ×2 (08:06→18:18)
[2016-09-15] MEDS: TACROLIMUS 0.5 MG CAPSULE PO SCH ×2 (08:06→20:49)
[2016-09-15] MEDS: METOCLOPRAMIDE 10 MG/10 ML UDCUP PO SCH ×2 (08:06→20:51)
[2016-09-15] MEDS: MYCOPHENOLATE MOFETIL 250 MG CAPSULE PO SCH ×2 (08:06→20:50)
[2016-09-15] MEDS: DESITIN 4OZ/NYSTATIN 15 GRAM MIXTURE PASTE TOP SCH ×2 (08:07→20:51)
[2016-09-15] MEDS: BACITRACIN OPH OINT 3.5 GM TUBE BOTH EYES SCH ×3 (08:07→20:49)
[2016-09-15] MEDS: levETIRAcetam 500 MG TABLET PO SCH ×2 (08:08→20:50)
[2016-09-15] MEDS ORDERED: COLCHICINE 0.6 MG TABLET PO ONE (08:30)
--- NOTE | 2016-09-15 09:26 | Hospitalist Progress Note ---
Assessment and Plan (1) Acute respiratory failure Status: Resolved Assessment and plan: He likely has underlying PNA, Agree with current antibiotics especially given his immunosuppressed state. Appreciate pulmonology for assistance with vent management. 09/02/16; chest xray is better today and will continue with antibiotics and weaning protocol per pulmonology 09/03/16: This is likely secondary to underlying lung. Continue with current mechanical mental support of her pulmonology's note they will begin to initiate weaning trials. It appears that his mental status is improving S once sedation started down he appears to be following simple commands. 09/04/16: continue current vent management, IV abx/antifungal as he is responding and until final bronchial washings are back. 09/08/16: His chest x-ray is slowly improving. They will continue with the weaning process per pulmonology protocol. 09/09/16: X-ray is improving us for BRONCHIAL wash cultures have been negative. He is still intubated. 09/10/16: Clinical he is doing much better. Plan is to try to extubate him today. He'll has a right chest TV in the CDU developing small right pneumothorax. 09/14/16: Abdomen extubated tolerating nasal cannula. His O2 sats are good he still has bilateral chest tubes and chest x-ray still shows pulmonary edema with bilateral pleural effusions. Pulmonology is managing we'll continue with the recommendations. Current Visit: Yes (2) Chronic kidney disease, stage III (moderate) Status: Chronic Assessment and plan: elevated BUN, appreciate renal and there recommendations 09/08/16: His creatinine is staying fairly stable but his BUN and his continue to rise. He does have 3-4+ pitting edema. Despite him given albumin over the weekend he is developed more edema. He will began hemodialysis today. I discussed this with Dr. Zhang who states that he will only given approximately 2 hours as he does not want to drop his BUN to fast which can cause seizure. At this time I do appreciate nephrology for their input and assistance. We'll continue to monitor patient closely. Also have to monitor his blood pressure as he is running a little over side of normal and this could drop even further wants dialysis is initiated. 09/09/16:Steadily rise his BUN and and edema he did do approximately 2 hours of hemodialysis on yesterday. According to nephrology note they were unable to remove a significant amount of fluid given he more hypotensive. He will do dialysis again today. He also does feel has hyperkalemia and anemia which will be addressed during hemodialysis. Current Visit: Yes (3) Hyperglycemia, drug-induced Status: Acute Assessment and plan: hyperglycemia is likely related to steroids he is receiving we'll continue with sliding scale insulin. Current Visit: Yes (4) Hypoalbuminemia Status: Acute Assessment and plan: he will be started on albumin replacement as he does have some edema 09/04/16: currently receiving daily replacement Current Visit: Yes (5) Kidney transplant recipient Status: Chronic Current Visit: No (6) Anemia in CKD (chronic kidney disease) Status: Resolved Assessment and plan: Plan is for him to receive 2 units of blood during dialysis today. Current Visit: Yes (7) Leukopenia Status: Acute Assessment and plan: This is acute I do agree with nephrology assessment this is likely due to his immunosuppressive medications that he takes for his renal cell transportation. Please level drawn and per nephrology's recommendations his dosages have been decreased. Current Visit: Yes (8) Left ankle pain Status: Acute Assessment and plan: Given the warmth of the left ankle along with the swelling and being very tender to the touch I'm concerned that he likely has an acute gout flare. We' ll go ahead and give him a one-time dose of 125 of IV methylprednisolone as you are he is on daily prednisone. Will have to stay away from NSAIDs because he had a recent GI bleed and his underlying renal function. Also will continue to obtain a orthopedic consultation for possible aspiration to thin fluid to the lab for analyses. 09/15/16: still with pain and uric acid level isn't that elevated will start colchine today with pharmacy to assist with dosing because of CKD Current Visit: Yes (9) Critical illness myopathy Status: Acute Assessment and plan: 09/15/16: will have PT to start working with. Current Visit: Yes Hospitalist: Subjective Interval history: Patient is a 50-year-old male who initially presented with left ankle pain in wrist stress eventually intubated. He is now extubated his chest tubes have been removed. His mental status is drastically improved. He appears to have critical illness myopathy. His main complaint is still this left ankle pain which I suspect is gout as he does have a history of gout. Exam - Constitutional Vitals: Period Temp Pulse Resp BP Sys/Stewart Pulse Ox Last 24 Hr 97.6 F-99.0 F 81-129 15-33 94-134/60-85 89-100 General appearance: normal weight, no acute distress - Head Head exam: Present: normocephalic, atraumatic - Eye Eye exam: Present: EOMI Pupils: Present: SELVNI - Respiratory Respiratory exam: Present: clear to auscultation bilaterally - Cardiovascular Cardiovascular exam: Present: tachycardia - GI/Abdominal GI/Abdominal exam: Present: normal bowel sounds, soft - Expanded Left Lower Ankle exam: Present: swelling, tenderness - Neurological Exam Neurological exam: Present: alert, oriented X3 - Psychiatric Psychiatric exam: Present: normal affect, normal mood - Skin Skin exam: Present: warm, dry Results - Labs CBC & BMP: 09/14/16 03:11 09/14/16 03:11
--- NOTE | 2016-09-15 11:17 | Nephrology Progress Note ---
Nephrology - PN: Subj Interval history: Mr. Mcmanus is seen during hemodialysis and he is tolerating it well but his blood pressure is 95 systolic today on dialysis. We are still trying to get 3-1 /2 kg off his edema is much improved. He is responding well to Lasix. We will evaluate on a daily basis regarding the need for dialysis. I agree with the packing off his antibiotics hopefully that was part of his neutropenia but I suspect it was more the CellCept we did decrease CellCept from 750 twice a day to 500 twice a day after holding a dose yesterday. Labs will be checked tomorrow Exam (PN)-Nephrology - Vital Signs Vital signs: Period Temp Pulse Resp BP Sys/Stewart Pulse Ox Last 24 Hr 97.6 F-99.0 F 81-119 15-33 94-134/63-85 89-100 - Lab 09/14/16 03:11 09/14/16 03:11 Most recent lab results ABG pH 7.409 (7.35-7.45) 09/11/16 03:10 ABG pCO2 35.0 MM HG (35-48) 09/11/16 03:10 ABG pO2 185.0 MM HG (80-95) H 09/11/16 03:10 ABG HCO3 22.6 MMOL/L (20-26) 09/11/16 03:10 ABG O2 Saturation 99.4 % (95-100) 09/11/16 03:10 Calcium 8.4 MG/DL (8.5-10.1) L 09/14/16 03:11 Phosphorus 6.7 MG/DL (2.5-4.9) H 09/10/16 02:50 Magnesium 2.0 MG/DL (1.8-2.4) 09/11/16 03:45 Assessment and Plan (1) Kidney transplant recipient Status: Chronic Current Visit: No (2) Chronic kidney disease, stage III (moderate) Status: Chronic Current Visit: Yes
[2016-09-15] MEDS ORDERED: LIDOCAINE 1% 20 ML VIAL IM ONE (12:20)
--- NOTE | 2016-09-15 12:30 | Orthopedic Consult Note ---
History of Present Illness Chief complaint: L ankle pain History of present illness: Mr. Mcmanus is a 50 year old male who was hospitalized week or so ago for some left sided ankle pain which was believed to be gout. He had some significant medical issues requiring intubation and intravenous antibiotics. Following extubation, he continued to complain of left ankle pain, his swelling did not resolve during his hospital course thus far, and I was consulted for management. Upon my evaluation today, he was a little lethargic after completing hemodialysis. Home Medications Medication Instructions Recorded Confirmed Type Aspirin [Ecotrin] 81 mg PO DAILY 05/16/16 08/25/16 History Carvedilol [Coreg] 0.5 tablet PO BID 05/16/16 08/25/16 History Folic Acid Tab 1 mg PO DAILY 05/16/16 08/25/16 History Mycophenolate Mofetil Cap 3 tablet PO Q12H 05/16/16 08/25/16 History [Cellcept] Pantoprazole Tab [Protonix Tab] 40 mg PO BID 05/16/16 08/25/16 History Tacrolimus [Tacrolimus Cap] 4 tablet PO Q12H 05/16/16 08/25/16 History predniSONE TAB [PredniSONE] 10 mg PO DAILY 05/16/16 08/25/16 History amLODIPine [Norvasc] 10 mg PO DAILY 06/01/16 08/25/16 History Allopurinol 100 mg PO DAILY 08/25/16 08/25/16 History HYDROcodone/ACETAMIN 10-325 [[place] 1 tablet PO Q4H PRN 08/25/16 08/25/16 History 10-325] Magnesium Oxide [Magnesium] 500 mg PO DAILY 08/25/16 08/25/16 History Metoclopramide Liquid [Reglan 5 ml PO BID 08/25/16 08/25/16 History Liquid] Allergies Allergy/AdvReac Type Severity Reaction Status Date / Time No Known Allergies Allergy Verified 08/11/16 22:05 ROS unobtainable: due to mental status Medical,Surgical,& Family Hx - Medical History Cardio: History of: Hypertension Psychological: No history of: Anxiety Disorders, Bipolar Disorder, Depression, Schizophrenia Neurology: No history of: Seizures HEENT: History of: Eye Problem (previous retinal tear RIGHT) Rheumatology: History of;: Gout Renal: History of: Renal Failure, Renal Problems (Kidney transplant - 09/15) Gastrointestinal: History of: GERD, Gastrointestinal Bleed Hematology: History of: Anemia No history of: Blood Transfusion Reaction Reproductive: No histroy: Reproductive Cancer Other: No history of: Anesthesia Reactions, HIV - Surgical History Cardiac Surgeries: Sugical HX of: Cardiac Catheterization (negative, done in 2008) Thoracic Surgeries: Surgical HX of;: Kidney (Renal Surgery) (transplant 2013), Organ Transplant (KIDNEY) Neurologic Surgeries: Patient denies: Neurologic Surgery HEENT Surgeries: Surgical HX of: Tonsilectomy & Adenoidectomy Patient denies: Eye Surgery Abdominal Surgeries: Surgical HX of: Abdominal Surgery (PD catheter placed and removed (Removed 2013)), Cholecystectomy, EGD Orthopedic Surgeries: Patient denies;: Orthopedic Surgery - Family History Family History: Reports;: Family Diabetes (MOM AND BROTHER), Family Hypertension (MOM AND BROTHER) Denies;: Family Anesthesia Reaction, Family Cancer, Family Heart Disease, Family Psychiatric Problems, Family Stroke - Social History Smoking Status: Former smoker Frequency of Alcohol Use: None Type of Drug Use: None Exam - Constitutional Vitals: Period Temp Pulse Resp BP Sys/Stewart Pulse Ox Last 24 Hr 97.6 F-99.0 F 81-119 15-33 94-134/63-85 89-100 Exam: Left lower extremity: He has pain with passive range of motion of the ankle. He has brisk capillary refill in toes. He does not really cooperate well for good motor exam. He has some swelling around the ankle bilaterally has some mild erythema and what appears to be fluctuance medially on the left ankle. Results - Labs CBC & BMP: 09/14/16 03:11 09/14/16 03:11 - Diagnostic Findings Procedure: X-ray: image reviewed by me (radiographs show no acute fractures) Assessment and Plan (1) Left ankle pain Status: Resolved Assessment and plan: We'll aspirate the ankle today to see if there is indeed gout there. I feel we should also investigate the medial aspect of the ankle at his as it does appear that there is fluctuance in this region. I'll aspirate that area and send it for culture and order a CT scan to evaluate the medial soft tissues as I do not think the patient is quite stable enough to go to MRI at this time. Procedure: Under aseptic conditions anterior portion of left ankle was the site of 1% lidocaine. Approximately 1 mL of cloudy, blood-tinged fluid was then aspirated. This fluid will be sent to the lab for cell count, crystals, and culture. The medial portion of the left lower leg was as noted anesthetized and aspirated. About 6 mL of thin cloudy fluid was aspirated. This will be sent to lab for Gram stain and culture. There were no immediate complications noted in the patient tolerated the procedure well. Current Visit: No Qualifiers: Chronicity: acute Qualified Code(s): M25.572 - Pain in left ankle and joints of left foot
[2016-09-15 13:21] LABS: Lymphocytes,Synovial Fluid 9 %; Neutrophils,Synovial Fluid 89 %
--- NOTE | 2016-09-15 14:43 | CT Report ---
History: Swelling and erythema of the left ankle. Clinically suspected abscess medially Date: 09/15/2016 Study: CT left ankle without IV contrast Comparison exam: No previous similar CT study Thin spiral CT sections were obtained through the left ankle without IV contrast. Multiplanar reconstruction images are also evaluated. Total DLP measures 295.4 mGy*cm. There is a vertical linear lucency of the posterior talus extending to the articular surface of the posterior subtalar joint, suggesting hairline fracture which may be recent in nature. Consider insufficiency type fracture. There is some mottled osteopenia of the bony framework. There is no additional fracture or dislocation. There is no abnormal periosteal reaction to specifically suggest osteomyelitis. There is large amount of edema in the subcutaneous fat surrounding the ankle, both medially and laterally. Posteriorly and medially and deep to the subcutaneous fat, there is an 18 mm ovoid fluid density which could potentially represent small abscess. This is within 1 cm of the anterior medial margin of the Achilles tendon. There is a small joint effusion present. There are small gas density bubbles of the ankle anteriorly and laterally, deep to the extensor digitorum longus tendons near the level of the tibiotalar joint. These are not associated with encapsulated abscess. This could be the sequelae of soft tissue infection from gas-forming organisms or could even be iatrogenic. Impression: There is a ovoid 18 mm fluid density posteriorly and medially in the soft tissues of the left ankle deep to the subcutaneous fat which could potentially represent abscess There is evidence of a hairline intra-articular fracture of the posterior aspect of the talus, reaching the articular surface of the posterior subtalar joint, with anatomic alignment and position. This could represent an insufficiency type fracture of an acute or recent nature Tiny gas bubbles in the soft tissues anteriorly and laterally to the ankle which could be iatrogenic or the sequelae of soft tissue infection with gas-forming organisms PROCEDURE INTERPRETED AT [facility] DEPARTMENT OF RADIOLOGY Final Report Signed by: Dr. Cindy Reed
[2016-09-15] MEDS: SODIUM CHLORIDE 0.45% 1,000 ML IV SCH ×2 (15:25→15:41)
[2016-09-15 15:49] LABS: Cholesterol Crystals None Seen /LPF
[2016-09-15 23:11] LABS: Mycophenolic Acid 0.9 mcg/mL (1.0 - 3.5)
[2016-09-16] MEDS: ALBUTEROL/IPRATROPIUM 3 ML NEB RESP TX SCH ×4 (00:04→19:02)
[2016-09-16] MEDS ORDERED: HYDROmorphone 2 MG/1 ML VIAL ONE (00:23)
[2016-09-16] MEDS: HYDROmorphone 2 MG/1 ML VIAL IV PRN ×5 (00:30→23:50)
[2016-09-16 04:49] LABS: Eosinophils % 0.5 % (0.00-10.9); Hematocrit 24.2 VOL% (42.0-52.0); Hemoglobin 7.7 GM/DL (14.0-18.0); Immature Granulocytes % 20.9 %; Immature Granulocytes Absolute 0.42 #; Lymphocytes # 0.2 10*3/uL (1.4-4.0); Lymphocytes % 8.5 % (21.2-54.2); Mean Corpuscular HGB Conc 31.8 GM/DL (32-36); Mean Corpuscular Hemoglobin 28 PG (27-34); Mean Corpuscular Volume 87.7 FL (87-102); Mean Platelet Volume 11.6 FL (9.6-12.0); Monocytes # 0.2 10*3/uL (0.11-0.8); Neutrophils # 1.2 10*3/uL (1.4-7.4); Neutrophils % 60.1 % (38.7-73.9); Platelet Count 176 T/CUMM (130-400); Red Blood Count 2.76 MC/CUMM (3.8-5.5)
[2016-09-16 05:16] LABS: Band Neutrophils 2 % (0-10); Eosinophils 2 % (0-10); Hypochromasia 1+; Lymphocytes 12 % (20-55); Microcytosis 1+; Ovalocytes Slight; Platelet Estimate Normal; Segmented Neutrophils 73 % (50-85); Total Cells Counted 100
[2016-09-16 05:27] LABS: Calcium 8.1 MG/DL (8.5-10.1); Osmolality,Calculated 298.8 MOS/KG (273-304)
[2016-09-16] MEDS ORDERED: LORazepam 0.5 MG TABLET PO ONE (06:00)
[2016-09-16] MEDS ORDERED: FAMOTIDINE 20 MG TABLET PO ONE (06:00)
--- NOTE | 2016-09-16 07:11 | Orthopedic Progress Note ---
Assessment and Plan (1) Abscess of left leg Status: Acute Assessment and plan: Patient has high white blood cells and aspirate indicative of infection. Gram stain and culture pending. Recommend irrigation and debridement of left ankle on the operating suite today. Risks and benefits were discussed. We'll plan on proceeding this morning. Current Visit: Yes Orthopedics - Subjective Interval history: No new c/o. Pt w generalized edema cell ct >[id number] WBC in aspirate Exam - Constitutional Vitals: Period Temp Pulse Resp BP Sys/Stewart Pulse Ox Last 24 Hr 98.1 F-99.0 F 102-127 18-28 96-128/53-82 91-100 Results - Labs CBC & BMP: 09/16/16 00:46 09/16/16 00:46
--- NOTE | 2016-09-16 07:11 | Electroencephalogram ---
HISTORY: A 50-year-old patient with a history of change in mental status. INTRODUCTION: A digital EEG was performed using the standard 10-20 system of electrode placement wi th one-channel of EKG monitoring. Photic stimulation is performed. DESCRIPTION OF RECORD: The background is somewhat disorganized and consists of 5.5 to 6 hertz moder ate amplitude bilaterally symmetrical alpha rhythm. Photic stimulation does not elicit a driving re sponse. There are no focal, sharp wave, spike, or wave activity seen. Heart rate 90 beats per minute. IMPRESSION: ABNORMAL EEG DUE TO GENERALIZED SLOWING. CLINICAL CORRELATION: This record is supported by moderately severe encephalopathy which could be s econdary to chest pain. This record is remarkable for a seizure lasting for 20 to 25 seconds. Seizu re is followed by development of rhythmic delta rhythm from the left hemisphere, which becomes secon darily generalized to involve the right hemisphere as well. Clinically, no tonic-clonic activity se en. The rhythm is followed by slight suppression of the background activity. Heart rate 75 beats per minute. IMPRESSION: 1. ABNORMAL EEG DUE TO GENERALIZED SLOWING. 2. SEIZURE. 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 CC:
--- NOTE | 2016-09-16 07:40 | EKG Report ---
Stationary ECG Study [facility] Test Date: 09/16/2016 7:40:21 AM Pat Name: PAIGE LEY Department: Room: 122 Gender: M [employer]: AISHWARYA : 1965 Requested by: Jese Moraes Order Number: [id number] Reading MD: KEKE JACINTO Intervals [place] Rate: 118 P: 32 MT: 125 QRS: 16 QRSD: 88 T: 46 QT: 286 QTc: 356 Interpretive Statements SINUS TACHYCARDIA Electronically Signed On 09-18-16 12:25:22 [employer] by KEKE JACINTO [email or web address]
--- NOTE | 2016-09-16 07:43 | XRay Report ---
XR chest 1V portable Indication: Follow-up pneumothorax. Chest one view: Since yesterday, the pleural line at the lateral right lung base is not seen on the current study. Somewhat granular reticular nodular opacity both lung estrada with dense opacification of both lung bases is stable. Heart size remains upper limits of normal but stable central line. Lung volumes are low. Impression: No evidence of pneumothorax on the current exam. Otherwise no change. PROCEDURE INTERPRETED AT [facility] DEPARTMENT OF RADIOLOGY Final Report Signed by: Julio De La Torre M.D.
--- NOTE | 2016-09-16 08:07 | Pulmonology Progress Note ---
Pulmonary - PN: Subj Interval history: Patient is a 50-year-old black man that has had a previous kidney transplant and came in with diffuse infiltrates that worsened fairly quickly. He had a be put on the ventilator. We did get transbronchial biopsies but they're still pending. His been on multiple antibiotics and his chest x-ray has continued to improve over the past week. His oxygenation is better and his x-rays are markedly improved. He has continued to get better and looks quite comfortable now. He is on low-flow oxygen and says he's not that short of breath. He is more alert and talking clearly. 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 He has continued to have left ankle swelling and pain may have a septic joint. He is going to surgery today for drainage and debridement. His breathing is still doing fairly well. His chest x-ray looks a little better. His hematocrit is down to 24 and he may need transfusions. His white count is 2000. Exam (Progress Note) - Constitutional Vitals: Period Temp Pulse Resp BP Sys/Stewart Pulse Ox Last 24 Hr 98.1 F-99.0 F 102-130 18-34 96-127/53-82 91-100 Exam: General appearance: no distress, under weight, he is more alert and is talking clearly. He apparently is having more ankle pain. - Head Head exam: Present: normal inspection, normocephalic - Eye Eye exam: Present: EOMI. the sclerae edema is still present. The chemosis looks better. Pupils: Present: SELVIN - ENT ENT exam: Present: Has dry mucous membranes and intact cranial nerves . - Neck Neck exam: Present: tenderness. Absent: lymphadenopathy, thyromegaly - Respiratory Respiratory exam: Present: He has good breath sounds bilaterally and his lungs do sound clear today. His chest tubes are out now. He has good air movement. - Cardiovascular Cardiovascular exam: Present: regular rate with no definite gallop. - GI/Abdominal GI/Abdominal exam: Present: soft. No tenderness or rebound. The anasarca is better. Absent: distended, organomegaly, tenderness - Extremities Exam Extremities exam: Present: He has less swelling of his extremities. His extremities are very weak. His left lower leg and ankle are swollen. - Neurological Exam Neurological exam: Present: Patient is more alert and cooperative now. He is talking better today. - Psychiatric Psychiatric exam: Absent: agitated, anxious - Skin Skin exam: Present: warm, dry Results - Labs CBC & BMP: 09/16/16 00:46 09/16/16 00:46 - Diagnostic Findings Procedure: Chest x-ray: image reviewed by me, report reviewed by me (chest x- ray mainly shows bibasilar infiltrates that are better.) Assessment and Plan (1) Reticulonodular infiltrate present on imaging of chest Status: Acute Assessment and plan: The patient has diffuse reticular nodule infiltrates and the biopsies were negative for definite organism. Clinically he has been doing better. He certainly looks like he is breathing comfortably and his O2 saturations are better. His infiltrates are improving and overall his breathing is better. Current Visit: Yes (2) Kidney transplant recipient Status: Chronic Assessment and plan: The patient is on immunosuppressive therapy. His counts are on the low side and his medicines are being reduced. Overall he does appear stable. Current Visit: No (3) Altered mental status Status: Acute Assessment and plan: The patient apparently had a seizure on his EEG and is getting medications. He has not had any further seizures and is much more alert. Current Visit: Yes Qualifiers: Altered mental status type: delirium Qualified Code(s): R41.0 - Disorientation, unspecified (4) ARF (acute renal failure) Status: Acute Assessment and plan: He is doing better and his creatinine is down to 1.6. He has done fairly well with dialysis. Current Visit: Yes (5) Anemia Status: Acute Assessment and plan: His hematocrit is around 24 and stable. Current Visit: Yes (6) Critical illness myopathy Status: Acute Assessment and plan: The patient is extremely weak and is unable to use his arms and legs very well at all. He is starting physical therapy. Current Visit: Yes (7) Abscess of left leg Status: Acute Assessment and plan: He has a swollen left leg and looks like he may have a soft tissue infection. He is going for debridement today. Current Visit: Yes
[2016-09-16] MEDS ORDERED: FAMOTIDINE 20 MG/2 ML VIAL IV ONE (08:18)
[2016-09-16] MEDS ORDERED: ONDANSETRON 4 MG/2 ML VIAL ONE (08:28)
[2016-09-16] MEDS ORDERED: ROCURONIUM 100 MG/10 ML VIAL IV ONE (08:28)
[2016-09-16] MEDS ORDERED: PROPOFOL 200 MG/20 ML VIAL IV ONE (08:28)
[2016-09-16] MEDS ORDERED: LIDOCAINE 2% 5 ML VIAL ONE (08:28)
[2016-09-16] MEDS ORDERED: PHENYLEPHRINE 1 MG/10 ML SYRINGE IV ONE (08:28)
[2016-09-16] MEDS: INSULIN REGULAR 100 UNIT/ML SUBCUT SCH ×4 (08:31→21:38)
--- NOTE | 2016-09-16 08:32 | Nephrology Progress Note ---
Nephrology - PN: Subj Interval history: Mr. Mcmanus is seen in follow-up of his renal impairment. He dialyzed yesterday and is much less edematous. He'll be going the operating room today for irrigation of his left ankle which demonstrated no uric acid crystals on exam of the synovial fluid and did have over 100,000 white cells. He is awake . Chest Is clear. White blood cell count 2000 up from 1600 after decreasing the dose of CellCept. He remains quite ill. He continues on steroids in a lower dose which should be adequate for both the rejection of his kidney and to cover for the stress of his illness. Exam (PN)-Nephrology - Vital Signs Vital signs: Period Temp Pulse Resp BP Sys/Stewart Pulse Ox Last 24 Hr 98.1 F-99.0 F 102-130 18-34 96-127/53-82 91-100 - Lab 09/16/16 00:46 09/16/16 00:46 Most recent lab results ABG pH 7.409 (7.35-7.45) 09/11/16 03:10 ABG pCO2 35.0 MM HG (35-48) 09/11/16 03:10 ABG pO2 185.0 MM HG (80-95) H 09/11/16 03:10 ABG HCO3 22.6 MMOL/L (20-26) 09/11/16 03:10 ABG O2 Saturation 99.4 % (95-100) 09/11/16 03:10 Calcium 8.1 MG/DL (8.5-10.1) L 09/16/16 00:46 Phosphorus 6.7 MG/DL (2.5-4.9) H 09/10/16 02:50 Magnesium 2.0 MG/DL (1.8-2.4) 09/11/16 03:45 Assessment and Plan (1) Kidney transplant recipient Status: Chronic Current Visit: No (2) Chronic kidney disease, stage III (moderate) Status: Chronic Current Visit: Yes
[2016-09-16] MEDS ORDERED: ROPIVACAINE 0.5% 30 ML VIAL ONE (09:27)
--- NOTE | 2016-09-16 09:36 | Hospitalist Progress Note ---
Assessment and Plan (1) Chronic kidney disease, stage III (moderate) Status: Resolved Assessment and plan: elevated BUN, appreciate renal and there recommendations 09/08/16: His creatinine is staying fairly stable but his BUN and his continue to rise. He does have 3-4+ pitting edema. Despite him given albumin over the weekend he is developed more edema. He will began hemodialysis today. I discussed this with Dr. Zhang who states that he will only given approximately 2 hours as he does not want to drop his BUN to fast which can cause seizure. At this time I do appreciate nephrology for their input and assistance. We'll continue to monitor patient closely. Also have to monitor his blood pressure as he is running a little over side of normal and this could drop even further wants dialysis is initiated. 09/09/16:Steadily rise his BUN and and edema he did do approximately 2 hours of hemodialysis on yesterday. According to nephrology note they were unable to remove a significant amount of fluid given he more hypotensive. He will do dialysis again today. He also does feel has hyperkalemia and anemia which will be addressed during hemodialysis. Current Visit: Yes (2) Hyperglycemia, drug-induced Status: Acute Assessment and plan: hyperglycemia is likely related to steroids he is receiving we'll continue with sliding scale insulin. Current Visit: Yes (3) Hypoalbuminemia Status: Acute Assessment and plan: he will be started on albumin replacement as he does have some edema 09/04/16: currently receiving daily replacement Current Visit: Yes (4) Kidney transplant recipient Status: Chronic Current Visit: No (5) Anemia in CKD (chronic kidney disease) Status: Acute Assessment and plan: Plan is for him to receive 2 units of blood during dialysis today. Current Visit: Yes (6) Leukopenia Status: Acute Assessment and plan: This is acute I do agree with nephrology assessment this is likely due to his immunosuppressive medications that he takes for his renal cell transportation. Please level drawn and per nephrology's recommendations his dosages have been decreased. 09/16/16: improving after decreasing dosage of immunosuppressive medications Current Visit: Yes (7) Left ankle pain Status: Acute Assessment and plan: Given the warmth of the left ankle along with the swelling and being very tender to the touch I'm concerned that he likely has an acute gout flare. We' ll go ahead and give him a one-time dose of 125 of IV methylprednisolone as you are he is on daily prednisone. Will have to stay away from NSAIDs because he had a recent GI bleed and his underlying renal function. Also will continue to obtain a orthopedic consultation for possible aspiration to thin fluid to the lab for analyses. 09/15/16: still with pain and uric acid level isn't that elevated will start colchicine today with pharmacy to assist with dosing because of CKD 09/16/16: septic joint with abscess, going for surgery today and will await cultures Current Visit: Yes (8) Critical illness myopathy Status: Acute Assessment and plan: 09/15/16: will have PT to start working with. Current Visit: Yes Hospitalist: Subjective Interval history: Patient is stable and doing well off vent. Still with significant left ankle pain and has abscess Exam - Constitutional Vitals: Period Temp Pulse Resp BP Sys/Stewart Pulse Ox Last 24 Hr 98.1 F-99.0 F 102-130 18-34 96-127/53-82 91-100 General appearance: no acute distress Exam: middle age male who appears his age in NAD - Head Head exam: Present: normocephalic, atraumatic - Eye Eye exam: Present: EOMI - ENT ENT exam: Present: normal exam - Neck Neck exam: Present: normal inspection - Respiratory Respiratory exam: Present: clear to auscultation bilaterally - Cardiovascular Cardiovascular exam: Present: tachycardia - GI/Abdominal GI/Abdominal exam: Present: hypoactive bowel sounds, soft - Extremities Exam Extremities exam: Present: edema (pain and tenderness of left ankle) - Expanded Left Lower Ankle exam: Present: swelling, tenderness - Neurological Exam Neurological exam: Present: alert, oriented X3, CN II-XII intact - Psychiatric Psychiatric exam: Present: normal affect, normal mood - Skin Skin exam: Present: warm, intact Results - Labs CBC & BMP: 09/16/16 00:46 09/16/16 00:46
[2016-09-16] MEDS ORDERED: GLYCOPYRROLATE 0.4 MG/2 ML VIAL IV ONE (09:56)
[2016-09-16] MEDS ORDERED: GLYCOPYRROLATE 0.4 MG/2 ML VIAL ONE (09:58)
[2016-09-16] MEDS ORDERED: fentaNYL 100 MCG/2 ML VIAL ONE (11:04)
[2016-09-16] MEDS ORDERED: SEVOFLURANE 1 UNIT/15 MINUTE INH ONE (11:04)
[2016-09-16] MEDS ORDERED: MIDAZOLAM 2 MG/2 ML VIAL ONE (11:04)
[2016-09-16] MEDS: INSULIN GLARGINE 100 UNIT/ML SUBCUT SCH (11:13)
[2016-09-16] MEDS: BACITRACIN OPH OINT 3.5 GM TUBE BOTH EYES SCH ×2 (11:13→14:43)
--- NOTE | 2016-09-16 11:41 | Ophthalmology Progress Note ---
Assessment and Plan (1) Chemosis of conjunctiva of both eyes Problem details: The inferior conjunctiva is chemotic ou and some exposure/ drying is noted Status: Acute Assessment and plan: Minimal chemosis is noted today.... will decrease topical abx ointment to q day and PRN..... will recheck in 2 days Current Visit: Yes Opthalmology - PN: Subj Interval history: No interval change to eyes.... he is currently resting postop ankle debridement Ophthalmology Exam - Constitutional Vitals: Vital Signs Temp Pulse Resp BP Pulse Ox 97.6 F 131 H 21 122/71 97 09/16/16 11:05 09/16/16 11:05 09/16/16 11:05 09/16/16 11:05 09/16/16 11:05 Intake and Output 09/15/16 09/16/16 09/16/16 23:59 07:59 15:59 Intake Total 320 / 320 0 / 0 0 / 0 Output Total 1060 / 1060 370 / 370 0 / 0 Balance -740 / -740 -370 / -370 0 / 0 Intake: Oral 320 / 320 0 / 0 0 / 0 Output: Urine 1060 / 1060 370 / 370 Stool 0 / 0 0 / 0 Other: Voiding Method Indwelling Catheter Indwelling Catheter Indwelling Catheter # Bowel Movements 0 Weight 88.4 kg Patient Weight 09/16/16 23:59 Weight 88.4 kg - Expanded Eye Exam Eye Exam Eyelids: bilateral: normal inspection, other (Chemosis is stable at 1+ and no exposure) Results - Labs CBC & BMP: 09/16/16 00:46 09/16/16 00:46
[2016-09-16] MEDS: FUROSEMIDE 40 MG/4 ML VIAL IV SCH ×2 (12:16→17:33)
[2016-09-16] MEDS: DESITIN 4OZ/NYSTATIN 15 GRAM MIXTURE PASTE TOP SCH ×2 (12:48→21:39)
[2016-09-16] MEDS: CARVEDILOL 3.125 MG TABLET PO SCH ×3 (12:49→21:38)
[2016-09-16] MEDS: PANTOPRAZOLE 40 MG VIAL IV SCH ×2 (12:49→21:39)
[2016-09-16] MEDS: MYCOPHENOLATE MOFETIL 250 MG CAPSULE PO SCH ×2 (13:00→21:37)
[2016-09-16] MEDS: METOCLOPRAMIDE 10 MG/10 ML UDCUP PO SCH ×2 (13:01→21:44)
[2016-09-16] MEDS: TACROLIMUS 0.5 MG CAPSULE PO SCH ×2 (13:01→21:37)
[2016-09-16] MEDS: levETIRAcetam 500 MG TABLET PO SCH ×2 (13:01→21:38)
--- NOTE | 2016-09-16 15:11 | Anesthesia ---
Anesthesia Post OP - Post Ansesthetic Evaluation Patient seen in post op: Yes Resp: within normal limits CV: within normal limits Mental: within normal limits Temp: within normal limits Sxrb-Pp-Mriebvenk: within normal limits Nausea and Vomiting: within normal limits Pain: within normal limits
--- NOTE | 2016-09-16 15:43 | Neurology Progress Note ---
Neurology - PN : Subjective Interval history: Patient seems to be doing better neurologically. No more seizures reported. More alert and awake and tried to participate in therapy. Exam (Progress Note) - Constitutional Vitals: Period Temp Pulse Resp BP Sys/Stewart Pulse Ox Last 24 Hr 97.6 F-98.8 F 102-144 18-124 73-127/50-95 91-100 Exam: GENERAL: Patient is in no acute distress. NECK: Neck is supple. There is no JVD. No carotid bruits present. No thyroid masses. CVS: First and second heart sounds are normal. There is no S3 present. Regular rate and rhythm. RESPIRATORY: Lungs are clear to auscultation without any rales or rhonchi. ABDOMEN: Soft and non-tender. Bowel sounds are present. There is no hepatosplenomegaly. EXT: There is no palpable edema. Peripheral pulses are present. Skin: No rashes Central Nervous system: General: alert and awake Speech: Fluent Comprehension: Fair Facial expressions: Normal Cranial Nerves: Pupils are equally reactive to light. Extraocular movements are intact. No facial asymmetry seen. Visual estrada are equal. Tongue is midline. Motor: Bulk and Tone is normal. Strength symmetrical, moving all 4 extremities however very weakly . Sensory: Unreliable Reflexes: 1+ and symmetrical Cerebellar function: Slow [id number] testing Gait: Not Tested this time Results - Labs CBC & BMP: 09/16/16 00:46 09/16/16 00:46 Assessment and Plan (1) Altered mental status Status: Acute Assessment and plan: Patient has been seizure-free. Continue Keppra by mouth Probably will need long-term acute care placement Patient is stable neurologically. Signoff please call when necessary Current Visit: Yes Qualifiers: Altered mental status type: delirium Qualified Code(s): R41.0 - Disorientation, unspecified Specialty Discharge - Follow Up or Referrals Follow up with: Jm Chowdhury MD [Physician] - 1 Week (1 week after discharge)
[2016-09-16] MEDS: FOLIC ACID 1 MG TABLET PO SCH (16:23)
[2016-09-16] MEDS: ASPIRIN EC 81 MG TABLET PO SCH (16:23)
[2016-09-16] MEDS: predniSONE 20 MG TABLET PO SCH (16:23)
[2016-09-16] MEDS: SODIUM CHLORIDE 0.45% 1,000 ML IV SCH (17:17)
[2016-09-16] MEDS: ACETAMINOPHEN 325 MG TABLET PO PRN (20:20)
[2016-09-17] MEDS: ALBUTEROL/IPRATROPIUM 3 ML NEB RESP TX SCH ×3 (01:34→12:06)
[2016-09-17] MEDS: HYDROmorphone 2 MG/1 ML VIAL IV PRN ×2 (04:01→09:53)
[2016-09-17 04:54] LABS: Hematocrit 22.9 VOL% (42.0-52.0); Hemoglobin 7.1 GM/DL (14.0-18.0); Immature Granulocytes % 7.6 %; Immature Granulocytes Absolute 0.25 #; Lymphocytes # 0.2 10*3/uL (1.4-4.0); Lymphocytes % 6.7 % (21.2-54.2); Mean Corpuscular Hemoglobin 28 PG (27-34); Mean Corpuscular Volume 90.2 FL (87-102); Mean Platelet Volume 11.8 FL (9.6-12.0); Monocytes # 0.3 10*3/uL (0.11-0.8); Monocytes % 10.4 % (1.7-12.7); Neutrophils # 2.5 10*3/uL (1.4-7.4); Neutrophils % 75.3 % (38.7-73.9); Platelet Count 162 T/CUMM (130-400); Red Blood Count 2.54 MC/CUMM (3.8-5.5); Red Cell Distribution Width 15.8 % (9.3-17.3); White Blood Count 3.3 T/CUMM (4-12)
[2016-09-17 05:26] LABS: Band Neutrophils 4 % (0-10); Hypochromasia 1+; Lymphocytes 9 % (20-55); Platelet Estimate Normal; Segmented Neutrophils 73 % (50-85); Total Cells Counted 100
[2016-09-17 05:27] LABS: Microcytosis 1+; Ovalocytes Slight
[2016-09-17 05:31] LABS: Calcium 7.8 MG/DL (8.5-10.1); Magnesium 1.4 MG/DL (1.8-2.4); Osmolality,Calculated 298.7 MOS/KG (273-304)
[2016-09-17] MEDS: SODIUM CHLORIDE 0.45% 1,000 ML IV SCH ×2 (05:31→16:31)
--- NOTE | 2016-09-17 07:31 | Orthopedic Progress Note ---
Assessment and Plan (1) Abscess of left leg Status: Acute Assessment and plan: Itraoperatively, ankle joint did not appear to be infected. Recommend Tx for soft tissue abscess only. Cont IV Abx for abscess Daily packing changes to LLE WBAT LLE Current Visit: Yes Orthopedics - Subjective Interval history: No new c/o. Temp to 103 yesterday serous drainage, no purulence noted Exam - Constitutional Vitals: Period Temp Pulse Resp BP Sys/Stewart Pulse Ox Last 24 Hr 97.6 F-103.6 F 101-144 18-124 73-129/50-95 90-100 Results - Labs CBC & BMP: 09/17/16 04:06 09/17/16 04:06 Specialty Discharge - Follow Up or Referrals Follow up with: Jm Chowdhury MD [Physician] - 1 Week (1 week after discharge)
--- NOTE | 2016-09-17 08:20 | Nephrology Progress Note ---
Nephrology - PN: Subj Interval history: Mr. Mcmanus is seen in follow-up of his renal impairment with his kidney transplant. His creatinine yesterday was 1.6 and today is 1.7 sodium think he needs dialysis but he does still have edema we need to increase his Lasix. He is awake somewhat sleepy. He went to the operating room yesterday for opening up his ankle and Dr. Cr did not feel it was an infected joint and there were no uric acid crystals in the synovial fluid from earlier aspiration. He still has a significant anemia and needs 2 units packed red cells today. Blood pressure is much better at 150 systolic. We will plan transfusion today. We will increase his Lasix in order to handle some of this peripheral edema. He did have a fever and we worry about the dialysis catheter being the source of that. If it appears he doesn't need dialysis over the next one or 2 days then we can remove that dialysis catheter. Exam (PN)-Nephrology - Vital Signs Vital signs: Period Temp Pulse Resp BP Sys/Stewart Pulse Ox Last 24 Hr 97.6 F-103.6 F 101-144 18-124 73-135/50-95 90-100 - Lab 09/17/16 04:06 09/17/16 04:06 Most recent lab results ABG pH 7.409 (7.35-7.45) 09/11/16 03:10 ABG pCO2 35.0 MM HG (35-48) 09/11/16 03:10 ABG pO2 185.0 MM HG (80-95) H 09/11/16 03:10 ABG HCO3 22.6 MMOL/L (20-26) 09/11/16 03:10 ABG O2 Saturation 99.4 % (95-100) 09/11/16 03:10 Calcium 7.8 MG/DL (8.5-10.1) L 09/17/16 04:06 Phosphorus 6.7 MG/DL (2.5-4.9) H 09/10/16 02:50 Magnesium 1.4 MG/DL (1.8-2.4) L 09/17/16 04:06 Assessment and Plan (1) Kidney transplant recipient Status: Chronic Current Visit: No (2) Chronic kidney disease, stage III (moderate) Status: Chronic Current Visit: Yes Specialty Discharge - Follow Up or Referrals Follow up with: Jm Chowdhury MD [Physician] - 1 Week (1 week after discharge)
[2016-09-17] MEDS: INSULIN REGULAR 100 UNIT/ML SUBCUT SCH ×3 (08:31→17:58)
--- NOTE | 2016-09-17 08:52 | Pulmonology Progress Note ---
Pulmonary - PN: Subj Interval history: Patient is a 50-year-old black man that has had a previous kidney transplant and came in with diffuse infiltrates that worsened fairly quickly. He had to be put on the ventilator. We did get transbronchial biopsies but they're still pending. His been on multiple antibiotics and his chest x-ray has continued to improve over the past week. His oxygenation is better and his x-rays are markedly improved. He has continued to get better and looks quite comfortable now. He is on low-flow oxygen and says he's not that short of breath. He is more alert and talking clearly. 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 Yesterday he had his left lower leg explored and has some soft tissue infection. It apparently did not involve the joint. He did well with the surgery and he says he is breathing okay. His pain seems to be a little better. He is extremely weak but otherwise doing better. He can probably go to [facility] at any time. Exam (Progress Note) - Constitutional Vitals: Period Temp Pulse Resp BP Sys/Stewart Pulse Ox Last 24 Hr 97.6 F-103.6 F 101-144 18-124 73-138/50-95 90-100 Exam: General appearance: no distress, under weight, he is more alert and is talking clearly. He seems to be a little more comfortable. - Head Head exam: Present: normal inspection, normocephalic - Eye Eye exam: Present: EOMI. the sclerae edema is still present. The chemosis looks better. Pupils: Present: SELVIN - ENT ENT exam: Present: Has dry mucous membranes and intact cranial nerves . - Neck Neck exam: Present: tenderness. Absent: lymphadenopathy, thyromegaly - Respiratory Respiratory exam: Present: He has good breath sounds bilaterally and his lungs sound better with some minimal rhonchi present. Do sound clear today. - Cardiovascular Cardiovascular exam: Present: regular rate with no definite gallop. - GI/Abdominal GI/Abdominal exam: Present: soft. No tenderness or rebound. The anasarca is better. Absent: distended, organomegaly, tenderness - Extremities Exam Extremities exam: Present: He has less swelling of his extremities. His extremities are very weak. His left lower leg is wrapped. - Neurological Exam Neurological exam: Present: Patient is more alert and cooperative now. He is talking better today. - Psychiatric Psychiatric exam: Absent: agitated, anxious - Skin Skin exam: Present: warm, dry Results - Labs CBC & BMP: 09/17/16 04:06 09/17/16 04:06 Assessment and Plan (1) Reticulonodular infiltrate present on imaging of chest Status: Acute Assessment and plan: The patient has diffuse reticular nodule infiltrates and the biopsies were negative for definite organism. Clinically he has been doing better. He certainly looks like he is breathing comfortably and his O2 saturations are better. His chest x-ray does look a little better although he still has some infiltrates. Clinically he is doing much better. Current Visit: Yes (2) Kidney transplant recipient Status: Chronic Assessment and plan: The patient is on immunosuppressive therapy. His white count is up to 3300. His hematocrit around 23. His creatinine is 1.7. Current Visit: No (3) Altered mental status Status: Acute Assessment and plan: The patient apparently had a seizure on his EEG and is getting medications. He has not had any further seizures and is much more alert. He still is able to communicate fairly well. Current Visit: Yes Qualifiers: Altered mental status type: delirium Qualified Code(s): R41.0 - Disorientation, unspecified (4) ARF (acute renal failure) Status: Acute Assessment and plan: He is doing better and his creatinine is down to 1.7. He has done fairly well with dialysis. He may not need any further dialysis. Current Visit: Yes (5) Anemia Status: Acute Assessment and plan: His hematocrit is around 23 and stable. He ultimately will need transfusions again. Current Visit: Yes (6) Critical illness myopathy Status: Acute Assessment and plan: The patient is extremely weak and is unable to use his arms and legs very well at all. He is starting physical therapy. He looks like he'll be a good candidate for [facility]. Current Visit: Yes (7) Abscess of left leg Status: Acute Assessment and plan: He has a swollen left leg and looks like he may have a soft tissue infection. He had his leg debrided and is doing better. Current Visit: Yes Specialty Discharge - Follow Up or Referrals Follow up with: Jm Chowdhury MD [Physician] - 1 Week (1 week after discharge)
[2016-09-17] MEDS ORDERED: BACITRACIN OPH OINT 3.5 GM TUBE BOTH EYES SCH (09:00)
--- NOTE | 2016-09-17 09:12 | Hospitalist Progress Note ---
Assessment and Plan (1) Chronic kidney disease, stage III (moderate) Status: Chronic Assessment and plan: elevated BUN, appreciate renal and there recommendations 09/08/16: His creatinine is staying fairly stable but his BUN and his continue to rise. He does have 3-4+ pitting edema. Despite him given albumin over the weekend he is developed more edema. He will began hemodialysis today. I discussed this with Dr. Zhang who states that he will only given approximately 2 hours as he does not want to drop his BUN to fast which can cause seizure. At this time I do appreciate nephrology for their input and assistance. We'll continue to monitor patient closely. Also have to monitor his blood pressure as he is running a little over side of normal and this could drop even further wants dialysis is initiated. 09/09/16:Steadily rise his BUN and and edema he did do approximately 2 hours of hemodialysis on yesterday. According to nephrology note they were unable to remove a significant amount of fluid given he more hypotensive. He will do dialysis again today. He also does feel has hyperkalemia and anemia which will be addressed during hemodialysis. Current Visit: Yes (2) Hypoalbuminemia Status: Acute Assessment and plan: he will be started on albumin replacement as he does have some edema 09/04/16: currently receiving daily replacement Current Visit: Yes (3) Kidney transplant recipient Status: Chronic Current Visit: No (4) Anemia in CKD (chronic kidney disease) Status: Acute Assessment and plan: Plan is for him to receive 2 units of blood during dialysis today. Current Visit: Yes (5) Leukopenia Status: Acute Assessment and plan: This is acute I do agree with nephrology assessment this is likely due to his immunosuppressive medications that he takes for his renal cell transportation. Please level drawn and per nephrology's recommendations his dosages have been decreased. 09/16/16: improving after decreasing dosage of immunosuppressive medications Current Visit: Yes (6) Left ankle pain Status: Acute Assessment and plan: Given the warmth of the left ankle along with the swelling and being very tender to the touch I'm concerned that he likely has an acute gout flare. We' ll go ahead and give him a one-time dose of 125 of IV methylprednisolone as you are he is on daily prednisone. Will have to stay away from NSAIDs because he had a recent GI bleed and his underlying renal function. Also will continue to obtain a orthopedic consultation for possible aspiration to thin fluid to the lab for analyses. 09/15/16: still with pain and uric acid level isn't that elevated will start colchicine today with pharmacy to assist with dosing because of CKD 09/16/16: septic joint with abscess, going for surgery today and will await cultures Current Visit: Yes (7) Critical illness myopathy Status: Acute Assessment and plan: 09/15/16: will have PT to start working with. Current Visit: Yes (8) Tachycardia Status: Acute Assessment and plan: this is sinus and he doesn't appear volume depleted. He did have a fever yesterday so must rule out occult infection as no septic joint seen near soft tissue abscess that was I&D on yesterday. Current Visit: Yes Hospitalist: Subjective Interval history: Clinically patient is looking better filling pattern. He is still quite tachycardia he did have a temperature with a MAXIMUM TEMPERATURE of around 1030 yesterday. He had debridement of soft tissue abscess yesterday. At this time there is no other source is obvious for infection. He is on chronic immunosuppressive medications for renal transplant. Will repeat blood cultures continued care antibiotics for now. Pulmonology is status okay but the patient can be transferred to [facility] will see if this is okay with renal. Patient is remains afebrile hopefully we can get him to [facility] either later this afternoon or in the morning. Exam - Constitutional Vitals: Period Temp Pulse Resp BP Sys/Stewart Pulse Ox Last 24 Hr 97.6 F-103.6 F 101-144 18-124 73-138/50-95 90-100 General appearance: no acute distress - Head Head exam: Present: normocephalic, atraumatic - Eye Eye exam: Present: EOMI Pupils: Present: SELVIN - ENT ENT exam: Present: normal exam - Respiratory Respiratory exam: Present: clear to auscultation bilaterally - Cardiovascular Cardiovascular exam: Present: tachycardia - GI/Abdominal GI/Abdominal exam: Present: normal bowel sounds, soft - Extremities Exam Extremities exam: Present: edema - Neurological Exam Neurological exam: Present: alert, oriented X3, CN II-XII intact - Psychiatric Psychiatric exam: Present: normal affect, normal mood - Skin Skin exam: Present: warm, intact Results - Labs CBC & BMP: 09/17/16 04:06 09/17/16 04:06 Specialty Discharge - Follow Up or Referrals Follow up with: Jm Chowdhury MD [Physician] - 1 Week (1 week after discharge)
[2016-09-17] MEDS: CARVEDILOL 3.125 MG TABLET PO SCH (09:24)
[2016-09-17] MEDS ORDERED: FUROSEMIDE 40 MG/4 ML VIAL ONE (09:28)
[2016-09-17] MEDS ORDERED: CARVEDILOL 6.25 MG TABLET PO SCH (09:30)
[2016-09-17] MEDS: FUROSEMIDE 40 MG/4 ML VIAL IV SCH (09:37)
[2016-09-17] MEDS: levETIRAcetam 500 MG TABLET PO SCH (09:38)
[2016-09-17] MEDS: PANTOPRAZOLE 40 MG VIAL IV SCH (09:38)
[2016-09-17] MEDS: METOCLOPRAMIDE 10 MG/10 ML UDCUP PO SCH (09:38)
[2016-09-17] MEDS: predniSONE 20 MG TABLET PO SCH (09:38)
[2016-09-17] MEDS: FOLIC ACID 1 MG TABLET PO SCH (09:39)
[2016-09-17] MEDS: MYCOPHENOLATE MOFETIL 250 MG CAPSULE PO SCH (09:39)
[2016-09-17] MEDS: ASPIRIN EC 81 MG TABLET PO SCH (09:39)
[2016-09-17] MEDS: TACROLIMUS 0.5 MG CAPSULE PO SCH (09:40)
[2016-09-17] MEDS: DESITIN 4OZ/NYSTATIN 15 GRAM MIXTURE PASTE TOP SCH (09:40)
--- NOTE | 2016-09-17 14:53 | Discharge Summary ---
<Reena Daniels - Last Filed: 09/17/16 14:24> Hospital Course - Hospital Course Hospital Course: Mr. Mcmanus was admitted on 08/25/16 with acute renal failure, altered mental status, hyperkalemia, CKD stage 3 and hx of kidney transplant. Nephrology was consulted due to renal transplant with chronic renal failure. His creatinine was stable. Colchicine was started for left ankle pain that was consistent with gout. Uric acid was 6.4. Dr. Hal Neri was consulted for reticulonodular infiltrate. He was on antibiotics for atypical and viral coverage given his immunosuppression. Dr. Fisher was consulted for Cardiology for abnormal EKG. She did not feel that his changes were consistent with acute cardiac ischemia. He developed some delirium and Dr. King with Neurology was consulted. It was felt this was due to acute metabolic encephalopathy. His mental status improved back to baseline. CT head was negative. On 08/27, Dr. Hal Neri performed a Bronch with transbronchial biopsies. Bronchial washings were negative except for july for which he was started on diflucan for july of the lung. Blood cx's were negative. On 08/28, Mr. Mcmanus had worsening of hypoxia and progression of infiltrate. He was transferred to the unit. LDH was elevated consistent with pneumocystis pneumonia. On 08/28, he developed acute respiratory failure requiring intubation. Dr. Caldwell with General Surgery was consulted and saw on 08/29 for left pneumothorax and chest tube was placed on 08/29 without immediate complications. On 08/29, Dr. Caldwell also placed a right IJ triple lumen for access for sepsis and hypotension. Mr. Mcmanus developed metabolic acidosis- bicarb was started, and hypernatremia- free water added to tube feeds. On 08/29, he self extubated but had to be re-intubated. His albumin was low and he was started on albumin replacement as he was beginning to have anasarca. Opthamology was consulted and saw on 09/08 for chemosis of conjunctiva of both eyes. On 09/08 He had a dialysis line placed and dialysis was started that day. Seizure was noted on EEG and he was started on Keppra 500 mg IV q 12 hrs. He required several units of PRBC's while on dialysis. He did have some episodes of hypotension as well. - Time spent with patient Time with patient DS: Greater than 30 minutes (due to plan, doc and med rec.) Diagnosis - Discharge Diagnosis (1) Abnormal EKG Status: Acute (2) ARF (acute renal failure) Status: Acute (3) Altered mental status Status: Acute (4) Hyperkalemia Status: Acute (5) Chronic kidney disease, stage III (moderate) Status: Chronic (6) Kidney transplant recipient Status: Chronic Specialty Discharge - Follow Up or Referrals Follow up with: Jm Chowdhury MD [Physician] - 1 Week (1 week after discharge) Discharge Plan - Discharge Data Disposition: Disch/Xfer to Nursing Home [facility] - Discharge Medications New DAPTOmycin [Cubicin] 500 mg IV Q24H vial levETIRAcetam TAB [Keppra Tab] 500 mg PO BID tablet Continue Carvedilol [Coreg] 0.5 tablet PO BID Tacrolimus [Tacrolimus Cap] 4 tablet PO Q12H predniSONE TAB [PredniSONE] 10 mg PO DAILY Folic Acid Tab 1 mg PO DAILY Aspirin [Ecotrin] 81 mg PO DAILY Mycophenolate Mofetil Cap [Cellcept] 3 tablet PO Q12H Pantoprazole Tab [Protonix Tab] 40 mg PO BID amLODIPine [Norvasc] 10 mg PO DAILY HYDROcodone/ACETAMIN 10-325 [[place] 10-325] 1 tablet PO Q4H PRN PRN Reason: Pain Allopurinol 100 mg PO DAILY Magnesium Oxide [Magnesium] 500 mg PO DAILY Metoclopramide Liquid [Reglan Liquid] 5 ml PO BID - Follow Up or Referral Follow Up: Jm Chowdhury MD [Physician] - 1 Week (1 week after discharge) - Forms/Instructions Exam - Constitutional Vitals: Period Temp Pulse Resp BP Sys/Stewart Pulse Ox Last 24 Hr 98.6 F-103.6 F 101-135 14-124 92-138/48-85 90-100 Discharge Results Procedures and tests throughout hospitalization: Pending Orders 08/27/16 AFB Culture/Smears Routine Fungal Culture w/ Prep Routine 08/27/16 09:11 Cytology Request Routine 09/11/16 10:48 Occult Blood, Stool Routine 09/15/16 12:25 Body Fluid Cult and Gram Stain Routine 09/16/16 Abscess Culture Routine Abscess Culture Routine Anaerobic Culture Routine Anaerobic Culture Routine 09/17/16 10:17 Blood Culture Stat 09/18/16 04:00 Basic Metabolic Panel IN AM Comp Blood Count Auto Diff IN AM Labs on day of discharge: Labs from last 24 hours 09/17/16 09/17/16 09/17/16 Unknown 11:03 08:04 WBC RBC Hgb Hct MCV MCH MCHC RDW Plt Count MPV Neut % (Auto) Lymph % (Auto) [place] % (Auto) Eos % (Auto) Baso % (Auto) Neut # (Auto) Lymph # (Auto) [place] # (Auto) Eos # (Auto) Baso # (Auto) Total Counted Immature Gran % Nucleated RBC % Immature Gran # Segmented Neutrophils Band Neutrophils Lymphocytes Monocytes Nucleated RBCs # Platelet Estimate Hypochromasia Microcytosis Ovalocytes Morphology Comment Sodium Potassium Chloride Carbon Dioxide Anion Gap BUN Creatinine GFR Calculation BUN/Creatinine Ratio Glucose POC Glucose 149 H 119 H Calculated Osmolality Calcium Magnesium Blood Type B POSITIVE Antibody Screen Negative Crossmatch See Detail 09/17/16 09/17/16 09/16/16 04:06 04:06 19:21 WBC 3.3 L D RBC 2.54 L Hgb 7.1 L Hct 22.9 L MCV 90.2 MCH 28 MCHC 31.0 L RDW 15.8 Plt Count 162 MPV 11.8 Neut % (Auto) 75.3 H Lymph % (Auto) 6.7 L [place] % (Auto) 10.4 Eos % (Auto) 0.0 Baso % (Auto) 0.0 Neut # (Auto) 2.5 Lymph # (Auto) 0.2 L [place] # (Auto) 0.3 Eos # (Auto) 0.0 Baso # (Auto) 0.0 Total Counted 100 Immature Gran % 7.6 Nucleated RBC % 0.0 Immature Gran # 0.25 Segmented Neutrophils 73 Band Neutrophils 4 Lymphocytes 9 L Monocytes 14 Nucleated RBCs # 0.00 Platelet Estimate Normal Hypochromasia 1+ Microcytosis 1+ Ovalocytes Slight Morphology Comment Sodium 145 Potassium 4.0 Chloride 108 H Carbon Dioxide 25 Anion Gap 16.0 H BUN 44 H Creatinine 1.70 H GFR Calculation 65 BUN/Creatinine Ratio 25.00 H Glucose 106 POC Glucose 113 H Calculated Osmolality 298.7 Calcium 7.8 L Magnesium 1.4 L Blood Type Antibody Screen Crossmatch 09/16/16 09/16/16 16:27 11:13 WBC RBC Hgb Hct MCV MCH MCHC RDW Plt Count MPV Neut % (Auto) Lymph % (Auto) [place] % (Auto) Eos % (Auto) Baso % (Auto) Neut # (Auto) Lymph # (Auto) [place] # (Auto) Eos # (Auto) Baso # (Auto) Total Counted Immature Gran % Nucleated RBC % Immature Gran # Segmented Neutrophils Band Neutrophils Lymphocytes Monocytes Nucleated RBCs # Platelet Estimate Hypochromasia Microcytosis Ovalocytes Morphology Comment Sodium Potassium Chloride Carbon Dioxide Anion Gap BUN Creatinine GFR Calculation BUN/Creatinine Ratio Glucose POC Glucose 73 L 119 H Calculated Osmolality Calcium Magnesium Blood Type Antibody Screen Crossmatch Preliminary micro results at discharge 09/15/16 12:25 Body Fluid Culture - Preliminary Leg - Left No growth at 48 hours 09/16/16 Unknown Abscess Culture - Preliminary Ankle - Left No growth at 24 hours 09/16/16 Unknown Abscess Culture - Preliminary Ankle - Left No Growth at 24 hours. 08/27/16 Unknown Fungal Culture - Preliminary Bronchial Washings July albicans 08/27/16 Unknown Mycobacterial Culture - Preliminary Bronchial Washings No AFB isolated at 2 weeks DS: Provider Date of admission: 08/25/16 17:04 Primary care physician: Zachariah Leo Jr., MD Attending physician on admission: Milind Clifton MD Consults: 08/25/16 19:04 Consult to Dietitian [CONS] Routine Reason for Dietitian: Dietary Consult 08/25/16 19:33 Consult to Pharmacy [CONS] Routine Reason for Pharmacy Consult: Adjust Meds Renal Funct 08/25/16 20:10 Consult to Physician [CONS] Routine Comment: gout in renal transplant patient Consulting Provider: Julio Gregorio Consult to Specialist Group: Nephrology Person Notified: DR. CAMERON Consult Notification Comment: LEFT MESSAGE WITH OFFICE AT 0750 ON 08/26/16 08/29/16 08:32 Consult to Physician [CONS] Routine Comment: Stat chest tube for left pneumothorax Consulting Provider: Joseph Caldwell Consulting Provider Notified: Yes When should Consulting Provider be notified: In am Person Notified: Dr. Caldwell Date Notified: 08/29/16 Time Notified: 08:14 08/29/16 11:44 Consult to Dietitian [CONS] Routine Reason for Dietitian: TF-Initiate/Manage Consult Comment: Nepro 10 cc/hr, increase q8h as lilian. to goal of 30 cc/h, h2o flush 40 cc/4h 09/07/16 12:52 Consult to Physician [CONS] Routine Comment: Consulting Provider: Jm Chowdhury Person Notified: LM at office Date Notified: 09/07/16 Time Notified: 12:45 Consult Notification Comment: Dr. Aguayo left message with Doctor's office. Will try to call again when they get back from lunch. 09/12/16 18:20 Consult to Occupational Therapy [CONS] Routine Reason for Occupational Therapy: Evaluate and Treat Consult to Physical Therapy [CONS] Routine Reason for Physical Therapy: Evaluate and Treat 09/14/16 08:36 Consult to Physician [CONS] Routine Comment: Gout - left foot Consulting Provider: Otilio Cr When should Consulting Provider be notified: Now 09/16/16 17:22 Consult to Case Mgmt/Social Srvs [CONS] Routine Reason for Case Mgmt/Social Srvs: LTAC Discharging clinician: Reena Daniels NP Expected date of discharge: 09/17/16 <Maritza Shane - Last Filed: 09/17/16 15:02> Diagnosis - Discharge Diagnosis (1) Chronic kidney disease, stage III (moderate) Status: Chronic (2) Hypoalbuminemia Status: Acute (3) Kidney transplant recipient Status: Chronic (4) Anemia in CKD (chronic kidney disease) Status: Acute (5) Leukopenia Status: Acute (6) Left ankle pain Status: Acute (7) Critical illness myopathy Status: Acute (8) Tachycardia Status: Acute (9) Acute respiratory failure with hypoxemia Status: Acute (10) Pneumonia Status: Acute Discharge Plan - Discharge Data Condition at Discharge: Stable Discharge Diet: advance to your usual diet Activity: as per physical therapy Contact your physician if you experience:: fever over 101, Shortness of breath Exam - Constitutional General appearance: no acute distress - Head Head exam: Present: normocephalic, atraumatic - Eye Eye exam: Present: EOMI Pupils: Present: SELVIN - Respiratory Respiratory exam: Present: clear to auscultation bilaterally - Cardiovascular Cardiovascular exam: Present: tachycardia - GI/Abdominal GI/Abdominal exam: Present: normal bowel sounds, soft - Neurological Exam Neurological exam: Present: alert, oriented X3, CN II-XII intact - Psychiatric Psychiatric exam: Present: normal affect, normal mood - Skin Skin exam: Present: warm, dry
[2016-09-17] MEDS ORDERED: FUROSEMIDE 40 MG/4 ML VIAL IV SCH (16:00)
[2016-09-17] MEDS: ACETAMINOPHEN/CODEINE 120-12 MG/5 ML 12.5 ML UDCUP PO PRN (16:30)
[2016-09-17 18:10] VITALS: BP 115/79
== END 2016-09-17 19:10 | DRG 166 ==
LOC: N.ED 15:36 → N.EDINP 17:04 → SUATTDRO 17:04 → N.EDINP 18:15 → N.TELEN 19:05 → N.CC 08-28 08:27
PROVIDERS: ADMIT Internal Medicine
PROC: BRONCHB (2016-08-27 08:50)

== ENCOUNTER 2016-11-25 11:36 | Inpatient (IN) ==
[2016-11-25 13:12] LABS: Basophils % 0.1 % (0.0-0.8); Eosinophils % 0.1 % (0.00-10.9); Hematocrit 27.5 VOL% (42.0-52.0); Hemoglobin 8.4 GM/DL (14.0-18.0); Immature Granulocytes % 7.8 %; Immature Granulocytes Absolute 1.41 #; Lymphocytes # 1.3 10*3/uL (1.4-4.0); Lymphocytes % 7.1 % (21.2-54.2); Mean Corpuscular HGB Conc 30.5 GM/DL (32-36); Mean Corpuscular Hemoglobin 25 PG (27-34); Mean Corpuscular Volume 82.1 FL (87-102); Monocytes # 0.4 10*3/uL (0.11-0.8); Neutrophils # 15.1 10*3/uL (1.4-7.4); Neutrophils % 82.9 % (38.7-73.9); Platelet Count 485 T/CUMM (130-400); Red Blood Count 3.35 MC/CUMM (3.8-5.5); Red Cell Distribution Width 16.4 % (9.3-17.3); White Blood Count 18.2 T/CUMM (4-12)
--- NOTE | 2016-11-25 13:30 | XRay Report ---
XR chest 1V portable Indication: Cough. Fatigue. Decreased appetite. Comparison: Chest x-ray 11/02/2016 Technique: Portable AP chest was performed. Findings: Lung parenchyma bilaterally demonstrates some interval worsening of nodular airspace disease which is diffusely distributed throughout the lung parenchyma with a mid to lower lung predominance. Heart size and mediastinal contours are stable. Bones and soft tissues appear stable. Right-sided IJ catheter has been removed. Impression: 1. Minimal interval worsening of bilateral nodular somewhat confluent airspace disease most prevalent within the mid to lower chest. 11/25/2016 1:27 PM PROCEDURE INTERPRETED AT [facility] DEPARTMENT OF RADIOLOGY Final Report Signed by: Dr. Jason Case
[2016-11-25 13:32] LABS: Band Neutrophils 3 % (0-10); Lymphocytes 1 % (20-55); Platelet Estimate Increased; Segmented Neutrophils 92 % (50-85); Total Cells Counted 100
[2016-11-25 13:33] LABS: Hypochromasia 1+; Microcytosis 1+
[2016-11-25 13:47] LABS: Alanine Aminotransferase 33 U/L (16-61); Albumin 1.8 G/DL (3.4-5.0); Alkaline Phosphatase 177 U/L (45-117); Aspartate Amino Transferase 36 U/L (0-37); Bilirubin,Total < 0.39 MG/DL (0.2-1.0); Blood Urea Nitrogen 65 MG/DL (7-18); Calcium 10.1 MG/DL (8.5-10.1); Glucose 129 MG/DL (74-106); Osmolality,Calculated 288.2 MOS/KG (273-304); Potassium 5.1 MMOL/L (3.5-5.1); Sodium 134 MMOL/L (136-145); Total Protein 5.8 G/DL (6.4-8.3)
[2016-11-25 13:55] LABS: Apearance,Urine Slightly Hazy (Clear); Bilirubin,Urine Negative (Negative); Blood, Urine Negative (Negative); Glucose,Urine (UA) Negative (Negative); Ketones,Urine Negative (Negative); Mucus,Urine Occasional /LPF (Occasional); Nitrite,Urine Negative (Negative); Protein,Urine Negative; RBC,Urine 1 /HPF (0-4); Urine Color Yellow (Yellow); Urine Specific Gravity 1.016 (1.001-1.035); Urine Urobilinogen < 2.0 EU/DL (0.2-1.0); WBC,Urine 2 /HPF (0-6)
--- NOTE | 2016-11-25 14:18 | Emergency Department Note ---
Arrival - Arrival Chief Complaint: Skin Rash Stated Complaint: i got sick this morning ED Nursing Triage Note: Patient states that he got sick this morning, EMT states that he was sent to have a Rash evaluated, The paper work sent with the patient states that he was sent to be evaluated for low O2 saturation and evalution of decrease appetite Mode of Arrival: Stretcher Source: Patient Time Seen by Provider: 11/25/16 11:55 - History of Present Illness HPI Narrative: 50 y/o black male presents to the ER complaining of decreased appetite, generalized weakness, low grade fever, low O2 sats, nasal congestion and rash. Symptoms started 3 days ago. [facility] patient has had a decreased appetite and weakness for the past three day. August 2016 patient was admitted for pneumonia and respiratory failures. He was placed on the ventilator and in ICU for 2 months. He was just discharged to [facility] 3 weeks ago. Also, being followed by Dr. Sanchez for left foot wounds and cellulitis to left lower ext. [facility] patient was started on Megace on and he developed a rash soon after starting medication. Megace was discontinued. Past medical history significant for cellulitis, immunocompromised , GERD, Kidney Transplant x 2, seizures, and depression. Primary Care Physician: Dr. Barroso Onset (ago): day(s) (3) Severity: mild Allergies/Adverse Reactions: Allergies Allergy/AdvReac Type Severity Reaction Status Date / Time No Known Allergies Allergy Verified 08/11/16 22:05 Home Medications: Home Medications Medication Instructions Recorded Confirmed Type Aspirin [Ecotrin] 81 mg PO DAILY 05/16/16 11/25/16 History Carvedilol [Coreg] 12.5 mg PO BID 05/16/16 11/25/16 History Mycophenolate Mofetil Cap 500 mg PO Q12H 05/16/16 11/25/16 History [Cellcept] Tacrolimus [Tacrolimus Cap] 2 mg PO Q12H 05/16/16 11/25/16 History predniSONE TAB [PredniSONE] 10 mg PO DAILY 05/16/16 11/25/16 History Acetaminophen 650 mg PO Q6HR PRN 11/25/16 11/25/16 History Albuterol/Ipratropium Neb [Duoneb] 3 mg INH Q6HR PRN 11/25/16 11/25/16 History Amoxicillin 500 mg PO Q6HR 11/25/16 11/25/16 History Ampicillin Cap 500 mg PO Q6H 11/25/16 11/26/16 History Famotidine Tab [Pepcid Tab] 40 mg PO DAILY 11/25/16 11/25/16 History Folic Acid Tab 1 mg PO DAILY 11/25/16 11/25/16 History Gabapentin 200 mg PO BEDTIME 11/25/16 11/25/16 History HYDROcodone/ACETAMIN 7.5-325 7.5 mg PO Q6HR 11/25/16 11/25/16 History [[place] 7.5-325] Lactulose 30 ml PO Q12HR 11/25/16 11/25/16 History Loratadine [Claritin] 10 mg PO DAILY 11/25/16 11/25/16 History Petrolatum,White [Desitin 1 strip TOP DAILY 11/25/16 11/25/16 History Multi-Purpose] Sertraline [Zoloft] 25 mg PO BEDTIME 11/25/16 11/25/16 History levETIRAcetam [Keppra] 250 mg PO DAILY 11/25/16 11/25/16 History Review of System - Review of System 12 point system: reviewed and no additional remarkable complaints except as stated - Review of System Constitutional: Present: fever, weakness Respiratory: Present: other (nasal congestion ) Gastrointestinal: Present: other (decreased appetite ) Skin: Present: rash Medical,Surgical,& Family Hx - Medical History Cardio: History of: Hypertension Psychological: No history of: Anxiety Disorders, Bipolar Disorder, Depression, Schizophrenia Neurology: No history of: Seizures HEENT: History of: Eye Problem (previous retinal tear RIGHT) Rheumatology: History of;: Gout Respiratory: History of: Intubation (currently intubated, for trach placement today), Pneumonia Renal: History of: Renal Failure, Renal Problems (Kidney transplant - 09/15) No history of: Dialysis (had to have several dialysis treatments recently. cath has now been removed) Gastrointestinal: History of: GERD, Gastrointestinal Bleed, GI Problems (peg tube) Hematology: History of: Anemia No history of: Blood Transfusion Reaction Reproductive: No histroy: Reproductive Cancer Other: No history of: Anesthesia Reactions, HIV - Surgical History Cardiac Surgeries: Sugical HX of: Cardiac Catheterization (negative, done in 2008) Thoracic Surgeries: Surgical HX of;: Kidney (Renal Surgery) (transplant 2013), Organ Transplant (KIDNEY) Neurologic Surgeries: Patient denies: Neurologic Surgery HEENT Surgeries: Surgical HX of: Tonsilectomy & Adenoidectomy Patient denies: Eye Surgery Abdominal Surgeries: Surgical HX of: Abdominal Surgery (PD catheter placed and removed (Removed 2013)), Cholecystectomy, EGD Orthopedic Surgeries: Patient denies;: Orthopedic Surgery - Family History Family History: Reports;: Family Diabetes (MOM AND BROTHER), Family Hypertension (MOM AND BROTHER) Denies;: Family Anesthesia Reaction, Family Cancer, Family Heart Disease, Family Psychiatric Problems, Family Stroke - Social History Smoking Status: Former smoker Exam Vital Signs: Vital Signs Temperature 95.9 F L 11/28/16 15:13 Pulse Rate 104 H 11/28/16 15:13 Respiratory Rate 28 H 11/28/16 15:13 Blood Pressure 88/62 11/28/16 15:13 O2 Sat by Pulse Oximetry 98 11/28/16 15:13 - General General appearance: alert, in no apparent distress - ENT ENT exam: Present: normal exam, normal oropharynx, mucous membranes moist - Chest Chest inspection: Present: normal inspection - Respiratory Respiratory exam: Present: normal lung sounds bilaterally - Cardiovascular Cardiovascular exam: Present: normal rhythm, tachycardia, normal heart sounds - Abdominal Exam Abdominal exam: Present: soft, normal bowel sounds. Absent: tenderness - Extremities Exam Extremities exam: Present: normal inspection, full ROM - Neurological Exam Neurological exam: Present: alert, oriented X3 - Psychiatric Psychiatric exam: Present: normal affect, normal mood - Skin Skin exam: Present: warm, dry, other (diffuse maculopapular rash ) Course - Consultations Consultation #1: Hospitalist Time: 14:50 (Discussed case with Hospitalist. Will admit patient. ) Results - Labs CBC & BMP: 11/28/16 04:00 11/28/16 04:00 Lab Results: I have reviewed the patients labs - Diagnostic Findings Procedure: Chest x-ray: image reviewed by me, report reviewed by me (minimal worsening of bilateral nodular confluent airspace disease ) Disposition Clinical Impression: Pneumonia, Renal insufficiency Disposition: Still a Patient
[2016-11-25] MEDS ORDERED: SODIUM CHLORIDE 0.9% 1,000 ML IV STA (14:32)
[2016-11-25] MEDS ORDERED: cefTRIAXone 1,000 MG in SODIUM CHLORIDE 0.9% 100 ML IV STA (14:40)
[2016-11-25] MEDS ORDERED: AZITHROMYCIN INJ 500 MG in SODIUM CHLORIDE 0.9% 250 ML IV STA (14:40)
[2016-11-25] MEDS ORDERED: cefTRIAXone 1,000 MG VIAL ONE (14:46)
--- NOTE | 2016-11-25 15:35 | Hospitalist History & Physical ---
Assessment and Plan (1) Dehydration Status: Acute Assessment and plan: Patient's clinical examination and laboratory data suggests significant and severe volume contraction. Patient has been undergoing oral feeding in rehab with no use of the PEG tube required. There is been no nausea no vomiting and no diarrhea by report. There appears to be a mix of chronic renal dysfunction associated with prerenal azotemia at this time. Current Visit: No (2) Kidney transplant recipient Status: Chronic Assessment and plan: Patient has been maintained on chronic immunosuppressive therapy with an episode of possible pneumocystis pneumonia precipitating a course of mechanical ventilation August and September 2016 Current Visit: No (3) Left ankle pain Status: Chronic Assessment and plan: The patient has severe bilateral hypesthesia possibly associated with a critical -care neuropathy with superimposed inflammatory changes in the left ankle with superficial nonhealing wounds of the left ankle. Current Visit: No Qualifiers: Chronicity: acute Qualified Code(s): M25.572 - Pain in left ankle and joints of left foot (4) Left ankle pain Status: Acute Current Visit: No History of Present Illness History of present illness: Mr. Mcmanus is a 50 year old male who was admitted in August of this year with renal insufficiency, altered mental status, and nodular changes on chest x- ray. He is 3 years status post renal transplantation after a brief period of peritoneal dialysis for apparent hypertensive nephropathy. He is chronically maintained on immunosuppression. His August hospitalization was approximately 1 month in duration with patient requiring intubation and mechanical ventilation for progressive respiratory failure. He had a PEG tube placed and required a tracheostomy. During the stay he had a bronchoscopy performed and the results is recorded on the chart apparently showed only a fungal growth. Radiographically it appears as though he had potential pneumocystis pneumonia. The family was told that he had ARDS. At discharge he was sent to rehab where he has been subsequently. He was brought to the emergency room with complaints of pain in the legs bilaterally weakness apparently anorexia and perhaps low- grade fever. The patient did have an episode of possible gout during his acute hospitalization earlier this year and required a surgical intervention to the left ankle performed by Dr. Sanchez with subsequent office follow-up including as recently as last week. The family believes a new antibiotic was initiated at that time but did not know the name of the drug. Patient presents at this time with the above complaints. His laboratory shows a increase in his serum creatinine level compared to discharge. There is a disproportionate increase in his BUN. His hemoglobin has improved to 8.4 but white count is 18,200. He has had progressive rise in his serum calcium level which when corrected for an albumin of 1.8 is approximately 12.3. His urinalysis is benign which in association with a rising calcium level and increased BUN/creatinine ratio supports a strong prerenal component as confirmed by physical exam. His chest x-ray shows bilateral asymmetric multinodular disease similar to the last x-ray in September available here. Home Medications Medication Instructions Recorded Confirmed Type Aspirin [Ecotrin] 81 mg PO DAILY 05/16/16 08/25/16 History Carvedilol [Coreg] 0.5 tablet PO BID 05/16/16 08/25/16 History Folic Acid Tab 1 mg PO DAILY 05/16/16 08/25/16 History Mycophenolate Mofetil Cap 3 tablet PO Q12H 05/16/16 08/25/16 History [Cellcept] Pantoprazole Tab [Protonix Tab] 40 mg PO BID 05/16/16 08/25/16 History Tacrolimus [Tacrolimus Cap] 4 tablet PO Q12H 05/16/16 08/25/16 History predniSONE TAB [PredniSONE] 10 mg PO DAILY 05/16/16 08/25/16 History amLODIPine [Norvasc] 10 mg PO DAILY 06/01/16 08/25/16 History Allopurinol 100 mg PO DAILY 08/25/16 08/25/16 History HYDROcodone/ACETAMIN 10-325 [[place] 1 tablet PO Q4H PRN 08/25/16 08/25/16 History 10-325] Magnesium Oxide [Magnesium] 500 mg PO DAILY 08/25/16 08/25/16 History Metoclopramide Liquid [Reglan 5 ml PO BID 08/25/16 08/25/16 History Liquid] DAPTOmycin [Cubicin] 500 mg IV Q24H vial 09/17/16 Rx levETIRAcetam TAB [Keppra Tab] 500 mg PO BID tablet 09/17/16 Rx Allergies Allergy/AdvReac Type Severity Reaction Status Date / Time No Known Allergies Allergy Verified 08/11/16 22:05 Medical,Surgical,& Family Hx - Medical History Cardio: History of: Hypertension Psychological: History of: Depression Neurology: History of: Seizures (Abnormal EEG on last admission with initiation of antiseizure medication) HEENT: History of: Eye Problem (previous retinal tear RIGHT) Rheumatology: History of;: Gout (Arthrocentesis on last admission was felt consistent with gout ) Respiratory: History of: Intubation (Patient required prolonged intubation and tracheostomy during last hospital), Pneumonia (Possible pneumocystis pneumonia/ ARDS) Renal: History of: Renal Problems (Kidney transplant - 09/15) Gastrointestinal: History of: GERD, Gastrointestinal Bleed Hematology: History of: Anemia Other: No history of: HIV - Surgical History Cardiac Surgeries: Sugical HX of: Cardiac Catheterization (negative, done in 2008) Thoracic Surgeries: Surgical HX of;: Kidney (Renal Surgery) (transplant 2013) HEENT Surgeries: Surgical HX of: Tonsilectomy & Adenoidectomy Abdominal Surgeries: Surgical HX of: Cholecystectomy Orthopedic Surgeries: Surgical HX of;: Orthopedic Surgery - Family History Family History: Reports;: Family Diabetes (MOM AND BROTHER), Family Hypertension (MOM AND BROTHER) Denies;: Family Anesthesia Reaction, Family Cancer, Family Heart Disease, Family Psychiatric Problems, Family Stroke - Social History Smoking Status: Former smoker - Constitutional Constitutional: Present: fever(s), lethargy, weakness - Cardiovascular Cardiovascular: Absent: chest pain at rest, chest pain with activity, dyspnea, edema - Respiratory Respiratory: Absent: cough, hemoptysis - Gastrointestinal Gastrointestinal: Absent: abdominal pain, bloating, dysphagia, hematemesis, hematochezia, melena - Genitourinary Genitourinary: Absent: difficulty urinating, hematuria - Neurological Neurological: Absent: convulsions, syncope Exam - Constitutional General appearance: under weight - Head Head exam: Present: normal inspection - Neck Neck exam: Absent: lymphadenopathy, thyromegaly - Respiratory Respiratory exam: Present: clear to auscultation bilaterally (Low tidal volume) . Absent: rales, rhonchi, wheezes - Cardiovascular Cardiovascular exam: Present: regular rate and rhythm - GI/Abdominal GI/Abdominal exam: Present: normal bowel sounds. Absent: ascites, distended, organomegaly, tenderness - Extremities Exam Extremities exam: Present: other (Open wounds left ankle, severe hypesthesia bilaterally). Absent: edema - Neurological Exam Neurological exam: Present: alert, oriented X3 - Psychiatric Psychiatric exam: Present: depressed Results - Labs CBC & BMP: 11/25/16 12:51 11/25/16 12:51 Labs: Albumin 1.8 corrected calcium 12.3 Alkaline phosphatase 177 Urinalysis benign sediment - Diagnostic Findings Procedure: Chest x-ray: image reviewed by me (Normal heart size bilateral nodular infiltrates roughly stable compared to September 2016)
[2016-11-25] MEDS ORDERED: DAPTOmycin 500 MG VIAL IV SCH (16:01)
[2016-11-25] MEDS ORDERED: ENOXAPARIN 40 MG/0.4 ML SYRINGE SUBCUT SCH (16:01)
[2016-11-25] MEDS: MYCOPHENOLATE MOFETIL 250 MG CAPSULE PO SCH (16:24)
[2016-11-25] MEDS: TACROLIMUS 0.5 MG CAPSULE PO SCH (16:24)
[2016-11-25] MEDS: LACTATED RINGERS 1,000 ML IV SCH ×2 (16:25→23:05)
--- NOTE | 2016-11-25 17:52 | Nephrology Consult Note ---
History of Present Illness Chief complaint: renal transplant, CRF History of present illness: Mr. Mcmanus is a 50 year old male admitted with a three-day history of decreased appetite, weakness, and rash. He was recently started on Megace for anorexia. He is a renal transplant recipient in 2013. Baseline creatinine is been between 1.5 and 2 recently. BUN and creatinine were noted to be higher at the time of this presentation. By mouth intake has been poor. He has nausea or vomiting. He's had no diarrhea. He denies fever or chills. He's had no dysuria Home Medications Medication Instructions Recorded Confirmed Type Aspirin [Ecotrin] 81 mg PO DAILY 05/16/16 08/25/16 History Carvedilol [Coreg] 0.5 tablet PO BID 05/16/16 08/25/16 History Folic Acid Tab 1 mg PO DAILY 05/16/16 08/25/16 History Mycophenolate Mofetil Cap 3 tablet PO Q12H 05/16/16 08/25/16 History [Cellcept] Pantoprazole Tab [Protonix Tab] 40 mg PO BID 05/16/16 08/25/16 History Tacrolimus [Tacrolimus Cap] 4 tablet PO Q12H 05/16/16 08/25/16 History predniSONE TAB [PredniSONE] 10 mg PO DAILY 05/16/16 08/25/16 History amLODIPine [Norvasc] 10 mg PO DAILY 06/01/16 08/25/16 History Allopurinol 100 mg PO DAILY 08/25/16 08/25/16 History HYDROcodone/ACETAMIN 10-325 [[place] 1 tablet PO Q4H PRN 08/25/16 08/25/16 History 10-325] Magnesium Oxide [Magnesium] 500 mg PO DAILY 08/25/16 08/25/16 History Metoclopramide Liquid [Reglan 5 ml PO BID 08/25/16 08/25/16 History Liquid] DAPTOmycin [Cubicin] 500 mg IV Q24H vial 09/17/16 Rx levETIRAcetam TAB [Keppra Tab] 500 mg PO BID tablet 09/17/16 Rx Allergies Allergy/AdvReac Type Severity Reaction Status Date / Time No Known Allergies Allergy Verified 08/11/16 22:05 Medical,Surgical,& Family Hx - Medical History Cardio: History of: Hypertension Psychological: History of: Depression No history of: Anxiety Disorders, Bipolar Disorder, Schizophrenia Neurology: History of: Seizures (Abnormal EEG on last admission with initiation of antiseizure medication) HEENT: History of: Eye Problem (previous retinal tear RIGHT) Rheumatology: History of;: Gout (Arthrocentesis on last admission was felt consistent with gout ) Respiratory: History of: Intubation (Patient required prolonged intubation and tracheostomy during last hospital), Pneumonia (Possible pneumocystis pneumonia/ ARDS) Renal: History of: Renal Failure, Renal Problems (Kidney transplant - 09/15) No history of: Dialysis (had to have several dialysis treatments recently. cath has now been removed) Gastrointestinal: History of: GERD, Gastrointestinal Bleed, GI Problems (peg tube) Hematology: History of: Anemia No history of: Blood Transfusion Reaction Reproductive: No histroy: Reproductive Cancer Other: History of: Skin Problems (rash and open wounds on left foot s/p surgery) No history of: Anesthesia Reactions, HIV - Surgical History Cardiac Surgeries: Sugical HX of: Cardiac Catheterization (negative, done in 2008) Thoracic Surgeries: Surgical HX of;: Kidney (Renal Surgery) (transplant 2013), Organ Transplant (KIDNEY) Neurologic Surgeries: Patient denies: Neurologic Surgery HEENT Surgeries: Surgical HX of: Tonsilectomy & Adenoidectomy Patient denies: Eye Surgery Abdominal Surgeries: Surgical HX of: Abdominal Surgery (PD catheter placed and removed (Removed 2013)), Cholecystectomy, EGD Orthopedic Surgeries: Surgical HX of;: Orthopedic Surgery - Family History Family History: Reports;: Family Diabetes (MOM AND BROTHER), Family Hypertension (MOM AND BROTHER) Denies;: Family Anesthesia Reaction, Family Cancer, Family Heart Disease, Family Psychiatric Problems, Family Stroke - Social History Smoking Status: Former smoker Frequency of Alcohol Use: None Type of Drug Use: None Review of Systems 12 point system: reviewed and no additional remarkable complaints except as stated Exam - Vital Signs Vital signs: Period Temp Pulse Resp BP Sys/Stewart Pulse Ox Last 24 Hr 97.4 F 107 20 105/70 94 Exam: Gen.: Alert and oriented x3. ENT: Pupils equal round reactive to light. EOMs intact. Mucous membranes dry. Neck: Supple. Tracheostomy present Cardiovascular: Regular rate and rhythm. No murmur rub or gallop Lungs: Clear Abdomen: Soft. Nontender. Positive bowel sounds. No organomegaly Extremities: 1+ edema. Poorly healing wounds on both feet but Results - Labs CBC & BMP: 11/25/16 12:51 11/25/16 12:51 Assessment and Plan (1) Chronic kidney disease, stage III (moderate) Status: Chronic Assessment and plan: 50-year-old man admitted with: * Renal transplant * CRF 3. Agree that he is volume depleted. Continue IV fluid * Anorexia * Diabetes mellitus * Peripheral vascular disease Current Visit: No (2) Peripheral vascular disease Status: Acute Current Visit: Yes (3) Diabetes mellitus Status: Acute Current Visit: No Qualifiers: Diabetes mellitus type: type 1 Diabetes mellitus complication status: with kidney complications (4) Malaise and fatigue Status: Acute Current Visit: No (5) Hypertension Status: Chronic Current Visit: No Qualifiers: Hypertension type: essential hypertension Qualified Code(s): I10 - Essential (primary) hypertension (6) Kidney transplant recipient Status: Chronic Current Visit: No
[2016-11-25] MEDS: BACITRACIN OINT 0.9 GM PACK TOP SCH (18:25)
[2016-11-25] MEDS: levETIRAcetam 500 MG TABLET PO SCH (20:45)
[2016-11-25] MEDS: CARVEDILOL 12.5 MG TABLET PO SCH (20:45)
[2016-11-25] MEDS ORDERED: PANTOPRAZOLE 40 MG TABLET PO SCH (21:00)
[2016-11-26] MEDS: MYCOPHENOLATE MOFETIL 250 MG CAPSULE PO SCH ×2 (04:55→15:43)
[2016-11-26] MEDS: TACROLIMUS 0.5 MG CAPSULE PO SCH ×2 (04:56→15:43)
[2016-11-26 05:46] LABS: Basophils % 0.1 % (0.0-0.8); Hematocrit 25.5 VOL% (42.0-52.0); Hemoglobin 7.9 GM/DL (14.0-18.0); Immature Granulocytes % 6.1 %; Immature Granulocytes Absolute 1.02 #; Lymphocytes # 1.7 10*3/uL (1.4-4.0); Lymphocytes % 10.3 % (21.2-54.2); Mean Corpuscular Hemoglobin 25 PG (27-34); Mean Corpuscular Volume 80.7 FL (87-102); Mean Platelet Volume 9.9 FL (9.6-12.0); Monocytes # 0.3 10*3/uL (0.11-0.8); Monocytes % 1.8 % (1.7-12.7); Neutrophils # 13.6 10*3/uL (1.4-7.4); Neutrophils % 81.7 % (38.7-73.9); Platelet Count 430 T/CUMM (130-400); Red Blood Count 3.16 MC/CUMM (3.8-5.5); Red Cell Distribution Width 16.3 % (9.3-17.3); White Blood Count 16.7 T/CUMM (4-12)
[2016-11-26 06:14] LABS: Hypochromasia 1+; Lymphocytes 6 % (20-55); Platelet Estimate Adequate; Segmented Neutrophils 91 % (50-85); Total Cells Counted 100
[2016-11-26 06:15] LABS: Microcytosis 1+; Ovalocytes Slight
[2016-11-26 06:20] LABS: Calcium 9.7 MG/DL (8.5-10.1); Potassium 5.1 MMOL/L (3.5-5.1)
[2016-11-26] MEDS: LACTATED RINGERS 1,000 ML IV SCH ×3 (06:31→20:42)
--- NOTE | 2016-11-26 06:47 | Physician Query Form ---
CLICK EDIT DOCUMENT TO SELECT QUERY ANSWER --> OK --> SIGN Aurea Case RN, CCDS Certified Clinical Leaflet Or Newspaper Deliverer W) [phone] (f) [phone] [email or web address]: Make your selection(s) from the choices in EACH section by typing an "x" and enter comments in the comment section. Please use your independent medical judgment in providing your response. This request does not imply that any particular answer is desired or expected. CLINICAL INDICATORS: (Providers should not edit this section) The medical record indicates that the patient was admitted with dehydration, "Baseline creatinine is been between 1.5 and 2 recently", "creatinine were noted to be higher at the time of this presentation", Creatinine of 2.30/ BUN of 38# and the patient was treated with a bolus of IVF's; then fluids at a set rate. Clarify which of the following most accurately represents the patient's renal status: ( ) Acute kidney injury (non-traumatic) ( ) Acute renal failure ( ) Acute renal failure with underlying Chronic Kidney Disease (CKD) - please provide stage below ( ) Acute renal failure with pathological renal lesion ( ) Acute renal failure with necrosis ( ) tubular ( ) medullary ( ) cortical ( ) CKD - please provide stage below ( x) Other, please specify: ( ) Clinically unable to determine COMMENTS:Chronic renal transplant with prerenal azotemia Use of terms such as suspected, likely, or probable (associated with a specific diagnosis that is being evaluated, monitored, or treated as if it exists) are acceptable and can be restated in the discharge summary if not ruled out. MTDD
--- NOTE | 2016-11-26 07:26 | Hospitalist Progress Note ---
Assessment and Plan (1) Dehydration Status: Acute Assessment and plan: Patient's clinical examination and laboratory data suggests significant and severe volume contraction. Patient has been undergoing oral feeding in rehab with no use of the PEG tube required. There is been no nausea no vomiting and no diarrhea by report. There appears to be a mix of chronic renal dysfunction associated with prerenal azotemia at this time. Current Visit: No (2) Kidney transplant recipient Status: Chronic Assessment and plan: Patient has been maintained on chronic immunosuppressive therapy with an episode of possible pneumocystis pneumonia precipitating a course of mechanical ventilation August and September 2016. There has been no resolution of the radiographic changes present at discharge in September. Empiric antibiotics have been initiated in the emergency room and these will be continued. Immunosuppression is continued he has been seen by nephrology. 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 Current Visit: No Qualifiers: Chronicity: acute Qualified Code(s): M25.572 - Pain in left ankle and joints of left foot (4) Reticulonodular infiltrate present on imaging of chest Status: Chronic Assessment and plan: Progression from August 2016 from essentially normal chest x-ray to diffuse multinodular infiltrates bilaterally associated with variable levels of hypoxemia. Extensive workup including transbronchial biopsy without established diagnosis. Normal echocardiographic left ventricular ejection fraction and right ventricular systolic pressure on echocardiography earlier this year. Current Visit: No Hospitalist: Subjective Interval history: 50-year-old male who was hospitalized in August of this year with renal insufficiency altered mental status with progressive nodular changes in his chest x-ray he required intubation and artificial ventilation which was prolonged in duration requiring a tracheostomy and placement of the PEG tube. After approximately 6 weeks of hospitalization a large portion of which was being in the ICU he was successfully weaned from the ventilator. He was subsequently discontinued from PEG tube feedings but continued on the PEG tube he developed what appears to be a rather profound neuromuscular critical-care injury and was sent to a rehabilitation center. He was admitted yesterday for failure to eat and apparent dehydration and continuing weakness and pain in the lower extremities. He is 3 years status post renal transplantation performed for hypertensive nephropathy. His current chest x-ray shows continued nodular changes bilaterally stable since September. We were able to locate a bronchoscopy report on the patient subsequent to admission. Pneumocystis could not be ruled out but no specific diagnosis was made. He grew only Yojana from his bronchial washings. The patient in addition had developed during the hospital stay problems with his left ankle. He had superficial nonhealing areas which have been followed by wound care. A recent culture of the site demonstrated 3 organisms including Acinetobacter E. coli and enterococcus. These are broadly resistant. Today his creatinine is improved. His ionized calcium level is not been performed but total calcium has decreased. BUN to creatinine ratio remains elevated. Vital signs are stable and he is afebrile. Exam - Constitutional Vitals: Period Temp Pulse Resp BP Sys/Stewart Pulse Ox Last 24 Hr 97.4 F-99.4 F 107-126 20-24 94-105/64-70 91-94 General appearance: mild distress, under weight - Respiratory Respiratory exam: Present: other (Low tidal volume). Absent: rales, rhonchi, wheezes - Cardiovascular Cardiovascular exam: Present: regular rate and rhythm - GI/Abdominal GI/Abdominal exam: Absent: normal bowel sounds, ascites, distended, tenderness - Extremities Exam Extremities exam: Present: other (Muscle wasting). Absent: edema - Neurological Exam Neurological exam: Present: alert, oriented X3, other (Severe hypesthesia both lower extremity) - Skin Skin exam: Present: other (Dressing over left ankle lesion) Results - Labs CBC & BMP: 11/26/16 05:24 11/26/16 05:24 Labs: Ionized calcium not completed Total calcium decreased to 9.7 Quality Measures - VTE Contraindication to Mechanical VTE Prophylaxis: Trauma to Legs
[2016-11-26] MEDS: HEPARIN 5,000 UNIT/1 ML VIAL SUBCUT SCH ×2 (08:14→20:42)
[2016-11-26] MEDS ORDERED: predniSONE 10 MG TABLET PO SCH (09:00)
--- NOTE | 2016-11-26 09:23 | General Surgery Consult Note ---
Assessment and Plan - Time spent with patient Time spent with patient: Greater than 30 minutes (1) Abscess of left leg Status: Acute Assessment and plan: We will need to evaluate the left ankle/foot for evidence of deep abscess. I will discuss with Dr Sanchez; given his current respiratory distress, we may plan CT, but postpone till later today. Wound care orders are written. Current Visit: No (2) Rash and nonspecific skin eruption Status: Acute Assessment and plan: Rash of trunk and extremities; this by history began after he was given Megace. I was unable to examine the posterior portion, but certainly we can monitor this closely and use topicals and possibly systemic steriods. I remain concerned that the plantar right foot areas resemble vasculitis, so we will watch this area very closely. Punch biopsy at the bedside could be performed, if indicated or if it fails to respond to more conservative therapy. The megace has been held. Current Visit: Yes History of Present Illness Chief complaint: Left lower extremity wounds; diffuse skin rash History of present illness: Mr. Mcmanus is a 50 year old male Home Medications Medication Instructions Recorded Confirmed Type Aspirin [Ecotrin] 81 mg PO DAILY 05/16/16 11/25/16 History Carvedilol [Coreg] 12.5 mg PO BID 05/16/16 11/25/16 History Mycophenolate Mofetil Cap 500 mg PO Q12H 05/16/16 11/25/16 History [Cellcept] Tacrolimus [Tacrolimus Cap] 2 mg PO Q12H 05/16/16 11/25/16 History predniSONE TAB [PredniSONE] 10 mg PO DAILY 05/16/16 11/25/16 History Acetaminophen 650 mg PO Q6HR PRN 11/25/16 11/25/16 History Albuterol/Ipratropium Neb [Duoneb] 3 mg INH Q6HR PRN 11/25/16 11/25/16 History Amoxicillin 500 mg PO Q6HR 11/25/16 11/25/16 History Ampicillin Cap 500 mg PO Q6HR 11/25/16 11/25/16 History Famotidine Tab [Pepcid Tab] 40 mg PO DAILY 11/25/16 11/25/16 History Folic Acid Tab 1 mg PO DAILY 11/25/16 11/25/16 History Gabapentin 200 mg PO BEDTIME 11/25/16 11/25/16 History HYDROcodone/ACETAMIN 7.5-325 7.5 mg PO Q6HR 11/25/16 11/25/16 History [[place] 7.5-325] Lactulose 30 ml PO Q12HR 11/25/16 11/25/16 History Loratadine [Claritin] 10 mg PO DAILY 11/25/16 11/25/16 History Petrolatum,White [Desitin 1 strip TOP DAILY 11/25/16 11/25/16 History Multi-Purpose] Sertraline [Zoloft] 25 mg PO BEDTIME 11/25/16 11/25/16 History levETIRAcetam [Keppra] 250 mg PO DAILY 11/25/16 11/25/16 History Allergies Allergy/AdvReac Type Severity Reaction Status Date / Time No Known Allergies Allergy Verified 08/11/16 22:05 Medical,Surgical,& Family Hx - Medical History Cardio: History of: Hypertension Psychological: History of: Depression No history of: Anxiety Disorders, Bipolar Disorder, Schizophrenia Neurology: History of: Seizures (Abnormal EEG on last admission with initiation of antiseizure medication) HEENT: History of: Eye Problem (previous retinal tear RIGHT) Rheumatology: History of;: Gout (Arthrocentesis on last admission was felt consistent with gout ) Respiratory: History of: Intubation (Patient required prolonged intubation and tracheostomy during last hospital), Pneumonia (Possible pneumocystis pneumonia/ ARDS) Renal: History of: Renal Failure, Renal Problems (Kidney transplant - 09/15) No history of: Dialysis (had to have several dialysis treatments recently. cath has now been removed) Gastrointestinal: History of: GERD, Gastrointestinal Bleed, GI Problems (peg tube) Hematology: History of: Anemia No history of: Blood Transfusion Reaction Reproductive: No histroy: Reproductive Cancer Other: History of: Skin Problems (rash and open wounds on left foot s/p surgery) No history of: Anesthesia Reactions, HIV - Surgical History Cardiac Surgeries: Sugical HX of: Cardiac Catheterization (negative, done in 2008) Thoracic Surgeries: Surgical HX of;: Kidney (Renal Surgery) (transplant 2013), Organ Transplant (KIDNEY) Neurologic Surgeries: Patient denies: Neurologic Surgery HEENT Surgeries: Surgical HX of: Tonsilectomy & Adenoidectomy Patient denies: Eye Surgery Abdominal Surgeries: Surgical HX of: Abdominal Surgery (PD catheter placed and removed (Removed 2013)), Cholecystectomy, EGD Orthopedic Surgeries: Surgical HX of;: Orthopedic Surgery - Family History Family History: Reports;: Family Diabetes (MOM AND BROTHER), Family Hypertension (MOM AND BROTHER) Denies;: Family Anesthesia Reaction, Family Cancer, Family Heart Disease, Family Psychiatric Problems, Family Stroke - Social History Smoking Status: Former smoker Frequency of Alcohol Use: None Type of Drug Use: None ROS unobtainable: other (Due to tachypnea) Exam - Constitutional Vitals: Period Temp Pulse Resp BP Sys/Stewart Pulse Ox Last 24 Hr 97.4 F-99.4 F 107-136 20-42 94-118/64-70 91-94 General appearance: severe distress, other (He is currently on mask 02, very dyspneic and unable to speak or answer questions due to shortness of breath. He uses accessory muscles for breathing and is obviously very compromised. Skin is warm and diaphoretic. He shakes his head no when asked if he is having chest pain. ) - Respiratory Respiratory exam: Present: accessory muscle use, rales, other (tachypnea, severe , with grunting. ) - Cardiovascular Cardiovascular exam: Present: tachycardia - GI/Abdominal GI/Abdominal exam: Present: hypoactive bowel sounds, other (Gastrostomy tube in place.) - Extremities Exam Extremities exam: Present: other (Left lower extremity with muscle wasting down to the level of malleolus, where there is edema and erythema from that point distally to the toes, with tenderness to touch. He has a clean, beefy red 8x1.5cm long healing incision at the medial left lower leg, a 3x2cm healing wound at the dorsal left foot with mild slough and some superficial skin loss; a 3.5 x 1.5cm wound at the lateral foot just below the lateral malleolus. There is diffuse blistering along the lateral aspect of the foot along the dorsum. There is generalized swelling and erythema without a localized fluctuant area. It is tender. I cannot see a definite heel pressure point but it is tender to touch. On the right, he has diffuse maculopapular skin rash on the dorsal lower leg and foot that extends to the plantar surface, where it then becomes a more purpuric type rash; this has a vasculitis type appearance. There is evidence of deep tissue injury with pressure change to the heel on the right; this is difficult to measure with certainty, given his tenderness and overall debility and dyspnea, but is roughly 3 x 4cm in size and is confluent with the vasculitis type changes seen in the rash. ) - Skin Skin exam: Present: other (The maculopapular rash continues anteriorly in a distribution along the anterior surface of the lower extremities, upper extremities, and intensifies a little in distribution over the trunk and upper torso, including the chest. There are no further vasculitic type lesion seen in these areas. He says it does not itch. ) Quality Measures - VTE Contraindication to Mechanical VTE Prophylaxis: Trauma to Legs Results - Labs CBC & BMP: 11/26/16 05:24 11/26/16 05:24 Lab Results: I have reviewed the past 24 hour labs
[2016-11-26] MEDS: cefTRIAXone 2,000 MG in SODIUM CHLORIDE 0.9% 100 ML IV SCH (10:20)
[2016-11-26] MEDS ORDERED: PHENYLEPHRINE DRIP 40 MG/250 ML PREMIX IV ONE (10:31)
[2016-11-26] MEDS: PHENYLEPHRINE DRIP 40 MG/250 ML PREMIX IV SCH (10:41)
[2016-11-26] MEDS: ALBUTEROL/IPRATROPIUM 3 ML NEB RESP TX SCH ×4 (10:47→23:37)
[2016-11-26] MEDS: ASPIRIN EC 81 MG TABLET PO SCH (10:54)
[2016-11-26] MEDS: levETIRAcetam 500 MG TABLET PO SCH ×2 (10:55→20:42)
[2016-11-26] MEDS: FOLIC ACID 1 MG TABLET PO SCH (10:55)
[2016-11-26] MEDS: CARVEDILOL 12.5 MG TABLET PO SCH (10:55)
[2016-11-26] MEDS: FAMOTIDINE 20 MG TABLET PO SCH (10:55)
[2016-11-26] MEDS: ZINC OXIDE PASTE 113 GM TUBE TOP SCH (10:55)
[2016-11-26] MEDS: BACITRACIN OINT 0.9 GM PACK TOP SCH (10:55)
[2016-11-26] MEDS: ALLOPURINOL 100 MG TABLET PO SCH (10:56)
[2016-11-26 11:03] LABS: Allen Test Positive; Pt O2 Delivery Device BIPAP
[2016-11-26 11:04] LABS: ABG Base Excess -6.6 MMOL/L (-2.5-2.5); ABG HCO3 17.6 MMOL/L (20-26); ABG Oxygen Saturation 96.1 % (95-100); ABG PCO2 30.1 MM HG (35-48); ABG PH 7.386 (7.35-7.45); ABG PO2 89.8 MM HG (80-95); ABG TCO2 18.6 MMOL/L (23-27)
[2016-11-26] MEDS: PIPERACILLIN/TAZOBACTAM 3,375 MG in SODIUM CHLORIDE 0.9% 100 ML IV SCH ×2 (11:11→18:36)
--- NOTE | 2016-11-26 11:26 | XRay Report ---
XR foot 2V LT Indication: Wounds of the foot and ankle. Comparison: None. Technique: AP, lateral, and oblique views of the left foot were submitted. Findings: Diffusely abnormal bone mineralization is noted with a permeative pattern of demineralization involving the midfoot and lateral cuneiforms and cuboid. Soft tissue swelling is noted around the forefoot. No displaced fractures are present. Impression: 1. Osteomyelitis involving the midfoot is not excluded. 11/26/2016 11:23 AM PROCEDURE INTERPRETED AT [facility] DEPARTMENT OF RADIOLOGY Final Report Signed by: Dr. Jason Case
--- NOTE | 2016-11-26 11:29 | Pulmonology Consult Note ---
Assessment and Plan (1) Dehydration Status: Acute Assessment and plan: Patient comes in with a tachycardia and low blood pressure and mild increase in calcium and renal dysfunction. He is getting IV fluids. Current Visit: No (2) Kidney transplant recipient Status: Chronic Assessment and plan: The patient is somewhat immunosuppressed and has mildly decreased renal function Current Visit: No (3) Reticulonodular infiltrate present on imaging of chest Status: Chronic Assessment and plan: The patient continues to have extensive reticular nodular infiltrates and needs an open lung biopsy. Current Visit: No (4) Acute respiratory failure with hypoxemia Status: Acute Assessment and plan: The patient has had hypoxemia but is doing better on BiPAP with oxygen. Current Visit: No (5) Pneumonia Status: Acute Assessment and plan: He will be covered with antibiotics for pneumonia. He does need an open lung biopsy Current Visit: No Qualifiers: Laterality: bilateral (6) Peripheral vascular disease Status: Acute Assessment and plan: Patient has a long leg pain and continued wound in his left ankle Current Visit: Yes (7) Rash and nonspecific skin eruption Status: Acute Assessment and plan: He recently had a rash which possibly could be a drug reaction. Current Visit: Yes History of Present Illness Chief complaint: Shortness of breath History of present illness: Mr. Mcmanus is a 50 year old black male that has had a previous renal transplant and has been seriously ill for several months now. He came in with pneumonia and sepsis in August and was on the ventilator for quite a while. He had a very complicated hospital course that included a tracheostomy tube and dialysis. He had diffuse infiltrates and we tried transbronchial biopsies but did not get a definite answer. He did get better and we were able to get his trach out and his renal function recovered. He also had an abscess around his left ankle that was drained. He is left and went to a swing bed. He has been getting outpatient wound care. He had been reasonably stable until the last few days when he has had increased weakness and shortness of breath. He has worsening renal insufficiency and hypercalcemia. He now has worsening shortness of breath. He still has diffuse reticular nodular infiltrates. Home Medications Medication Instructions Recorded Confirmed Type Aspirin [Ecotrin] 81 mg PO DAILY 05/16/16 11/25/16 History Carvedilol [Coreg] 12.5 mg PO BID 05/16/16 11/25/16 History Mycophenolate Mofetil Cap 500 mg PO Q12H 05/16/16 11/25/16 History [Cellcept] Tacrolimus [Tacrolimus Cap] 2 mg PO Q12H 05/16/16 11/25/16 History predniSONE TAB [PredniSONE] 10 mg PO DAILY 05/16/16 11/25/16 History Acetaminophen 650 mg PO Q6HR PRN 11/25/16 11/25/16 History Albuterol/Ipratropium Neb [Duoneb] 3 mg INH Q6HR PRN 11/25/16 11/25/16 History Amoxicillin 500 mg PO Q6HR 11/25/16 11/25/16 History Ampicillin Cap 500 mg PO Q6HR 11/25/16 11/25/16 History Famotidine Tab [Pepcid Tab] 40 mg PO DAILY 11/25/16 11/25/16 History Folic Acid Tab 1 mg PO DAILY 11/25/16 11/25/16 History Gabapentin 200 mg PO BEDTIME 11/25/16 11/25/16 History HYDROcodone/ACETAMIN 7.5-325 7.5 mg PO Q6HR 11/25/16 11/25/16 History [[place] 7.5-325] Lactulose 30 ml PO Q12HR 11/25/16 11/25/16 History Loratadine [Claritin] 10 mg PO DAILY 11/25/16 11/25/16 History Petrolatum,White [Desitin 1 strip TOP DAILY 11/25/16 11/25/16 History Multi-Purpose] Sertraline [Zoloft] 25 mg PO BEDTIME 11/25/16 11/25/16 History levETIRAcetam [Keppra] 250 mg PO DAILY 11/25/16 11/25/16 History Allergies Allergy/AdvReac Type Severity Reaction Status Date / Time No Known Allergies Allergy Verified 08/11/16 22:05 ROS unobtainable: due to mental status (He is weak and confused and cannot give me much history) - Constitutional Constitutional: Present: chills, fever(s), weakness, weight loss - Cardiovascular Cardiovascular: Present: dyspnea. Absent: chest pain at rest - Respiratory Respiratory: Present: cough - Gastrointestinal Gastrointestinal: Absent: abdominal pain - Genitourinary Genitourinary: Absent: difficulty urinating Exam (Pulmonay) H&P - Constitutional Vitals: Period Temp Pulse Resp BP Sys/Stewart Pulse Ox Last 24 Hr 97.4 F-99.4 F 107-144 20-53 77-131/50-90 87-100 General appearance: under weight, other (Patient is chronically ill-appearing and does look quite short of breath now.) - Head Head exam: Present: normal inspection, normocephalic - Eye Eye exam: Present: EOMI. Absent: scleral icterus Pupils: Present: SELVIN - ENT ENT exam: Present: other (He has dry mucous membrane) - Neck Neck exam: Absent: lymphadenopathy, meningismus, thyromegaly - Respiratory Respiratory exam: Present: accessory muscle use, rhonchi, other (He has coarse breath sounds bilaterally with bilateral crackles) - Cardiovascular Cardiovascular exam: Present: regular rate and rhythm, tachycardia. Absent: gallop, systolic murmur - GI/Abdominal GI/Abdominal exam: Present: normal bowel sounds, soft. Absent: organomegaly, tenderness - Extremities Exam Extremities exam: Present: other (He still has the wound on his left ankle). Absent: calf tenderness, edema - Neurological Exam Neurological exam: Present: altered (He is anxious and confused), other (He has considerable pain in his legs) - Psychiatric Psychiatric exam: Present: anxious - Skin Skin exam: Present: warm, dry Medical,Surgical,& Family Hx - Medical History Cardio: History of: Hypertension Psychological: History of: Depression No history of: Anxiety Disorders, Bipolar Disorder, Schizophrenia Neurology: History of: Seizures (Abnormal EEG on last admission with initiation of antiseizure medication) HEENT: History of: Eye Problem (previous retinal tear RIGHT) Rheumatology: History of;: Gout (Arthrocentesis on last admission was felt consistent with gout ) Respiratory: History of: Intubation (Patient required prolonged intubation and tracheostomy during last hospital), Pneumonia (Possible pneumocystis pneumonia/ ARDS) Renal: History of: Renal Failure, Renal Problems (Kidney transplant - 09/15) No history of: Dialysis (had to have several dialysis treatments recently. cath has now been removed) Gastrointestinal: History of: GERD, Gastrointestinal Bleed, GI Problems (peg tube) Hematology: History of: Anemia No history of: Blood Transfusion Reaction Reproductive: No histroy: Reproductive Cancer Other: History of: Skin Problems (rash and open wounds on left foot s/p surgery) No history of: Anesthesia Reactions, HIV - Surgical History Cardiac Surgeries: Sugical HX of: Cardiac Catheterization (negative, done in 2008) Thoracic Surgeries: Surgical HX of;: Kidney (Renal Surgery) (transplant 2013), Organ Transplant (KIDNEY) Neurologic Surgeries: Patient denies: Neurologic Surgery HEENT Surgeries: Surgical HX of: Tonsilectomy & Adenoidectomy Patient denies: Eye Surgery Abdominal Surgeries: Surgical HX of: Abdominal Surgery (PD catheter placed and removed (Removed 2013)), Cholecystectomy, EGD Orthopedic Surgeries: Surgical HX of;: Orthopedic Surgery - Family History Family History: Reports;: Family Diabetes (MOM AND BROTHER), Family Hypertension (MOM AND BROTHER) Denies;: Family Anesthesia Reaction, Family Cancer, Family Heart Disease, Family Psychiatric Problems, Family Stroke - Social History Smoking Status: Former smoker Frequency of Alcohol Use: None Type of Drug Use: None Results - Labs CBC & BMP: 11/26/16 05:24 11/26/16 05:24 Labs: His PO2 is 89 with a PCO2 of 30 and a pH of 7.38 - Diagnostic Findings Procedure: Chest x-ray: image reviewed by me, report reviewed by me (Chest x- ray shows extensive bilateral reticulonodular infiltrates) Quality Measures - VTE Contraindication to Mechanical VTE Prophylaxis: Trauma to Legs
--- NOTE | 2016-11-26 11:42 | Event Note ---
Patient demonstrated a rather acute decrease in his oxygen saturation earlier this morning initially unassociated with any change in vital signs, however on transfer to the ICU he did develop systolic hypotension. He has been placed on BiPAP with arterial blood gases showing a mild metabolic acidosis and adequate levels of oxygenation. There is no CO2 retention. He has been placed on empiric antibiotic therapy for possible evolving sepsis syndrome (superficial cultures of left foot wounds have grown 3 separate highly resistant organisms earlier this week) he continues to receive rehydration. He has been seen by pulmonary with long-term plan as much stabilization as possible with consideration of open lung biopsy to establish if possible the underlying pulmonary disease process.
[2016-11-26] MEDS: methylPREDNISolone SOD SUC 40 MG/1 ML VIAL IV SCH ×2 (12:37→20:42)
[2016-11-26] MEDS ORDERED: GLUCAGON 1 MG VIAL IM PRN (13:42)
[2016-11-26] MEDS ORDERED: DEXTROSE 50% 25 GM/50 ML VIAL IV PRN (13:42)
--- NOTE | 2016-11-26 16:36 | Nephrology Consult Note ---
History of Present Illness Chief complaint: Chronic kidney disease, renal transplant patient. History of present illness: Mr. Mcmanus is a 50 year old male with a history of renal transplant has a history of prolonged hospitalization last month for respiratory failure did require intermittent hemodialysis and has recently been in a group home facility. The gentleman presented on yesterday change in mental status found to have hypotension. Today he has continued to show signs of worsening with hypotension and decrease in his oxygenation sats. He is now on BiPAP ventilation. He has had an x-ray that showed evidence of osteomyelitis. He has had antibiotics broadened with Zosyn. His kidney function is stable at this time with creatinine 2. Nephrology is been consulted for renal issues. Home Medications Medication Instructions Recorded Confirmed Type Aspirin [Ecotrin] 81 mg PO DAILY 05/16/16 11/25/16 History Carvedilol [Coreg] 12.5 mg PO BID 05/16/16 11/25/16 History Mycophenolate Mofetil Cap 500 mg PO Q12H 05/16/16 11/25/16 History [Cellcept] Tacrolimus [Tacrolimus Cap] 2 mg PO Q12H 05/16/16 11/25/16 History predniSONE TAB [PredniSONE] 10 mg PO DAILY 05/16/16 11/25/16 History Acetaminophen 650 mg PO Q6HR PRN 11/25/16 11/25/16 History Albuterol/Ipratropium Neb [Duoneb] 3 mg INH Q6HR PRN 11/25/16 11/25/16 History Amoxicillin 500 mg PO Q6HR 11/25/16 11/25/16 History Ampicillin Cap 500 mg PO Q6HR 11/25/16 11/25/16 History Famotidine Tab [Pepcid Tab] 40 mg PO DAILY 11/25/16 11/25/16 History Folic Acid Tab 1 mg PO DAILY 11/25/16 11/25/16 History Gabapentin 200 mg PO BEDTIME 11/25/16 11/25/16 History HYDROcodone/ACETAMIN 7.5-325 7.5 mg PO Q6HR 11/25/16 11/25/16 History [[place] 7.5-325] Lactulose 30 ml PO Q12HR 11/25/16 11/25/16 History Loratadine [Claritin] 10 mg PO DAILY 11/25/16 11/25/16 History Petrolatum,White [Desitin 1 strip TOP DAILY 11/25/16 11/25/16 History Multi-Purpose] Sertraline [Zoloft] 25 mg PO BEDTIME 11/25/16 11/25/16 History levETIRAcetam [Keppra] 250 mg PO DAILY 11/25/16 11/25/16 History Allergies Allergy/AdvReac Type Severity Reaction Status Date / Time No Known Allergies Allergy Verified 08/11/16 22:05 Medical,Surgical,& Family Hx - Medical History Cardio: History of: Hypertension Psychological: History of: Depression No history of: Anxiety Disorders, Bipolar Disorder, Schizophrenia Neurology: History of: Seizures (Abnormal EEG on last admission with initiation of antiseizure medication) HEENT: History of: Eye Problem (previous retinal tear RIGHT) Rheumatology: History of;: Gout (Arthrocentesis on last admission was felt consistent with gout ) Respiratory: History of: Intubation (Patient required prolonged intubation and tracheostomy during last hospital), Pneumonia (Possible pneumocystis pneumonia/ ARDS) Renal: History of: Renal Failure, Renal Problems (Kidney transplant - 09/15) No history of: Dialysis (had to have several dialysis treatments recently. cath has now been removed) Gastrointestinal: History of: GERD, Gastrointestinal Bleed, GI Problems (peg tube) Hematology: History of: Anemia No history of: Blood Transfusion Reaction Reproductive: No histroy: Reproductive Cancer Other: History of: Skin Problems (rash and open wounds on left foot s/p surgery) No history of: Anesthesia Reactions, HIV - Surgical History Cardiac Surgeries: Sugical HX of: Cardiac Catheterization (negative, done in 2008) Thoracic Surgeries: Surgical HX of;: Kidney (Renal Surgery) (transplant 2013), Organ Transplant (KIDNEY) Neurologic Surgeries: Patient denies: Neurologic Surgery HEENT Surgeries: Surgical HX of: Tonsilectomy & Adenoidectomy Patient denies: Eye Surgery Abdominal Surgeries: Surgical HX of: Abdominal Surgery (PD catheter placed and removed (Removed 2013)), Cholecystectomy, EGD Orthopedic Surgeries: Surgical HX of;: Orthopedic Surgery - Family History Family History: Reports;: Family Diabetes (MOM AND BROTHER), Family Hypertension (MOM AND BROTHER) Denies;: Family Anesthesia Reaction, Family Cancer, Family Heart Disease, Family Psychiatric Problems, Family Stroke - Social History Smoking Status: Former smoker Frequency of Alcohol Use: None Type of Drug Use: None Review of Systems ROS unobtainable: other (BiPAP ventilation) Exam - Vital Signs Vital signs: Period Temp Pulse Resp BP Sys/Stewart Pulse Ox Last 24 Hr 97.8 F-99.4 F 113-144 20-53 75-131/49-90 87-100 - General Appearance General appearance: fatigue, frail EENT: ATNC Neck: supple Respiratory: rales Cardiology: regular rate, regular rhythm Gastrointestinal: normoactive bowel sounds Integumentary: no rash Neurologic: no asterixis Musculoskeletal: joint swelling (Left foot wound is bandaged) Results - Labs CBC & BMP: 11/26/16 05:24 11/26/16 05:24 Assessment and Plan (1) Chronic kidney disease, stage III (moderate) Status: Chronic Assessment and plan: Patient with history of chronic kidney disease due to renal transplant. Serum creatinine is noted to be 2.0. Current Visit: No (2) Hypotension Status: Acute Current Visit: No (3) Altered mental status Status: Acute Current Visit: No Qualifiers: Altered mental status type: delirium Qualified Code(s): R41.0 - Disorientation, unspecified (4) Anemia Status: Chronic Current Visit: No (5) Peripheral vascular disease Status: Chronic Current Visit: Yes
[2016-11-27] MEDS: ALBUTEROL/IPRATROPIUM 3 ML NEB RESP TX SCH ×6 (02:23→23:01)
[2016-11-27] MEDS: LACTATED RINGERS 1,000 ML IV SCH (04:09)
[2016-11-27] MEDS: TACROLIMUS 0.5 MG CAPSULE PO SCH ×2 (04:09→16:02)
[2016-11-27] MEDS: PIPERACILLIN/TAZOBACTAM 3,375 MG in SODIUM CHLORIDE 0.9% 100 ML IV SCH ×3 (04:10→18:14)
[2016-11-27] MEDS: MYCOPHENOLATE MOFETIL 250 MG CAPSULE PO SCH ×2 (04:10→15:45)
[2016-11-27] MEDS: methylPREDNISolone SOD SUC 40 MG/1 ML VIAL IV SCH ×3 (04:10→21:20)
[2016-11-27] MEDS: MORPHINE 2 MG/1 ML SYRINGE IV PRN ×2 (04:25→09:51)
[2016-11-27 06:31] LABS: ABG Base Excess -8.1 MMOL/L (-2.5-2.5); ABG HCO3 17.7 MMOL/L (20-26); ABG Oxygen Saturation 90.9 % (95-100); ABG PCO2 34.4 MM HG (35-48); ABG PH 7.311 (7.35-7.45); ABG PO2 65.3 MM HG (80-95); ABG TCO2 16.3 MMOL/L (23-27); Allen Test Positive; Pt O2 Delivery Device BIPAP
[2016-11-27 07:17] LABS: Calcium 9.2 MG/DL (8.5-10.1); Osmolality,Calculated 288.2 MOS/KG (273-304); Potassium 5.8 MMOL/L (3.5-5.1)
[2016-11-27 07:27] LABS: Magnesium 2.1 MG/DL (1.8-2.4); Phosphorous 6.1 MG/DL (2.5-4.9)
[2016-11-27 07:30] LABS: Basophils % 0.2 % (0.0-0.8); Hematocrit 26.9 VOL% (42.0-52.0); Hemoglobin 8.2 GM/DL (14.0-18.0); Immature Granulocytes % 4.5 %; Immature Granulocytes Absolute 1.19 #; Lymphocytes # 1.1 10*3/uL (1.4-4.0); Lymphocytes % 4.1 % (21.2-54.2); Mean Corpuscular HGB Conc 30.5 GM/DL (32-36); Mean Corpuscular Hemoglobin 25 PG (27-34); Mean Corpuscular Volume 82.5 FL (87-102); Mean Platelet Volume 11.2 FL (9.6-12.0); Monocytes # 0.5 10*3/uL (0.11-0.8); Monocytes % 1.8 % (1.7-12.7); Neutrophils # 23.5 10*3/uL (1.4-7.4); Neutrophils % 89.4 % (38.7-73.9); Platelet Count 387 T/CUMM (130-400); Red Blood Count 3.26 MC/CUMM (3.8-5.5); Red Cell Distribution Width 16.1 % (9.3-17.3); White Blood Count 26.4 T/CUMM (4-12)
--- NOTE | 2016-11-27 07:43 | Hospitalist Progress Note ---
Assessment and Plan (1) Acute respiratory failure with hypoxemia Status: Acute Assessment and plan: Patient appears to be hypoxic with the tachypnea and tachycardia. He is on BiPAP had will have pulmonary to follow him . Noted CT chest already planned by pulmonary Current Visit: No (2) Metabolic acidosis Status: Acute Assessment and plan: Noted metabolic acidosis on his lab work along with hyperkalemia. I will give him bicarb infusion his renal function partially improved Current Visit: Yes (3) Wound of left ankle Status: Acute Assessment and plan: Patient has left ankle wound which is dressed already. Surgery following and suspected infection. He has worsening leukocytosis he has been on Zosyn I will give dose of vancomycin. Unfortunately ID service is not available. Therefore any further intervention to surgery. Also noted that patient has been on steroid intravenously Current Visit: Yes (4) ARF (acute renal failure) Status: Acute Assessment and plan: Patient presented with acute kidney injury with a renal transplant status. His creatinine partially improved BUN remained high will defer to nephrology. Patient appeared to have a acute infection with the leukocytosis I am not sure the source at present he is on immunosuppressant. Infectious disease was not available I will defer the immunosuppression to renal service Current Visit: No (5) Hyperkalemia Status: Acute Assessment and plan: Noted hyperkalemia along with acidosis and will give bicarbonate infusion and will have improvement of his hyperkalemia. Also nephrology following I will defer any other management to them but I will go ahead and change his lactate Ringer's solution to isotonic bicarb as mentioned Current Visit: No Hospitalist: Subjective Interval history: Mr. Cooper is 50 years old male with history of hypertension depression seizure disorder gout GERD and end-stage renal disease required a renal transplant. He was admitted in August with altered mental status renal failure and nodular changes on chest x-ray. He developed respiratory failure requiring mechanical ventilation. He required prolonged ventilation at that time and had tracheostomy. He also had PEG tube placement. He was discharged to rehab facility. He recovered PEG tube was discontinued but his oral intake remained poor. He was admitted with the dehydration and hypercalcemia with acute kidney injury. He also has left ankle wound which required surgical intervention during his last admission. He is being followed by pulmonary renal and surgery services. Infection in the left ankle wound is suspected and he has been on antibiotics. Patient is on BiPAP. He appeared confused and in in distress with tachypnea and tachycardia. Unable to provide any subjective information. He is afebrile Exam - Constitutional Vitals: Period Temp Pulse Resp BP Sys/Stewart Pulse Ox Last 24 Hr 97.0 F-98.7 F 105-144 14-53 75-172/49-107 87-100 General appearance: under weight, cachectic, other (Appear to be in distress with tachycardia and tachypnea) - Respiratory Respiratory exam: Present: clear to auscultation bilaterally (With equal air entry bilaterally I could not hear any rales or rhonchi but exam was limited due to patient's not able to cooperate). Absent: rales, rhonchi - Cardiovascular Cardiovascular exam: Present: regular rate and rhythm, tachycardia - GI/Abdominal GI/Abdominal exam: Present: normal bowel sounds, soft. Absent: distended, tenderness - Extremities Exam Extremities exam: Absent: edema (Left leg wound is dressed) - Neurological Exam Neurological exam: Present: other (Awake and alert but unable to verbalize enough to evaluate orientation) Results - Labs CBC & BMP: 11/26/16 05:24 11/27/16 05:12 Lab Results: I have reviewed the past 24 hour labs Quality Measures - VTE Contraindication to Mechanical VTE Prophylaxis: Trauma to Legs
[2016-11-27 07:45] LABS: Band Neutrophils 3 % (0-10); Lymphocytes 9 % (20-55); Metamyelocytes 1 %; Segmented Neutrophils 82 % (50-85); Total Cells Counted 100
[2016-11-27 07:46] LABS: Hypochromasia 1+; Microcytosis 1+; Platelet Estimate Normal
[2016-11-27 07:47] LABS: Anisocytosis 1+; Burr Cells Slight
--- NOTE | 2016-11-27 08:25 | Pulmonology Progress Note ---
Pulmonary - PN: Subj Interval history: Patient is a 50-year-old black man that has had a previous renal transplant. He has been on immunosuppressive agents. He comes back in with hypotension, dehydration, worsening renal insufficiency and shortness of breath. He continues to have extensive nodular infiltrates. He was in the hospital in August and September with respiratory failure on the ventilator. He was treated for pneumonia and did seem to improve somewhat. At that time he did have transbronchial biopsies that did not show a definite organism. He is back now and his x-ray is worse. He has extensive reticulonodular infiltrates. He is very confused and restless today and is requiring BiPAP. His urine output is fair. His blood pressure is elevated and heart rate is elevated. Exam (Progress Note) - Constitutional Vitals: Period Temp Pulse Resp BP Sys/Stewart Pulse Ox Last 24 Hr 97.0 F-98.7 F 105-144 14-53 75-172/49-107 87-100 Exam: General appearance: under weight, other (Patient is chronically ill-appearing and does look quite short of breath now. He is restless and confused) - Head Head exam: Present: normal inspection, normocephalic - Eye Eye exam: Present: EOMI. Absent: scleral icterus Pupils: Present: SELVIN - ENT ENT exam: Present: other (He has dry mucous membrane), he has a BiPAP mask in place. - Neck Neck exam: Absent: lymphadenopathy, meningismus, thyromegaly - Respiratory Respiratory exam: Present: accessory muscle use, rhonchi, other (He has coarse breath sounds bilaterally with bilateral crackles) - Cardiovascular Cardiovascular exam: Present: regular rate and rhythm, tachycardia. Absent: gallop, systolic murmur - GI/Abdominal GI/Abdominal exam: Present: normal bowel sounds, soft. Absent: organomegaly, tenderness - Extremities Exam Extremities exam: Present: other (He still has the wound on his left ankle). Absent: calf tenderness, edema - Neurological Exam Neurological exam: Present: altered (He is anxious and confused), other (He has considerable pain in his legs) - Psychiatric Psychiatric exam: Present: anxious - Skin Skin exam: Present: warm, dry Results - Labs CBC & BMP: 11/27/16 05:12 11/27/16 05:12 Labs: His PO2 is 65 with a PCO2 of 34 and a pH of 7.31 Assessment and Plan (1) Dehydration Status: Acute Assessment and plan: Patient comes in with a tachycardia and low blood pressure and mild increase in calcium and renal dysfunction. His blood pressure is better now will cut back on his fluids. Current Visit: No (2) Kidney transplant recipient Status: Chronic Assessment and plan: The patient is somewhat immunosuppressed and has mildly decreased renal function. His creatinine is down to 1.9 now. Current Visit: No (3) Reticulonodular infiltrate present on imaging of chest Status: Chronic Assessment and plan: The patient continues to have extensive reticular nodular infiltrates and needs an open lung biopsy. Will ask thoracic surgery to see. Current Visit: No (4) Acute respiratory failure with hypoxemia Status: Acute Assessment and plan: The patient has had hypoxemia but is doing better on BiPAP with oxygen. His O2 saturations are adequate. He is very restless however Current Visit: No (5) Pneumonia Status: Acute Assessment and plan: He will be covered with antibiotics for pneumonia. He does need an open lung biopsy. We will continue present therapy for now Current Visit: No Qualifiers: Laterality: bilateral (6) Peripheral vascular disease Status: Chronic Assessment and plan: Patient has a long leg pain and continued wound in his left ankle Current Visit: Yes (7) Rash and nonspecific skin eruption Status: Acute Assessment and plan: He recently had a rash which possibly could be a drug reaction. Current Visit: Yes
[2016-11-27] MEDS ORDERED: VANCOMYCIN INJ 1,000 MG in SODIUM CHLORIDE 0.9% 250 ML IV ONE (08:30)
[2016-11-27] MEDS ORDERED: SODIUM ACETATE 150 MEQ in STERILE WATER INJ 850 ML IV SCH (08:30)
[2016-11-27 08:38] LABS: Apearance,Urine CLOUDY (Clear); Bilirubin,Urine Negative (Negative); Blood, Urine Small mg/dL (Negative); Calcium Oxalate Crystals,Urine Few /HPF (Few); Glucose,Urine (UA) Negative (Negative); Ketones,Urine Negative (Negative); Nitrite,Urine Negative (Negative); Protein,Urine 30 MG/DL; Urine Color Yellow (Yellow); Urine Specific Gravity 1.016 (1.001-1.035); Urine Urobilinogen < 2.0 EU/DL (0.2-1.0); WBC,Urine 313 /HPF (0-6)
--- NOTE | 2016-11-27 08:44 | General Surgery Progress Note ---
Assessment and Plan (1) Abscess of left leg Status: Acute Assessment and plan: 11/27/16 Abscess of the left lower extremity, marginally better today in response to IV antibiotics and local care. This is now spontaneously draining and he appears too ill for anything but urgent OR I&D/debridement. Still on Bipap, so this will make transport to CT difficult, so Dr Sanchez plans to (at the bedside) place an irrigating catheter in the wound later today. This will offer us an accurate culture and maintain drainage of the area while allowing him to stabilize medically. Hopefully we will see the leukocytosis improve as well, if this is indeed contributing to his illness. Recommend continue current IV antibiotics and wound care until we have a culture result. 11/26/16-We will need to evaluate the left ankle/foot for evidence of deep abscess. I will discuss with Dr Sanchez; given his current respiratory distress, we may plan CT, but postpone till later today. Wound care orders are written. Current Visit: No (2) Rash and nonspecific skin eruption Status: Acute Assessment and plan: 11/27/16 Stable diffuse skin rash. This does have a vasculitis appearance, but is stable. We will continue to watch. He is on systemic steroids. 11/26/16 Rash of trunk and extremities; this by history began after he was given Megace. I was unable to examine the posterior portion, but certainly we can monitor this closely and use topicals and possibly systemic steriods. I remain concerned that the plantar right foot areas resemble vasculitis, so we will watch this area very closely. Punch biopsy at the bedside could be performed, if indicated or if it fails to respond to more conservative therapy. The megace has been held. Current Visit: Yes Subjective Patient reports: Present: still having pain, shortness of breath Exam - Constitutional Vitals: Period Temp Pulse Resp BP Sys/Stewart Pulse Ox Last 24 Hr 97.0 F-98.7 F 105-144 14-53 75-172/49-107 87-100 General appearance: mild distress, other (He is still on Bipap, looking very fatigued and weak; breathing is very minimally less laboured from yesterday. He is able to answer questions verbally.) - Extremities Exam Extremities exam: Present: other (Left ankle edema and erythema is slightly less ; there is now active purulent drainage from the lateral ankle wound, with the vescicle having spontaneously drained and now a superficial abrasion on the anteriorlateral aspect of the foot. Right plantar purpuric lesions are slightly increased; no tenderness, swelling, fluctuance, or redness. Distribution is minimally increased over the anterior legs today. They are not tender or raised. ) Results - Labs CBC & BMP: 11/27/16 05:12 11/27/16 05:12 Lab Results: I have reviewed the past 24 hour labs (Labs noted; WBC climbing.) Quality Measures - VTE Contraindication to Mechanical VTE Prophylaxis: Trauma to Legs
--- NOTE | 2016-11-27 09:05 | Physician Query Form ---
CLICK EDIT DOCUMENT TO SELECT QUERY ANSWER --> OK --> SIGN Aurea Case RN, CCDS Certified Clinical Ems Manager W) [phone] (f) [phone] [email or web address] PROVIDERS: Make your selection(s) from the choices in EACH section by typing an "x" and enter comments in the comment section. Please use your independent medical judgment in providing your response. This request does not imply that any particular answer is desired or expected. CLINICAL INDICATORS: (Providers should not edit this section) Height: Ht. 74" Weight: wt 130 lb Correction Worker BMI: BMI 16.7 Nutritional supplements: Erp Specialist notes: Other clinical notes: The medical record indicates that the patient was admitted with dehydration, acute renal failure, "by mouth intake has been poor"---"recently started on Megace for anorexia"---"Malaise and fatigue"---"superficial nonhealing areas which have been followed by wound care"---"under weight"---and BMI 16.7, Ht. 74 ", wt 130 lb": PER Dietary Notes: "severe weight loss: 30 lb/18.8% of body weight over 3 months, 31% loss of BW overall since 2016". Based on the above, which following choice most accurately represents the patient's nutritional status? (x ) Malnutrition ( ) mild ( x) moderate ( ) severe ( ) Protein calorie malnutrition ( ) mild ( ) moderate ( ) severe ( ) Emaciation due to malnutrition ( ) Nutritional marasmus ( ) Cachexia ( x) Underweight ( ) No nutritional deficiency ( ) Other, please specify: ( ) Clinically unable to determine Mild Malnutrition (BMI < 18.5, % Normal Body Weight 85-95%) Moderate Malnutrition (BMI < 17, % Normal Body Weight 75-85%) Severe Malnutrition (BMI < 16, % Normal Body Weight < 75%) Source: Deann COMMENTS: Use of terms such as suspected, likely, or probable (associated with a specific diagnosis that is being evaluated, monitored, or treated as if it exists) are acceptable and can be restated in the discharge summary if not ruled out. MTDD
--- NOTE | 2016-11-27 09:24 | Event Note ---
11/27/2016 While in the room was able to place a red rubber catheter into the lateral ankle wound to irrigate this wound to get it as clean as possible just under local. Also made an incision on the medial part of the foot in a fluctuant area and encountered a large amount of purulent material which we drained out and cultured aerobically and anaerobically. Hopefully this will get this infectious process somewhat under control is still concerned about the foot at this point.
[2016-11-27] MEDS: ASPIRIN EC 81 MG TABLET PO SCH (09:39)
[2016-11-27] MEDS: levETIRAcetam 500 MG TABLET PO SCH ×2 (09:39→21:19)
[2016-11-27] MEDS: FOLIC ACID 1 MG TABLET PO SCH (09:39)
[2016-11-27] MEDS: FAMOTIDINE 20 MG TABLET PO SCH (09:39)
[2016-11-27] MEDS: HEPARIN 5,000 UNIT/1 ML VIAL SUBCUT SCH ×2 (09:39→21:19)
[2016-11-27] MEDS: ALLOPURINOL 100 MG TABLET PO SCH (09:39)
[2016-11-27] MEDS: BACITRACIN OINT 0.9 GM PACK TOP SCH (09:40)
[2016-11-27] MEDS: ZINC OXIDE PASTE 113 GM TUBE TOP SCH (09:40)
--- NOTE | 2016-11-27 09:43 | CT Report ---
CT chest wo con Indication: Shortness of breath, pulmonary nodules. Comparison: Chest x-ray 11/25/2016. Technique: CT chest was performed without administration of intravenous contrast. In addition to multiple contiguous axial source images, coronal and sagittal MPR series were provided. The CT examination was performed using one or more of the following dose reduction techniques: Automatic exposure control, adjustment of the mA and kV according to patient size, use of acute or iterative reconstruction techniques. Findings: Diffuse nodular airspace attenuation is noted throughout the lung parenchyma with a basilar predominance. In some regions, thickened septal lines are suggested particularly within the lower lobes. Additionally, emphysematous changes are present most affecting the upper lobes. No pleural effusions are present. Mediastinal structures are not well delineated secondary to lack of intravenous contrast. No bulky adenopathy can be identified within the hilar regions. Subcarinal lymph nodes are upper limits of normal in size. Right paratracheal lymph nodes measure up to 8-9 mm in short axis dimension. No axillary adenopathy is present. Gallbladder is surgically absent. There is a partially calcified cortical mass of the right kidney image 114 measuring 14 mm in transverse dimension. This may represent partially calcified cyst or neoplasm. The kidneys bilaterally demonstrate significant cortical atrophy. Feeding tube is present terminating within the distal gastric antrum. Bony structures of the chest as well as soft tissues and musculature of the chest wall demonstrate no significant abnormalities. Impression: 1. Diffuse miliary pattern of airspace attenuation somewhat confluent within the lung bases has differential considerations including TB, fungal infection, sarcoid, pneumoconioses, and miliary metastatic disease. 2. Centrilobular emphysematous changes are present bilaterally within the upper lobes. 3. Partially calcified cortical mass of the right kidney is demonstrated. 11/27/2016 9:36 AM PROCEDURE INTERPRETED AT [facility] DEPARTMENT OF RADIOLOGY Final Report Signed by: Dr. Jason Case
[2016-11-27] MEDS: SODIUM HYPOCHLORITE 0.25% IRRIG 473 ML BOTTLE TOP SCH (12:13)
[2016-11-27] MEDS: PHENYLEPHRINE DRIP 40 MG/250 ML PREMIX IV SCH (12:14)
[2016-11-27] MEDS: cefTRIAXone 2,000 MG in SODIUM CHLORIDE 0.9% 100 ML IV SCH (12:36)
[2016-11-27] MEDS: SODIUM ACETATE 150 MEQ in STERILE WATER INJ 1,000 ML IV SCH ×3 (12:40→23:44)
--- NOTE | 2016-11-27 13:12 | Nephrology Progress Note ---
Nephrology - PN: Subj Interval history: The patient's condition is about the same. He remains on bipap ventilation. Serum creatinine noted to be 1.9. Slight trend up on serum potassium. Exam (PN)-Nephrology - Vital Signs Vital signs: Period Temp Pulse Resp BP Sys/Stewart Pulse Ox Last 24 Hr 97.0 F-98 F 105-120 14-51 90-172/55-107 92-100 - General Appearance General appearance: cachectic, fatigue, frail EENT: ATNC Respiratory: clear Cardiology: no edema, regular rate, regular rhythm Gastrointestinal: normoactive bowel sounds Integumentary: decubiti (sacral decubitis) Neurologic: alert and oriented x3 Musculoskeletal: no clubbing - Lab 11/27/16 05:12 11/27/16 05:12 Most recent lab results ABG pH 7.311 (7.35-7.45) L 11/27/16 06:20 ABG pCO2 34.4 MM HG (35-48) L 11/27/16 06:20 ABG pO2 65.3 MM HG (80-95) L 11/27/16 06:20 ABG HCO3 17.7 MMOL/L (20-26) L 11/27/16 06:20 ABG O2 Saturation 90.9 % (95-100) L 11/27/16 06:20 Calcium 9.2 MG/DL (8.5-10.1) 11/27/16 05:12 Phosphorus 6.1 MG/DL (2.5-4.9) H 11/27/16 05:12 Magnesium 2.1 MG/DL (1.8-2.4) 11/27/16 05:12 Assessment and Plan (1) Chronic kidney disease, stage III (moderate) Status: Chronic Assessment and plan: Patient with history of chronic kidney disease due to renal transplant. Serum creatinine is noted to be 1.9 Current Visit: No (2) Hypotension Status: Acute Current Visit: No (3) Altered mental status Status: Acute Current Visit: No Qualifiers: Altered mental status type: delirium Qualified Code(s): R41.0 - Disorientation, unspecified (4) Anemia Status: Chronic Current Visit: No (5) Peripheral vascular disease Status: Chronic Current Visit: Yes
--- NOTE | 2016-11-27 14:05 | Post Interventional Procedure ---
Pre-op diagnosis: Renal transplant recipient, respiratory failure, no peripheral IV access Post-op diagnosis: same Procedure: Right subclavian triple-lumen central line, ultrasound guided Radiologist: Julio De La Torre Anesthesia: local Specimens: none sent Estimated blood loss: none Complications: none Condition: critical Assessment and Plan - Time spent with patient Time spent with patient: Less than 30 minutes
--- NOTE | 2016-11-27 14:27 | Interventional Radiology Rpt ---
IR cvc insert nt >5, US guide vascular access, XR chest post procedure Indication: Leg abscess. Kidney transplant recipient. No peripheral IV access. CENTRAL LINE Description: A formal timeout was performed. Maximum sterile barrier technique was used. Sonographic evaluation of the right subclavian region demonstrates patent and compressible subclavian vein. The anterior right upper chest wall was prepped and draped in sterile fashion. 3 cc 1% lidocaine was administered subcutaneously. Under sonographic guidance, a micropuncture needle was advanced into the vein. A captured sonographic image documents the position of the needle. Needle was exchanged over a wire for a vascular dilator. A triple lumen central line was advanced until the tip was at the RA-SVC junction. The catheter depth was noted to be 18 cm. The position of the catheter was confirmed with bedside digital radiography and an image stored in PACS as a chest x-ray. The wire was removed. All 3 ports of the central line were aspirated and flushed with heparinized saline. The device was secured with suture, and a sterile dressing applied. Fluoroscopy: Digital radiography. Impression: Central ready for immediate use. Routine catheter care. PROCEDURE INTERPRETED AT [facility] DEPARTMENT OF RADIOLOGY Final Report Signed by: Julio De La Torre M.D.
[2016-11-27] MEDS: AMOXICILLIN 500 MG PO SCH ×2 (16:34→16:35)
[2016-11-28] MEDS: ALBUTEROL/IPRATROPIUM 3 ML NEB RESP TX SCH ×6 (03:19→22:39)
[2016-11-28] MEDS: MYCOPHENOLATE MOFETIL 250 MG CAPSULE PO SCH ×2 (03:41→15:59)
[2016-11-28] MEDS: TACROLIMUS 0.5 MG CAPSULE PO SCH ×2 (03:42→15:59)
[2016-11-28] MEDS: methylPREDNISolone SOD SUC 40 MG/1 ML VIAL IV SCH ×3 (03:45→21:04)
[2016-11-28] MEDS: PIPERACILLIN/TAZOBACTAM 3,375 MG in SODIUM CHLORIDE 0.9% 100 ML IV SCH ×3 (03:45→18:08)
[2016-11-28 04:23] LABS: Hematocrit 21.3 VOL% (42.0-52.0); Hemoglobin 6.8 GM/DL (14.0-18.0); Immature Granulocytes % 3.7 %; Immature Granulocytes Absolute 0.77 #; Lymphocytes # 0.7 10*3/uL (1.4-4.0); Lymphocytes % 3.3 % (21.2-54.2); Mean Corpuscular HGB Conc 31.9 GM/DL (32-36); Mean Corpuscular Hemoglobin 26 PG (27-34); Mean Corpuscular Volume 79.8 FL (87-102); Mean Platelet Volume 10.2 FL (9.6-12.0); Monocytes # 0.5 10*3/uL (0.11-0.8); Monocytes % 2.3 % (1.7-12.7); Neutrophils # 18.7 10*3/uL (1.4-7.4); Neutrophils % 90.7 % (38.7-73.9); Platelet Count 356 T/CUMM (130-400); Red Blood Count 2.67 MC/CUMM (3.8-5.5); Red Cell Distribution Width 16.3 % (9.3-17.3); White Blood Count 20.6 T/CUMM (4-12)
[2016-11-28 04:38] LABS: Osmolality,Calculated 298.8 MOS/KG (273-304); Potassium 4.3 MMOL/L (3.5-5.1)
[2016-11-28] MEDS: MORPHINE 2 MG/1 ML SYRINGE IV PRN ×5 (04:55→22:37)
[2016-11-28 06:18] LABS: Band Neutrophils 2 % (0-10); Lymphocytes 3 % (20-55); Myelocytes 3 %; Segmented Neutrophils 92 % (50-85); Total Cells Counted 100
[2016-11-28 06:19] LABS: Anisocytosis 1+; Hypochromasia 1+
[2016-11-28 06:20] LABS: Platelet Estimate Normal; Target Cells Few
[2016-11-28] MEDS ORDERED: FUROSEMIDE 100 MG/10 ML VIAL IV PRN (07:08)
[2016-11-28] MEDS ORDERED: SODIUM CHLORIDE 0.9% 250 ML IV PRN (07:08)
--- NOTE | 2016-11-28 07:16 | Pulmonology Progress Note ---
Pulmonary - PN: Subj Interval history: 50-year-old man with previous renal transplant. Has diffuse lung injury bilaterally. Presently tolerating BiPAP and responsive. Oxygen saturations acceptable. On broad-spectrum antibiotics. On immunosuppressant drugs. Patient's hematocrit has dropped from 26-21 and he has had stones that look like they are going to be positive for blood. We will transfuse and stop heparin. Exam (Progress Note) - Constitutional Vitals: Period Temp Pulse Resp BP Sys/Stewart Pulse Ox Last 24 Hr 97.2 F-98.0 F 107-122 16-41 98-145/65-100 0-100 Exam: Responsive. Oxygen saturation 98-100%. Vital signs otherwise normal. Pupils reactive. Neck supple. Chest reveals rales and musical rhonchi bilaterally. Heart rapid rate normal rhythm no murmurs. Abdomen soft nontender no masses. Extremities no clubbing cyanosis or edema. Results - Labs CBC & BMP: 11/28/16 04:00 11/28/16 04:00 Lab Results: I have reviewed the past 24 hour labs Assessment and Plan (1) History of renal transport Status: Acute Assessment and plan: Creatinine is 2.1. Making urine. On immunosuppressant drugs. Current Visit: Yes (2) ARF (acute renal failure) Status: Acute Assessment and plan: Slight rise in creatinine to 2.1. Watch closely. Nephrology following. Current Visit: No (3) Acute posthemorrhagic anemia Status: Acute Assessment and plan: Hematocrit 21. Likely GI bleed. Stop heparin. Transfuse. Current Visit: No (4) Pneumonia Status: Acute Assessment and plan: On empiric antibiotics for diffuse bilateral infiltrates. The etiology of this is still not clear. Has diffuse lung injury. Current Visit: No Qualifiers: Laterality: bilateral
--- NOTE | 2016-11-28 07:59 | Hospitalist Progress Note ---
Assessment and Plan (1) Acute respiratory failure with hypoxemia Status: Acute Assessment and plan: Continued on BiPAP followed by the pulmonary Current Visit: No (2) Metabolic acidosis Status: Acute Assessment and plan: Noted bicarb is improved also wished to half normal saline with the 75 meq bicarb Current Visit: Yes (3) Wound of left ankle Status: Acute Assessment and plan: Patient has left ankle wound which is dressed already. Abscess suspected by surgery and plan CT scan. I gave him vancomycin dose random level is 11 I will give another dose Current Visit: Yes (4) ARF (acute renal failure) Status: Acute Assessment and plan: Patient presented with acute kidney injury with a renal transplant status. Creatinine is mild up from 2.1. Noted BUN is increased even with IV fluid possible GI bleed as patient has droplets H&H check stool Hemoccult. Patient has a renal transplant status will defer immunosuppression to nephrology Current Visit: No (5) Hyperkalemia Status: Acute Assessment and plan: Resolved likely due to correction of acidosis Current Visit: No (6) Pneumonia Status: Acute Assessment and plan: Bilateral infiltrate on chest x-ray with the respiratory failure being followed by this pulmonary. I am not sure the primary source of her leukocytosis pneumonia or ankle he seemed to respond by improvement of WBC count continue with the current antibiotics and add dose of vancomycin as planned Current Visit: Yes Hospitalist: Subjective Interval history: Mr. Cooper is 50 years old male with history of hypertension depression seizure disorder gout GERD and end-stage renal disease required a renal transplant. He was admitted in August with altered mental status renal failure and nodular changes on chest x-ray. He developed respiratory failure requiring mechanical ventilation. He required prolonged ventilation at that time and had tracheostomy. He also had PEG tube placement. He was discharged to rehab facility. He recovered PEG tube was discontinued but his oral intake remained poor. He was admitted with the dehydration and hypercalcemia with acute kidney injury. He also has left ankle wound which required surgical intervention during his last admission. He is being followed by pulmonary renal and surgery services. Infection in the left ankle wound is suspected and he has been on antibiotics. Patient is awake tolerating BiPAP still tachycardic and tachypneic. Noted Dr. Ortiz plan to do packed cells transfusion due to drop of hemoglobin hematocrit and he has started heparin patient remained afebrile Exam - Constitutional Vitals: Period Temp Pulse Resp BP Sys/Stewart Pulse Ox Last 24 Hr 97.2 F-98.0 F 107-122 16-41 98-145/65-101 0-100 General appearance: mild distress, other - Respiratory Respiratory exam: Present: other (Bilateral coarse sound with some Rales and rhonchi) - Cardiovascular Cardiovascular exam: Present: regular rate and rhythm, tachycardia - GI/Abdominal GI/Abdominal exam: Present: normal bowel sounds, soft. Absent: distended, tenderness - Extremities Exam Extremities exam: Absent: edema (Left leg wound is still dressed no soaking) - Neurological Exam Neurological exam: Present: other (Awake and respond to verbal command with noding head) Results - Labs CBC & BMP: 11/28/16 04:00 11/28/16 04:00 Lab Results: I have reviewed the past 24 hour labs Quality Measures - VTE Contraindication to Mechanical VTE Prophylaxis: Trauma to Legs
[2016-11-28] MEDS ORDERED: VANCOMYCIN INJ 1,000 MG in SODIUM CHLORIDE 0.9% 250 ML IV ONE (09:00)
[2016-11-28] MEDS: SODIUM HYPOCHLORITE 0.25% IRRIG 473 ML BOTTLE TOP SCH (09:36)
[2016-11-28] MEDS: BACITRACIN OINT 0.9 GM PACK TOP SCH (09:46)
--- NOTE | 2016-11-28 09:53 | Event Note ---
Status post I&D foot. Afebrile mildly tachycardic. White blood cell count down to 20. The wounds were repacked. There was some purulence expressed from the medial aspect of the foot at the incision. This was irrigated and repacked. Continue antibiotics.
[2016-11-28] MEDS: ALLOPURINOL 100 MG TABLET PO SCH (10:08)
[2016-11-28] MEDS: SODIUM ACETATE 75 MEQ in SODIUM CHLORIDE 0.45% 1,000 ML IV SCH (10:09)
[2016-11-28] MEDS: cefTRIAXone 2,000 MG in SODIUM CHLORIDE 0.9% 100 ML IV SCH (10:12)
[2016-11-28] MEDS: PHENYLEPHRINE DRIP 40 MG/250 ML PREMIX IV SCH (11:05)
[2016-11-28] MEDS: ASPIRIN EC 81 MG TABLET PO SCH (11:15)
[2016-11-28] MEDS: FOLIC ACID 1 MG TABLET PO SCH (11:15)
[2016-11-28] MEDS: ALLOPURINOL 300 MG TABLET PO SCH (11:15)
[2016-11-28] MEDS: FAMOTIDINE 20 MG TABLET PO SCH (11:15)
[2016-11-28] MEDS: levETIRAcetam 500 MG TABLET PO SCH ×2 (11:16→21:10)
--- NOTE | 2016-11-28 11:21 | Cardiothoracic Consult ---
Assessment and Plan - Time spent with patient Time spent with patient: Greater than 30 minutes (1) Reticulonodular infiltrate present on imaging of chest Status: Chronic Assessment and plan: 50-year-old gentleman with a very complex medical history who has been critically ill for a prolonged period of time now. I was evaluating him for possible VATS wedge resection for diagnostic purposes. I had a lengthy discussion with the family this morning regarding risks benefits and alternatives of the procedure. They clearly stated that they do not want the procedure to be done. They actually expressed wishes for the patient to be DO NOT RESUSCITATE status starting now. We will respect their wishes with family and we will proceed with DO NOT RESUSCITATE status. At this point I will not perform the procedure. Please call with any questions. Current Visit: No History of Present Illness - Data of Consult Patient: new to practice Consult date: 11/27/16 Requesting Physician: Ramon Neri - Consult Narrative Reason for consult: Lung fibrosis History of present illness: Mr. Mcmanus is a 50 year old male who has been critically ill for a while. He was noted to have extensive groundglass opacities in both lungs. I was consulted to evaluate for possible VATS wedge resection for diagnostic purposes. The patient is noted to be confused. He has been altered mental status for a while. He has been critically ill for a long. . CC: Mukesh Zhu MD - Home Medications and Allergies Home Medications: Home Medications Medication Instructions Recorded Confirmed Type Aspirin [Ecotrin] 81 mg PO DAILY 05/16/16 11/25/16 History Carvedilol [Coreg] 12.5 mg PO BID 05/16/16 11/25/16 History Mycophenolate Mofetil Cap 500 mg PO Q12H 05/16/16 11/25/16 History [Cellcept] Tacrolimus [Tacrolimus Cap] 2 mg PO Q12H 05/16/16 11/25/16 History predniSONE TAB [PredniSONE] 10 mg PO DAILY 05/16/16 11/25/16 History Acetaminophen 650 mg PO Q6HR PRN 11/25/16 11/25/16 History Albuterol/Ipratropium Neb [Duoneb] 3 mg INH Q6HR PRN 11/25/16 11/25/16 History Amoxicillin 500 mg PO Q6HR 11/25/16 11/25/16 History Ampicillin Cap 500 mg PO Q6H 11/25/16 11/26/16 History Famotidine Tab [Pepcid Tab] 40 mg PO DAILY 11/25/16 11/25/16 History Folic Acid Tab 1 mg PO DAILY 11/25/16 11/25/16 History Gabapentin 200 mg PO BEDTIME 11/25/16 11/25/16 History HYDROcodone/ACETAMIN 7.5-325 7.5 mg PO Q6HR 11/25/16 11/25/16 History [Rocky 7.5-325] Lactulose 30 ml PO Q12HR 11/25/16 11/25/16 History Loratadine [Claritin] 10 mg PO DAILY 11/25/16 11/25/16 History Petrolatum,White [Desitin 1 strip TOP DAILY 11/25/16 11/25/16 History Multi-Purpose] Sertraline [Zoloft] 25 mg PO BEDTIME 11/25/16 11/25/16 History levETIRAcetam [Keppra] 250 mg PO DAILY 11/25/16 11/25/16 History Allergies/Adverse Reactions: Allergies Allergy/AdvReac Type Severity Reaction Status Date / Time No Known Allergies Allergy Verified 08/11/16 22:05 ROS unobtainable: due to mental status, due to delirium, due to dementia Medical,Surgical,& Family Hx - Medical History Cardio: History of: Hypertension Psychological: History of: Depression No history of: Anxiety Disorders, Bipolar Disorder, Schizophrenia Neurology: History of: Seizures (Abnormal EEG on last admission with initiation of antiseizure medication) HEENT: History of: Eye Problem (previous retinal tear RIGHT) Rheumatology: History of;: Gout (Arthrocentesis on last admission was felt consistent with gout ) Respiratory: History of: Intubation (Patient required prolonged intubation and tracheostomy during last hospital), Pneumonia (Possible pneumocystis pneumonia/ ARDS) Renal: History of: Renal Failure, Renal Problems (Kidney transplant - 09/15) No history of: Dialysis (had to have several dialysis treatments recently. cath has now been removed) Gastrointestinal: History of: GERD, Gastrointestinal Bleed, GI Problems (peg tube) Hematology: History of: Anemia No history of: Blood Transfusion Reaction Reproductive: No histroy: Reproductive Cancer Other: History of: Skin Problems (rash and open wounds on left foot s/p surgery) No history of: Anesthesia Reactions, HIV - Surgical History Cardiac Surgeries: Sugical HX of: Cardiac Catheterization (negative, done in 2008) Thoracic Surgeries: Surgical HX of;: Kidney (Renal Surgery) (transplant 2013), Organ Transplant (KIDNEY) Neurologic Surgeries: Patient denies: Neurologic Surgery HEENT Surgeries: Surgical HX of: Tonsilectomy & Adenoidectomy Patient denies: Eye Surgery Abdominal Surgeries: Surgical HX of: Abdominal Surgery (PD catheter placed and removed (Removed 2013)), Cholecystectomy, EGD Orthopedic Surgeries: Surgical HX of;: Orthopedic Surgery - Family History Family History: Reports;: Family Diabetes (MOM AND BROTHER), Family Hypertension (MOM AND BROTHER) Denies;: Family Anesthesia Reaction, Family Cancer, Family Heart Disease, Family Psychiatric Problems, Family Stroke - Social History Smoking Status: Former smoker Frequency of Alcohol Use: None Type of Drug Use: None Physical Examination Vital Signs Temp Pulse Resp BP Pulse Ox 97 F L 108 H 22 88/53 93 L 11/25/16 11:41 11/25/16 11:41 11/25/16 11:41 11/25/16 11:41 11/25/16 11:41 General: Present: Cachectic HEENT: Present: Pallor Neck: Present: Midline Trachea Cardiac: Present: Tachycardia Lungs: Present: Bibasilar Rales, Wheezes, Scattered Rhonchi Abdomen: Present: Soft, Active Bowel Sounds Result/EKG - Labs CBC & BMP: 11/28/16 04:00 11/28/16 04:00 Labs: Laboratory Results - last 24 hr 11/27/16 11/27/16 11/27/16 11:51 18:23 23:54 WBC RBC Hgb Hct MCV MCH MCHC RDW Plt Count MPV Neut % (Auto) Lymph % (Auto) [place] % (Auto) Eos % (Auto) Baso % (Auto) Neut # (Auto) Lymph # (Auto) [place] # (Auto) Eos # (Auto) Baso # (Auto) Total Counted Immature Gran % Nucleated RBC % Immature Gran # Segmented Neutrophils Band Neutrophils Lymphocytes Myelocytes Nucleated RBCs # Platelet Estimate Hypochromasia Anisocytosis Target Cells Sodium Potassium Chloride Carbon Dioxide Anion Gap BUN Creatinine GFR Calculation BUN/Creatinine Ratio Glucose POC Glucose 165 H 130 H 137 H Calculated Osmolality Calcium Urine Eosinophils Random Vancomycin Blood Type Antibody Screen Crossmatch 11/28/16 11/28/16 11/28/16 04:00 04:00 04:00 WBC 20.6 H RBC 2.67 L Hgb 6.8 L Hct 21.3 L MCV 79.8 L MCH 26 L MCHC 31.9 L RDW 16.3 Plt Count 356 MPV 10.2 Neut % (Auto) 90.7 H Lymph % (Auto) 3.3 L [place] % (Auto) 2.3 Eos % (Auto) 0.0 Baso % (Auto) 0.0 Neut # (Auto) 18.7 H Lymph # (Auto) 0.7 L [place] # (Auto) 0.5 Eos # (Auto) 0.0 Baso # (Auto) 0.0 Total Counted 100 Immature Gran % 3.7 Nucleated RBC % 0.0 Immature Gran # 0.77 Segmented Neutrophils 92 H Band Neutrophils 2 Lymphocytes 3 L Myelocytes 3 Nucleated RBCs # 0.00 Platelet Estimate Normal Hypochromasia 1+ Anisocytosis 1+ Target Cells Few Sodium 137 Potassium 4.3 Chloride 101 Carbon Dioxide 24 Anion Gap 16.3 H BUN 76 H D Creatinine 2.10 H GFR Calculation 43 BUN/Creatinine Ratio 36.00 H Glucose 148 H POC Glucose Calculated Osmolality 298.8 Calcium 8.0 L Urine Eosinophils Random Vancomycin 11.6 Blood Type Antibody Screen Crossmatch 11/28/16 11/28/16 11/28/16 04:00 05:32 09:40 WBC RBC Hgb Hct MCV MCH MCHC RDW Plt Count MPV Neut % (Auto) Lymph % (Auto) [place] % (Auto) Eos % (Auto) Baso % (Auto) Neut # (Auto) Lymph # (Auto) [place] # (Auto) Eos # (Auto) Baso # (Auto) Total Counted Immature Gran % Nucleated RBC % Immature Gran # Segmented Neutrophils Band Neutrophils Lymphocytes Myelocytes Nucleated RBCs # Platelet Estimate Hypochromasia Anisocytosis Target Cells Sodium Potassium Chloride Carbon Dioxide Anion Gap BUN Creatinine GFR Calculation BUN/Creatinine Ratio Glucose POC Glucose 142 H Calculated Osmolality Calcium Urine Eosinophils Random Vancomycin Blood Type B POSITIVE Antibody Screen Negative Crossmatch See Detail Quality Measures - VTE Contraindication to Mechanical VTE Prophylaxis: Trauma to Legs
[2016-11-28 12:35] LABS: Creatinine,Urine Random 56 MG/DL; Urea Nitrogen, Urine Random 601 MG/DL
[2016-11-28] MEDS: ZINC OXIDE PASTE 113 GM TUBE TOP SCH (13:39)
--- NOTE | 2016-11-28 13:56 | Nephrology Progress Note ---
Nephrology - PN: Subj Interval history: Pt on bipap. Acidosis and K improved with IVFs. FeUrea (29%) today reveals continue prerenal azotemia. Creatinine stable at 2.1. Made DNR today, not a candidate for VATs procedure. Exam (PN)-Nephrology - Vital Signs Vital signs: Period Temp Pulse Resp BP Sys/Stewart Pulse Ox Last 24 Hr 95.1 F-98.0 F 107-126 16-41 86-145/48-101 0-100 - General Appearance General appearance: well-developed, chronically ill EENT: ATNC, PERRL Neck: no JVD, no thyromegaly Respiratory: no kyphosis, rales Cardiology: no murmurs, no rub Gastrointestinal: normoactive bowel sounds, no tenderness Integumentary: no rash, warm and dry Neurologic: no focal deficit, no asterixis Musculoskeletal: no deformities, no erythema - Lab 11/28/16 04:00 11/28/16 04:00 Most recent lab results ABG pH 7.311 (7.35-7.45) L 11/27/16 06:20 ABG pCO2 34.4 MM HG (35-48) L 11/27/16 06:20 ABG pO2 65.3 MM HG (80-95) L 11/27/16 06:20 ABG HCO3 17.7 MMOL/L (20-26) L 11/27/16 06:20 ABG O2 Saturation 90.9 % (95-100) L 11/27/16 06:20 Calcium 8.0 MG/DL (8.5-10.1) L 11/28/16 04:00 Phosphorus 6.1 MG/DL (2.5-4.9) H 11/27/16 05:12 Magnesium 2.1 MG/DL (1.8-2.4) 11/27/16 05:12 Assessment and Plan (1) Prerenal azotemia Problem details: Continue IVF resuscitation. Status: Acute Current Visit: Yes (2) Kidney transplant recipient Problem details: No evidence of rejection. Status: Chronic Current Visit: No
[2016-11-28] MEDS: INSULIN LISPRO 100 UNIT/ML SUBCUT SCH (18:33)
[2016-11-29] MEDS: SODIUM ACETATE 75 MEQ in SODIUM CHLORIDE 0.45% 1,000 ML IV SCH ×2 (00:10→13:10)
[2016-11-29] MEDS: INSULIN LISPRO 100 UNIT/ML SUBCUT SCH ×4 (00:27→18:22)
[2016-11-29] MEDS: MORPHINE 2 MG/1 ML SYRINGE IV PRN ×4 (02:45→18:28)
[2016-11-29] MEDS: PIPERACILLIN/TAZOBACTAM 3,375 MG in SODIUM CHLORIDE 0.9% 100 ML IV SCH ×3 (02:49→18:27)
[2016-11-29] MEDS: ALBUTEROL/IPRATROPIUM 3 ML NEB RESP TX SCH ×5 (03:29→19:19)
[2016-11-29] MEDS: MYCOPHENOLATE MOFETIL 250 MG CAPSULE PO SCH ×2 (04:13→16:42)
[2016-11-29] MEDS: TACROLIMUS 0.5 MG CAPSULE PO SCH ×2 (04:13→16:42)
[2016-11-29] MEDS: methylPREDNISolone SOD SUC 40 MG/1 ML VIAL IV SCH ×3 (04:14→19:33)
[2016-11-29 06:27] LABS: Hematocrit 30.6 VOL% (42.0-52.0); Hemoglobin 9.6 GM/DL (14.0-18.0)
--- NOTE | 2016-11-29 07:22 | Pulmonology Progress Note ---
Pulmonary - PN: Subj Interval history: 50-year-old man with previous renal transplant. Has diffuse lung injury bilaterally. Presently tolerating BiPAP and responsive. Oxygen saturations acceptable. On broad-spectrum antibiotics. On immunosuppressant drugs. Patient's hematocrit has dropped from 26-21 and he has had stones that look like they are going to be positive for blood. We will transfuse and stop heparin. 11/29/2016 patient remains fairly stable on BiPAP facemask. O2 sats better. Hematocrit is up to 29 after transfusion. Family has made the decision to make him a DO NOT RESUSCITATE. Nevertheless we want to continue full support short of placing him on the ventilator. Exam (Progress Note) - Constitutional Vitals: Period Temp Pulse Resp BP Sys/Stewart Pulse Ox Last 24 Hr 95.1 F-99.0 F 103-126 12-32 82-144/48-92 50-100 Exam: Responsive. Oxygen saturation 98-100%. Vital signs otherwise normal. Pupils reactive. Neck supple. Chest reveals rales and musical rhonchi bilaterally. Heart rapid rate normal rhythm no murmurs. Abdomen soft nontender no masses. Extremities no clubbing cyanosis or edema. Little change from yesterday. Results - Labs CBC & BMP: 11/29/16 05:05 11/28/16 04:00 Lab Results: I have reviewed the past 24 hour labs Assessment and Plan (1) History of renal transport Status: Acute Assessment and plan: Creatinine is 2.1. Making urine. On immunosuppressant drugs. 11/29/2016 being followed by nephrology. Current Visit: Yes (2) ARF (acute renal failure) Status: Acute Assessment and plan: Slight rise in creatinine to 2.1. Watch closely. Nephrology following. Current Visit: No (3) Acute posthemorrhagic anemia Status: Acute Assessment and plan: Hematocrit 21. Likely GI bleed. Stop heparin. Transfuse. 11/29/2016 hematocrit of 29. Heparin has been stopped. Current Visit: No (4) Pneumonia Status: Acute Assessment and plan: On empiric antibiotics for diffuse bilateral infiltrates. The etiology of this is still not clear. Has diffuse lung injury. 11/29/2016 continuing broad-spectrum antibiotics. He also has an abscess in his ankle that is long-standing. Current Visit: No Qualifiers: Laterality: bilateral
--- NOTE | 2016-11-29 08:10 | Hospitalist Progress Note ---
Assessment and Plan (1) Acute respiratory failure with hypoxemia Status: Acute Assessment and plan: Continued on BiPAP followed by the pulmonary Current Visit: No (2) Metabolic acidosis Status: Acute Assessment and plan: Bicarb level was improved IV fluid was changed from isotonic bicarb to half normal saline with the 75 meq bicarb. Unfortunately I forgot to order the labs will go ahead and order for today and tomorrow Current Visit: Yes (3) Wound of left ankle Status: Acute Assessment and plan: Patient has left ankle wound which is dressed already. Abscess suspected by surgery and plan CT scan. Staff nurse has reported post coming out of the wound and dressing was changed. He received vancomycin dose yesterday and and . Today went random level is 17.7 will give another dose. His WBC count was better yesterday I will get WBC count again today and tomorrow monitor renal function. Current Visit: Yes (4) ARF (acute renal failure) Status: Acute Assessment and plan: Patient has a renal transplant status will defer immunosuppression to nephrology in presence of infection. ID service is not available. Will obtain renal function for today and tomorrow especially patient on vancomycin Current Visit: No (5) Pneumonia Status: Acute Assessment and plan: Bilateral infiltrate on chest x-ray with the respiratory failure being followed by this pulmonary. I am not sure the primary source of her leukocytosis pneumonia or ankle. VATS was declined by the family which was considered by the pulmonary service. He is on antibiotics continue followed by pulmonary Current Visit: Yes (6) Anemia Status: Acute Assessment and plan: Improved hemoglobin hematocrit after the transfusion positive Hemoccult will keep monitoring and consult GI Current Visit: Yes (7) Anemia Status: Chronic Current Visit: No Hospitalist: Subjective Interval history: Mr. Cooper is 50 years old male with history of hypertension depression seizure disorder gout GERD and end-stage renal disease required a renal transplant. He was admitted in August with altered mental status renal failure and nodular changes on chest x-ray. He developed respiratory failure requiring mechanical ventilation. He required prolonged ventilation at that time and had tracheostomy. He also had PEG tube placement. He was discharged to rehab facility. He recovered PEG tube was discontinued but his oral intake remained poor. He was admitted with the dehydration and hypercalcemia with acute kidney injury. He also has left ankle wound which required surgical intervention during his last admission. He is being followed by pulmonary renal and surgery services. Infection in the left ankle wound is suspected and he has been on antibiotics. Patient is awake tolerating BiPAP received 2 units of packed red cells transfusion for low hemoglobin hematocrit. Heparin was stopped. Patient is awake but not following command. Cardiothoracic surgery was consulted for VATS. Dr. Rouse had discussion with the family and the procedure was declined patient was made DNR. He still on maintenance IV fluid and PEG tube feeding urine output remained good Exam - Constitutional Vitals: Period Temp Pulse Resp BP Sys/Stewart Pulse Ox Last 24 Hr 95.1 F-98.2 F 103-123 12-32 82-138/48-91 89-100 General appearance: no acute distress (On BiPAP) - Respiratory Respiratory exam: Present: rales (Bilateral equal air entry with the diffuse rales especially on the left side and more coarse on the left side) - Cardiovascular Cardiovascular exam: Present: regular rate and rhythm, tachycardia - GI/Abdominal GI/Abdominal exam: Present: normal bowel sounds, soft. Absent: tenderness - Neurological Exam Neurological exam: Present: other (Awake not following command) Results - Labs CBC & BMP: 11/29/16 05:05 11/28/16 04:00 Lab Results: I have reviewed the past 24 hour labs Quality Measures - VTE Contraindication to Mechanical VTE Prophylaxis: Trauma to Legs
[2016-11-29] MEDS ORDERED: VANCOMYCIN INJ 1,000 MG in SODIUM CHLORIDE 0.9% 250 ML IV ONE (09:00)
[2016-11-29 09:11] LABS: Basophils % 0.1 % (0.0-0.8); Hematocrit 30.4 VOL% (42.0-52.0); Hemoglobin 9.5 GM/DL (14.0-18.0); Immature Granulocytes % 3.6 %; Immature Granulocytes Absolute 0.82 #; Lymphocytes # 0.6 10*3/uL (1.4-4.0); Lymphocytes % 2.5 % (21.2-54.2); Mean Corpuscular HGB Conc 31.3 GM/DL (32-36); Mean Corpuscular Hemoglobin 27 PG (27-34); Mean Corpuscular Volume 84.7 FL (87-102); Mean Platelet Volume 10.3 FL (9.6-12.0); Monocytes # 0.5 10*3/uL (0.11-0.8); Monocytes % 2.3 % (1.7-12.7); NRBC # 0.03 10*3/uL; Neutrophils # 20.7 10*3/uL (1.4-7.4); Neutrophils % 91.5 % (38.7-73.9); Platelet Count 296 T/CUMM (130-400); Red Blood Count 3.59 MC/CUMM (3.8-5.5); Red Cell Distribution Width 16.1 % (9.3-17.3); White Blood Count 22.6 T/CUMM (4-12)
[2016-11-29 09:38] LABS: Calcium 8.3 MG/DL (8.5-10.1); Osmolality,Calculated 301.4 MOS/KG (273-304); Potassium 4.4 MMOL/L (3.5-5.1)
[2016-11-29] MEDS: SODIUM HYPOCHLORITE 0.25% IRRIG 473 ML BOTTLE TOP SCH (09:51)
[2016-11-29] MEDS: BACITRACIN OINT 0.9 GM PACK TOP SCH (09:51)
[2016-11-29 09:54] LABS: Band Neutrophils 1 % (0-10); Hypochromasia 1+; Lymphocytes 3 % (20-55); Microcytosis Slight; Ovalocytes Slight; Platelet Estimate Adequate; Segmented Neutrophils 92 % (50-85); Total Cells Counted 100
--- NOTE | 2016-11-29 09:58 | Event Note ---
Afebrile vital signs stable. Is mildly tachycardic. Received 2 units packed red blood cells. There is no obvious cellulitis of the left foot. There is less purulence draining medially it is much more thin today. White blood cell count up to 22,000. We will continue irrigation of the wounds and packing. Drainage appears to be improving but may need to have these areas opened up a bit further.
[2016-11-29] MEDS: cefTRIAXone 2,000 MG in SODIUM CHLORIDE 0.9% 100 ML IV SCH (10:19)
[2016-11-29] MEDS: levETIRAcetam 500 MG TABLET PO SCH ×2 (10:20→21:23)
[2016-11-29] MEDS: FAMOTIDINE 20 MG TABLET PO SCH (10:20)
[2016-11-29] MEDS: FOLIC ACID 1 MG TABLET PO SCH (10:20)
[2016-11-29] MEDS: ALLOPURINOL 300 MG TABLET PO SCH (10:20)
[2016-11-29] MEDS: ASPIRIN EC 81 MG TABLET PO SCH (10:20)
--- NOTE | 2016-11-29 11:42 | Nephrology Progress Note ---
Nephrology - PN: Subj Interval history: Bipap on. Looking about. Does respond appropriately to simple commands. Creatinine down to 1.8. Now DNR. Exam (PN)-Nephrology - Vital Signs Vital signs: Period Temp Pulse Resp BP Sys/Stewart Pulse Ox Last 24 Hr 95.3 F-98.2 F 103-121 12-32 82-138/48-91 91-100 - General Appearance General appearance: well-developed, chronically ill EENT: ATNC, PERRL, mucous membranes moist, hearing intact, vision intact Neck: no JVD, no thyromegaly Respiratory: no kyphosis, rales Cardiology: no murmurs, no rub, edema Gastrointestinal: normoactive bowel sounds, no tenderness Integumentary: no rash, warm and dry Neurologic: no focal deficit, disoriented Musculoskeletal: no cyanosis, no clubbing Psychiatric: mood/affect appropriate - Lab 11/29/16 08:55 11/29/16 08:55 Most recent lab results ABG pH 7.311 (7.35-7.45) L 11/27/16 06:20 ABG pCO2 34.4 MM HG (35-48) L 11/27/16 06:20 ABG pO2 65.3 MM HG (80-95) L 11/27/16 06:20 ABG HCO3 17.7 MMOL/L (20-26) L 11/27/16 06:20 ABG O2 Saturation 90.9 % (95-100) L 11/27/16 06:20 Calcium 8.3 MG/DL (8.5-10.1) L 11/29/16 08:55 Phosphorus 6.1 MG/DL (2.5-4.9) H 11/27/16 05:12 Magnesium 2.0 MG/DL (1.8-2.4) 11/29/16 08:55 Assessment and Plan (1) Prerenal azotemia Problem details: Continue IVF resuscitation. Status: Acute Current Visit: Yes (2) Kidney transplant recipient Problem details: No evidence of rejection. Status: Chronic Current Visit: No
[2016-11-29] MEDS: ZINC OXIDE PASTE 113 GM TUBE TOP SCH (13:50)
[2016-11-29] MEDS: SKIN HEALING OINT (AQUAPHOR) 50 GM TUBE TOP PRN (14:25)
--- NOTE | 2016-11-29 15:18 | Gastrointestinal Consult Note ---
Assessment and Plan (1) Blood in stool, di Status: Acute Assessment and plan: Associated with anemia requiring transfusion yesterday. Patient does not appear to be having active GI bleeding currently given appearance of stool. He has multiple medical issues including decline in his transplanted kidney. Note that family has decided on DO NOT RESUSCITATE order. He has some gross bleeding noted in his stool and with colonoscopy within the last 6 months, I would not think repeat endoscopy would be beneficial to him. Agree with plan to follow with serial hemoglobins and blood product support for now. Dr. Duncan has seen patient in past and will assume care tomorrow. Current Visit: Yes History of Present Illness Chief complaint: Blood in stool History of present illness: Mr. Mcmanus is a 50 year old male with history of end-stage renal disease and previous renal transplants apparently in 2006 and then again in 2013. He is admitted with recent increased weakness and fever. He has a wound on his left foot with purulent drainage and is also had respiratory failure. He is now on BiPAP mask and not responsive. Family has made him a DNR in event of cardiac or respiratory arrest. Patient had fallen his hemoglobin yesterday from 9 range down to 7 and he was given 2 units packed red blood cells. Hemoglobin is back up to 9. He did have 2+ occult blood noted in his stool. Nurses report he had a small amount of dark red blood mixed in with formed brown stool today. Patient is unable to provide any history. He has not been having any nausea or vomiting. No melena has been noted. He did have colonoscopy in 06/[address] Duncan to evaluate weight loss and apparently diarrhea. Diverticulosis coli was noted on that study. Home Medications Medication Instructions Recorded Confirmed Type Aspirin [Ecotrin] 81 mg PO DAILY 05/16/16 11/25/16 History Carvedilol [Coreg] 12.5 mg PO BID 05/16/16 11/25/16 History Mycophenolate Mofetil Cap 500 mg PO Q12H 05/16/16 11/25/16 History [Cellcept] Tacrolimus [Tacrolimus Cap] 2 mg PO Q12H 05/16/16 11/25/16 History predniSONE TAB [PredniSONE] 10 mg PO DAILY 05/16/16 11/25/16 History Acetaminophen 650 mg PO Q6HR PRN 11/25/16 11/25/16 History Albuterol/Ipratropium Neb [Duoneb] 3 mg INH Q6HR PRN 11/25/16 11/25/16 History Amoxicillin 500 mg PO Q6HR 11/25/16 11/25/16 History Ampicillin Cap 500 mg PO Q6H 11/25/16 11/26/16 History Famotidine Tab [Pepcid Tab] 40 mg PO DAILY 11/25/16 11/25/16 History Folic Acid Tab 1 mg PO DAILY 11/25/16 11/25/16 History Gabapentin 200 mg PO BEDTIME 11/25/16 11/25/16 History HYDROcodone/ACETAMIN 7.5-325 7.5 mg PO Q6HR 11/25/16 11/25/16 History [[place] 7.5-325] Lactulose 30 ml PO Q12HR 11/25/16 11/25/16 History Loratadine [Claritin] 10 mg PO DAILY 11/25/16 11/25/16 History Petrolatum,White [Desitin 1 strip TOP DAILY 11/25/16 11/25/16 History Multi-Purpose] Sertraline [Zoloft] 25 mg PO BEDTIME 11/25/16 11/25/16 History levETIRAcetam [Keppra] 250 mg PO DAILY 11/25/16 11/25/16 History Allergies Allergy/AdvReac Type Severity Reaction Status Date / Time No Known Allergies Allergy Verified 08/11/16 22:05 Medical,Surgical,& Family Hx - Medical History Cardio: History of: Hypertension Psychological: No history of: Anxiety Disorders, Bipolar Disorder, Depression, Schizophrenia Neurology: No history of: Seizures HEENT: History of: Eye Problem (previous retinal tear RIGHT) Rheumatology: History of;: Gout Respiratory: History of: Intubation (currently intubated, for trach placement today), Pneumonia Renal: History of: Renal Failure, Renal Problems (Kidney transplant - 09/15) No history of: Dialysis (had to have several dialysis treatments recently. cath has now been removed) Gastrointestinal: History of: GERD, Gastrointestinal Bleed, GI Problems (peg tube) Hematology: History of: Anemia No history of: Blood Transfusion Reaction Reproductive: No histroy: Reproductive Cancer Other: History of: Skin Problems (rash and open wounds on left foot s/p surgery) No history of: Anesthesia Reactions, HIV - Surgical History Cardiac Surgeries: Sugical HX of: Cardiac Catheterization (negative, done in 2008) Thoracic Surgeries: Surgical HX of;: Kidney (Renal Surgery) (transplant 2013), Organ Transplant (KIDNEY) Neurologic Surgeries: Patient denies: Neurologic Surgery HEENT Surgeries: Surgical HX of: Tonsilectomy & Adenoidectomy Patient denies: Eye Surgery Abdominal Surgeries: Surgical HX of: Abdominal Surgery (PD catheter placed and removed (Removed 2013)), Cholecystectomy, EGD Orthopedic Surgeries: Patient denies;: Orthopedic Surgery - Family History Family History: Reports;: Family Diabetes (MOM AND BROTHER), Family Hypertension (MOM AND BROTHER) Denies;: Family Anesthesia Reaction, Family Cancer, Family Heart Disease, Family Psychiatric Problems, Family Stroke - Social History Smoking Status: Former smoker Frequency of Alcohol Use: None Type of Drug Use: None ROS unobtainable: due to mental status Exam - Constitutional Vitals: Period Temp Pulse Resp BP Sys/Stewart Pulse Ox Last 24 Hr 95.6 F-98.2 F 103-121 12-29 82-138/56-91 97-100 General appearance: under weight (Chronically ill-appearing male unresponsive with tachypnea on BiPAP mask.) - Head Head exam: Present: normocephalic, atraumatic - Eye Eye exam: Absent: scleral icterus - Respiratory Respiratory exam: Present: clear to auscultation bilaterally. Absent: wheezes - Cardiovascular Cardiovascular exam: Present: regular rate and rhythm. Absent: gallop, rubs - GI/Abdominal GI/Abdominal exam: Present: normal bowel sounds, soft. Absent: distended, tenderness - Extremities Exam Extremities exam: Present: other (Patient with marked peripheral muscle wasting) . Absent: calf tenderness, edema - Neurological Exam Neurological exam: Absent: alert - Skin Skin exam: Present: warm, dry Results - Labs CBC & BMP: 11/29/16 08:55 11/29/16 08:55 Lab Results: I have reviewed the past 24 hour labs Quality Measures - VTE Contraindication to Mechanical VTE Prophylaxis: Trauma to Legs
[2016-11-30] MEDS: ALBUTEROL/IPRATROPIUM 3 ML NEB RESP TX SCH ×6 (00:26→20:54)
[2016-11-30] MEDS: INSULIN LISPRO 100 UNIT/ML SUBCUT SCH ×4 (01:04→18:21)
[2016-11-30] MEDS: MORPHINE 2 MG/1 ML SYRINGE IV PRN ×2 (02:15→09:16)
[2016-11-30] MEDS: PIPERACILLIN/TAZOBACTAM 3,375 MG in SODIUM CHLORIDE 0.9% 100 ML IV SCH (03:23)
[2016-11-30] MEDS: SKIN HEALING OINT (AQUAPHOR) 50 GM TUBE TOP PRN (03:24)
[2016-11-30] MEDS: SODIUM ACETATE 75 MEQ in SODIUM CHLORIDE 0.45% 1,000 ML IV SCH ×2 (03:39→17:01)
[2016-11-30] MEDS: TACROLIMUS 0.5 MG CAPSULE PO SCH ×2 (05:23→17:01)
[2016-11-30] MEDS: MYCOPHENOLATE MOFETIL 250 MG CAPSULE PO SCH ×2 (05:23→17:01)
[2016-11-30] MEDS: methylPREDNISolone SOD SUC 40 MG/1 ML VIAL IV SCH ×3 (05:24→22:24)
[2016-11-30 05:55] LABS: Calcium 8.5 MG/DL (8.5-10.1); Osmolality,Calculated 302.4 MOS/KG (273-304); Phosphorous 5.1 MG/DL (2.5-4.9); Potassium 4.1 MMOL/L (3.5-5.1); Prealbumin 13.2 MG/DL (20-40)
--- NOTE | 2016-11-30 07:45 | Pulmonology Progress Note ---
Pulmonary - PN: Subj Interval history: Patient is a 50-year-old black man that has had a previous renal transplant. He has been on immunosuppressive agents. He comes back in with hypotension, dehydration, worsening renal insufficiency and shortness of breath. He continues to have extensive nodular infiltrates. He was in the hospital in August and September with respiratory failure on the ventilator. He was treated for pneumonia and did seem to improve somewhat. At that time he did have transbronchial biopsies that did not show a definite organism. He is back now and his x-ray is worse. He has extensive reticulonodular infiltrates. He has required BiPAP and his O2 saturation has been adequate. His family has decided they do not want him resuscitated and did not want an open lung biopsy. At this point he is continuing antibiotics and steroids. He is critically ill at this point Exam (Progress Note) - Constitutional Vitals: Period Temp Pulse Resp BP Sys/Stewart Pulse Ox Last 24 Hr 97.0 F-98.9 F 112-123 20-36 106-143/67-96 96-100 Exam: General appearance: under weight, other (Patient is chronically ill-appearing and very fragile. He is still requiring BiPAP.) - Head Head exam: Present: normal inspection, normocephalic - Eye Eye exam: Present: EOMI. Absent: scleral icterus Pupils: Present: SELVIN - ENT ENT exam: Present: other (He has dry mucous membrane), he has a BiPAP mask in place. - Neck Neck exam: Absent: lymphadenopathy, meningismus, thyromegaly - Respiratory Respiratory exam: Present: accessory muscle use, rhonchi, other (He has coarse breath sounds bilaterally with bilateral crackles) - Cardiovascular Cardiovascular exam: Present: regular rate and rhythm, tachycardia. Absent: gallop, systolic murmur - GI/Abdominal GI/Abdominal exam: Present: normal bowel sounds, soft. Absent: organomegaly, tenderness - Extremities Exam Extremities exam: Present: other (He still has the wound on his left ankle). Absent: calf tenderness, edema - Neurological Exam Neurological exam: Present: He is more lethargic today. - Psychiatric Psychiatric exam: Present: He does not respond as well today. - Skin Skin exam: Present: warm, dry Results - Labs CBC & BMP: 11/29/16 08:55 11/30/16 05:13 Assessment and Plan (1) Dehydration Status: Acute Assessment and plan: Patient patient has been better hydrated and his blood pressure stable. Current Visit: No (2) Kidney transplant recipient Problem details: No evidence of rejection. Status: Chronic Assessment and plan: The patient is somewhat immunosuppressed and has mildly decreased renal function. His creatinine is down to 1.7 now. Current Visit: No (3) Reticulonodular infiltrate present on imaging of chest Status: Chronic Assessment and plan: The patient continues to have extensive reticular nodular infiltrates does require BiPAP. His family does not want an open lung biopsy. Current Visit: No (4) Acute respiratory failure with hypoxemia Status: Acute Assessment and plan: The patient has had hypoxemia but is doing better on BiPAP with oxygen. His family does not want him intubated now. We will continue present therapy for now. Current Visit: No (5) Pneumonia Status: Acute Assessment and plan: He will be covered with antibiotics for pneumonia. So far his cultures have been negative. Current Visit: No Qualifiers: Laterality: bilateral (6) Peripheral vascular disease Status: Chronic Assessment and plan: Patient has a wound on his left leg and much skin breakdown Current Visit: Yes (7) Rash and nonspecific skin eruption Status: Acute Assessment and plan: He recently had a rash which possibly could be a drug reaction. Current Visit: Yes (8) Gastrointestinal hemorrhage with melena Status: Acute Assessment and plan: Patient is having some blood in his stools. Current Visit: No
--- NOTE | 2016-11-30 08:45 | General Surgery Progress Note ---
Assessment and Plan - Time spent with patient Time spent with patient: Less than 30 minutes (1) Wound of left ankle Status: Acute Assessment and plan: 11/30/2016 The drainage from the left foot continues especially on the medial aspect. There remains some edema and some skin changes present. The other wounds of the foot does look fairly clean without any signs of any significant drainage. Right lower extremity though has increasing vesicles and blistering with some superficial skin loss. This has the hallmarks of a Barlow-Paul syndrome. Steroids would be the treatment and possibly stopping certain antibiotics if possible. Current Visit: Yes Subjective Patient reports: Present: still having pain, afebrile, other (Still having respiratory problems. There is now blistering that extends up to the posterior aspect of the right thigh) Exam - Constitutional Vitals: Period Temp Pulse Resp BP Sys/Stewart Pulse Ox Last 24 Hr 97.0 F-98.9 F 112-123 20-36 106-143/67-96 96-100 General appearance: severe distress - Head Head exam: Present: normal inspection - ENT ENT exam: Present: normal exam - Neck Neck exam: Present: normal inspection - Respiratory Respiratory exam: Present: rales, rhonchi - Cardiovascular Cardiovascular exam: Present: RRR - GI/Abdominal GI/Abdominal exam: Present: hypoactive bowel sounds, soft - Extremities Exam Extremities exam: Present: other (Patient now has some blistering of the posterior aspect of the right thigh that as well as the right leg and foot. There are changes on his trunk and upper extremities also. 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 The left foot though continues to have a good bit of edema in it the medial wound continues to have a great deal of purulent like drainage. His cultures are noted. Little drainage from where the irrigating catheter was placed.) - Neurological Exam Neurological exam: Present: alert - Skin Skin exam: Present: normal color, warm, dry, petechiae (Petechiae type rash on the chest and abdomen and upper extremity), vesicles (Especially on the lower extremity on the right) Results - Labs CBC & BMP: 11/29/16 08:55 11/30/16 05:13 Lab Results: I have reviewed the past 24 hour labs Quality Measures - VTE Contraindication to Mechanical VTE Prophylaxis: Trauma to Legs
[2016-11-30] MEDS: FAMOTIDINE 20 MG TABLET PO SCH (09:15)
[2016-11-30] MEDS: levETIRAcetam 500 MG TABLET PO SCH ×2 (09:15→22:23)
[2016-11-30] MEDS: FOLIC ACID 1 MG TABLET PO SCH (09:16)
[2016-11-30] MEDS: ALLOPURINOL 300 MG TABLET PO SCH (09:16)
[2016-11-30] MEDS: BACITRACIN OINT 0.9 GM PACK TOP SCH (09:16)
[2016-11-30] MEDS: SODIUM HYPOCHLORITE 0.25% IRRIG 473 ML BOTTLE TOP SCH (09:16)
[2016-11-30] MEDS: ZINC OXIDE PASTE 113 GM TUBE TOP SCH (09:16)
[2016-11-30] MEDS: cefTRIAXone 2,000 MG in SODIUM CHLORIDE 0.9% 100 ML IV SCH (09:19)
--- NOTE | 2016-11-30 09:36 | Nephrology Progress Note ---
Nephrology - PN: Subj Interval history: Patient's condition is about the same. Remains on BiPAP ventilation. Serum creatinine is 1.7. Exam (PN)-Nephrology - Vital Signs Vital signs: Period Temp Pulse Resp BP Sys/Stewart Pulse Ox Last 24 Hr 97.0 F-98.9 F 112-123 20-36 106-143/67-96 96-100 - General Appearance General appearance: fatigue, frail EENT: ATNC Neck: supple Respiratory: clear Cardiology: regular rate, regular rhythm Gastrointestinal: normoactive bowel sounds, no tenderness Musculoskeletal: no clubbing - Lab 11/29/16 08:55 11/30/16 05:13 Most recent lab results ABG pH 7.311 (7.35-7.45) L 11/27/16 06:20 ABG pCO2 34.4 MM HG (35-48) L 11/27/16 06:20 ABG pO2 65.3 MM HG (80-95) L 11/27/16 06:20 ABG HCO3 17.7 MMOL/L (20-26) L 11/27/16 06:20 ABG O2 Saturation 90.9 % (95-100) L 11/27/16 06:20 Calcium 8.5 MG/DL (8.5-10.1) 11/30/16 05:13 Phosphorus 5.1 MG/DL (2.5-4.9) H 11/30/16 05:13 Magnesium 2.0 MG/DL (1.8-2.4) 11/30/16 05:13 Assessment and Plan (1) Chronic kidney disease, stage III (moderate) Status: Chronic Assessment and plan: Patient with history of chronic kidney disease due to renal transplant. Serum creatinine is noted to be 1.7 Current Visit: No (2) Hypotension Status: Acute Current Visit: No (3) Altered mental status Status: Acute Current Visit: No Qualifiers: Altered mental status type: delirium Qualified Code(s): R41.0 - Disorientation, unspecified (4) Anemia Status: Chronic Current Visit: No (5) Peripheral vascular disease Status: Chronic Current Visit: Yes
--- NOTE | 2016-11-30 10:08 | Gastrointestinal Progress Note ---
Assessment and Plan (1) Acute posthemorrhagic anemia Status: Acute Assessment and plan: This patient is known to have erosive gastritis and duodenitis and is currently on famotidine only. Will advance his acid blockade to twice daily dosing. We also need to follow his hematocrit over time and see if this continueing to drop. Nursing staff is keeping track of his stools to see if there is any blood or black bowel movements. Would like to avoid taking this patient back to reevaluate him endoscopically as he has had so much done recently. He does likely have some bone marrow suppression due to his CellCept and tacrolimus as well. We will continue to watch his hematocrit. Current Visit: Yes (2) Hx of gastritis Status: Acute Assessment and plan: This patient does not have celiac sprue and does have a history of erosive gastritis/duodenitis. There is no gross evidence of Helicobacter pylori on testing either. I will discontinue the famotidine and start the patient back on Prevacid Solutab's 30 mg twice daily. Current Visit: Yes (3) Blood in stool, di Status: Acute Assessment and plan: As noted above. The patient has had a colonoscopy done recently within the last year and a half. There is no evidence of cancer. We will continue to observe the patient's hematocrit over time. Current Visit: Yes (4) Severe malnutrition Status: Acute Assessment and plan: Patient has decreased his weight from when he was seen in [facility] at [address] down to 140 pounds. He does have PEG tube. We will continue appropriate feedings. Current Visit: Yes Gastroenterology - PN: Subj Interval history: This patient is known to me from prior [facility] hospitalization and PEG placement. Now with HCT drop to 21.3%, s/p transfusion with HCT increase to 30.4% now. He is DNR, and I believe his family may be inclined to provide comfort care measures only, but this has to be clarified. He doesn't appear to have gross evidence of active bleeding. He is known from prior endoscopies to have a hx of erosive gastritis. Please see my [facility] consultation from 10/07/16 note that this patient has had problems with his GI tract with gastroparesis and delayed gastric emptying and has been on Reglan since July 2016. He had previous colonoscopy done for weight loss that demonstrated an atypical appearance to the terminal ileum but no gross evidence of Crohn's biopsy he had upper endoscopy done recently on 08/28/15 with appearance of nodular gastritis and duodenitis and was biopsied with negative tissue for celiac sprue nor did he have Helicobacter pylori. He has been on return pump in addition but this did not appear to improve his weight significantly. His weight had been as high as 186 at [facility] but currently is now down to 140 pounds. On evaluation today he does not appear to have any di blood in his stools, he is tolerating his PEG tube feedings well at 50 mL/h and does not have any abdominal pain but does appear to have some involuntary rooting reflexive movements. The patient is not currently on Reglan at this time. Exam (Progress Note) - Constitutional Vitals: Period Temp Pulse Resp BP Sys/Stewart Pulse Ox Last 24 Hr 97.0 F-98.9 F 112-123 20-36 106-143/67-96 97-100 General appearance: under weight - Respiratory Respiratory exam: Present: clear to auscultation bilaterally - Cardiovascular Cardiovascular exam: Present: regular rate and rhythm - GI/Abdominal GI/Abdominal exam: Present: normal bowel sounds, soft, other (PEG tube site spends well and does not have any erythema or drainage.). Absent: tenderness, rebound - Extremities Exam Extremities exam: Present: edema - Neurological Exam Neurological exam: Present: altered (This patient basically "stares out" and can react to loud noises but does not follow commands.) - Psychiatric Psychiatric exam: Present: flat affect - Skin Skin exam: Present: warm Results - Labs CBC & BMP: 11/29/16 08:55 11/30/16 05:13
--- NOTE | 2016-11-30 10:33 | Hospitalist Progress Note ---
Assessment and Plan (1) Pneumonia Status: Acute Assessment and plan: The patient is admitted to the hospital with worsening shortness of breath and cough as well as altered mental status. The patient has history of immunocompromise due to immunosuppressive medications taken for his renal transplant. The patient's breathing is still little bit better today and he was weaned from BiPAP. He remains DO NOT RESUSCITATE status. I am going to simplify his antibiotic to Merrem. Current Visit: No Qualifiers: Pneumonia type: due to Pneumococcus Laterality: bilateral (2) Kidney transplant recipient Problem details: No evidence of rejection. Status: Chronic Current Visit: No (3) Chronic kidney disease, stage III (moderate) Status: Chronic Current Visit: No (4) Pneumonia Status: Acute Current Visit: Yes Hospitalist: Subjective Interval history: The patient is resting quietly in intensive care unit. The patient is breathing acceptably well with supplemental oxygen. He was on BiPAP yesterday but was weaned from that device this morning. Dr. Sanchez has evaluated the patient's wounds and feels that it may be a Barlow-Paul type reaction. Exam - Constitutional Vitals: Period Temp Pulse Resp BP Sys/Stewart Pulse Ox Last 24 Hr 97.0 F-98.9 F 112-125 14-36 106-143/67-97 94-100 General appearance: mild distress - Respiratory Respiratory exam: Present: clear to auscultation bilaterally - Cardiovascular Cardiovascular exam: Present: regular rate and rhythm, tachycardia - GI/Abdominal GI/Abdominal exam: Present: normal bowel sounds Results - Labs CBC & BMP: 11/29/16 08:55 11/30/16 05:13 Lab Results: I have reviewed the past 24 hour labs Quality Measures - VTE Contraindication to Mechanical VTE Prophylaxis: Trauma to Legs
[2016-11-30] MEDS: MEROPENEM 1,000 MG in SODIUM CHLORIDE 0.9% 100 ML IV SCH (11:15)
[2016-11-30] MEDS: LANSOPRAZOLE ODT 30 MG TABLET PEG SCH (22:23)
[2016-12-01] MEDS: ALBUTEROL/IPRATROPIUM 3 ML NEB RESP TX SCH ×7 (00:33→20:35)
[2016-12-01] MEDS: MORPHINE 2 MG/1 ML SYRINGE IV PRN ×2 (00:38→09:40)
[2016-12-01] MEDS: MEROPENEM 1,000 MG in SODIUM CHLORIDE 0.9% 100 ML IV SCH ×2 (00:39→12:25)
[2016-12-01] MEDS: ZALEPLON 5 MG CAPSULE PO PRN (00:39)
[2016-12-01] MEDS: INSULIN LISPRO 100 UNIT/ML SUBCUT SCH ×4 (01:47→17:51)
[2016-12-01] MEDS: methylPREDNISolone SOD SUC 40 MG/1 ML VIAL IV SCH ×3 (03:58→16:05)
[2016-12-01] MEDS: TACROLIMUS 0.5 MG CAPSULE PO SCH ×2 (03:58→15:30)
[2016-12-01] MEDS: MYCOPHENOLATE MOFETIL 250 MG CAPSULE PO SCH ×2 (03:58→15:30)
[2016-12-01] MEDS: SODIUM ACETATE 75 MEQ in SODIUM CHLORIDE 0.45% 1,000 ML IV SCH ×2 (06:03→21:30)
[2016-12-01 06:27] LABS: Basophils % 0.1 % (0.0-0.8); Hematocrit 29.9 VOL% (42.0-52.0); Hemoglobin 9.3 GM/DL (14.0-18.0); Immature Granulocytes % 1.4 %; Immature Granulocytes Absolute 0.25 #; Lymphocytes # 0.6 10*3/uL (1.4-4.0); Lymphocytes % 3.3 % (21.2-54.2); Mean Corpuscular HGB Conc 31.1 GM/DL (32-36); Mean Corpuscular Hemoglobin 26 PG (27-34); Monocytes # 0.7 10*3/uL (0.11-0.8); Monocytes % 3.7 % (1.7-12.7); NRBC # 0.02 10*3/uL; Neutrophils # 16.4 10*3/uL (1.4-7.4); Neutrophils % 91.5 % (38.7-73.9); Platelet Count 275 T/CUMM (130-400); Red Blood Count 3.56 MC/CUMM (3.8-5.5); Red Cell Distribution Width 16.7 % (9.3-17.3); White Blood Count 17.9 T/CUMM (4-12)
[2016-12-01 06:52] LABS: Giant Platelets Few; Hypochromasia 1+; Microcytosis Slight; Nucleated Red Blood Cells 1 (0-5); Ovalocytes Slight; Platelet Estimate Adequate; Segmented Neutrophils 95 % (50-85); Total Cells Counted 100
--- NOTE | 2016-12-01 06:55 | Gastrointestinal Progress Note ---
Assessment and Plan (1) Acute posthemorrhagic anemia Status: Acute Assessment and plan: This patient is known to have erosive gastritis and duodenitis and is currently on famotidine only. Will advance his acid blockade to twice daily dosing. We also need to follow his hematocrit over time and see if this continueing to drop. Nursing staff is keeping track of his stools to see if there is any blood or black bowel movements. Would like to avoid taking this patient back to reevaluate him endoscopically as he has had so much done recently. He does likely have some bone marrow suppression due to his CellCept and tacrolimus as well. We will continue to watch his hematocrit. 12/01/16-- The patient's hematocrit today appears to be stable at 29.9% and he is not having black stools. He has previously undergone both upper endoscopy and lower endoscopy and placement of PEG tube over a [facility] in the last several months. The patient has been getting antirejection medications for his kidney transplant. These of course could be feeding into bone marrow suppression that make it hard for him to keep up with his red blood cell losses. There does not appear to be a di GI bleed at this point, no indication for repeat endoscopy. If di bleeding is noted with suggest going to tagged red blood cell scan as our first step before repeat endoscopy. In my opinion this patient is stable for potential discharge as per the hospitalist. Would strongly suggest keeping him off of all anticoagulants at this point. Current Visit: Yes (2) Hx of gastritis Status: Acute Assessment and plan: This patient does not have celiac sprue and does have a history of erosive gastritis/duodenitis. There is no gross evidence of Helicobacter pylori on testing either. I will discontinue the famotidine and start the patient back on Prevacid Solutab's 30 mg twice daily. 12/01/16--this patient has a strong history of erosive gastritis and duodenitis with hematemesis. Would suggest use of Protonix versus Prevacid Solutab twice daily in order to keep this progressed and prevent him from having to repeat transfusions every several months as he is doing. Current Visit: Yes (3) Blood in stool, di Status: Acute Assessment and plan: As noted above. The patient has had a colonoscopy done recently within the last year and a half. There is no evidence of cancer. We will continue to observe the patient's hematocrit over time. 12/01/16--none seen recently. Current Visit: Yes (4) Severe malnutrition Status: Acute Assessment and plan: Patient has decreased his weight from when he was seen in [facility] at [address] down to 140 pounds. He does have PEG tube. We will continue appropriate feedings. 12/01/16--drop in patient's weight of 40 pounds seen since discharge from [facility] if these numbers are accurate. Would suggest continued tube feeds as an outpatient appropriate to maintain his weight. Current Visit: Yes Gastroenterology - PN: Subj Interval history: Nurses state that the patient's stools are brown and he is tolerating his tube feeds well. He does not answer any questions. He does not appear to have excessive pain on palpation of his abdomen. His hematocrit remains stable today at 29.9% posttransfusion. Exam (Progress Note) - Constitutional Vitals: Period Temp Pulse Resp BP Sys/Stewart Pulse Ox Last 24 Hr 97.4 F-98.6 F 112-131 14-24 130-151/80-99 92-100 General appearance: no acute distress - Head Head exam: Present: normocephalic - Respiratory Respiratory exam: Present: rhonchi (Midlung estrada bilaterally) - Cardiovascular Cardiovascular exam: Present: regular rate and rhythm - GI/Abdominal GI/Abdominal exam: Present: normal bowel sounds, soft, other (PEG tube site with slight mucoid drainage. The hub was located at 2 cm, spends well, there is no erythema around it.). Absent: distended, rebound - Extremities Exam Extremities exam: Present: edema (Particularly the hands bilaterally, on the dorsum) - Neurological Exam Neurological exam: Present: altered (Patient withdraws from pain, facial "rooting "appears to be less today) - Psychiatric Psychiatric exam: Present: flat affect - Skin Skin exam: Present: warm Results - Labs CBC & BMP: 12/01/16 05:53 11/30/16 05:13
[2016-12-01 07:01] LABS: Calcium 8.4 MG/DL (8.5-10.1); Potassium 3.6 MMOL/L (3.5-5.1)
[2016-12-01] MEDS: LANSOPRAZOLE ODT 30 MG TABLET PEG SCH ×2 (09:45→21:59)
[2016-12-01] MEDS: levETIRAcetam 500 MG TABLET PO SCH ×2 (09:45→21:59)
[2016-12-01] MEDS: FOLIC ACID 1 MG TABLET PO SCH (09:45)
[2016-12-01] MEDS: BACITRACIN OINT 0.9 GM PACK TOP SCH (09:45)
[2016-12-01] MEDS: SODIUM HYPOCHLORITE 0.25% IRRIG 473 ML BOTTLE TOP SCH (09:45)
[2016-12-01] MEDS: ALLOPURINOL 300 MG TABLET PO SCH (09:45)
[2016-12-01] MEDS: ZINC OXIDE PASTE 113 GM TUBE TOP SCH (09:45)
--- NOTE | 2016-12-01 10:08 | General Surgery Progress Note ---
Assessment and Plan (1) Abscess of left leg Status: Acute Assessment and plan: 12/01/16 LLE abscess is stable; still a good deal of tenderness and marked enlargement of the foot in relationship to the leg. We will proceed with CT now that he's off Bipap, but avoid IV contrast with Creatinine of 1.6 in this renal transplant patient. 11/27/16 Abscess of the left lower extremity, marginally better today in response to IV antibiotics and local care. This is now spontaneously draining and he appears too ill for anything but urgent OR I&D/debridement. Still on Bipap, so this will make transport to CT difficult, so Dr Sanchez plans to (at the bedside) place an irrigating catheter in the wound later today. This will offer us an accurate culture and maintain drainage of the area while allowing him to stabilize medically. Hopefully we will see the leukocytosis improve as well, if this is indeed contributing to his illness. Recommend continue current IV antibiotics and wound care until we have a culture result. 11/26/16-We will need to evaluate the left ankle/foot for evidence of deep abscess. I will discuss with Dr Sanchez; given his current respiratory distress, we may plan CT, but postpone till later today. Wound care orders are written. Current Visit: No (2) Rash and nonspecific skin eruption Status: Acute Assessment and plan: 12/01/16 Purpuric diffuse and widespread skin rash that looks like a vasculitis. This is maturing while on steroids. We will continue steroids and defer to Dr Negro. The right plantar foot vescicles bear watching, as these may need unroofing and wound care at some point. 11/27/16 Stable diffuse skin rash. This does have a vasculitis appearance, but is stable. We will continue to watch. He is on systemic steroids. 11/26/16 Rash of trunk and extremities; this by history began after he was given Megace. I was unable to examine the posterior portion, but certainly we can monitor this closely and use topicals and possibly systemic steriods. I remain concerned that the plantar right foot areas resemble vasculitis, so we will watch this area very closely. Punch biopsy at the bedside could be performed, if indicated or if it fails to respond to more conservative therapy. The megace has been held. Current Visit: Yes Subjective Patient reports: Present: still having pain Exam - Constitutional Vitals: Period Temp Pulse Resp BP Sys/Stewart Pulse Ox Last 24 Hr 97.4 F-98.6 F 116-131 15-24 132-151/80-99 92-100 General appearance: mild distress, other (He is very apprehensive but less so today; on NC oxygen now and is able to speak short sentences without shortness of breath. ) - ENT Mouth exam: Present: dry mucosa - Respiratory Respiratory exam: Present: rhonchi - Cardiovascular Cardiovascular exam: Present: tachycardia - Extremities Exam Extremities exam: Present: other (LLE erythema is clearing; there is no new induration or swelling, no new ischemic change. The joint is tender but mobile. He is able to move it actively on command. Wound effluent is less, still somewhat cloudy. Purpuric rash persists and is worsening. RLE purpruic rash is more widespread and diffuse; there now appears to be vescicular changes on the plantar right foot. ) - Skin Skin exam: Present: vesicles, other (See above; these are now essentially all purpuric and distribution is more vividly widespread. ) Results - Labs CBC & BMP: 12/01/16 05:53 12/01/16 05:53 Lab Results: I have reviewed the past 24 hour labs (WBC 17.9) Quality Measures - VTE Contraindication to Mechanical VTE Prophylaxis: Trauma to Legs
--- NOTE | 2016-12-01 10:43 | Hospitalist Progress Note ---
Assessment and Plan - Time spent with patient Time spent with patient: Less than 30 minutes (1) Kidney transplant recipient Problem details: No evidence of rejection. Status: Chronic Assessment and plan: 50-year-old -Italian male admitted with worsening shortness of breath and cough as well as altered mental status. He has a history of immunocompromise due to immunosuppressive medications taken for his renal transplant. Patient has pneumonia, Barlow-Paul syndrome, and a left lower extremity abscess. Patient is receiving PEG feedings and is a DNR. Patient's case has been discussed with Dr. Clifton and further recommendations to follow. Left lower extremity abscess/Barlow-Paul--being followed by Dr. Sanchez and Isha from wound care. He is to undergo CT of the left lower extremity now that he is off BiPAP. Will avoid IV contrast due to his chronic kidney disease and renal transplantation. Pneumonia--patient is on Merrem. Breathing treatments, and breathing well on O2 by nasal cannula. Chronic kidney disease--this is stable and being followed by nephrology Current Visit: No (2) Chronic kidney disease, stage III (moderate) Status: Chronic Current Visit: No (3) Abscess of left leg Status: Acute Current Visit: No (4) Pneumonia Status: Acute Current Visit: No Qualifiers: Pneumonia type: due to Pneumococcus Laterality: bilateral Hospitalist: Subjective Interval history: Patient is resting quietly in the room. He is breathing well on supplemental oxygen. Patient will not awaken to voice but will start her to pain. Patient has Barlow-Paul reaction and is a DNR. Isha from wound care has seen the patient and will suggest appropriate treatment. Exam - Constitutional Vitals: Period Temp Pulse Resp BP Sys/Stewart Pulse Ox Last 24 Hr 97.4 F-98.6 F 116-131 15-24 132-151/80-99 92-100 Exam: 50-year-old -Italian male, no acute distress, will stir to pain Chest clear CV tachycardia but regular Abdomen soft Extremities with no edema Results - Labs CBC & BMP: 12/01/16 05:53 12/01/16 05:53 Lab Results: I have reviewed the past 24 hour labs Quality Measures - VTE Contraindication to Mechanical VTE Prophylaxis: Trauma to Legs
--- NOTE | 2016-12-01 13:54 | Infectious Disease Consult ---
Assessment and Plan (1) History of renal transport Status: Acute Assessment and plan: As a result of this the patient is immunocompromised at risk for severe and atypical infections. He is rather ill at this point in time. Current Visit: Yes (2) Pneumonia Status: Acute Assessment and plan: He has extensive nodular infiltrates throughout both lungs. I am suspicious about some atypical infection such as fungal or mycobacterial he could have nocardiosis as well. Cultures in August however were unrevealing. Current Visit: Yes (3) Rash and nonspecific skin eruption Status: Acute Assessment and plan: I am doubtful that this represents an allergic reaction. I am suspicious about disseminated infection such as nocardiosis. Cultures of the blood are being repeated as well as cultures of the left ankle drainage. Current Visit: Yes (4) Wound of left ankle Status: Acute Assessment and plan: There is clearly significant infection in this left ankle likely septic arthritis and osteomyelitis. Suspect some atypical infection given unrevealing cultures so far. Differentials include atypical infection such as nocardiosis [ disseminated with pulmonary and skin involvement], also it could be fungal or mycobacterial. Recommendations: 1. Cultures are repeated and I have spoken with the lab about my suspicion for an atypical organism. Cultures are being done for mycobacteria, fungi, and regular bacteria. 2. Blood cultures being repeated and lab was asked to hold them for 2 weeks 3. In case of nocardiosis and we did switch the patient from meropenem to imipenem. Will avoid combination therapy with amikacin given the patient's chronic kidney disease. 4. Follow-up cultures and make adjustments accordingly Thank you very much for the consult. Will follow. Discussed with patient's nieces. Current Visit: Yes (5) Diabetes mellitus Status: Acute Current Visit: No Qualifiers: Diabetes mellitus type: type 1 Diabetes mellitus complication status: with kidney complications History of Present Illness Chief complaint: Chronic left ankle infection History of present illness: History obtained from review of the patient's extensive records as well as from speaking with his nieces including one over the phone. Mr. Mcmanus is a 50 year old male who has been in declining clinical state for several months. He had renal transplant about 3 years ago and has been maintained on immunosuppressive therapy. Apparently was admitted in August of this year with pneumonia and has been in deteriorating state since then. He developed ankle infection somewhere around that time and that has gotten progressively worse. He has had several cultures of the ankle which have grown different species of coagulase-negative staph and at one point there was enterococcus however specific therapy has not yielded any improvement. The patient was in also for prolonged period at the beginning of the year he went home briefly and came back again a couple weeks ago. He is significantly deconditioned and wasted and was not able to speak to me. His main complaint has been pain all about the body he sensitive everywhere and he has significant pain to the left leg. Because he has continued drainage of pus from the left ankle on antibiotics I am asked to assist with care. The patient developed generalized rash about 2 weeks ago the knee says it is a reaction to Megace. Even though he has been off the Megace this rash has not improved. He has not had any fever recently. He is not coughing but he has been noted to have worsening nodular infiltrates on his lung imaging. He does not eat he has a PEG tube for his feeds. No report of diarrhea. Apparently has stage II breakdown to the sacral region. Home Medications Medication Instructions Recorded Confirmed Type Aspirin [Ecotrin] 81 mg PO DAILY 05/16/16 11/25/16 History Carvedilol [Coreg] 12.5 mg PO BID 05/16/16 11/25/16 History Mycophenolate Mofetil Cap 500 mg PO Q12H 05/16/16 11/25/16 History [Cellcept] Tacrolimus [Tacrolimus Cap] 2 mg PO Q12H 05/16/16 11/25/16 History predniSONE TAB [PredniSONE] 10 mg PO DAILY 05/16/16 11/25/16 History Acetaminophen 650 mg PO Q6HR PRN 11/25/16 11/25/16 History Albuterol/Ipratropium Neb [Duoneb] 3 mg INH Q6HR PRN 11/25/16 11/25/16 History Amoxicillin 500 mg PO Q6HR 11/25/16 11/25/16 History Ampicillin Cap 500 mg PO Q6H 11/25/16 11/26/16 History Famotidine Tab [Pepcid Tab] 40 mg PO DAILY 11/25/16 11/25/16 History Folic Acid Tab 1 mg PO DAILY 11/25/16 11/25/16 History Gabapentin 200 mg PO BEDTIME 11/25/16 11/25/16 History HYDROcodone/ACETAMIN 7.5-325 7.5 mg PO Q6HR 11/25/16 11/25/16 History [[place] 7.5-325] Lactulose 30 ml PO Q12HR 11/25/16 11/25/16 History Loratadine [Claritin] 10 mg PO DAILY 11/25/16 11/25/16 History Petrolatum,White [Desitin 1 strip TOP DAILY 11/25/16 11/25/16 History Multi-Purpose] Sertraline [Zoloft] 25 mg PO BEDTIME 11/25/16 11/25/16 History levETIRAcetam [Keppra] 250 mg PO DAILY 11/25/16 11/25/16 History Allergies Allergy/AdvReac Type Severity Reaction Status Date / Time No Known Allergies Allergy Verified 08/11/16 22:05 ROS unobtainable: due to mental status Medical,Surgical,& Family Hx - Medical History Cardio: History of: Hypertension Psychological: No history of: Anxiety Disorders, Bipolar Disorder, Depression, Schizophrenia Neurology: No history of: Seizures HEENT: History of: Eye Problem (previous retinal tear RIGHT) Rheumatology: History of;: Gout Respiratory: History of: Intubation (currently intubated, for trach placement today), Pneumonia Renal: History of: Renal Failure, Renal Problems (Kidney transplant - 09/15) No history of: Dialysis (had to have several dialysis treatments recently. cath has now been removed) Gastrointestinal: History of: GERD, Gastrointestinal Bleed, GI Problems (peg tube) Hematology: History of: Anemia No history of: Blood Transfusion Reaction Reproductive: No histroy: Reproductive Cancer Other: History of: Skin Problems (rash and open wounds on left foot s/p surgery) No history of: Anesthesia Reactions, HIV - Surgical History Cardiac Surgeries: Sugical HX of: Cardiac Catheterization (negative, done in 2008) Thoracic Surgeries: Surgical HX of;: Kidney (Renal Surgery) (transplant 2013), Organ Transplant (KIDNEY) Neurologic Surgeries: Patient denies: Neurologic Surgery HEENT Surgeries: Surgical HX of: Tonsilectomy & Adenoidectomy Patient denies: Eye Surgery Abdominal Surgeries: Surgical HX of: Abdominal Surgery (PD catheter placed and removed (Removed 2013)), Cholecystectomy, EGD Orthopedic Surgeries: Patient denies;: Orthopedic Surgery - Family History Family History: Reports;: Family Diabetes (MOM AND BROTHER), Family Hypertension (MOM AND BROTHER) Denies;: Family Anesthesia Reaction, Family Cancer, Family Heart Disease, Family Psychiatric Problems, Family Stroke - Social History Smoking Status: Former smoker Frequency of Alcohol Use: None Type of Drug Use: None Infectious Disease Exam H&P - Constitutional Vitals: Vital Signs Temp Pulse Resp BP Pulse Ox 99.3 F 120 H 20 146/95 98 12/01/16 12:00 12/01/16 12:00 12/01/16 12:00 12/01/16 12:00 12/01/16 12:00 Intake and Output 11/30/16 12/01/16 12/01/16 23:59 07:59 15:59 Intake Total 1237.5 / 1237.5 1337.5 / 1337.5 Output Total 1100 / 1100 500 / 500 Balance 137.5 / 137.5 837.5 / 837.5 Intake: IV 1037.5 / 1037.5 1137.5 / 1137.5 Merrem 1,000 mg In Ns 100 100 / 100 ml @ 200 mls/hr IV Q12H IBETH Rx#:[id number] Sodium Acetate 40 Meq/20 1037.5 / 1037.5 1037.5 / 1037.5 ml In 1/2Ns 1,000 ml @ 75 mls/hr IV .[id number] IBETH Rx#:[id number] Oral 0 / 0 Tube Feeding Flush 200 / 200 200 / 200 Output: Urine 1100 / 1100 500 / 500 Other: Tube Feeding 50 Voiding Method Indwelling Catheter Indwelling Catheter # Bowel Movements 1 0 Weight 64.546 kg Patient Weight 12/01/16 23:59 Weight 64.546 kg Exam: General: Patient extremely cachectic and quite ill looking HEENT: Mucous membranes pale and moist, anicteric acyanotic, PERRLA, no oral exudates or ulcerations Neck: Supple, no thyroid gland enlargement, no lymphadenopathy Respiratory system: Breath sounds somewhat harsh but no crepitations or wheezes heard Cardiovascular: Normal S1 and S2, no murmurs appreciated Abdomen: PEG noted with scant mucopurulent drainage, normal bowel sounds, soft nontender throughout, no organomegaly or mass appreciated Genitourinary: No suprapubic pain or bladder distention Extremities: no edema, limbs are extremely wasted, the left foot and ankle are swollen boggy he has a surgical incision to the medial aspect of the ankle which is draining cloudy material, there is another incision just inferior to the lateral malleolus with a drain in situ. The foot is somewhat warm to touch. Skin: He has an extensive somewhat petechial versus hemorrhagic rash all over from head to toe, even has the rash on his palms and in some areas there is vesiculation versus pustular appearance to the center of the lesions. Reports - Labs CBC & BMP: 12/01/16 05:53 12/01/16 05:53 Labs: Laboratory Results - last 24 hr 11/30/16 11/30/16 12/01/16 11:52 18:02 00:36 WBC RBC Hgb Hct MCV MCH MCHC RDW Plt Count MPV Neut % (Auto) Lymph % (Auto) Dale % (Auto) Eos % (Auto) Baso % (Auto) Neut # (Auto) Lymph # (Auto) Dale # (Auto) Eos # (Auto) Baso # (Auto) Total Counted Immature Gran % Nucleated RBC % Immature Gran # Segmented Neutrophils Monocytes Nucleated RBCs Nucleated RBCs # Platelet Estimate Giant Platelets Hypochromasia Microcytosis Ovalocytes Sodium Potassium Chloride Carbon Dioxide Anion Gap BUN Creatinine GFR Calculation BUN/Creatinine Ratio Glucose POC Glucose 151 H 158 H 132 H Calculated Osmolality Calcium Magnesium 12/01/16 12/01/16 12/01/16 05:50 05:53 05:53 WBC 17.9 H RBC 3.56 L Hgb 9.3 L Hct 29.9 L MCV 84.0 L MCH 26 L MCHC 31.1 L RDW 16.7 Plt Count 275 MPV 11.0 Neut % (Auto) 91.5 H Lymph % (Auto) 3.3 L Dale % (Auto) 3.7 Eos % (Auto) 0.0 Baso % (Auto) 0.1 Neut # (Auto) 16.4 H Lymph # (Auto) 0.6 L Dale # (Auto) 0.7 Eos # (Auto) 0.0 Baso # (Auto) 0.0 Total Counted 100 Immature Gran % 1.4 Nucleated RBC % 0.1 Immature Gran # 0.25 Segmented Neutrophils 95 H Monocytes 5 Nucleated RBCs 1 Nucleated RBCs # 0.02 Platelet Estimate Adequate Giant Platelets Few Hypochromasia 1+ Microcytosis Slight Ovalocytes Slight Sodium 143 Potassium 3.6 Chloride 102 Carbon Dioxide 30 Anion Gap 14.6 BUN 65 H Creatinine 1.60 H GFR Calculation 61 BUN/Creatinine Ratio 40.00 H Glucose 179 H POC Glucose 182 H Calculated Osmolality 307.0 H Calcium 8.4 L Magnesium 2.0 12/01/16 11:35 WBC RBC Hgb Hct MCV MCH MCHC RDW Plt Count MPV Neut % (Auto) Lymph % (Auto) Dale % (Auto) Eos % (Auto) Baso % (Auto) Neut # (Auto) Lymph # (Auto) Dale # (Auto) Eos # (Auto) Baso # (Auto) Total Counted Immature Gran % Nucleated RBC % Immature Gran # Segmented Neutrophils Monocytes Nucleated RBCs Nucleated RBCs # Platelet Estimate Giant Platelets Hypochromasia Microcytosis Ovalocytes Sodium Potassium Chloride Carbon Dioxide Anion Gap BUN Creatinine GFR Calculation BUN/Creatinine Ratio Glucose POC Glucose 202 H Calculated Osmolality Calcium Magnesium - Reports Microbiology: Microbiology 11/26/16 10:38 Blood Culture - Final Blood No growth at 5 days 11/26/16 10:38 Blood Culture - Final Blood No growth at 5 days 11/27/16 09:20 Wound Culture - Final Foot - Left No growth at 48 hours All cultures reviewed he even had fungal and AFB cultures of the sputum done on August 27 and these were negative. - Diagnostic Findings Procedure: Chest x-ray: image reviewed by me, report reviewed by me (Extensive nodular infiltrates bilaterally), CT - chest: image reviewed by me, report reviewed by me (Extensive diffuse nodular infiltrates in both lungs, these were not present in May last year.)
[2016-12-01] MEDS: IMIPENEM/CILASTATIN 500 MG in SODIUM CHLORIDE 0.9% 100 ML IV SCH ×2 (15:30→22:01)
--- NOTE | 2016-12-01 15:37 | Pulmonology Progress Note ---
Pulmonary - PN: Subj Interval history: Patient is a 50-year-old black man that has had a previous renal transplant. He has been on immunosuppressive agents. He comes back in with hypotension, dehydration, worsening renal insufficiency and shortness of breath. He continues to have extensive nodular infiltrates. He was in the hospital in August and September with respiratory failure on the ventilator. He was treated for pneumonia and did seem to improve somewhat. At that time he did have transbronchial biopsies that did not show a definite organism. He is back now and his x-ray is worse. He has extensive reticulonodular infiltrates. He has required BiPAP and his O2 saturation has been adequate. His family has decided they do not want him resuscitated and did not want an open lung biopsy. At this point he is continuing antibiotics and steroids. The patient is quite lethargic today but does seem to be breathing a little better. He has been comfortable on low-flow oxygen. His antibiotics have been adjusted. We will decrease his steroids Exam (Progress Note) - Constitutional Vitals: Period Temp Pulse Resp BP Sys/Stewart Pulse Ox Last 24 Hr 97.4 F-99.3 F 118-130 18-24 132-151/80-96 92-100 Exam: General appearance: under weight, other (Patient is chronically ill-appearing and very fragile. He is comfortable and a low flow oxygen) - Head Head exam: Present: normal inspection, normocephalic - Eye Eye exam: Present: EOMI. Absent: scleral icterus Pupils: Present: SELVIN - ENT ENT exam: Present: other (He has dry mucous membrane), he has a BiPAP mask in place. - Neck Neck exam: Absent: lymphadenopathy, meningismus, thyromegaly - Respiratory Respiratory exam: Present: Patient seems to be breathing a little easier but he does have coarse breath sounds. - Cardiovascular Cardiovascular exam: Present: regular rate and rhythm, tachycardia. Absent: gallop, systolic murmur - GI/Abdominal GI/Abdominal exam: Present: normal bowel sounds, soft. Absent: organomegaly, tenderness - Extremities Exam Extremities exam: Present: other (He still has the wound on his left ankle). Absent: calf tenderness, edema - Neurological Exam Neurological exam: Present: He is more lethargic today. - Psychiatric Psychiatric exam: Present: He does not respond as well today. - Skin Skin exam: Present: warm, dry Results - Labs CBC & BMP: 12/01/16 05:53 12/01/16 05:53 Assessment and Plan (1) Dehydration Status: Resolved Assessment and plan: Patient patient has been better hydrated and his blood pressure stable. Current Visit: No (2) Kidney transplant recipient Problem details: No evidence of rejection. Status: Chronic Assessment and plan: The patient is somewhat immunosuppressed and has mildly decreased renal function. His creatinine is down to 1.6 now. Current Visit: No (3) Reticulonodular infiltrate present on imaging of chest Status: Chronic Assessment and plan: The patient continues to have extensive reticular nodular infiltrates but he seems to be breathing a little better today. The family did not want an open biopsy. Current Visit: No (4) Acute respiratory failure with hypoxemia Status: Acute Assessment and plan: The patient does seem to be breathing a little better and more comfortable on low-flow oxygen. Current Visit: No (5) Pneumonia Status: Acute Assessment and plan: He will be covered with antibiotics for pneumonia. So far his cultures have been negative. Current Visit: No Qualifiers: Pneumonia type: due to Pneumococcus Laterality: bilateral (6) Peripheral vascular disease Status: Chronic Assessment and plan: Patient has a wound on his left leg and much skin breakdown Current Visit: Yes (7) Rash and nonspecific skin eruption Status: Acute Assessment and plan: He recently had a rash and his skin is very fragile. Current Visit: Yes (8) Gastrointestinal hemorrhage with melena Status: Acute Assessment and plan: Patient is having some blood in his stools. His hematocrit is 29.9 today. Current Visit: No
--- NOTE | 2016-12-01 16:38 | CT Report ---
Exam: CT lower leg LT wo con Date: 12/01/2016 10:13 AM Comparison: Prior CT dated 09/15/2016 Indication: Left ankle swelling, history of soft tissue abscess Total DLP: 1026 mGy*cm Technical: CT imaging of the left ankle was performed without administration of intravenous contrast. Coronal and sagittal reformatted images were available for review. Findings: Marked irregularity of the cortex and medullary bone of the distal fibula and talus are noted and the areas of irregular curvilinear sclerosis and lucency which appear more extensive and pronounced as compared to the prior study. The linear lucency through the talus (previously questioned to represent an insufficiency fracture) appears significantly more conspicuous on the current study, but may represent sequela of developing infection rather than trauma/fracture. There is also similar marked hypodensity and serpiginous lucency within the distal fibula, which is of uncertain significance but concerning for developing infection. Similar findings are noted throughout the the tarsal bones with extensive areas of nonspecific patchy lucency and sclerotic changes, which appears significantly increased from prior and now extends into the bases of the metatarsal bones. Extensive generalized soft tissue swelling is noted about the ankle/foot. There is also a focal lucency suggested along the medial foot subcutaneous tissues adjacent to the middle cuneiform, which may represent a focal laceration/ulceration. There is now the presence of a small drainage catheter with the tip positioned lateral to the talus. The distal tibia appears intact. Impression: 1. Extensive changes throughout the distal fibula, talus and tarsal bones as well as the bases of the metatarsals which are concerning for developing osteomyelitis. Neuropathic joint would be a less likely consideration. Consider dedicated MRI with intravenous contrast versus nuclear medicine three-phase bone scan. 2. Extensive soft tissue swelling/edema about the foot. The lateral approach drainage catheter tip is noted adjacent to the talus. No definite focal fluid collections are visualized. There is a focal probable soft tissue laceration or ulceration along the medial foot dorsally near the base of the great toe. PROCEDURE INTERPRETED AT [facility] DEPARTMENT OF RADIOLOGY Final Report Signed by: Steven Quiñones
--- NOTE | 2016-12-01 18:45 | Nephrology Progress Note ---
Nephrology - PN: Subj Interval history: Patient is visiting with family he voices no complaints his afternoon. Exam (PN)-Nephrology - Vital Signs Vital signs: Period Temp Pulse Resp BP Sys/Stewart Pulse Ox Last 24 Hr 97.4 F-99.3 F 113-130 18-24 132-161/80-96 92-100 - General Appearance General appearance: cachectic, chronically ill, fatigue, frail EENT: ATNC Neck: supple Respiratory: clear Cardiology: regular rate, regular rhythm Gastrointestinal: normoactive bowel sounds Neurologic: alert and oriented x3 Psychiatric: mood/affect appropriate - Lab 12/01/16 05:53 12/01/16 05:53 Most recent lab results ABG pH 7.311 (7.35-7.45) L 11/27/16 06:20 ABG pCO2 34.4 MM HG (35-48) L 11/27/16 06:20 ABG pO2 65.3 MM HG (80-95) L 11/27/16 06:20 ABG HCO3 17.7 MMOL/L (20-26) L 11/27/16 06:20 ABG O2 Saturation 90.9 % (95-100) L 11/27/16 06:20 Calcium 8.4 MG/DL (8.5-10.1) L 12/01/16 05:53 Phosphorus 5.1 MG/DL (2.5-4.9) H 11/30/16 05:13 Magnesium 2.0 MG/DL (1.8-2.4) 12/01/16 05:53 Assessment and Plan (1) Chronic kidney disease, stage III (moderate) Status: Chronic Assessment and plan: Patient with history of chronic kidney disease due to renal transplant. Serum creatinine is noted to be 1.7 Current Visit: No (2) Hypotension Status: Acute Current Visit: No (3) Altered mental status Status: Acute Current Visit: No Qualifiers: Altered mental status type: delirium Qualified Code(s): R41.0 - Disorientation, unspecified (4) Anemia Status: Chronic Current Visit: No (5) Peripheral vascular disease Status: Chronic Current Visit: Yes
[2016-12-02] MEDS: INSULIN LISPRO 100 UNIT/ML SUBCUT SCH ×5 (01:15→23:12)
[2016-12-02] MEDS: ALBUTEROL/IPRATROPIUM 3 ML NEB RESP TX SCH ×6 (03:08→20:06)
[2016-12-02] MEDS: MYCOPHENOLATE MOFETIL 250 MG CAPSULE PO SCH ×2 (04:10→15:25)
[2016-12-02] MEDS: TACROLIMUS 0.5 MG CAPSULE PO SCH ×2 (04:10→15:25)
[2016-12-02] MEDS: methylPREDNISolone SOD SUC 40 MG/1 ML VIAL IV SCH ×2 (04:10→15:45)
[2016-12-02] MEDS: IMIPENEM/CILASTATIN 500 MG in SODIUM CHLORIDE 0.9% 100 ML IV SCH ×3 (06:37→23:12)
[2016-12-02] MEDS: MORPHINE 2 MG/1 ML SYRINGE IV PRN ×2 (08:55→23:14)
[2016-12-02] MEDS: levETIRAcetam 500 MG TABLET PO SCH ×2 (09:08→20:50)
[2016-12-02] MEDS: SODIUM HYPOCHLORITE 0.25% IRRIG 473 ML BOTTLE TOP SCH (09:08)
[2016-12-02] MEDS: LANSOPRAZOLE ODT 30 MG TABLET PEG SCH ×2 (09:08→20:50)
[2016-12-02] MEDS: ALLOPURINOL 300 MG TABLET PO SCH (09:08)
[2016-12-02] MEDS: BACITRACIN OINT 0.9 GM PACK TOP SCH (09:08)
[2016-12-02] MEDS: FOLIC ACID 1 MG TABLET PO SCH (09:08)
[2016-12-02] MEDS: ZINC OXIDE PASTE 113 GM TUBE TOP SCH (09:08)
--- NOTE | 2016-12-02 09:37 | General Surgery Progress Note ---
Assessment and Plan - Time spent with patient Time spent with patient: Less than 30 minutes (1) Wound of left ankle Status: Acute Assessment and plan: 11/30/2016 The drainage from the left foot continues especially on the medial aspect. There remains some edema and some skin changes present. The other wounds of the foot does look fairly clean without any signs of any significant drainage. Right lower extremity though has increasing vesicles and blistering with some superficial skin loss. This has the hallmarks of a Barlow-Paul syndrome. Steroids would be the treatment and possibly stopping certain antibiotics if possible. 12/02/2016 Ms. Cooper foot and leg seems to be a little bit better today with less drainage present. CT scan though shows a significant destructive process in the foot at this time. Dr. Negro is looking at him and take her recommendations for further treatment of this area. I am little concerned about his high uric acid which was 12.8 several days ago. Nobody feels like that these destructive processes in the foot related to the gouty arthritis. I think it bears some consideration at least for some treatment. Will wait for Dr. Negro's evaluation and recommendations as where we go from here with father care the foot. Current Visit: Yes Subjective Patient reports: Present: no new complaints, still having pain (And lower extremities), bowel movement, afebrile Exam - Constitutional Vitals: Period Temp Pulse Resp BP Sys/Stewart Pulse Ox Last 24 Hr 98.5 F-100.4 F 101-126 18-24 146-161/87-95 93-99 General appearance: mild distress - Head Head exam: Present: normal inspection - ENT ENT exam: Present: normal exam - Neck Neck exam: Present: normal inspection - Respiratory Respiratory exam: Present: rales - Cardiovascular Cardiovascular exam: Present: RRR - GI/Abdominal GI/Abdominal exam: Present: hypoactive bowel sounds, soft - Extremities Exam Extremities exam: Present: edema (Edema of the left foot seem to be less.), other (The blistering of the right lower extremity and posterior calf area seems to be stable no new wounds are present and the ones that were there seems to have dried up a little bit. The left foot does not seem to have the drainage from the medial wound that it had in the past at this time and the swelling and edema seems to be less in the foot itself.) - Back Exam Back exam: Present: normal inspection - Neurological Exam Neurological exam: Present: alert, oriented X3, CN II-XII intact - Skin Skin exam: Present: normal color, warm, dry Results - Labs CBC & BMP: 12/01/16 05:53 12/01/16 05:53 Lab Results: I have reviewed the past 24 hour labs - Diagnostic Findings Procedure: CT: report reviewed by me (X-rays of the left foot look pretty bad moth-eaten and bones of the foot at this time. [place] that this may represent osteo-supposed to destructive process associated with gout.) Quality Measures - VTE Contraindication to Mechanical VTE Prophylaxis: Trauma to Legs
--- NOTE | 2016-12-02 10:18 | Infectious Disease Progress ---
Assessment and Plan (1) History of renal transport Status: Acute Assessment and plan: As a result of this the patient is immunocompromised at risk for severe and atypical infections. Current Visit: Yes (2) Pneumonia Status: Acute Assessment and plan: He has extensive nodular infiltrates throughout both lungs. I am suspicious about some atypical infection such as fungal or mycobacterial; he could have nocardiosis as well. Cultures in August however were unrevealing; patient has refused lung biopsy so we may not get a diagnosis. Current Visit: Yes (3) Rash and nonspecific skin eruption Status: Acute Assessment and plan: I am doubtful that this represents an allergic reaction. I am suspicious about disseminated infection such as nocardiosis. Cultures of the blood are being repeated as well as cultures of the left ankle drainage. This skin eruption ankle infection and lung infection may all be related. Current Visit: Yes (4) Wound of left ankle Status: Acute Assessment and plan: There is clearly significant infection in this left ankle likely septic arthritis and osteomyelitis. Though uric acid is elevated I do not think gout is the primary problem at this time. Suspect some atypical infection. Differentials include nocardiosis [disseminated with pulmonary and skin involvement], also it could be fungal or mycobacterial. Recommendations: 1. Follow-up culture results [fungal and AFB stain so far negative] 2. Continue empiric imipenem Discussed with Dr. Sanchez Current Visit: Yes (5) Diabetes mellitus Status: Acute Current Visit: No Qualifiers: Diabetes mellitus type: type 1 Diabetes mellitus complication status: with kidney complications Infectious Disease - PN: Subj Interval history: Patient continues to have generalized pain especially in the left ankle but he cries when he starts to anywhere. He got morphine before I saw him so he was not able to tell me anything. Low-grade fever this morning to 100.4. No other new issues per his nurse. Infectious Disease Exam (PN) - Constitutional Vitals: Temp Pulse Resp BP Pulse Ox 100.4 F H 122 H 18 148/87 95 12/02/16 04:00 12/02/16 07:27 12/02/16 07:27 12/02/16 04:00 12/02/16 07:27 General appearance: mild distress Exam: General appearance: Cachectic, drowsy though he was arousable, did not speak to me - Eye Eye exam: Present: EOMI. no icterus Pupils: Present: SELVIN - ENT ENT exam: no oral exudates - Respiratory Respiratory exam: vesicular BS, no crepitations or wheezes - Cardiovascular Cardiovascular exam: regular rate and rhythm, no murmurs - GI/Abdominal GI/Abdominal exam: PEG present, normal bowel sounds, soft, non-tender, no organomegaly or mass - Extremities Exam Extremities exam: Wasted - Skin Skin exam: Unchanged generalized rash, petechial versus hemorrhagic Results - Labs CBC & BMP: 12/01/16 05:53 12/01/16 05:53 Lab Results: I have reviewed the past 24 hour labs - Diagnostic Findings Procedure: CT: report reviewed by me (extensive changes of osteomyelitis of Lt foot noted) Quality Measures - VTE Contraindication to Mechanical VTE Prophylaxis: Trauma to Legs
[2016-12-02] MEDS: SODIUM ACETATE 75 MEQ in SODIUM CHLORIDE 0.45% 1,000 ML IV SCH (12:41)
--- NOTE | 2016-12-02 13:14 | Pulmonology Progress Note ---
Pulmonary - PN: Subj Interval history: Patient is a 50-year-old black man that has had a previous renal transplant. He has been on immunosuppressive agents. He comes back in with hypotension, dehydration, worsening renal insufficiency and shortness of breath. He continues to have extensive nodular infiltrates. He was in the hospital in August and September with respiratory failure on the ventilator. He was treated for pneumonia and did seem to improve somewhat. At that time he did have transbronchial biopsies that did not show a definite organism. He is back now and his x-ray is worse. He has extensive reticulonodular infiltrates. He has required BiPAP and his O2 saturation has been adequate. His family has decided they do not want him resuscitated and did not want an open lung biopsy. At this point he is continuing antibiotics and steroids. The patient has been breathing a little better although he gets tachypneic. He continues to have a good bit of pain in the left leg. His wounds and his blood have been recultured. He also has an extensive rash. He does want to be kept comfortable with pain medicines. Exam (Progress Note) - Constitutional Vitals: Period Temp Pulse Resp BP Sys/Stewart Pulse Ox Last 24 Hr 98.5 F-100.4 F 101-126 18-22 146-172/87-102 93-100 Exam: General appearance: under weight, other (Patient is chronically ill-appearing and very fragile. He is comfortable and a low flow oxygen) - Head Head exam: Present: normal inspection, normocephalic - Eye Eye exam: Present: EOMI. Absent: scleral icterus Pupils: Present: SELVIN - ENT ENT exam: Present: other (He has dry mucous membrane), he has a BiPAP mask in place. - Neck Neck exam: Absent: lymphadenopathy, meningismus, thyromegaly - Respiratory Respiratory exam: Present: Patient seems to be breathing a little easier but he does get tachypneic at times. - Cardiovascular Cardiovascular exam: Present: regular rate and rhythm, tachycardia. Absent: gallop, systolic murmur - GI/Abdominal GI/Abdominal exam: Present: normal bowel sounds, soft. Absent: organomegaly, tenderness - Extremities Exam Extremities exam: Present: other (He still has the wound on his left ankle). Absent: calf tenderness, edema - Neurological Exam Neurological exam: Present: He is awake and talking now. - Psychiatric Psychiatric exam: Present: He does get very agitated at times. - Skin Skin exam: Present: warm, dry Results - Labs CBC & BMP: 12/01/16 05:53 12/01/16 05:53 Assessment and Plan (1) Kidney transplant recipient Problem details: No evidence of rejection. Status: Chronic Assessment and plan: The patient is somewhat immunosuppressed and has mildly decreased renal function. His creatinine is down to 1.6 now. Current Visit: No (2) Reticulonodular infiltrate present on imaging of chest Status: Chronic Assessment and plan: The patient continues to have extensive reticular nodular infiltrates but he seems to be breathing a little better today. The family did not want an open biopsy. He is getting IV antibiotics. Current Visit: No (3) Acute respiratory failure with hypoxemia Status: Acute Assessment and plan: The patient does seem to be breathing a little better and more comfortable on low-flow oxygen. He remains quite debilitated. Current Visit: No (4) Pneumonia Status: Acute Assessment and plan: He will be covered with antibiotics for pneumonia. So far his cultures have been negative. He has extensive reticulonodular infiltrates. Current Visit: No Qualifiers: Pneumonia type: due to Pneumococcus Laterality: bilateral (5) Peripheral vascular disease Status: Chronic Assessment and plan: Patient has a wound on his left leg and much skin breakdown Current Visit: Yes (6) Rash and nonspecific skin eruption Status: Acute Assessment and plan: He recently had a rash and his skin is very fragile. Current Visit: Yes (7) Gastrointestinal hemorrhage with melena Status: Acute Assessment and plan: Patient is having some blood in his stools. His hematocrit is 29.9 today. Current Visit: No
--- NOTE | 2016-12-02 14:11 | Hospitalist Progress Note ---
Assessment and Plan (1) Pneumonia Status: Acute Assessment and plan: The patient is admitted to the hospital with worsening shortness of breath and cough as well as altered mental status. The patient has history of immunocompromise due to immunosuppressive medications taken for his renal transplant. The patient's breathing is still little bit better today and he is breathing comfortably without BiPAP. He remains DO NOT RESUSCITATE status. The patient continues on Merrem antibiotic. Dr. Negro and Dr. Sanchez are considering causes for the patient's leg pain and complications. I coordinated care with case finisher today. Current Visit: No Qualifiers: Pneumonia type: due to Pneumococcus Laterality: bilateral (2) Kidney transplant recipient Problem details: No evidence of rejection. Status: Chronic Current Visit: No (3) Chronic kidney disease, stage III (moderate) Status: Chronic Current Visit: No (4) Pneumonia Status: Acute Current Visit: Yes Hospitalist: Subjective Interval history: Mr. Cooper is more alert today. He complains of pain in the left lower extremity. CT scan reveals findings consistent with bone infection. Exam - Constitutional Vitals: Period Temp Pulse Resp BP Sys/Stewart Pulse Ox Last 24 Hr 98.5 F-100.4 F 101-126 18-22 146-172/87-102 93-100 Exam: Constitutional System: Mild distress. No tremulousness. The patient has muscular wasting. Head: Normocephalic, atraumatic. Ears, Nose and Throat System: No evidence of Otitis or Mastoiditis. No epistaxis or discharge Eyes System: Pupils equal, round, and reactive. Extraocular muscles intact. Neck: Supple, without adenopathy, No jugular venous distention. No thyromegaly , neck mass, or prior surgery apparent. Respiratory System: Chest clear to auscultation. Cardiovascular System: Heart with regular rate and rhythm. No murmur. GI System: Abdomen soft, nontender. Normo active bowel sounds present. Results - Labs CBC & BMP: 12/01/16 05:53 12/01/16 05:53 Lab Results: I have reviewed the past 24 hour labs Quality Measures - VTE Contraindication to Mechanical VTE Prophylaxis: Trauma to Legs
--- NOTE | 2016-12-02 17:44 | Gastrointestinal Progress Note ---
Assessment and Plan (1) Acute posthemorrhagic anemia Status: Acute Assessment and plan: This patient is known to have erosive gastritis and duodenitis and is currently on famotidine only. Will advance his acid blockade to twice daily dosing. We also need to follow his hematocrit over time and see if this continueing to drop. Nursing staff is keeping track of his stools to see if there is any blood or black bowel movements. Would like to avoid taking this patient back to reevaluate him endoscopically as he has had so much done recently. He does likely have some bone marrow suppression due to his CellCept and tacrolimus as well. We will continue to watch his hematocrit. 12/01/16-- The patient's hematocrit today appears to be stable at 29.9% and he is not having black stools. He has previously undergone both upper endoscopy and lower endoscopy and placement of PEG tube over a [facility] in the last several months. The patient has been getting antirejection medications for his kidney transplant. These of course could be feeding into bone marrow suppression that make it hard for him to keep up with his red blood cell losses. There does not appear to be a di GI bleed at this point, no indication for repeat endoscopy. If di bleeding is noted with suggest going to tagged red blood cell scan as our first step before repeat endoscopy. In my opinion this patient is stable for potential discharge as per the hospitalist. Would strongly suggest keeping him off of all anticoagulants at this point. 12/02/16--No di blood in the stool, no change from the above. Will sign off the patient at this time. Please let me know if I can be of further help in his case. Current Visit: Yes (2) Hx of gastritis Status: Acute Assessment and plan: This patient does not have celiac sprue and does have a history of erosive gastritis/duodenitis. There is no gross evidence of Helicobacter pylori on testing either. I will discontinue the famotidine and start the patient back on Prevacid Solutab's 30 mg twice daily. 12/01/16--this patient has a strong history of erosive gastritis and duodenitis with hematemesis. Would suggest use of Protonix versus Prevacid Solutab twice daily in order to keep this progressed and prevent him from having to repeat transfusions every several months as he is doing. 12/02/16--Prevacid Solutab's written. Would not substitute these. Current Visit: Yes (3) Blood in stool, di Status: Acute Assessment and plan: As noted above. The patient has had a colonoscopy done recently within the last year and a half. There is no evidence of cancer. We will continue to observe the patient's hematocrit over time. 12/01/16--none seen recently. 12/02/16--none seen recently. Current Visit: Yes (4) Severe malnutrition Status: Acute Assessment and plan: Patient has decreased his weight from when he was seen in [facility] at [address] down to 140 pounds. He does have PEG tube. We will continue appropriate feedings. 12/01/16--drop in patient's weight of 40 pounds seen since discharge from [facility] if these numbers are accurate. Would suggest continued tube feeds as an outpatient appropriate to maintain his weight. 12/02/16--continue to observe the patient's weight and pre-albumin/albumin over time. Current Visit: Yes Gastroenterology - PN: Subj Interval history: Patient is doing fairly well from a GI standpoint. He is tolerating his tube feeds at 50 mL/h with relatively low residuals of only about 20-50 cc per shift. No further nausea or vomiting according to nursing staff, no diarrhea-- 1 bowel movement per day documented. Exam (Progress Note) - Constitutional Vitals: Period Temp Pulse Resp BP Sys/Stewart Pulse Ox Last 24 Hr 98.5 F-100.4 F 101-126 18-183 139-172/87-102 93-100 General appearance: no acute distress - Eye Eye exam: Present: EOMI - Respiratory Respiratory exam: Present: rhonchi. Absent: stridor, wheezes - Cardiovascular Cardiovascular exam: Present: regular rate and rhythm - GI/Abdominal GI/Abdominal exam: Present: normal bowel sounds, soft, other (PEG tube site looks good, spins well, no excessive drainage.). Absent: tenderness, rebound Results - Labs CBC & BMP: 12/01/16 05:53 12/01/16 05:53
--- NOTE | 2016-12-02 19:07 | Nephrology Progress Note ---
Nephrology - PN: Subj Interval history: The patient continues to be very frail. He voices no complaints this evening. Exam (PN)-Nephrology - Vital Signs Vital signs: Period Temp Pulse Resp BP Sys/Stewart Pulse Ox Last 24 Hr 98.5 F-100.4 F 101-126 18-183 139-172/87-102 93-100 - General Appearance General appearance: chronically ill, fatigue, frail EENT: ATNC Respiratory: clear Cardiology: regular rate, regular rhythm Gastrointestinal: normoactive bowel sounds, no tenderness Psychiatric: mood/affect appropriate - Lab 12/01/16 05:53 12/01/16 05:53 Most recent lab results ABG pH 7.311 (7.35-7.45) L 11/27/16 06:20 ABG pCO2 34.4 MM HG (35-48) L 11/27/16 06:20 ABG pO2 65.3 MM HG (80-95) L 11/27/16 06:20 ABG HCO3 17.7 MMOL/L (20-26) L 11/27/16 06:20 ABG O2 Saturation 90.9 % (95-100) L 11/27/16 06:20 Calcium 8.4 MG/DL (8.5-10.1) L 12/01/16 05:53 Phosphorus 5.1 MG/DL (2.5-4.9) H 11/30/16 05:13 Magnesium 2.0 MG/DL (1.8-2.4) 12/01/16 05:53 Assessment and Plan (1) Chronic kidney disease, stage III (moderate) Status: Chronic Assessment and plan: Patient with history of chronic kidney disease due to renal transplant. Serum creatinine is noted to be 1.7 Current Visit: No (2) Hypotension Status: Acute Current Visit: No (3) Altered mental status Status: Acute Current Visit: No Qualifiers: Altered mental status type: delirium Qualified Code(s): R41.0 - Disorientation, unspecified (4) Anemia Status: Chronic Current Visit: No (5) Peripheral vascular disease Status: Chronic Current Visit: Yes
[2016-12-03] MEDS: ALBUTEROL/IPRATROPIUM 3 ML NEB RESP TX SCH ×6 (00:33→19:08)
[2016-12-03] MEDS: methylPREDNISolone SOD SUC 40 MG/1 ML VIAL IV SCH ×2 (03:16→16:21)
[2016-12-03] MEDS: TACROLIMUS 0.5 MG CAPSULE PO SCH ×2 (03:17→16:22)
[2016-12-03] MEDS: MYCOPHENOLATE MOFETIL 250 MG CAPSULE PO SCH ×2 (03:17→16:21)
[2016-12-03] MEDS: SODIUM ACETATE 75 MEQ in SODIUM CHLORIDE 0.45% 1,000 ML IV SCH ×3 (03:18→23:57)
[2016-12-03] MEDS: INSULIN LISPRO 100 UNIT/ML SUBCUT SCH ×3 (05:33→18:38)
[2016-12-03] MEDS: IMIPENEM/CILASTATIN 500 MG in SODIUM CHLORIDE 0.9% 100 ML IV SCH ×3 (06:24→23:57)
[2016-12-03 07:05] LABS: Calcium 9.2 MG/DL (8.5-10.1); Magnesium 1.5 MG/DL (1.8-2.4); Osmolality,Calculated 298.1 MOS/KG (273-304); Phosphorous 2.2 MG/DL (2.5-4.9); Potassium 3.4 MMOL/L (3.5-5.1); Prealbumin 18.1 MG/DL (20-40)
[2016-12-03] MEDS ORDERED: MAGNESIUM SULF RIDER 2 GM in PREMIX 1 EACH IV PRN (08:37)
[2016-12-03] MEDS ORDERED: MAGNESIUM SULF RIDER 4 GM in PREMIX 1 EACH IV PRN (08:37)
--- NOTE | 2016-12-03 08:50 | General Surgery Progress Note ---
Assessment and Plan - Time spent with patient Time spent with patient: Less than 30 minutes (1) Wound of left ankle Status: Acute Assessment and plan: 11/30/2016 The drainage from the left foot continues especially on the medial aspect. There remains some edema and some skin changes present. The other wounds of the foot does look fairly clean without any signs of any significant drainage. Right lower extremity though has increasing vesicles and blistering with some superficial skin loss. This has the hallmarks of a Barlow-Paul syndrome. Steroids would be the treatment and possibly stopping certain antibiotics if possible. 12/02/2016 Ms. Cooper foot and leg seems to be a little bit better today with less drainage present. CT scan though shows a significant destructive process in the foot at this time. Dr. Negro is looking at him and take her recommendations for further treatment of this area. I am little concerned about his high uric acid which was 12.8 several days ago. Nobody feels like that these destructive processes in the foot related to the gouty arthritis. I think it bears some consideration at least for some treatment. Will wait for Dr. Negro's evaluation and recommendations as where we go from here with father care the foot. 12/03/2016. Continuing wound care to his lower extremities at this point. Looking at the possibility of transferring to [facility] for additional wound care and treatment of these areas. Still has a good bit of blistering and skin loss on the right lower extremity at this time. Having some diarrhea at this time. Current Visit: Yes Subjective Patient reports: Present: no new complaints, bowel movement, afebrile Exam - Constitutional Vitals: Period Temp Pulse Resp BP Sys/Stewart Pulse Ox Last 24 Hr 98.5 F-99.8 F 109-126 18-183 124-150/78-102 92-100 General appearance: mild distress - Head Head exam: Present: normal inspection - ENT ENT exam: Present: normal exam - Neck Neck exam: Present: normal inspection - Respiratory Respiratory exam: Present: rales - Cardiovascular Cardiovascular exam: Present: RRR - GI/Abdominal GI/Abdominal exam: Present: hypoactive bowel sounds, soft, other (Some diarrhea) - Extremities Exam Extremities exam: Present: other (Left foot wound is stable less swelling and edema associated with the wounds and less drainage. The right thigh area though still has some raw areas in the posterior aspect of will try to moisturize better) - Back Exam Back exam: Present: normal inspection - Neurological Exam Neurological exam: Present: alert, altered - Skin Skin exam: Present: normal color, warm, dry Results - Labs CBC & BMP: 12/01/16 05:53 12/03/16 06:03 Lab Results: I have reviewed the past 24 hour labs Quality Measures - VTE Contraindication to Mechanical VTE Prophylaxis: Trauma to Legs
--- NOTE | 2016-12-03 09:04 | Hospitalist Progress Note ---
Assessment and Plan - Time spent with patient Time spent with patient: Less than 30 minutes (1) Kidney transplant recipient Problem details: No evidence of rejection. Status: Chronic Assessment and plan: 50-year-old -Maced[place] male admitted with worsening shortness of breath and cough as well as altered mental status. He has a history of immunocompromise due to immunosuppressive medications taken for his renal transplant. Patient has pneumonia, Barlow-Paul syndrome, and a left lower extremity abscess. Patient is receiving PEG feedings and is a DNR. Patient's case has been discussed with Dr. Clifton and further recommendations to follow. Left lower extremity abscess/Barlow-Paul--being followed by Dr. Sanchez and Isha from wound care. He is to undergo CT of the left lower extremity now that he is off BiPAP. Will avoid IV contrast due to his chronic kidney disease and renal transplantation. Pneumonia--patient is on Merrem. Breathing treatments, and breathing well on O2 by nasal cannula. Chronic kidney disease--this is stable and being followed by nephrology 12/03/2016 patient is now awake and alert and requesting to eat. Will obtain a swallow eval to make sure patient will not aspirate. He is tolerating tube feeds through his new PEG at 50 mils/hour with little residuals. He is having BMs. Dr. Sanchez from surgery is on the case for his left lower extremity wound. His CT is showing osteomyelitis. Patient is having intense pain in this foot and is requesting an amputation. He does work and he is ambulatory and he wants to return to function as soon as possible and he feels amputation would be quicker. Dr. Hopper is also on the case from infectious diseases. She is doubtful this is an allergic reaction and suspicious about disseminating infection. Blood cultures and ankle cultures are being repeated and his antibiotics have been adjusted per Dr. Negro. Dr. Negro is also suspicious that the nodular infiltrates are an atypical infection as well. Dr. Neri from pulmonary is also following. Patient has been afebrile and his blood pressure has been stable. He has been tachycardic and often tachypneic but he is stable today. His blood sugars are running a little on the high side due to his PEG feeds. We will continue to monitor these and further recommendations to follow per Dr. Clifton. Current Visit: No (2) Chronic kidney disease, stage III (moderate) Status: Chronic Current Visit: No (3) Abscess of left leg Status: Acute Current Visit: No (4) Pneumonia Status: Acute Current Visit: No Qualifiers: Pneumonia type: due to Pneumococcus Laterality: bilateral Hospitalist: Subjective Interval history: Patient is awake and alert this morning. His only complaints are left lower extremity pain. And he is hungry and he wants to eat. Patient states before his hospitalization he was working at [employer] and walking around without any problems. He is requesting a left lower extremity amputation due to pain and his bone infection. He feels he can get better faster and return to normal function quicker. Exam - Constitutional Vitals: Period Temp Pulse Resp BP Sys/Setwart Pulse Ox Last 24 Hr 98.5 F-99.8 F 109-126 18-183 124-150/78-102 92-100 Exam: 50-year-old -Macedonian male, no acute distress, alert and oriented Chest clear CV regular rate and rhythm Abdomen soft and nontender, PEG tube intact Extremities left lower extremity tender throughout, dressing clean and dry, right lower extremity with no edema but also tender Results - Labs CBC & BMP: 12/01/16 05:53 12/03/16 06:03 Lab Results: I have reviewed the past 24 hour labs Quality Measures - VTE Contraindication to Mechanical VTE Prophylaxis: Trauma to Legs
[2016-12-03] MEDS: FOLIC ACID 1 MG TABLET PO SCH (09:07)
[2016-12-03] MEDS: LANSOPRAZOLE ODT 30 MG TABLET PEG SCH ×2 (09:07→20:26)
[2016-12-03] MEDS: levETIRAcetam 500 MG TABLET PO SCH ×2 (09:07→20:26)
[2016-12-03] MEDS: ALLOPURINOL 300 MG TABLET PO SCH (09:07)
[2016-12-03] MEDS: ZINC OXIDE PASTE 113 GM TUBE TOP SCH (09:08)
[2016-12-03] MEDS: MORPHINE 2 MG/1 ML SYRINGE IV PRN (09:24)
--- NOTE | 2016-12-03 09:43 | Infectious Disease Progress ---
Assessment and Plan (1) History of renal transport Status: Acute Assessment and plan: As a result of this the patient is immunocompromised at risk for severe and atypical infections. Current Visit: Yes (2) Pneumonia Status: Acute Assessment and plan: He has extensive nodular infiltrates throughout both lungs. I am suspicious about some atypical infection such as fungal or mycobacterial; he could have nocardiosis as well. Cultures in August however were unrevealing; patient has refused lung biopsy so we may not get a diagnosis. Currently pulmonary status is stable he is in no respiratory distress and really cough is not significant. Current Visit: Yes (3) Rash and nonspecific skin eruption Status: Acute Assessment and plan: Could be from disseminated infection such as nocardiosis. Less likely allergic reaction or vasculitis in my opinion. Rash actually seems to be a little better today. This skin eruption ankle infection and lung infection may all be related. Current Visit: Yes (4) Wound of left ankle Status: Acute Assessment and plan: There is extensive infection in this left ankle likely septic arthritis and osteomyelitis. Suspect some atypical infection. Differentials include nocardiosis [disseminated with pulmonary and skin involvement], also it could be fungal or mycobacterial. Recommendations: 1. Follow-up culture results [fungal and AFB stain so far negative] 2. Continue empiric imipenem Current Visit: Yes (5) Diabetes mellitus Status: Acute Current Visit: No Qualifiers: Diabetes mellitus type: type 1 Diabetes mellitus complication status: with kidney complications Infectious Disease - PN: Subj Interval history: I met patient alert for the first time since I started seeing him a few days ago. He was conversant. Complaint of pain in the left ankle but other than that said he was feeling a little better. He admits to coughing but no sputum production or hemoptysis. He has not had any fevers. Says his rash does not itch. Infectious Disease Exam (PN) - Constitutional Vitals: Temp Pulse Resp BP Pulse Ox 99.3 F 117 H 20 139/99 100 12/03/16 08:00 12/03/16 08:00 12/03/16 08:00 12/03/16 08:00 12/03/16 08:00 General appearance: mild distress Exam: General appearance: Cachectic, alert and conversant, was met watching TV - Eye Eye exam: Present: EOMI. no icterus Pupils: Present: SELVIN - ENT ENT exam: no oral exudates, good dentition - Respiratory Respiratory exam: vesicular BS, no crepitations or wheezes - Cardiovascular Cardiovascular exam: regular rate and rhythm, no murmurs - GI/Abdominal GI/Abdominal exam: PEG present, normal bowel sounds, soft, non-tender, no organomegaly or mass - Extremities Exam Extremities exam: Wasted, bandaged left leg and ankle - Skin Skin exam: Generalized skin rash seems to be drying up in some areas Results - Labs CBC & BMP: 12/01/16 05:53 12/03/16 06:03 Lab Results: I have reviewed the past 24 hour labs (Blood cultures negative to date, nothing at on wound cultures) Quality Measures - VTE Contraindication to Mechanical VTE Prophylaxis: Trauma to Legs
--- NOTE | 2016-12-03 09:45 | Pulmonology Progress Note ---
Pulmonary - PN: Subj Interval history: Patient is a 50-year-old black man that has had a previous renal transplant. He has been on immunosuppressive agents. He comes back in with hypotension, dehydration, worsening renal insufficiency and shortness of breath. He continues to have extensive nodular infiltrates. He was in the hospital in August and September with respiratory failure on the ventilator. He was treated for pneumonia and did seem to improve somewhat. At that time he did have transbronchial biopsies that did not show a definite organism. He is back now and his x-ray is worse. He has extensive reticulonodular infiltrates. He has required BiPAP and his O2 saturation has been adequate. His family has decided they do not want him resuscitated and did not want an open lung biopsy. At this point he is continuing antibiotics and steroids. The patient looks much better today. He is awake and alert and wanting something to eat. He still has a lot of soreness especially in his legs. He feels like his breathing is much better. Exam (Progress Note) - Constitutional Vitals: Period Temp Pulse Resp BP Sys/Stewart Pulse Ox Last 24 Hr 98.5 F-99.8 F 109-126 18-183 124-150/78-102 92-100 Exam: General appearance: under weight, other (Patient is chronically ill-appearing and very fragile. He is much more alert today and looks like he feels better.) - Head Head exam: Present: normal inspection, normocephalic - Eye Eye exam: Present: EOMI. Absent: scleral icterus Pupils: Present: SELVIN - ENT ENT exam: Present: other (He has dry mucous membrane), he is on low-flow oxygen. - Neck Neck exam: Absent: lymphadenopathy, meningismus, thyromegaly - Respiratory Respiratory exam: Present: Patient seems to be breathing much better with less rhonchi. - Cardiovascular Cardiovascular exam: Present: regular rate and rhythm, tachycardia. Absent: gallop, systolic murmur - GI/Abdominal GI/Abdominal exam: Present: normal bowel sounds, soft. Absent: organomegaly, tenderness - Extremities Exam Extremities exam: Present: other (He still has the wound on his left ankle). Absent: calf tenderness, edema - Neurological Exam Neurological exam: Present: He is awake and talking now. - Psychiatric Psychiatric exam: Present: He does get very agitated at times. He looks much calmer now. - Skin Skin exam: Present: warm, dry Results - Labs CBC & BMP: 12/01/16 05:53 12/03/16 06:03 Assessment and Plan (1) Kidney transplant recipient Problem details: No evidence of rejection. Status: Chronic Assessment and plan: The patient is somewhat immunosuppressed and has mildly decreased renal function. His creatinine is down to 1.1 now. Current Visit: No (2) Reticulonodular infiltrate present on imaging of chest Status: Chronic Assessment and plan: The patient continues to have extensive reticular nodular infiltrates but he seems to be breathing a little better today. The family did not want an open biopsy. He is getting IV antibiotics. Current Visit: No (3) Acute respiratory failure with hypoxemia Status: Acute Assessment and plan: The patient looks much more alert and comfortable and is not in any distress now. Current Visit: No (4) Pneumonia Status: Acute Assessment and plan: He will be covered with antibiotics for pneumonia. So far his cultures have been negative. He has extensive reticulonodular infiltrates. Current Visit: No (5) Peripheral vascular disease Status: Chronic Assessment and plan: Patient has a wound on his left leg and much skin breakdown Current Visit: Yes (6) Rash and nonspecific skin eruption Status: Acute Assessment and plan: He recently had a rash and his skin is very fragile. He may have a disseminated infection. He seems to be responding to the antibiotics. Current Visit: Yes (7) Gastrointestinal hemorrhage with melena Status: Acute Assessment and plan: Patient is having some blood in his stools. His hematocrit is 29.9 today. He is not having any worsening hemorrhage now. Current Visit: No
[2016-12-03] MEDS: BACITRACIN OINT 0.9 GM PACK TOP SCH (16:22)
[2016-12-03] MEDS: SODIUM HYPOCHLORITE 0.25% IRRIG 473 ML BOTTLE TOP SCH (16:22)
[2016-12-03] MEDS: POTASSIUM CHLORIDE RIDER 10 MEQ in PREMIX 1 EACH IV PRN ×2 (16:24→20:26)
--- NOTE | 2016-12-03 17:13 | Nephrology Progress Note ---
Nephrology - PN: Subj Interval history: Patient situation is about the same. Serum creatinine is noted to be 1.1. No fevers or chills. Exam (PN)-Nephrology - Vital Signs Vital signs: Period Temp Pulse Resp BP Sys/Stewart Pulse Ox Last 24 Hr 97.8 F-99.8 F 109-126 18-22 124-139/78-99 36-100 - General Appearance General appearance: fatigue, frail EENT: ATNC Neck: supple Respiratory: clear Cardiology: regular rate, regular rhythm Gastrointestinal: normoactive bowel sounds, no tenderness - Lab 12/01/16 05:53 12/03/16 06:03 Most recent lab results ABG pH 7.311 (7.35-7.45) L 11/27/16 06:20 ABG pCO2 34.4 MM HG (35-48) L 11/27/16 06:20 ABG pO2 65.3 MM HG (80-95) L 11/27/16 06:20 ABG HCO3 17.7 MMOL/L (20-26) L 11/27/16 06:20 ABG O2 Saturation 90.9 % (95-100) L 11/27/16 06:20 Calcium 9.2 MG/DL (8.5-10.1) 12/03/16 06:03 Phosphorus 2.2 MG/DL (2.5-4.9) L 12/03/16 06:03 Magnesium 1.5 MG/DL (1.8-2.4) L 12/03/16 06:03 Assessment and Plan (1) Chronic kidney disease, stage III (moderate) Status: Chronic Assessment and plan: Patient with history of chronic kidney disease due to renal transplant. Serum creatinine is noted to be 1.1 Current Visit: No (2) Hypotension Status: Acute Current Visit: No (3) Altered mental status Status: Acute Current Visit: No Qualifiers: Altered mental status type: delirium Qualified Code(s): R41.0 - Disorientation, unspecified (4) Anemia Status: Chronic Current Visit: No (5) Peripheral vascular disease Status: Chronic Current Visit: Yes
[2016-12-03] MEDS: ZALEPLON 5 MG CAPSULE PO PRN (20:27)
[2016-12-04] MEDS: ALBUTEROL/IPRATROPIUM 3 ML NEB RESP TX SCH ×6 (00:09→19:06)
[2016-12-04] MEDS: INSULIN LISPRO 100 UNIT/ML SUBCUT SCH ×5 (00:28→23:46)
[2016-12-04] MEDS: methylPREDNISolone SOD SUC 40 MG/1 ML VIAL IV SCH ×2 (04:02→16:15)
[2016-12-04] MEDS: MYCOPHENOLATE MOFETIL 250 MG CAPSULE PO SCH ×2 (04:03→16:15)
[2016-12-04] MEDS: TACROLIMUS 0.5 MG CAPSULE PO SCH ×2 (04:03→16:15)
[2016-12-04 05:07] LABS: Basophils % 0.1 % (0.0-0.8); Eosinophils % 0.1 % (0.00-10.9); Hematocrit 25.7 VOL% (42.0-52.0); Immature Granulocytes % 1.6 %; Immature Granulocytes Absolute 0.18 #; Lymphocytes # 0.8 10*3/uL (1.4-4.0); Lymphocytes % 6.7 % (21.2-54.2); Mean Corpuscular HGB Conc 30.7 GM/DL (32-36); Mean Corpuscular Hemoglobin 26 PG (27-34); Mean Platelet Volume 11.3 FL (9.6-12.0); Monocytes # 0.7 10*3/uL (0.11-0.8); Monocytes % 6.1 % (1.7-12.7); NRBC # 0.02 10*3/uL; Neutrophils # 9.6 10*3/uL (1.4-7.4); Neutrophils % 85.4 % (38.7-73.9); Platelet Count 253 T/CUMM (130-400); Red Blood Count 2.99 MC/CUMM (3.8-5.5); Red Cell Distribution Width 17.2 % (9.3-17.3)
[2016-12-04] MEDS: SODIUM ACETATE 75 MEQ in SODIUM CHLORIDE 0.45% 1,000 ML IV SCH ×3 (05:14→20:23)
[2016-12-04 05:38] LABS: Magnesium 1.8 MG/DL (1.8-2.4); Osmolality,Calculated 292.4 MOS/KG (273-304); Potassium 4.1 MMOL/L (3.5-5.1)
[2016-12-04 05:52] LABS: Hemoglobin 7.9 GM/DL (14.0-18.0); White Blood Count 11.3 T/CUMM (4-12)
[2016-12-04] MEDS: IMIPENEM/CILASTATIN 500 MG in SODIUM CHLORIDE 0.9% 100 ML IV SCH ×3 (06:10→22:33)
--- NOTE | 2016-12-04 08:38 | Nephrology Progress Note ---
Nephrology - PN: Subj Interval history: The patient is resting no acute changes. Appears a little stronger today. Exam (PN)-Nephrology - Vital Signs Vital signs: Period Temp Pulse Resp BP Sys/Stewart Pulse Ox Last 24 Hr 97.8 F-100.6 F 109-126 16-24 135-150/47-91 36-100 - General Appearance General appearance: well-developed, fatigue, frail Neck: supple Respiratory: clear Cardiology: regular rate, regular rhythm Gastrointestinal: normoactive bowel sounds, no tenderness Neurologic: alert and oriented x3 - Lab 12/04/16 05:05 12/04/16 05:05 Most recent lab results ABG pH 7.311 (7.35-7.45) L 11/27/16 06:20 ABG pCO2 34.4 MM HG (35-48) L 11/27/16 06:20 ABG pO2 65.3 MM HG (80-95) L 11/27/16 06:20 ABG HCO3 17.7 MMOL/L (20-26) L 11/27/16 06:20 ABG O2 Saturation 90.9 % (95-100) L 11/27/16 06:20 Calcium 9.0 MG/DL (8.5-10.1) 12/04/16 05:05 Phosphorus 2.2 MG/DL (2.5-4.9) L 12/03/16 06:03 Magnesium 1.8 MG/DL (1.8-2.4) 12/04/16 05:05 Assessment and Plan (1) Chronic kidney disease, stage III (moderate) Status: Chronic Assessment and plan: Patient with history of chronic kidney disease due to renal transplant. Serum creatinine is noted to be 1.1 Current Visit: No (2) Hypotension Status: Acute Current Visit: No (3) Altered mental status Status: Acute Current Visit: No Qualifiers: Altered mental status type: delirium Qualified Code(s): R41.0 - Disorientation, unspecified (4) Anemia Status: Chronic Current Visit: No (5) Peripheral vascular disease Status: Chronic Current Visit: Yes
[2016-12-04] MEDS: MORPHINE 2 MG/1 ML SYRINGE IV PRN (09:07)
[2016-12-04] MEDS: ZINC OXIDE PASTE 113 GM TUBE TOP SCH (09:12)
[2016-12-04] MEDS: BACITRACIN OINT 0.9 GM PACK TOP SCH (09:12)
[2016-12-04] MEDS: SODIUM HYPOCHLORITE 0.25% IRRIG 473 ML BOTTLE TOP SCH (09:12)
--- NOTE | 2016-12-04 09:50 | General Surgery Progress Note ---
Assessment and Plan (1) Wound of left ankle Status: Acute Assessment and plan: 11/30/2016 The drainage from the left foot continues especially on the medial aspect. There remains some edema and some skin changes present. The other wounds of the foot does look fairly clean without any signs of any significant drainage. Right lower extremity though has increasing vesicles and blistering with some superficial skin loss. This has the hallmarks of a Barlow-Paul syndrome. Steroids would be the treatment and possibly stopping certain antibiotics if possible. 12/02/2016 Ms. Cooper foot and leg seems to be a little bit better today with less drainage present. CT scan though shows a significant destructive process in the foot at this time. Dr. Negro is looking at him and take her recommendations for further treatment of this area. I am little concerned about his high uric acid which was 12.8 several days ago. Nobody feels like that these destructive processes in the foot related to the gouty arthritis. I think it bears some consideration at least for some treatment. Will wait for Dr. Negro's evaluation and recommendations as where we go from here with father care the foot. 12/03/2016. Continuing wound care to his lower extremities at this point. Looking at the possibility of transferring to [facility] for additional wound care and treatment of these areas. Still has a good bit of blistering and skin loss on the right lower extremity at this time. Having some diarrhea at this time. 12/04/2016 Patient seems to be resting comfortably at this point time without complaints of pain. Certainly complains a good bit of pain where we manipulate certainly the left lower extremity but also on the right tube. The wound beds are somewhat better and seems to be less drainage from him although there are still some existing drainage present. Patient is resting more comfortably and seems to be breathing better but his chest x-ray shows a miliary type of process in the lungs at this time. The question was raised about amputation of the left foot but unfortunately we are faced with the situation that if he underwent that surgery it would commit him to a ventilator which may be extremely difficult to get him off. At present I think we need to maintain her present treatment protocol and see what infectious disease wants to do about long-term antibiotics. Certainly trying to obtain some sort of place for him where he can get proper care is going to be our next difficult situation primary due to insurance problems. Current Visit: Yes Subjective Patient reports: Present: still having pain, tolerating a regular diet, afebrile Exam - Constitutional Vitals: Period Temp Pulse Resp BP Sys/Stewart Pulse Ox Last 24 Hr 97.8 F-100.6 F 109-126 16-24 135-150/47-91 36-100 General appearance: mild distress - Head Head exam: Present: normal inspection - ENT ENT exam: Present: normal exam - Neck Neck exam: Present: normal inspection - Respiratory Respiratory exam: Present: rales, rhonchi - Cardiovascular Cardiovascular exam: Present: RRR - GI/Abdominal GI/Abdominal exam: Present: normal bowel sounds, soft - Extremities Exam Extremities exam: Present: other (Blistering of the right posterior thigh area is better the tissues looking good shape needs a little more moisture though. The wounds of the left foot are stable at this point less drainage from the medial wound little more drainage noted on from the lateral wound.) - Back Exam Back exam: Present: normal inspection - Neurological Exam Neurological exam: Present: alert, oriented X3, CN II-XII intact - Skin Skin exam: Present: normal color, warm, dry Results - Labs CBC & BMP: 12/04/16 05:05 12/04/16 05:05 Lab Results: I have reviewed the past 24 hour labs Quality Measures - VTE Contraindication to Mechanical VTE Prophylaxis: Trauma to Legs
--- NOTE | 2016-12-04 10:00 | Infectious Disease Progress ---
Assessment and Plan (1) History of renal transport Status: Acute Assessment and plan: As a result of this the patient is immunocompromised at risk for severe and atypical infections. Current Visit: Yes (2) Pneumonia Status: Acute Assessment and plan: He has extensive nodular infiltrates throughout both lungs. I am suspicious about some atypical infection such as fungal or mycobacterial; doubt TB as he would have persistently high fevers with this. He could have nocardiosis among other atypical organisms. Cultures in August on revealing the pulmonary changes were not as extensive as now. Currently pulmonary status is stable he is in no respiratory distress and really cough is not significant. Discussed case with Dr. Neri yesterday and he thought that may be a bronchoscopy could be done next week. However patient is today saying he does not want anything done and it may be that he is a case for comfort measures. We may never get a diagnosis. Current Visit: Yes (3) Rash and nonspecific skin eruption Status: Acute Assessment and plan: Could be from disseminated infection such as nocardiosis. Less likely allergic reaction or vasculitis in my opinion. Rash actually seems to be a little better today. This skin eruption ankle infection and lung infection may all be related. Current Visit: Yes (4) Wound of left ankle Status: Acute Assessment and plan: There is extensive infection in this left ankle likely septic arthritis and osteomyelitis. Suspect some atypical infection. Differentials include nocardiosis [disseminated with pulmonary and skin involvement], also it could be fungal or mycobacterial. The ankle actually looks better today compared to 4 days ago. I am not sure if the imipenem that is helping this. Recommendations: 1. Follow-up culture results [fungal and AFB stain so far negative] 2. Continue empiric imipenem 3. In terms of long-term plan I am not sure where the endpoint is, especially since patient is refusing intervention. He may just be a candidate for comfort measures. We may never get an official diagnosis. We will have to see what family thinks. Current Visit: Yes (5) Diabetes mellitus Status: Acute Current Visit: No Qualifiers: Diabetes mellitus type: type 1 Diabetes mellitus complication status: with kidney complications Infectious Disease - PN: Subj Interval history: When I went into the room the patient was getting wound care and he was crying out saying he does not want anymore he is tired of this he cannot take anymore he does not want anything done. Low-grade fever to 100.6 noted this morning. Infectious Disease Exam (PN) - Constitutional Vitals: Temp Pulse Resp BP Pulse Ox 100.6 F H 116 H 20 135/86 99 12/04/16 04:00 12/04/16 07:08 12/04/16 07:08 12/04/16 04:00 12/04/16 07:08 General appearance: mild distress Exam: General appearance: Cachectic, in painful distress - Eye Eye exam: Present: EOMI. no icterus Pupils: Present: SELVIN - ENT ENT exam: no oral exudates - Respiratory Respiratory exam: vesicular BS, no crepitations or wheezes - Cardiovascular Cardiovascular exam: regular rate and rhythm, no murmurs - GI/Abdominal GI/Abdominal exam: PEG present, normal bowel sounds, soft, non-tender, no organomegaly or mass - Extremities Exam Extremities exam: Wasted, left foot and ankle actually less swollen than earlier this week, less hyperemic as well, there is less drainage from the surgical incisions. Overall the ankle looks better - Skin Skin exam: Generalized skin rash seems to be slowly improving Results - Labs CBC & BMP: 12/04/16 05:05 12/04/16 05:05 Lab Results: I have reviewed the past 24 hour labs (Recent cultures still negative) Quality Measures - VTE Contraindication to Mechanical VTE Prophylaxis: Trauma to Legs
--- NOTE | 2016-12-04 10:01 | XRay Report ---
XR chest 1V portable Indication: Shortness of breath Comparison: 27 November 2016 Findings: The heart and mediastinum are stable in size and configuration. Right subclavian Port-A-Cath is present, similar to previous exam. The pulmonary vascularity is normal in caliber. Bilateral pulmonary reticulonodular interstitial densities are present similar in appearance to previous exam. No other lung infiltrates, effusions, pneumothorax or other abnormality is demonstrated. Impression: No significant changes. PROCEDURE INTERPRETED AT [facility] [place] DEPARTMENT OF RADIOLOGY Final Report Signed by: Dr. Mike Toledo
[2016-12-04] MEDS: LANSOPRAZOLE ODT 30 MG TABLET PEG SCH ×2 (10:42→20:23)
[2016-12-04] MEDS: levETIRAcetam 500 MG TABLET PO SCH ×2 (10:42→20:23)
[2016-12-04] MEDS: FOLIC ACID 1 MG TABLET PO SCH (10:42)
[2016-12-04] MEDS: ALLOPURINOL 300 MG TABLET PO SCH (10:46)
--- NOTE | 2016-12-04 11:39 | Hospitalist Progress Note ---
Assessment and Plan - Time spent with patient Time spent with patient: Less than 30 minutes (1) Kidney transplant recipient Problem details: No evidence of rejection. Status: Chronic Assessment and plan: 50-year-old -Citizen Of [place] male admitted with worsening shortness of breath and cough as well as altered mental status. He has a history of immunocompromise due to immunosuppressive medications taken for his renal transplant. Patient has pneumonia, Barlow-Paul syndrome, and a left lower extremity abscess. Patient is receiving PEG feedings and is a DNR. Patient's case has been discussed with Dr. Clifton and further recommendations to follow. Left lower extremity abscess/Barlow-Paul--being followed by Dr. Sanchez and Isha from wound care. He is to undergo CT of the left lower extremity now that he is off BiPAP. Will avoid IV contrast due to his chronic kidney disease and renal transplantation. Pneumonia--patient is on Merrem. Breathing treatments, and breathing well on O2 by nasal cannula. Chronic kidney disease--this is stable and being followed by nephrology 12/03/2016 patient is now awake and alert and requesting to eat. Will obtain a swallow eval to make sure patient will not aspirate. He is tolerating tube feeds through his new PEG at 50 mils/hour with little residuals. He is having BMs. Dr. Sanchez from surgery is on the case for his left lower extremity wound. His CT is showing osteomyelitis. Patient is having intense pain in this foot and is requesting an amputation. He does work and he is ambulatory and he wants to return to function as soon as possible and he feels amputation would be quicker. Dr. Hopper is also on the case from infectious diseases. She is doubtful this is an allergic reaction and suspicious about disseminating infection. Blood cultures and ankle cultures are being repeated and his antibiotics have been adjusted per Dr. Negro. Dr. Negro is also suspicious that the nodular infiltrates are an atypical infection as well. Dr. Neri from pulmonary is also following. Patient has been afebrile and his blood pressure has been stable. He has been tachycardic and often tachypneic but he is stable today. His blood sugars are running a little on the high side due to his PEG feeds. We will continue to monitor these and further recommendations to follow per Dr. Clifton. 12/04/16--patient is awake and alert and eating some food. He still has severe pain of the left lower extremity and wants an amputation. Dr. Sanchez is agreeable to amputation but the issue is patient's lungs and will he come off the ventilator. ANTOINE Calle ACNP for Dr. Sanchez is going to discuss the case with anesthesia to see if a spinal is a possibility. Patient is refusing bronchoscopy for diagnosis by Dr. Neri. Patient ran fever last night but is afebrile this morning. He is still mildly tachy and tachypneic. His white count is down to normal today, H&H is down to 7.9/25.7. His kidney function is normal and his blood sugars are adequate. Dr. Negro suspects that this is an atypical infection with disseminated pulmonary and skin involvement. Could be fungal or mycobacterial. Cultures are still pending. According to Dr. Sanchez and Dr. negro the ankle wound looks much better today. Patient is on imipenem. Social workers are looking into specialty Hospital for further care. Patient does not qualify for [facility] at all. If patient cannot get amputation for comfort he will most likely have to go back to the residential on hospice care. Patient's case has been discussed with Dr. Clifton and further recommendations to follow. Current Visit: No (2) Chronic kidney disease, stage III (moderate) Status: Chronic Current Visit: No (3) Abscess of left leg Status: Acute Current Visit: No (4) Pneumonia Status: Acute Current Visit: No Qualifiers: Pneumonia type: due to Pneumococcus Laterality: bilateral Hospitalist: Subjective Interval history: Patient is miserable today. He is having a lot of left lower extremity pain. No complaints of shortness of breath or chest pain. Patient states he did eat a little bit of food this morning. He is still receiving tube feeds from 8p- 6am Dr. Neri, Dr. Leo, Dr. Sanchez, and Dr. Negro are all looking at the case and looking for long-term plan for this patient. Exam - Constitutional Vitals: Period Temp Pulse Resp BP Sys/Stewart Pulse Ox Last 24 Hr 97.8 F-100.6 F 109-126 16-24 135-150/47-96 93-100 Exam: 50-year-old -Citizen Of [place] male, mild distress due to pain, alert and oriented Chest clear CV regular rate and rhythm Abdomen soft and nontender, PEG tube intact Extremities with mild edema, left lower extremity dressing clean and dry, skin "rash" looks improved Results - Labs CBC & BMP: 12/04/16 05:05 12/04/16 05:05 Lab Results: I have reviewed the past 24 hour labs Quality Measures - VTE Contraindication to Mechanical VTE Prophylaxis: Trauma to Legs
[2016-12-04] MEDS ORDERED: oxyCODONE/ACETAMINOPHEN 5-325 MG TABLET PO PRN (11:46)
--- NOTE | 2016-12-04 12:35 | Pulmonology Progress Note ---
Pulmonary - PN: Subj Interval history: Patient is a 50-year-old black man that has had a previous renal transplant. He has been on immunosuppressive agents. He comes back in with hypotension, dehydration, worsening renal insufficiency and shortness of breath. He continues to have extensive nodular infiltrates. He was in the hospital in August and September with respiratory failure on the ventilator. He was treated for pneumonia and did seem to improve somewhat. At that time he did have transbronchial biopsies that did not show a definite organism. He is back now and his x-ray is worse. He has extensive reticulonodular infiltrates. He has required BiPAP and his O2 saturation has been adequate. His family has decided they do not want him resuscitated and did not want an open lung biopsy. The patient has been breathing a little better but he continues to have severe pain in his legs. His chest x-ray actually looks a little better. We had talked about a repeat bronchoscopy but the patient does not want anything done. He is continuing with antibiotic and narcotics as needed Exam (Progress Note) - Constitutional Vitals: Period Temp Pulse Resp BP Sys/Stewart Pulse Ox Last 24 Hr 97.7 F-100.6 F 109-126 16-24 135-150/47-96 93-100 Exam: General appearance: under weight, other (Patient is chronically ill-appearing and very fragile. He is uncomfortable but seems to be breathing okay.) - Head Head exam: Present: normal inspection, normocephalic - Eye Eye exam: Present: EOMI. Absent: scleral icterus Pupils: Present: SELVIN - ENT ENT exam: Present: other (He has dry mucous membrane), he is on low-flow oxygen. - Neck Neck exam: Absent: lymphadenopathy, meningismus, thyromegaly - Respiratory Respiratory exam: Present: Patient seems to be breathing much better with less rhonchi. He has good breath sounds bilaterally. - Cardiovascular Cardiovascular exam: Present: regular rate and rhythm, tachycardia. Absent: gallop, systolic murmur - GI/Abdominal GI/Abdominal exam: Present: normal bowel sounds, soft. Absent: organomegaly, tenderness - Extremities Exam Extremities exam: Present: other (He still has the wound on his left ankle). Absent: calf tenderness, edema - Neurological Exam Neurological exam: Present: He is awake and talking now. - Psychiatric Psychiatric exam: Present: He does get very agitated at times. He is anxious at present. - Skin Skin exam: Present: warm, dry Results - Labs CBC & BMP: 12/04/16 05:05 12/04/16 05:05 - Diagnostic Findings Procedure: Chest x-ray: image reviewed by me, report reviewed by me (Chest x- ray still has bilateral infiltrates but the right lung is a little better.) Assessment and Plan (1) Kidney transplant recipient Problem details: No evidence of rejection. Status: Chronic Assessment and plan: The patient is somewhat immunosuppressed and has mildly decreased renal function. His creatinine is down to 1.1 now. Current Visit: No (2) Reticulonodular infiltrate present on imaging of chest Status: Chronic Assessment and plan: The patient continues to have extensive reticular nodular infiltrates but he seems to be breathing a little better today. He still has extensive infiltrates but does not want another biopsy. Current Visit: No (3) Acute respiratory failure with hypoxemia Status: Acute Assessment and plan: The patient looks much more alert and comfortable and is not in any distress now. Current Visit: No (4) Pneumonia Status: Acute Assessment and plan: He will be covered with antibiotics for pneumonia. So far his cultures have been negative. He has extensive reticulonodular infiltrates. He has been breathing a little better the last few days. Current Visit: No Qualifiers: Pneumonia type: due to Pneumococcus Laterality: bilateral (5) Peripheral vascular disease Status: Chronic Assessment and plan: Patient has a wound on his left leg and much skin breakdown. He may at some point need the left leg amputated Current Visit: Yes (6) Rash and nonspecific skin eruption Status: Acute Assessment and plan: He recently had a rash and his skin is very fragile. He may have a disseminated infection. He seems to be responding to the antibiotics. Current Visit: Yes (7) Gastrointestinal hemorrhage with melena Status: Acute Assessment and plan: Patient is having some blood in his stools. His hematocrit is 29.9 today. He is not having any worsening hemorrhage now. Current Visit: No
[2016-12-04] MEDS: oxyCODONE/ACETAMINOPHEN 5-325 MG TABLET PO PRN (20:23)
[2016-12-05] MEDS: ALBUTEROL/IPRATROPIUM 3 ML NEB RESP TX SCH ×6 (00:07→20:00)
[2016-12-05] MEDS: methylPREDNISolone SOD SUC 40 MG/1 ML VIAL IV SCH ×2 (03:12→15:43)
[2016-12-05] MEDS: TACROLIMUS 0.5 MG CAPSULE PO SCH ×2 (03:13→15:42)
[2016-12-05] MEDS: MYCOPHENOLATE MOFETIL 250 MG CAPSULE PO SCH ×2 (03:13→15:43)
[2016-12-05] MEDS: IMIPENEM/CILASTATIN 500 MG in SODIUM CHLORIDE 0.9% 100 ML IV SCH ×3 (06:07→22:01)
[2016-12-05] MEDS: INSULIN LISPRO 100 UNIT/ML SUBCUT SCH ×3 (06:07→18:08)
[2016-12-05] MEDS: oxyCODONE/ACETAMINOPHEN 5-325 MG TABLET PO PRN ×2 (06:58→18:44)
--- NOTE | 2016-12-05 08:49 | Nephrology Progress Note ---
Nephrology - PN: Subj Interval history: Mr. Cooper is seen in follow-up of his kidney transplant. His most recent serum creatinine was 1.1. He remains chronically ill with reticulonodular pulmonary infiltrates and a general downhill course. He is a heavy dressing on his left lower leg. He has no edema of his extremities and he does have a rash over his face and chest which has developed over the last month. It is not pruritic. Overall his outlook is poor he has not wished further aggressive investigations of the etiology of his lung issues and current efforts are at keeping him comfortable. Exam (PN)-Nephrology - Vital Signs Vital signs: Period Temp Pulse Resp BP Sys/Stewart Pulse Ox Last 24 Hr 97.7 F-100.9 F 104-120 17-22 144-152/90-102 93-100 - Lab 12/04/16 05:05 12/04/16 05:05 Most recent lab results ABG pH 7.311 (7.35-7.45) L 11/27/16 06:20 ABG pCO2 34.4 MM HG (35-48) L 11/27/16 06:20 ABG pO2 65.3 MM HG (80-95) L 11/27/16 06:20 ABG HCO3 17.7 MMOL/L (20-26) L 11/27/16 06:20 ABG O2 Saturation 90.9 % (95-100) L 11/27/16 06:20 Calcium 9.0 MG/DL (8.5-10.1) 12/04/16 05:05 Phosphorus 2.2 MG/DL (2.5-4.9) L 12/03/16 06:03 Magnesium 1.8 MG/DL (1.8-2.4) 12/04/16 05:05
[2016-12-05] MEDS: ALLOPURINOL 300 MG TABLET PO SCH (08:57)
[2016-12-05] MEDS: FOLIC ACID 1 MG TABLET PO SCH (08:57)
[2016-12-05] MEDS: LANSOPRAZOLE ODT 30 MG TABLET PEG SCH ×2 (08:57→20:09)
[2016-12-05] MEDS: levETIRAcetam 500 MG TABLET PO SCH ×2 (08:57→20:09)
[2016-12-05] MEDS: ZINC OXIDE PASTE 113 GM TUBE TOP SCH (08:59)
[2016-12-05] MEDS: SODIUM HYPOCHLORITE 0.25% IRRIG 473 ML BOTTLE TOP SCH (08:59)
[2016-12-05] MEDS: BACITRACIN OINT 0.9 GM PACK TOP SCH (08:59)
[2016-12-05] MEDS: SODIUM ACETATE 75 MEQ in SODIUM CHLORIDE 0.45% 1,000 ML IV SCH ×2 (09:10→22:00)
--- NOTE | 2016-12-05 09:22 | Pulmonology Progress Note ---
Pulmonary - PN: Subj Interval history: Patient is a 50-year-old black man that has had a previous renal transplant. He has been on immunosuppressive agents. He comes back in with hypotension, dehydration, worsening renal insufficiency and shortness of breath. He continues to have extensive nodular infiltrates. He was in the hospital in August and September with respiratory failure on the ventilator. He was treated for pneumonia and did seem to improve somewhat. At that time he did have transbronchial biopsies that did not show a definite organism. He is back now and his x-ray is worse. He has extensive reticulonodular infiltrates. He has required BiPAP and his O2 saturation has been adequate. His family has decided they do not want him resuscitated and did not want an open lung biopsy. The patient said he rested fairly well last night and is breathing a little better. He is not having as much leg pain today. He looks a little more comfortable today. Exam (Progress Note) - Constitutional Vitals: Period Temp Pulse Resp BP Sys/Stewart Pulse Ox Last 24 Hr 97.7 F-100.9 F 104-120 17-22 144-152/90-102 93-100 Exam: General appearance: under weight, other (Patient is chronically ill-appearing and very fragile. He looks a little more comfortable today.) - Head Head exam: Present: normal inspection, normocephalic - Eye Eye exam: Present: EOMI. Absent: scleral icterus Pupils: Present: SELVIN - ENT ENT exam: Present: other (He has dry mucous membrane), he is on low-flow oxygen. - Neck Neck exam: Absent: lymphadenopathy, meningismus, thyromegaly - Respiratory Respiratory exam: Present: Patient seems to be breathing much better with less rhonchi. He has good breath sounds bilaterally. - Cardiovascular Cardiovascular exam: Present: regular rate and rhythm, tachycardia. Absent: gallop, systolic murmur - GI/Abdominal GI/Abdominal exam: Present: normal bowel sounds, soft. Absent: organomegaly, tenderness - Extremities Exam Extremities exam: Present: other (He still has the wound on his left ankle). Absent: calf tenderness, edema - Neurological Exam Neurological exam: Present: He is awake and talking now. - Psychiatric Psychiatric exam: Present: He does get very agitated at times. He is anxious at present. - Skin Skin exam: Present: warm, dry Results - Labs CBC & BMP: 12/04/16 05:05 12/04/16 05:05 Assessment and Plan (1) Kidney transplant recipient Problem details: No evidence of rejection. Status: Chronic Assessment and plan: The patient is somewhat immunosuppressed but his renal function is doing much better now. Current Visit: No (2) Reticulonodular infiltrate present on imaging of chest Status: Chronic Assessment and plan: The patient continues to have extensive reticular nodular infiltrates but he seems to be breathing a little better today. He still has extensive infiltrates but does not want another biopsy. He also has an extensive skin rash and a skin biopsy might tell us a little more. Will ask surgery to see about a skin biopsy Current Visit: No (3) Acute respiratory failure with hypoxemia Status: Acute Assessment and plan: The patient looks much more alert and comfortable and is not in any distress now. His breathing is a little better now. Current Visit: No (4) Pneumonia Status: Acute Assessment and plan: He will be covered with antibiotics for pneumonia. Overall he seems to be improving a little. Current Visit: No Qualifiers: Pneumonia type: due to Pneumococcus Laterality: bilateral (5) Peripheral vascular disease Status: Chronic Assessment and plan: Patient has a wound on his left leg and much skin breakdown. He may at some point need the left leg amputated Current Visit: Yes (6) Rash and nonspecific skin eruption Status: Acute Assessment and plan: He recently had a rash and his skin is very fragile. He may have a disseminated infection. We will see about a skin biopsy next week. Current Visit: Yes (7) Gastrointestinal hemorrhage with melena Status: Acute Assessment and plan: Patient is having some blood in his stools. His hematocrit is 29.9 today. He is not having any worsening hemorrhage now. Current Visit: No
--- NOTE | 2016-12-05 11:32 | Event Note ---
12/05/2016 Patient remains afebrile and wound care is continuing. He appears stable at this point. Lungs or not much improved although he is breathing better at this point. Dr. Neri wonders about possibility of a punch biopsy of the lesions of his legs for diagnostic reasons as well as cultures. Will check with infectious disease and see if there is a value in that at this time.
--- NOTE | 2016-12-05 15:24 | Hospitalist Progress Note ---
Assessment and Plan (1) Pneumonia Status: Acute Assessment and plan: The patient is admitted to the hospital with worsening shortness of breath and cough as well as altered mental status. The patient has history of immunocompromise due to immunosuppressive medications taken for his renal transplant. The patient's breathing is still little bit better today and he is breathing comfortably without BiPAP. He remains DO NOT RESUSCITATE status. The patient continues on Merrem antibiotic. Dr. Negro and Dr. Sanchez are considering causes for the patient's leg pain and complications. I coordinated care with case coordinator today. Current Visit: No Qualifiers: Pneumonia type: due to Pneumococcus Laterality: bilateral (2) Kidney transplant recipient Problem details: No evidence of rejection. Status: Chronic Current Visit: No (3) Chronic kidney disease, stage III (moderate) Status: Chronic Current Visit: No (4) Pneumonia Status: Acute Current Visit: Yes Hospitalist: Subjective Interval history: The patient continues on meropenem for treatment of lung skin and bone infection. The patient had significant immunocompromise due to immunosuppressive medications. The patient is resting quietly and appears little stronger anyway has been earlier in the week Exam - Constitutional Vitals: Period Temp Pulse Resp BP Sys/Stewart Pulse Ox Last 24 Hr 97.9 F-100.9 F 104-120 17-22 144-156/90-102 93-100 Exam: Constitutional System: Mild distress. No tremulousness. The patient has muscular wasting. Head: Normocephalic, atraumatic. Ears, Nose and Throat System: No evidence of Otitis or Mastoiditis. No epistaxis or discharge Eyes System: Pupils equal, round, and reactive. Extraocular muscles intact. Neck: Supple, without adenopathy, No jugular venous distention. No thyromegaly , neck mass, or prior surgery apparent. Respiratory System: Chest clear to auscultation. Cardiovascular System: Heart with regular rate and rhythm. No murmur. GI System: Abdomen soft, nontender. Normo active bowel sounds present. Results - Labs CBC & BMP: 12/04/16 05:05 12/04/16 05:05 Lab Results: I have reviewed the past 24 hour labs Quality Measures - VTE Contraindication to Mechanical VTE Prophylaxis: Trauma to Legs
[2016-12-05] MEDS: HYDROmorphone 2 MG/1 ML VIAL IV PRN (20:09)
[2016-12-06] MEDS: INSULIN LISPRO 100 UNIT/ML SUBCUT SCH ×4 (00:01→18:05)
[2016-12-06] MEDS: ALBUTEROL/IPRATROPIUM 3 ML NEB RESP TX SCH ×7 (00:45→23:50)
[2016-12-06] MEDS: methylPREDNISolone SOD SUC 40 MG/1 ML VIAL IV SCH ×2 (03:15→15:22)
[2016-12-06] MEDS: MYCOPHENOLATE MOFETIL 250 MG CAPSULE PO SCH ×2 (03:16→15:23)
[2016-12-06] MEDS: TACROLIMUS 0.5 MG CAPSULE PO SCH ×2 (03:16→15:23)
[2016-12-06] MEDS: IMIPENEM/CILASTATIN 500 MG in SODIUM CHLORIDE 0.9% 100 ML IV SCH ×3 (06:01→23:39)
[2016-12-06 06:57] LABS: Basophils % 0.1 % (0.0-0.8); Eosinophils % 0.1 % (0.00-10.9); Hemoglobin 8.6 GM/DL (14.0-18.0); Immature Granulocytes % 1.2 %; Immature Granulocytes Absolute 0.17 #; Lymphocytes # 0.4 10*3/uL (1.4-4.0); Mean Corpuscular HGB Conc 31.9 GM/DL (32-36); Mean Corpuscular Hemoglobin 26 PG (27-34); Mean Corpuscular Volume 82.8 FL (87-102); Mean Platelet Volume 12.1 FL (9.6-12.0); Monocytes # 0.6 10*3/uL (0.11-0.8); Monocytes % 4.5 % (1.7-12.7); Neutrophils # 12.6 10*3/uL (1.4-7.4); Neutrophils % 91.1 % (38.7-73.9); Platelet Count 300 T/CUMM (130-400); Red Blood Count 3.26 MC/CUMM (3.8-5.5); Red Cell Distribution Width 17.3 % (9.3-17.3); White Blood Count 13.9 T/CUMM (4-12)
[2016-12-06 07:19] LABS: Calcium 8.3 MG/DL (8.5-10.1); Magnesium 1.4 MG/DL (1.8-2.4); Osmolality,Calculated 290.4 MOS/KG (273-304); Potassium 4.2 MMOL/L (3.5-5.1)
[2016-12-06 07:42] LABS: Band Neutrophils 2 % (0-10); Hypochromasia 1+; Lymphocytes 3 % (20-55); Platelet Estimate Adequate; Segmented Neutrophils 92 % (50-85); Total Cells Counted 100
[2016-12-06 07:43] LABS: Microcytosis Slight; Ovalocytes Slight
[2016-12-06] MEDS: oxyCODONE/ACETAMINOPHEN 5-325 MG TABLET PO PRN ×2 (08:35→23:33)
[2016-12-06] MEDS: levETIRAcetam 500 MG TABLET PO SCH ×2 (08:35→21:20)
[2016-12-06] MEDS: FOLIC ACID 1 MG TABLET PO SCH (08:36)
[2016-12-06] MEDS: ALLOPURINOL 300 MG TABLET PO SCH (08:36)
[2016-12-06] MEDS: BACITRACIN OINT 0.9 GM PACK TOP SCH (08:36)
[2016-12-06] MEDS: LANSOPRAZOLE ODT 30 MG TABLET PEG SCH ×2 (08:36→21:20)
[2016-12-06] MEDS: ZINC OXIDE PASTE 113 GM TUBE TOP SCH (08:36)
[2016-12-06] MEDS: SODIUM HYPOCHLORITE 0.25% IRRIG 473 ML BOTTLE TOP SCH (08:36)
--- NOTE | 2016-12-06 09:16 | Pulmonology Progress Note ---
Pulmonary - PN: Subj Interval history: Patient is a 50-year-old black man that has had a previous renal transplant. He has been on immunosuppressive agents. He comes back in with hypotension, dehydration, worsening renal insufficiency and shortness of breath. He continues to have extensive nodular infiltrates. He was in the hospital in August and September with respiratory failure on the ventilator. He was treated for pneumonia and did seem to improve somewhat. At that time he did have transbronchial biopsies that did not show a definite organism. He is back now and his x-ray is worse. He has extensive reticulonodular infiltrates. He has required BiPAP and his O2 saturation has been adequate. His family has decided they do not want him resuscitated and did not want an open lung biopsy. The patient said he had a fairly good night and is not having more trouble breathing. He still has a lot of pain at times. He does seem to be relatively stable at present. Exam (Progress Note) - Constitutional Vitals: Period Temp Pulse Resp BP Sys/Stewart Pulse Ox Last 24 Hr 97.9 F-100.5 F 111-135 15-22 134-146/83-96 92-100 Exam: General appearance: under weight, other (Patient is chronically ill-appearing and very fragile. He looks a little more comfortable today.) - Head Head exam: Present: normal inspection, normocephalic - Eye Eye exam: Present: EOMI. Absent: scleral icterus Pupils: Present: SELVIN - ENT ENT exam: Present: other (He has dry mucous membrane), he is on low-flow oxygen. - Neck Neck exam: Absent: lymphadenopathy, meningismus, thyromegaly - Respiratory Respiratory exam: Present: Patient seems to be breathing much better with less rhonchi. He has some crackles in his chest but is moving air well without any wheezing. - Cardiovascular Cardiovascular exam: Present: regular rate and rhythm, tachycardia. Absent: gallop, systolic murmur - GI/Abdominal GI/Abdominal exam: Present: normal bowel sounds, soft. Absent: organomegaly, tenderness - Extremities Exam Extremities exam: Present: other (He still has the wound on his left ankle). Absent: calf tenderness, edema - Neurological Exam Neurological exam: Present: He is awake and talking now. - Psychiatric Psychiatric exam: Present: He does get very agitated at times. He is anxious at present. - Skin Skin exam: Present: warm, dry Results - Labs CBC & BMP: 12/06/16 05:40 12/06/16 05:40 Assessment and Plan (1) Kidney transplant recipient Problem details: No evidence of rejection. Status: Chronic Assessment and plan: The patient is somewhat immunosuppressed but his renal function is doing much better now. Current Visit: No (2) Reticulonodular infiltrate present on imaging of chest Status: Chronic Assessment and plan: The patient continues to have extensive reticular nodular infiltrates but he seems to be breathing a little better today. He still has extensive infiltrates but does not want another biopsy. He also has an extensive skin rash and a skin biopsy might tell us a little more. Will ask surgery to see about a skin biopsy. Overall he is about the same. Current Visit: No (3) Acute respiratory failure with hypoxemia Status: Acute Assessment and plan: The patient looks much more alert and comfortable and is not in any distress now. His breathing is a little better now. Current Visit: No (4) Pneumonia Status: Acute Assessment and plan: He will be covered with antibiotics for pneumonia. Overall he seems to be improving a little. Current Visit: No Qualifiers: Pneumonia type: due to Pneumococcus Laterality: bilateral (5) Peripheral vascular disease Status: Chronic Assessment and plan: Patient has a wound on his left leg and much skin breakdown. He may at some point need the left leg amputated Current Visit: Yes (6) Rash and nonspecific skin eruption Status: Acute Assessment and plan: He recently had a rash and his skin is very fragile. He may have a disseminated infection. We will see about a skin biopsy next week. Current Visit: Yes (7) Gastrointestinal hemorrhage with melena Status: Acute Assessment and plan: Patient is having some blood in his stools. His hematocrit is 27 today. He is not having any worsening hemorrhage now. Current Visit: No
--- NOTE | 2016-12-06 09:30 | Nephrology Progress Note ---
Nephrology - PN: Subj Interval history: Mr. Cooper is much different today. He is improved significantly over yesterday. He is fully awake and interactive. He complains of pain with bowel movement due to his "sore behind". His chest is clear. He does have the nodular eruption over much of his body including his face. Tentative plans for skin biopsy same very reasonable since more invasive procedures have been declined. Serum creatinine is 1.3. Overall he is much improved but still quite ill. Exam (PN)-Nephrology - Vital Signs Vital signs: Period Temp Pulse Resp BP Sys/Stewart Pulse Ox Last 24 Hr 97.9 F-100.5 F 111-135 15-22 134-146/83-96 92-100 - Lab 12/06/16 05:40 12/06/16 05:40 Most recent lab results ABG pH 7.311 (7.35-7.45) L 11/27/16 06:20 ABG pCO2 34.4 MM HG (35-48) L 11/27/16 06:20 ABG pO2 65.3 MM HG (80-95) L 11/27/16 06:20 ABG HCO3 17.7 MMOL/L (20-26) L 11/27/16 06:20 ABG O2 Saturation 90.9 % (95-100) L 11/27/16 06:20 Calcium 8.3 MG/DL (8.5-10.1) L 12/06/16 05:40 Phosphorus 2.2 MG/DL (2.5-4.9) L 12/03/16 06:03 Magnesium 1.4 MG/DL (1.8-2.4) L 12/06/16 05:40
[2016-12-06] MEDS ORDERED: MAGNESIUM SULF RIDER 4 GM in PREMIX 1 EACH IV ONE (10:40)
--- NOTE | 2016-12-06 10:44 | Hospitalist Progress Note ---
Assessment and Plan (1) Pneumonia Status: Acute Assessment and plan: The patient is admitted to the hospital with worsening shortness of breath and cough as well as altered mental status. The patient has history of immunocompromise due to immunosuppressive medications taken for his renal transplant. The patient's breathing is still little bit better today and he is breathing. He remains DO NOT RESUSCITATE status. The patient continues on Merrem antibiotic. Dr. Negro and Dr. Sanchze are considering causes for the patient's leg pain and complications. Current Visit: No Qualifiers: Pneumonia type: due to Pneumococcus Laterality: bilateral (2) Kidney transplant recipient Problem details: No evidence of rejection. Status: Chronic Current Visit: No (3) Chronic kidney disease, stage III (moderate) Status: Chronic Current Visit: No (4) Pneumonia Status: Acute Current Visit: Yes Hospitalist: Subjective Interval history: Mr. Cooper was admitted to the hospital with worsening shortness of breath. Dr. Negro was consulted and started the patient on meropenem. She felt the case was consistent with nocardia. Indeed the patient has had remarkable improvement of his shortness of breath and left leg pain which is thought to be due to osteomyelitis. The patient continues on meropenem and his nutrition is delivered via PEG tube. The patient has no new complaints today and is in cheerful mood with less pain than on previous days. Exam - Constitutional Vitals: Period Temp Pulse Resp BP Sys/Stewart Pulse Ox Last 24 Hr 97.9 F-100.5 F 111-135 15-22 134-146/83-96 92-100 Exam: Constitutional System: Mild distress. No tremulousness. The patient has muscular wasting. Head: Normocephalic, atraumatic. Ears, Nose and Throat System: No evidence of Otitis or Mastoiditis. No epistaxis or discharge Eyes System: Pupils equal, round, and reactive. Extraocular muscles intact. Neck: Supple, without adenopathy, No jugular venous distention. No thyromegaly , neck mass, or prior surgery apparent. Respiratory System: Chest clear to auscultation. Cardiovascular System: Heart with regular rate and rhythm. No murmur. GI System: Abdomen soft, nontender. Normo active bowel sounds present. Results - Labs CBC & BMP: 12/06/16 05:40 12/06/16 05:40 Lab Results: I have reviewed the past 24 hour labs Quality Measures - VTE Contraindication to Mechanical VTE Prophylaxis: Trauma to Legs
--- NOTE | 2016-12-06 11:18 | Event Note ---
12/06/2016. Patient seems somewhat better today breathing without too much difficulty. Wound care is proceeding to the legs as well as the foot in order to get that process under control. Will maintain present wound care at this time. Will ask Dr. Negro about the possibility of a biopsy of the rash to areas if there would be any thing that would help us make of further diagnosis on him at this time.
[2016-12-06] MEDS: SODIUM ACETATE 75 MEQ in SODIUM CHLORIDE 0.45% 1,000 ML IV SCH (14:40)
[2016-12-06] MEDS: HYDROmorphone 2 MG/1 ML VIAL IV PRN (15:22)
[2016-12-07] MEDS: INSULIN LISPRO 100 UNIT/ML SUBCUT SCH ×4 (00:47→18:00)
[2016-12-07] MEDS: SODIUM ACETATE 75 MEQ in SODIUM CHLORIDE 0.45% 1,000 ML IV SCH ×2 (02:44→17:58)
[2016-12-07] MEDS: ALBUTEROL/IPRATROPIUM 3 ML NEB RESP TX SCH ×6 (03:40→23:50)
[2016-12-07] MEDS: TACROLIMUS 0.5 MG CAPSULE PO SCH ×2 (05:00→15:29)
[2016-12-07] MEDS: methylPREDNISolone SOD SUC 40 MG/1 ML VIAL IV SCH ×2 (05:01→15:30)
[2016-12-07] MEDS: MYCOPHENOLATE MOFETIL 250 MG CAPSULE PO SCH ×2 (05:01→15:29)
[2016-12-07] MEDS: IMIPENEM/CILASTATIN 500 MG in SODIUM CHLORIDE 0.9% 100 ML IV SCH ×3 (09:13→22:45)
[2016-12-07] MEDS: LANSOPRAZOLE ODT 30 MG TABLET PEG SCH ×2 (09:13→20:05)
[2016-12-07] MEDS: ALLOPURINOL 300 MG TABLET PO SCH (09:13)
[2016-12-07] MEDS: FOLIC ACID 1 MG TABLET PO SCH (09:13)
[2016-12-07] MEDS: levETIRAcetam 500 MG TABLET PO SCH ×2 (09:14→20:05)
[2016-12-07] MEDS: ZINC OXIDE PASTE 113 GM TUBE TOP SCH (09:14)
[2016-12-07] MEDS: oxyCODONE/ACETAMINOPHEN 5-325 MG TABLET PO PRN ×2 (09:33→13:35)
[2016-12-07] MEDS: SODIUM HYPOCHLORITE 0.25% IRRIG 473 ML BOTTLE TOP SCH (11:03)
[2016-12-07] MEDS: BACITRACIN OINT 0.9 GM PACK TOP SCH (11:03)
--- NOTE | 2016-12-07 11:05 | General Surgery Progress Note ---
Assessment and Plan (1) Abscess of left leg Status: Acute Assessment and plan: 12/07/2016 Left lower extremity abscess does seem to be much better today. He is less tender and the wound overall is improving. I will speak with Dr. Sanchez considering the possibility of removing the irrigating catheter. His excoriated skin rash also seems to be better in general, however he does have new mild pitting edema of the right lower extremity. We will continue his current wound care to that extremity, adding light Andrés bandage for support from toe to knee. From purely the wound care perspective, this patient is improving. 12/01/16 LLE abscess is stable; still a good deal of tenderness and marked enlargement of the foot in relationship to the leg. We will proceed with CT now that he's off Bipap, but avoid IV contrast with Creatinine of 1.6 in this renal transplant patient. 11/27/16 Abscess of the left lower extremity, marginally better today in response to IV antibiotics and local care. This is now spontaneously draining and he appears too ill for anything but urgent OR I&D/debridement. Still on Bipap, so this will make transport to CT difficult, so Dr Sanchez plans to (at the bedside) place an irrigating catheter in the wound later today. This will offer us an accurate culture and maintain drainage of the area while allowing him to stabilize medically. Hopefully we will see the leukocytosis improve as well, if this is indeed contributing to his illness. Recommend continue current IV antibiotics and wound care until we have a culture result. 11/26/16-We will need to evaluate the left ankle/foot for evidence of deep abscess. I will discuss with Dr Sanchez; given his current respiratory distress, we may plan CT, but postpone till later today. Wound care orders are written. Current Visit: No (2) Rash and nonspecific skin eruption Status: Acute Assessment and plan: 12/01/16 Purpuric diffuse and widespread skin rash that looks like a vasculitis. This is maturing while on steroids. We will continue steroids and defer to Dr Negro. The right plantar foot vescicles bear watching, as these may need unroofing and wound care at some point. 11/27/16 Stable diffuse skin rash. This does have a vasculitis appearance, but is stable. We will continue to watch. He is on systemic steroids. 11/26/16 Rash of trunk and extremities; this by history began after he was given Megace. I was unable to examine the posterior portion, but certainly we can monitor this closely and use topicals and possibly systemic steriods. I remain concerned that the plantar right foot areas resemble vasculitis, so we will watch this area very closely. Punch biopsy at the bedside could be performed, if indicated or if it fails to respond to more conservative therapy. The megace has been held. Current Visit: Yes Subjective Patient reports: Present: pain is less, other (The patient is quite verbal today , he does say that his pain is less although he still asked for pain medication during dressing change.) Exam - Constitutional Vitals: Period Temp Pulse Resp BP Sys/Stewart Pulse Ox Last 24 Hr 98.2 F-99.4 F 72-128 16-24 130-137/80-94 96-100 General appearance: under weight ( He is underweight. He is animated and quite interactive with staff.), other (He denies shortness of breath and is wearing his nasal cannula oxygen appropriately.) - Extremities Exam Extremities exam: Present: other (Right lower extremity with some 1+ pitting edema at the distal ankle and foot without any new redness. He does have stable vesicular changes of the plantar right foot however the rash does seem to be improving. The excoriative process on the posterior right thigh is stable and some of the lesions seem to actually be healing with superficial skin slough present. On the left, the lateral malleolus is without as much swelling, there is no gross purulence, and I see no erythematous change today. It does seem to be less tender, and the patient voluntarily moves his ankle and foot much more easily. There is in fact some new granulation tissue present on the dorsum of the foot, and I see no new necrotic areas.) - Neurological Exam Neurological exam: Present: alert, oriented X3 Results - Labs CBC & BMP: 12/06/16 05:40 12/06/16 05:40 Lab Results: I have reviewed the past 24 hour labs (WBC is now 13.9. His most recent wound culture of the left malleolus shows no growth.) Quality Measures - VTE Contraindication to Mechanical VTE Prophylaxis: Trauma to Legs
--- NOTE | 2016-12-07 11:09 | Infectious Disease Progress ---
Assessment and Plan (1) History of renal transport Status: Acute Assessment and plan: As a result of this the patient is immunocompromised at risk for severe and atypical infections. Current Visit: Yes (2) Pneumonia Status: Acute Assessment and plan: He has extensive nodular infiltrates throughout both lungs. I am suspicious about some atypical infection such as fungal or mycobacterial; doubt TB as he would have persistently high fevers with this. He could have nocardiosis among other atypical organisms. Cultures in August on revealing the pulmonary changes were not as extensive as now. Currently pulmonary status is stable he is in no respiratory distress and really cough is not significant. Patient generally doing better on imipenem. He has refused bronchoscopy. We will continue current management. Current Visit: Yes (3) Rash and nonspecific skin eruption Status: Acute Assessment and plan: Could be from disseminated infection such as nocardiosis. Less likely allergic reaction or vasculitis in my opinion. Rash improved with imipenem. Only he still has lesions on both soles of feet. Agree with Dr. Sanchez that skin biopsy might yield a result since all the other cultures so far have been nonrevealing. Would send samples for histopathology along with bacterial Gram stain and culture, AFB stain and culture, and fungal stain and culture. Current Visit: Yes (4) Wound of left ankle Status: Acute Assessment and plan: There is extensive infection in this left ankle likely septic arthritis and osteomyelitis. Suspect some atypical infection. Differentials include nocardiosis [disseminated with pulmonary and skin involvement], also it could be fungal or mycobacterial. The ankle actually looks better today compared to 1 week ago. I am not sure if the imipenem that is helping this. Recommendations: 1. Follow-up culture results - fungal and AFB 2. Continue empiric imipenem 3. In terms of long-term plan I am not sure where the endpoint is, he may need to go to LTAC to continue imipenem therapy. Since he is improving with this therapy I would he continue it for 6 weeks to treat osteomyelitis of the left ankle. Current Visit: Yes (5) Diabetes mellitus Status: Acute Current Visit: No Infectious Disease - PN: Subj Interval history: The patient had an uneventful weekend, no fever, pain to left ankle present only when it is manipulated. Rash seems to be improving. He is generally more alert and conversant. Denies breathing difficulties. Infectious Disease Exam (PN) - Constitutional Vitals: Temp Pulse Resp BP Pulse Ox 98.8 F 121 H 18 136/83 99 05/08/17 08:00 12/07/16 10:59 12/07/16 10:59 12/07/16 08:00 12/07/16 10:59 General appearance: under weight ( He is underweight. He is animated and quite interactive with staff.), other (He denies shortness of breath and is wearing his nasal cannula oxygen appropriately.) Exam: General appearance: More alert and conversant, nontoxic appearing - Eye Eye exam: Present: EOMI. no icterus Pupils: Present: SELVIN - ENT ENT exam: no oral exudates - Respiratory Respiratory exam: vesicular BS, no crepitations or wheezes - Cardiovascular Cardiovascular exam: regular rate and rhythm, no murmurs - GI/Abdominal GI/Abdominal exam: PEG present, normal bowel sounds, soft, non-tender, no organomegaly or mass - Extremities Exam Extremities exam: Wasted, left foot and ankle swelling continues to decrease, minimal drainage from wound medially and also from lateral wound. - Skin Skin exam: Generalized skin rash continues to dry up. But on the soles of his feet left more than right there is diffuse confluent blistering/vesicles. These are tender to touch. Results - Labs CBC & BMP: 12/06/16 05:40 12/06/16 05:40 Lab Results: I have reviewed the past 24 hour labs (Still no positive cultures) Quality Measures - VTE Contraindication to Mechanical VTE Prophylaxis: Trauma to Legs
--- NOTE | 2016-12-07 12:06 | Pulmonology Progress Note ---
Pulmonary - PN: Subj Interval history: Patient is a 50-year-old black man that has had a previous renal transplant. He has been on immunosuppressive agents. He comes back in with hypotension, dehydration, worsening renal insufficiency and shortness of breath. He continues to have extensive nodular infiltrates. He was in the hospital in August and September with respiratory failure on the ventilator. He was treated for pneumonia and did seem to improve somewhat. At that time he did have transbronchial biopsies that did not show a definite organism. He is back now and his x-ray is worse. He has extensive reticulonodular infiltrates. He has required BiPAP and his O2 saturation has been adequate. His family has decided they do not want him resuscitated and did not want an open lung biopsy. Over the past few days the patient has gotten a little better. His breathing seems to be a little better. He looks a little more comfortable although his leg still hurt a lot. Overall he seems to be responding. Exam (Progress Note) - Constitutional Vitals: Period Temp Pulse Resp BP Sys/Stewart Pulse Ox Last 24 Hr 98.2 F-99.4 F 72-128 16-24 130-137/80-94 96-100 Exam: General appearance: under weight, other (Patient is chronically ill-appearing and very fragile. He looks a little more comfortable today. His breathing looks better.) - Head Head exam: Present: normal inspection, normocephalic - Eye Eye exam: Present: EOMI. Absent: scleral icterus Pupils: Present: SELVIN - ENT ENT exam: Present: other (He has dry mucous membrane), he is on low-flow oxygen. - Neck Neck exam: Absent: lymphadenopathy, meningismus, thyromegaly - Respiratory Respiratory exam: Present: Patient seems to be breathing much better with less rhonchi. He has some crackles in his chest but is moving air well without any wheezing. - Cardiovascular Cardiovascular exam: Present: regular rate and rhythm, tachycardia. Absent: gallop, systolic murmur - GI/Abdominal GI/Abdominal exam: Present: normal bowel sounds, soft. Absent: organomegaly, tenderness - Extremities Exam Extremities exam: Present: other (He still has the wound on his left ankle). Absent: calf tenderness, edema - Neurological Exam Neurological exam: Present: He is awake and talking now. - Psychiatric Psychiatric exam: Present: He does get very agitated at times. He is anxious at present. - Skin Skin exam: Present: warm, dry, he has had some extensive skin changes. Results - Labs CBC & BMP: 12/06/16 05:40 12/06/16 05:40 Assessment and Plan (1) Kidney transplant recipient Problem details: No evidence of rejection. Status: Chronic Assessment and plan: The patient is somewhat immunosuppressed but his renal function is doing much better now. Current Visit: No (2) Reticulonodular infiltrate present on imaging of chest Status: Chronic Assessment and plan: The patient continues to have extensive reticular nodular infiltrates but he seems to be breathing a little better today. He still has extensive infiltrates but does not want another biopsy. He does seem to be breathing better and seems to be responding. He might consider a skin biopsy. Current Visit: No (3) Acute respiratory failure with hypoxemia Status: Acute Assessment and plan: The patient looks much more alert and comfortable and is not in any distress now. His breathing is a little better now. Current Visit: No (4) Pneumonia Status: Acute Assessment and plan: He will be covered with antibiotics for pneumonia. Overall he seems to be improving a little. He is improving on antibiotics now. Current Visit: No Qualifiers: Pneumonia type: due to Pneumococcus Laterality: bilateral (5) Peripheral vascular disease Status: Chronic Assessment and plan: Patient has a wound on his left leg and much skin breakdown. He may at some point need the left leg amputated Current Visit: Yes (6) Rash and nonspecific skin eruption Status: Acute Assessment and plan: He recently had a rash and his skin is very fragile. He may have a disseminated infection. We will see about a skin biopsy next week. Current Visit: Yes (7) Gastrointestinal hemorrhage with melena Status: Acute Assessment and plan: Patient is having some blood in his stools. His hematocrit is 27 today. He is not having any bleeding now. Current Visit: No
--- NOTE | 2016-12-07 13:27 | Nephrology Progress Note ---
Nephrology - PN: Subj Interval history: Patient is resting complains of feeling cold this afternoon. Family members at the bedside. Exam (PN)-Nephrology - Vital Signs Vital signs: Period Temp Pulse Resp BP Sys/Stewart Pulse Ox Last 24 Hr 98.1 F-99.4 F 72-130 16-24 130-138/80-94 96-100 - General Appearance General appearance: fatigue, frail EENT: ATNC Neck: supple Respiratory: clear Cardiology: regular rate, regular rhythm Gastrointestinal: normoactive bowel sounds, no tenderness - Lab 12/06/16 05:40 12/06/16 05:40 Most recent lab results ABG pH 7.311 (7.35-7.45) L 11/27/16 06:20 ABG pCO2 34.4 MM HG (35-48) L 11/27/16 06:20 ABG pO2 65.3 MM HG (80-95) L 11/27/16 06:20 ABG HCO3 17.7 MMOL/L (20-26) L 11/27/16 06:20 ABG O2 Saturation 90.9 % (95-100) L 11/27/16 06:20 Calcium 8.3 MG/DL (8.5-10.1) L 12/06/16 05:40 Phosphorus 2.2 MG/DL (2.5-4.9) L 12/03/16 06:03 Magnesium 1.4 MG/DL (1.8-2.4) L 12/06/16 05:40 Assessment and Plan (1) Chronic kidney disease, stage III (moderate) Status: Chronic Assessment and plan: Patient with history of chronic kidney disease due to renal transplant. Serum creatinine is noted to be 1.1 Current Visit: No (2) Hypotension Status: Acute Current Visit: No (3) Altered mental status Status: Acute Current Visit: No Qualifiers: Altered mental status type: delirium Qualified Code(s): R41.0 - Disorientation, unspecified (4) Anemia Status: Chronic Current Visit: No (5) Peripheral vascular disease Status: Chronic Current Visit: Yes
[2016-12-07] MEDS: CARVEDILOL 12.5 MG TABLET PO SCH ×2 (15:29→20:05)
[2016-12-07] MEDS: HYDROmorphone 2 MG/1 ML VIAL IV PRN (17:30)
--- NOTE | 2016-12-07 18:28 | Hospitalist Progress Note ---
Assessment and Plan - Time spent with patient Time spent with patient: Greater than 30 minutes (1) Pneumonia Status: Acute Assessment and plan: The patient is improving with Primaxin. Infectious disease and pulmonary consults reviewed. Patient has had a prolonged hospitalization and appears to be improving today is hospital day 12. His diagnosis has not been confirmed in any skin biopsy is planned. Will consult case management for LTAC referral for continued Primaxin per infectious disease recommendations. He will need physical therapy and Occupational Therapy due to his significant debility and prolonged intensive care unit stay. Current Visit: Yes Qualifiers: Pneumonia type: due to unspecified organism Laterality: bilateral Lung location: unspecified part of lung Qualified Code(s): J18.9 - Pneumonia, unspecified organism (2) Left ankle pain Status: Acute Current Visit: Yes Qualifiers: Chronicity: acute Qualified Code(s): M25.572 - Pain in left ankle and joints of left foot (3) Critical illness myopathy Status: Acute Current Visit: No (4) Rash and nonspecific skin eruption Status: Acute Current Visit: Yes (5) Wound of left ankle Status: Acute Current Visit: Yes Qualifiers: Encounter type: initial encounter Qualified Code(s): S91.002A - Unspecified open wound, left ankle, initial encounter (6) History of renal transport Status: Chronic Current Visit: Yes (7) Anemia Status: Acute Current Visit: Yes Qualifiers: Other causes of anemia: acute posthemorrhagic (8) Severe malnutrition Status: Acute Current Visit: Yes (9) Chronic kidney disease, stage III (moderate) Status: Chronic Current Visit: Yes Hospitalist: Subjective Interval history: Patient seen and examined. No acute events overnight. Case discussed with nursing staff. Labs reviewed. Chart reviewed and consults noted. Agree with skin biopsy and continuation of IV antibiotics. Will consult case management for LTAC referral for continued IV antibiotics. Exam - Constitutional Vitals: Period Temp Pulse Resp BP Sys/Stewart Pulse Ox Last 24 Hr 98.0 F-99.4 F 72-130 16-20 122-138/71-94 96-100 Exam: Constitutional System: No distress. No tremulousness. Head: Normocephalic, atraumatic. Ears, Nose and Throat System: No pain or tenderness. No epistaxis or discharge Eyes System: Pupils equal, round, and reactive. Extraocular muscles intact. Neck: Supple, without adenopathy, No jugular venous distention. No thyromegaly, neck mass, or prior surgery apparent. Respiratory System: Chest clear to auscultation. Cardiovascular System: Heart with regular rate and rhythm. No murmur. GI System: Abdomen soft, nontender. Normo active bowel sounds present. Musculoskeletal System: limbs with no pedal edema. Full distal pulses. Neurological System: No discernable sensory deficit. No aphasia Psychiatric System: Conversation is rational Skin: Rash noted on trunk, arms, legs. feet, and face. Sloughing of the skin is noted on the right lateral aspect of the legs with blister formation noted on the right. The left ankle is wrapped in HIEN. Results - Labs CBC & BMP: 12/06/16 05:40 12/06/16 05:40 Lab Results: I have reviewed the past 24 hour labs - Diagnostic Findings Procedure: Chest x-ray: image reviewed by me, report reviewed by me Quality Measures - VTE Contraindication to Mechanical VTE Prophylaxis: Trauma to Legs
[2016-12-08] MEDS: INSULIN LISPRO 100 UNIT/ML SUBCUT SCH ×4 (01:08→18:26)
[2016-12-08] MEDS: ALBUTEROL/IPRATROPIUM 3 ML NEB RESP TX SCH ×5 (02:52→19:25)
[2016-12-08] MEDS: MYCOPHENOLATE MOFETIL 250 MG CAPSULE PO SCH ×2 (03:32→16:50)
[2016-12-08] MEDS: TACROLIMUS 0.5 MG CAPSULE PO SCH ×2 (03:32→16:50)
[2016-12-08] MEDS: methylPREDNISolone SOD SUC 40 MG/1 ML VIAL IV SCH ×2 (03:33→16:49)
[2016-12-08] MEDS: IMIPENEM/CILASTATIN 500 MG in SODIUM CHLORIDE 0.9% 100 ML IV SCH ×3 (06:05→22:24)
[2016-12-08 06:44] LABS: Osmolality,Calculated 294.3 MOS/KG (273-304); Potassium 4.6 MMOL/L (3.5-5.1)
[2016-12-08] MEDS: LANSOPRAZOLE ODT 30 MG TABLET PEG SCH ×2 (08:06→20:43)
[2016-12-08] MEDS: CARVEDILOL 12.5 MG TABLET PO SCH ×2 (08:07→20:43)
[2016-12-08] MEDS: ALLOPURINOL 300 MG TABLET PO SCH (08:07)
[2016-12-08] MEDS: oxyCODONE/ACETAMINOPHEN 5-325 MG TABLET PO PRN ×2 (08:07→16:50)
[2016-12-08] MEDS: FOLIC ACID 1 MG TABLET PO SCH (08:07)
[2016-12-08] MEDS: levETIRAcetam 500 MG TABLET PO SCH ×2 (08:07→20:43)
[2016-12-08] MEDS: ZINC OXIDE PASTE 113 GM TUBE TOP SCH (08:08)
--- NOTE | 2016-12-08 08:41 | Pulmonology Progress Note ---
Pulmonary - PN: Subj Interval history: Patient is a 50-year-old black man that has had a previous renal transplant. He has been on immunosuppressive agents. He comes back in with hypotension, dehydration, worsening renal insufficiency and shortness of breath. He continues to have extensive nodular infiltrates. He was in the hospital in August and September with respiratory failure on the ventilator. He was treated for pneumonia and did seem to improve somewhat. At that time he did have transbronchial biopsies that did not show a definite organism. He is back now and his x-ray is worse. He has extensive reticulonodular infiltrates. He has required BiPAP and his O2 saturation has been adequate. His family has decided they do not want him resuscitated and did not want an open lung biopsy. Over the past few days the patient has gotten a little better. He says he had a fairly good night and his breathing is better today. He has a much better appetite. He does not seem to be in his much pain. Overall he looks better. Exam (Progress Note) - Constitutional Vitals: Period Temp Pulse Resp BP Sys/Stewart Pulse Ox Last 24 Hr 98.0 F-99.8 F 93-130 17-20 122-145/71-100 92-100 Exam: General appearance: under weight, other (Patient is chronically ill-appearing and very fragile. He looks a little more comfortable today. He is not having any distress now.) - Head Head exam: Present: normal inspection, normocephalic - Eye Eye exam: Present: EOMI. Absent: scleral icterus Pupils: Present: SELVIN - ENT ENT exam: Present: other (He has dry mucous membrane), he is on low-flow oxygen. - Neck Neck exam: Absent: lymphadenopathy, meningismus, thyromegaly - Respiratory Respiratory exam: Present: Patient seems to be breathing much better with less rhonchi. He has some crackles in his chest but is moving air well without any wheezing. - Cardiovascular Cardiovascular exam: Present: regular rate and rhythm, tachycardia. Absent: gallop, systolic murmur - GI/Abdominal GI/Abdominal exam: Present: normal bowel sounds, soft. Absent: organomegaly, tenderness - Extremities Exam Extremities exam: Present: other (He still has the wound on his left ankle). Absent: calf tenderness, edema - Neurological Exam Neurological exam: Present: He is awake and talking now. - Psychiatric Psychiatric exam: Present: He looks much more comfortable now. - Skin Skin exam: Present: warm, dry, he has had some extensive skin changes. Results - Labs CBC & BMP: 12/06/16 05:40 12/08/16 06:02 Assessment and Plan (1) Kidney transplant recipient Problem details: No evidence of rejection. Status: Chronic Assessment and plan: The patient is somewhat immunosuppressed but his renal function is doing much better now. His creatinine is 1.3 today. Current Visit: No (2) Reticulonodular infiltrate present on imaging of chest Status: Chronic Assessment and plan: The patient continues to have extensive reticular nodular infiltrates but he seems to be breathing a little better today. His last chest x-ray was actually a little better. He is tolerating his antibiotics well. Current Visit: No (3) Acute respiratory failure with hypoxemia Status: Acute Assessment and plan: The patient looks much more alert and comfortable and is not in any distress now. His breathing is much improved and he is quite comfortable now. Current Visit: No (4) Pneumonia Status: Acute Assessment and plan: He will be covered with antibiotics for pneumonia. Overall he seems to be improving a little. He is improving on antibiotics now. Current Visit: No Qualifiers: Pneumonia type: due to Pneumococcus Laterality: bilateral (5) Peripheral vascular disease Status: Chronic Assessment and plan: Patient has a wound on his left leg and much skin breakdown. He is getting wound care. Current Visit: Yes (6) Rash and nonspecific skin eruption Status: Acute Assessment and plan: He recently had a rash and his skin is very fragile. He may have a disseminated infection. Surgery is discussing a skin biopsy. Current Visit: Yes (7) Gastrointestinal hemorrhage with melena Status: Acute Assessment and plan: Patient is having some blood in his stools. His hematocrit is 27 today. He is not having any bleeding now. Current Visit: No
--- NOTE | 2016-12-08 09:04 | Infectious Disease Progress ---
Assessment and Plan (1) History of renal transport Status: Chronic Assessment and plan: As a result of this the patient is immunocompromised at risk for severe and atypical infections. Current Visit: Yes (2) Pneumonia Status: Acute Assessment and plan: He has extensive nodular infiltrates throughout both lungs possibly due to atypical infection such as fungal or mycobacterial. He could have nocardiosis among other atypical organisms. Cultures in August on revealing the pulmonary changes were not as extensive as now. Currently pulmonary status is stable he is in no respiratory distress and really cough is not significant. Patient generally doing better on imipenem. We will continue current management. He may go to an LTAC. Current Visit: Yes (3) Rash and nonspecific skin eruption Status: Acute Assessment and plan: Could be from disseminated infection such as nocardiosis. Less likely allergic reaction or vasculitis in my opinion. Rash improved with imipenem. Only he still has lesions on both soles of feet. He is having skin biopsy today. Current Visit: Yes (4) Wound of left ankle Status: Acute Assessment and plan: There is extensive infection in this left ankle likely septic arthritis and osteomyelitis. Suspect some atypical infection. Differentials include nocardiosis [disseminated with pulmonary and skin involvement], also it could be fungal or mycobacterial. The ankle is getting better. Recommendations: 1. Follow-up culture results - fungal and AFB 2. Continue empiric imipenem 3. He may need to go to LTAC to continue imipenem therapy. Since he is improving with this therapy I would he continue it for 6 weeks to treat osteomyelitis of the left ankle. Last day of imipenem therapy January 11. Current Visit: Yes Qualifiers: Encounter type: initial encounter Qualified Code(s): S91.002A - Unspecified open wound, left ankle, initial encounter (5) Diabetes mellitus Status: Acute Current Visit: No Qualifiers: Diabetes mellitus type: type 1 Diabetes mellitus complication status: with kidney complications Infectious Disease - PN: Subj Interval history: Patient overall clinically improved since last week this is a good marijuana. He has been mostly afebrile. More alert and conversant. His main complaint continues to be pain in the left ankle. Infectious Disease Exam (PN) - Constitutional Vitals: Temp Pulse Resp BP Pulse Ox 99.4 F 109 H 18 133/81 98 12/08/16 07:25 12/08/16 07:25 12/08/16 07:25 12/08/16 07:25 12/08/16 07:25 General appearance: under weight ( He is underweight. He is animated and quite interactive with staff.), other (He denies shortness of breath and is wearing his nasal cannula oxygen appropriately.) Exam: General appearance: alert and conversant, nontoxic appearing - Eye Eye exam: Present: EOMI. no icterus Pupils: Present: SELVIN - ENT ENT exam: no oral exudates - Respiratory Respiratory exam: vesicular BS, no crepitations or wheezes - Cardiovascular Cardiovascular exam: regular rate and rhythm, no murmurs - GI/Abdominal GI/Abdominal exam: PEG present, normal bowel sounds, soft, non-tender, no organomegaly or mass - Extremities Exam Extremities exam: Wasted, left foot and ankle bandaged - Skin Skin exam: Generalized skin rash continues to dry up. soles of his feet left more than right there is diffuse confluent blistering/vesicles. These are tender to touch. Results - Labs CBC & BMP: 12/06/16 05:40 12/08/16 06:02 Lab Results: I have reviewed the past 24 hour labs Quality Measures - VTE Contraindication to Mechanical VTE Prophylaxis: Trauma to Legs
--- NOTE | 2016-12-08 10:49 | General Surgery Progress Note ---
Assessment and Plan - Time spent with patient Time spent with patient: Less than 30 minutes (1) Wound of left ankle Status: Acute Assessment and plan: 11/30/2016 The drainage from the left foot continues especially on the medial aspect. There remains some edema and some skin changes present. The other wounds of the foot does look fairly clean without any signs of any significant drainage. Right lower extremity though has increasing vesicles and blistering with some superficial skin loss. This has the hallmarks of a Barlow-Paul syndrome. Steroids would be the treatment and possibly stopping certain antibiotics if possible. 12/02/2016 Ms. Cooper foot and leg seems to be a little bit better today with less drainage present. CT scan though shows a significant destructive process in the foot at this time. Dr. Negro is looking at him and take her recommendations for further treatment of this area. I am little concerned about his high uric acid which was 12.8 several days ago. Nobody feels like that these destructive processes in the foot related to the gouty arthritis. I think it bears some consideration at least for some treatment. Will wait for Dr. Negro's evaluation and recommendations as where we go from here with father care the foot. 12/03/2016. Continuing wound care to his lower extremities at this point. Looking at the possibility of transferring to [facility] for additional wound care and treatment of these areas. Still has a good bit of blistering and skin loss on the right lower extremity at this time. Having some diarrhea at this time. 12/04/2016 Patient seems to be resting comfortably at this point time without complaints of pain. Certainly complains a good bit of pain where we manipulate certainly the left lower extremity but also on the right tube. The wound beds are somewhat better and seems to be less drainage from him although there are still some existing drainage present. Patient is resting more comfortably and seems to be breathing better but his chest x-ray shows a miliary type of process in the lungs at this time. The question was raised about amputation of the left foot but unfortunately we are faced with the situation that if he underwent that surgery it would commit him to a ventilator which may be extremely difficult to get him off. At present I think we need to maintain her present treatment protocol and see what infectious disease wants to do about long-term antibiotics. Certainly trying to obtain some sort of place for him where he can get proper care is going to be our next difficult situation primary due to insurance problems. 12/08/2016 Patient is more comfortable and more alert at this time. Dr. Negro does not feel like that a punch biopsy would be of any value on any of these lesions at this point. His feet are continuing to do well but still needs good care. Little bit of blistering on the right foot but not open those up at this time. The wounds on the left foot are paper cleaner minimal drainage from the ankle wounds and the foot wounds at this time. The left medial wound continues to have good granulating base present with no sign of infection there. Will maintain present wound care and compressive therapy since he is continue to show signs of improvement. Current Visit: Yes Qualifiers: Encounter type: initial encounter Qualified Code(s): S91.002A - Unspecified open wound, left ankle, initial encounter Subjective Patient reports: Present: no new complaints, still having pain, pain is less, tolerating liquids well, bowel movement, afebrile Exam - Constitutional Vitals: Period Temp Pulse Resp BP Sys/Stewart Pulse Ox Last 24 Hr 98.0 F-99.8 F 93-130 17-20 122-145/71-100 92-100 General appearance: mild distress - Head Head exam: Present: normal inspection - ENT ENT exam: Present: normal exam - Neck Neck exam: Present: normal inspection - Respiratory Respiratory exam: Present: rales, rhonchi - Cardiovascular Cardiovascular exam: Present: RRR - GI/Abdominal GI/Abdominal exam: Present: hypoactive bowel sounds, soft. Absent: tenderness - Extremities Exam Extremities exam: Present: other (The petechial type of rash throughout his body has improved somewhat. Right foot is better with a little bit of blistering at the plantar surface at this time. Left foot is stable wounds are clean at this time with minimal drainage.) - Neurological Exam Neurological exam: Present: alert, oriented X3, CN II-XII intact - Skin Skin exam: Present: normal color, warm, dry Results - Labs CBC & BMP: 12/06/16 05:40 12/08/16 06:02 Lab Results: I have reviewed the past 24 hour labs Quality Measures - VTE Contraindication to Mechanical VTE Prophylaxis: Trauma to Legs
[2016-12-08] MEDS: BACITRACIN OINT 0.9 GM PACK TOP SCH (13:40)
[2016-12-08] MEDS: SODIUM HYPOCHLORITE 0.25% IRRIG 473 ML BOTTLE TOP SCH (13:40)
--- NOTE | 2016-12-08 13:51 | Nephrology Progress Note ---
Nephrology - PN: Subj Interval history: Patient is resting appears stronger today. No acute changes. Exam (PN)-Nephrology - Vital Signs Vital signs: Period Temp Pulse Resp BP Sys/Stewart Pulse Ox Last 24 Hr 98.0 F-99.8 F 93-126 17-20 122-145/71-100 92-100 - General Appearance General appearance: fatigue, frail EENT: ATNC Neck: supple Respiratory: clear Cardiology: regular rate, regular rhythm Gastrointestinal: normoactive bowel sounds, no tenderness, no guarding Neurologic: alert and oriented x3 Musculoskeletal: no clubbing Psychiatric: mood/affect appropriate, cooperative - Lab 12/06/16 05:40 12/08/16 06:02 Most recent lab results ABG pH 7.311 (7.35-7.45) L 11/27/16 06:20 ABG pCO2 34.4 MM HG (35-48) L 11/27/16 06:20 ABG pO2 65.3 MM HG (80-95) L 11/27/16 06:20 ABG HCO3 17.7 MMOL/L (20-26) L 11/27/16 06:20 ABG O2 Saturation 90.9 % (95-100) L 11/27/16 06:20 Calcium 9.0 MG/DL (8.5-10.1) 12/08/16 06:02 Phosphorus 2.2 MG/DL (2.5-4.9) L 12/03/16 06:03 Magnesium 2.0 MG/DL (1.8-2.4) 12/08/16 06:02 Assessment and Plan (1) Chronic kidney disease, stage III (moderate) Status: Chronic Assessment and plan: Patient with history of chronic kidney disease due to renal transplant. Serum creatinine is noted to be 1.3 Current Visit: Yes (2) Hypotension Status: Acute Current Visit: No (3) Altered mental status Status: Acute Current Visit: No Qualifiers: Altered mental status type: delirium Qualified Code(s): R41.0 - Disorientation, unspecified (4) Anemia Status: Chronic Current Visit: No (5) Peripheral vascular disease Status: Chronic Current Visit: Yes
[2016-12-08] MEDS: HYDROmorphone 2 MG/1 ML VIAL IV PRN (15:12)
--- NOTE | 2016-12-08 17:21 | Hospitalist Progress Note ---
Assessment and Plan (1) Pneumonia Status: Acute Assessment and plan: The patient is improving with Primaxin. Infectious disease and pulmonary consults reviewed. Patient has had a prolonged hospitalization and appears to be improving today is hospital day 12. His diagnosis has not been confirmed in any skin biopsy is planned. Will consult case management for LTAC referral for continued Primaxin per infectious disease recommendations. He will need physical therapy and Occupational Therapy due to his significant debility and prolonged intensive care unit stay. Current Visit: Yes Qualifiers: Pneumonia type: due to unspecified organism Laterality: bilateral Lung location: unspecified part of lung Qualified Code(s): J18.9 - Pneumonia, unspecified organism (2) Left ankle pain Status: Acute Current Visit: Yes Qualifiers: Chronicity: acute Qualified Code(s): M25.572 - Pain in left ankle and joints of left foot (3) Critical illness myopathy Status: Acute Current Visit: No (4) Rash and nonspecific skin eruption Status: Acute Current Visit: Yes (5) Wound of left ankle Status: Acute Current Visit: Yes Qualifiers: Encounter type: initial encounter Qualified Code(s): S91.002A - Unspecified open wound, left ankle, initial encounter (6) History of renal transport Status: Chronic Current Visit: Yes (7) Anemia Status: Acute Current Visit: Yes Qualifiers: Other causes of anemia: acute posthemorrhagic (8) Severe malnutrition Status: Acute Current Visit: Yes (9) Chronic kidney disease, stage III (moderate) Status: Chronic Current Visit: Yes Hospitalist: Subjective Interval history: Patient seen and examined. No acute events overnight. Case discussed with nursing staff. Labs reviewed. Patient looks and feels much better today. He is eating well and has a good appetite. Consultants notes reviewed. Awaiting placement with LTAC at [facility]. Denied by [facility]. Exam - Constitutional Vitals: Period Temp Pulse Resp BP Sys/Stewart Pulse Ox Last 24 Hr 98.5 F-99.8 F 93-114 17-20 131-145/81-100 92-100 Exam: Constitutional System: No distress. No tremulousness. Head: Normocephalic, atraumatic. Ears, Nose and Throat System: No pain or tenderness. No epistaxis or discharge Eyes System: Pupils equal, round, and reactive. Extraocular muscles intact. Neck: Supple, without adenopathy, No jugular venous distention. No thyromegaly, neck mass, or prior surgery apparent. Respiratory System: Chest clear to auscultation. Cardiovascular System: Heart with regular rate and rhythm. No murmur. GI System: Abdomen soft, nontender. Normo active bowel sounds present. Musculoskeletal System: limbs with no pedal edema. Full distal pulses. Neurological System: No discernable sensory deficit. No aphasia Psychiatric System: Conversation is rational Skin: Rash noted on trunk, arms, legs. feet, and face. Sloughing of the skin is noted on the right lateral aspect of the legs with blister formation noted on the right. The left ankle is wrapped in HIEN. Results - Labs CBC & BMP: 12/06/16 05:40 12/08/16 06:02 Lab Results: I have reviewed the past 24 hour labs Quality Measures - VTE Contraindication to Mechanical VTE Prophylaxis: Trauma to Legs
[2016-12-08] MEDS: SODIUM ACETATE 75 MEQ in SODIUM CHLORIDE 0.45% 1,000 ML IV SCH ×2 (22:20→22:21)
[2016-12-09] MEDS: ALBUTEROL/IPRATROPIUM 3 ML NEB RESP TX SCH ×4 (00:03→11:48)
[2016-12-09] MEDS: INSULIN LISPRO 100 UNIT/ML SUBCUT SCH ×2 (00:46→06:25)
[2016-12-09] MEDS: MYCOPHENOLATE MOFETIL 250 MG CAPSULE PO SCH (03:29)
[2016-12-09] MEDS: methylPREDNISolone SOD SUC 40 MG/1 ML VIAL IV SCH (03:30)
[2016-12-09] MEDS: TACROLIMUS 0.5 MG CAPSULE PO SCH (03:30)
[2016-12-09] MEDS: IMIPENEM/CILASTATIN 500 MG in SODIUM CHLORIDE 0.9% 100 ML IV SCH (06:00)
--- NOTE | 2016-12-09 08:48 | Pulmonology Progress Note ---
Pulmonary - PN: Subj Interval history: Patient is a 50-year-old black man that has had a previous renal transplant. He has been on immunosuppressive agents. He comes back in with hypotension, dehydration, worsening renal insufficiency and shortness of breath. He continues to have extensive nodular infiltrates. He was in the hospital in August and September with respiratory failure on the ventilator. He was treated for pneumonia and did seem to improve somewhat. At that time he did have transbronchial biopsies that did not show a definite organism. He is back now and his x-ray is worse. He has extensive reticulonodular infiltrates. He has required BiPAP and his O2 saturation has been adequate. His family has decided they do not want him resuscitated and did not want an open lung biopsy. Over the past few days the patient has gotten a little better. His breathing is much better and he is fairly comfortable on low-flow oxygen. He says he still has a good bit of leg pain although his wounds are better. He seems to be improving with IV antibiotics. Exam (Progress Note) - Constitutional Vitals: Period Temp Pulse Resp BP Sys/Stewart Pulse Ox Last 24 Hr 97.2 F-99.6 F 102-112 16-20 135-154/86-99 92-100 Exam: General appearance: under weight, other (Patient is chronically ill-appearing and very fragile. He looks a little more comfortable today. He continues to do well with his breathing.) - Head Head exam: Present: normal inspection, normocephalic - Eye Eye exam: Present: EOMI. Absent: scleral icterus Pupils: Present: SELVIN - ENT ENT exam: Present: other (He has dry mucous membrane), he is on low-flow oxygen. - Neck Neck exam: Absent: lymphadenopathy, meningismus, thyromegaly - Respiratory Respiratory exam: Present: Patient is moving air well with only minimal crackles now. - Cardiovascular Cardiovascular exam: Present: regular rate and rhythm, tachycardia. Absent: gallop, systolic murmur - GI/Abdominal GI/Abdominal exam: Present: normal bowel sounds, soft. Absent: organomegaly, tenderness - Extremities Exam Extremities exam: Present: other (He still has the wound on his left ankle). Absent: calf tenderness, edema - Neurological Exam Neurological exam: Present: He is awake and talking now. - Psychiatric Psychiatric exam: Present: He looks much more comfortable now. - Skin Skin exam: Present: warm, dry, he has had some extensive skin changes. Results - Labs CBC & BMP: 12/06/16 05:40 12/08/16 06:02 Assessment and Plan (1) Kidney transplant recipient Problem details: No evidence of rejection. Status: Chronic Assessment and plan: The patient is somewhat immunosuppressed but his renal function is doing much better now. His creatinine is 1.3 today. Current Visit: No (2) Reticulonodular infiltrate present on imaging of chest Status: Chronic Assessment and plan: The patient continues to have extensive reticular nodular infiltrates but he seems to be breathing a little better today. His last chest x-ray was actually a little better. His oxygenation is okay now and is tolerating his antibiotics. He continues to improve. Current Visit: No (3) Acute respiratory failure with hypoxemia Status: Acute Assessment and plan: The patient looks much more alert and comfortable and is not in any distress now. His breathing is much improved and he is quite comfortable now. Current Visit: No (4) Pneumonia Status: Acute Assessment and plan: He will be covered with antibiotics for pneumonia. Overall he seems to be improving a little. He is improving on antibiotics now. Current Visit: No Qualifiers: Pneumonia type: due to Pneumococcus Laterality: bilateral (5) Peripheral vascular disease Status: Chronic Assessment and plan: Patient has a wound on his left leg and much skin breakdown. He is getting wound care. He still has some leg pain. Current Visit: Yes (6) Rash and nonspecific skin eruption Status: Acute Assessment and plan: He recently had a rash and his skin is very fragile. He may have a disseminated infection. Surgery is discussing a skin biopsy. Current Visit: Yes (7) Gastrointestinal hemorrhage with melena Status: Acute Assessment and plan: Patient is having some blood in his stools. His hematocrit is 27 today. He is not having any bleeding now. His appetite is much better now. Current Visit: No
[2016-12-09] MEDS: levETIRAcetam 500 MG TABLET PO SCH (09:04)
[2016-12-09] MEDS: FOLIC ACID 1 MG TABLET PO SCH (09:04)
[2016-12-09] MEDS: ALLOPURINOL 300 MG TABLET PO SCH (09:04)
[2016-12-09] MEDS: CARVEDILOL 12.5 MG TABLET PO SCH (09:04)
[2016-12-09] MEDS: oxyCODONE/ACETAMINOPHEN 5-325 MG TABLET PO PRN (09:04)
[2016-12-09] MEDS: ZINC OXIDE PASTE 113 GM TUBE TOP SCH (09:05)
[2016-12-09] MEDS: LANSOPRAZOLE ODT 30 MG TABLET PEG SCH (09:05)
--- NOTE | 2016-12-09 10:54 | Infectious Disease Progress ---
Assessment and Plan (1) History of renal transport Status: Chronic Assessment and plan: As a result of this the patient is immunocompromised at risk for severe and atypical infections. Current Visit: Yes (2) Pneumonia Status: Acute Assessment and plan: He has extensive nodular infiltrates throughout both lungs possibly due to atypical infection such as fungal or mycobacterial. He could have nocardiosis among other atypical organisms. Cultures in August on revealing the pulmonary changes were not as extensive as now. Currently pulmonary status is stable he is in no respiratory distress and really cough is not significant. Patient generally doing better on imipenem. We will continue current management. He may go to an LTAC. Current Visit: Yes (3) Rash and nonspecific skin eruption Status: Acute Assessment and plan: Could be from disseminated infection such as nocardiosis. Less likely allergic reaction or vasculitis in my opinion. Rash improved with imipenem. Only he still has lesions on both soles of feet. Current Visit: Yes (4) Wound of left ankle Status: Acute Assessment and plan: There is extensive infection in this left ankle likely septic arthritis and osteomyelitis. Suspect some atypical infection. Differentials include nocardiosis [disseminated with pulmonary and skin involvement], also it could be fungal or mycobacterial. The ankle is getting better. Recommendations: 1. Follow-up culture results - fungal and AFB 2. Continue empiric imipenem. Last day of imipenem therapy January 11. Current Visit: Yes Qualifiers: Encounter type: initial encounter Qualified Code(s): S91.002A - Unspecified open wound, left ankle, initial encounter (5) Diabetes mellitus Status: Acute Current Visit: No Qualifiers: Diabetes mellitus type: type 1 Diabetes mellitus complication status: with kidney complications Infectious Disease - PN: Subj Interval history: No complaints today, no fever, patient awaiting placement in LTAC for long-term antibiotics. Infectious Disease Exam (PN) - Constitutional Vitals: Temp Pulse Resp BP Pulse Ox 97.2 F L 112 H 20 151/99 98 12/09/16 08:00 12/09/16 09:28 12/09/16 09:28 12/09/16 08:00 12/09/16 09:28 General appearance: mild distress Exam: General appearance: Sleeping but arousable - Eye Eye exam: Present: EOMI. no icterus Pupils: Present: SELVIN - ENT ENT exam: no oral exudates - Respiratory Respiratory exam: vesicular BS, no crepitations or wheezes - Cardiovascular Cardiovascular exam: regular rate and rhythm, no murmurs - GI/Abdominal GI/Abdominal exam: PEG present, normal bowel sounds, soft, non-tender, no organomegaly or mass - Extremities Exam Extremities exam: Both legs and feet bandaged - Skin Skin exam: Generalized skin rash continues to dry up. Results - Labs CBC & BMP: 12/06/16 05:40 12/08/16 06:02 Lab Results: I have reviewed the past 24 hour labs Quality Measures - VTE Contraindication to Mechanical VTE Prophylaxis: Trauma to Legs
--- NOTE | 2016-12-09 11:07 | Discharge Summary ---
Hospital Course - Hospital Course Hospital Course: Taken from H&P: Mr. Mcmanus is a 50 year old male who was admitted in August of this year with renal insufficiency, altered mental status, and nodular changes on chest x- ray. He is 3 years status post renal transplantation after a brief period of peritoneal dialysis for apparent hypertensive nephropathy. He is chronically maintained on immunosuppression. His August hospitalization was approximately 1 month in duration with patient requiring intubation and mechanical ventilation for progressive respiratory failure. He had a PEG tube placed and required a tracheostomy. During the stay he had a bronchoscopy performed and the results is recorded on the chart apparently showed only a fungal growth. Radiographically it appears as though he had potential pneumocystis pneumonia. The family was told that he had ARDS. At discharge he was sent to rehab where he has been subsequently. He was brought to the emergency room with complaints of pain in the legs bilaterally weakness apparently anorexia and perhaps low- grade fever. The patient did have an episode of possible gout during his acute hospitalization earlier this year and required a surgical intervention to the left ankle performed by Dr. Sanchez with subsequent office follow-up including as recently as last week. The family believes a new antibiotic was initiated at that time but did not know the name of the drug. Patient presents at this time with the above complaints. His laboratory shows a increase in his serum creatinine level compared to discharge. There is a disproportionate increase in his BUN. His hemoglobin has improved to 8.4 but white count is 18,200. He has had progressive rise in his serum calcium level which when corrected for an albumin of 1.8 is approximately 12.3. His urinalysis is benign which in association with a rising calcium level and increased BUN/creatinine ratio supports a strong prerenal component as confirmed by physical exam. His chest x-ray shows bilateral asymmetric multinodular disease similar to the last x-ray in September available here. During the hospital stay: 50-year-old -[place] male admitted with worsening shortness of breath and cough as well as altered mental status, was moved to the ICU for worsening in his condition. He has a history of immunocompromise due to immunosuppressive medications taken for his renal transplant. Patient has pneumonia, Barlow-Paul syndrome, and a left lower extremity abscess. Patient is receiving PEG feedings and is a DNR. Left lower extremity abscess/Barlow-Paul--being followed by Dr. Sanchez and Isha from wound care. He is to undergo CT of the left lower extremity now that he is off BiPAP. Will avoid IV contrast due to his chronic kidney disease and renal transplantation. Pneumonia--patient is on Merrem. Breathing treatments, and breathing well on O2 by nasal cannula. Chronic kidney disease--this is stable and being followed by nephrology Consultants during hospitalization include general surgery, pulmonary, nephrology, and infectious disease. Impression from infectious disease specialist: (1) History of renal transport Status: Chronic Assessment and plan: As a result of this the patient is immunocompromised at risk for severe and atypical infections. Current Visit: Yes (2) Pneumonia Status: Acute Assessment and plan: He has extensive nodular infiltrates throughout both lungs possibly due to atypical infection such as fungal or mycobacterial. He could have nocardiosis among other atypical organisms. Cultures in August on revealing the pulmonary changes were not as extensive as now. Currently pulmonary status is stable he is in no respiratory distress and really cough is not significant. Patient generally doing better on imipenem. We will continue current management. He may go to an LTAC. Current Visit: Yes (3) Rash and nonspecific skin eruption Status: Acute Assessment and plan: Could be from disseminated infection such as nocardiosis. Less likely allergic reaction or vasculitis in my opinion. Rash improved with imipenem. Only he still has lesions on both soles of feet. Current Visit: Yes (4) Wound of left ankle Status: Acute Assessment and plan: There is extensive infection in this left ankle likely septic arthritis and osteomyelitis. Suspect some atypical infection. Differentials include nocardiosis [disseminated with pulmonary and skin involvement], also it could be fungal or mycobacterial. The ankle is getting better. Recommendations: 1. Follow-up culture results - fungal and AFB 2. Continue empiric imipenem. Last day of imipenem therapy January 11. The patient is in stable condition and has improved significantly during the course of hospitalization. He has reached maximal benefit from this inpatient hospitalization and is now on hospital day #14. He has been accepted to specialty LTAC and will be transferred there today. His medications have been reviewed and reconciled. The patient should continue imipenem until January 11 per infectious disease recommendations. He will need aggressive physical therapy and rehabilitation. - Time spent with patient Time with patient DS: Greater than 30 minutes (Total discharge time for this patient, including [id number] time, clinical documentation, medication reconciliation, and discharge planning was 45 minutes.) Diagnosis - Discharge Diagnosis (1) Pneumonia Status: Acute (2) Left ankle pain Status: Acute (3) Critical illness myopathy Status: Acute (4) Rash and nonspecific skin eruption Status: Acute (5) Wound of left ankle Status: Acute (6) History of renal transport Status: Chronic (7) Anemia Status: Acute (8) Severe malnutrition Status: Acute (9) Chronic kidney disease, stage III (moderate) Status: Chronic (10) Disseminated infection Status: Acute (11) Nocardiosis, unspecified Status: Acute Discharge Plan - Discharge Data Disposition: Disch/Xfer-Ips[facility]ort Term Hos Condition at Discharge: Stable Discharge Diet: advance to your usual diet Activity: resume usual activities as tolerated, as per physical therapy Hygiene: no restrictions Contact your physician if you experience:: fever over 101, Nausea/Vomiting, Shortness of breath - Discharge Medications New Carvedilol [Coreg] 12.5 mg PO BID tablet Imipenem/Cilastatin [Primaxin] 500 mg IV Q8H vial Insulin Lispro [HumaLOG] See Protocol SUBCUT Q6HR unit Skin Healing Oint (Aquaphor) [Aquaphor] 1 applic TOP PRN PRN #0 applic PRN Reason: Dry Skin levETIRAcetam TAB [Keppra Tab] 500 mg PO BID tablet oxyCODONE/ACETAMINOPHEN 5-325 [Percocet 5-325] 1 tablet PO Q4H PRN #0 tablet PRN Reason: Pain Moderate (4-7) Allopurinol [Zyloprim] 300 mg PO DAILY tablet Folic Acid Tab 1 mg PO DAILY tablet Sodium Hypochlorite 0.25% Irr [Dakins 1/2 Strength 0.25% Soln] 1 applic TOP DAILY applic Continue Carvedilol [Coreg] 12.5 mg PO BID Tacrolimus [Tacrolimus Cap] 2 mg PO Q12H predniSONE TAB [PredniSONE] 10 mg PO DAILY Aspirin [Ecotrin] 81 mg PO DAILY Mycophenolate Mofetil Cap [Cellcept] 500 mg PO Q12H Sertraline [Zoloft] 25 mg PO BEDTIME Famotidine Tab [Pepcid Tab] 40 mg PO DAILY Acetaminophen 650 mg PO Q6HR PRN PRN Reason: Pain Petrolatum,White [Desitin Multi-Purpose] 1 strip TOP DAILY Gabapentin 200 mg PO BEDTIME Albuterol/Ipratropium Neb [Duoneb] 3 mg INH Q6HR PRN PRN Reason: Shortness Of Breath/Wheezing Folic Acid Tab 1 mg PO DAILY Discontinued Loratadine [Claritin] 10 mg PO DAILY Lactulose 30 ml PO Q12HR HYDROcodone/ACETAMIN 7.5-325 [Scarbro 7.5-325] 7.5 mg PO Q6HR Amoxicillin 500 mg PO Q6HR levETIRAcetam [Keppra] 250 mg PO DAILY Ampicillin Cap 500 mg PO Q6H - Follow Up or Referral - Forms/Instructions Instructions: Peripheral Vascular Disorders (DC), Acute Rash (DC) Additional Discharge Instructions: Continue antibiotics until January 11 per infectious disease recommendation. Exam - Constitutional Vitals: Period Temp Pulse Resp BP Sys/Stewart Pulse Ox Last 24 Hr 97.2 F-99.6 F 102-112 16-20 135-154/86-99 92-100 Discharge Results Procedures and tests throughout hospitalization: Pending Orders 11/28/16 08:54 Occult Blood, Stool Routine 12/01/16 10:05 AFB Culture/Smears Routine Fungal Culture w/ Prep Routine 12/07/16 08:00 cdiff [C. Diff Toxins A & B] Routine 12/07/16 12:58 AFB Culture/Smears Routine 12/07/16 12:59 Fungal Culture w/ Prep Routine 12/07/16 13:02 Histology Stains Routine 12/07/16 13:09 Gram Stain Only (No Culture) Routine 12/10/16 04:00 Basic Metabolic Panel MOTH Magnesium MOTH Phosphorous MOTH Prealbumin MOTH Labs on day of discharge: Labs from last 24 hours 12/09/16 12/09/16 12/08/16 05:57 00:09 17:59 POC Glucose 187 H 161 H 121 H 12/08/16 10:41 POC Glucose 133 H Preliminary micro results at discharge 12/01/16 10:05 Mycobacterial Culture - Preliminary Foot - Left No AFB isolated at 1 week DS: Provider Date of admission: 11/25/16 14:41 Primary care physician: Zachariah Leo Jr., MD Attending physician on admission: Jonathan Leone MD Consults: 11/25/16 16:01 Consult to Physician [CONS] Routine Comment: Leg wounds known to you Consulting Provider: Chay Sanchez Person Notified: Patricia Date Notified: 11/25/16 Time Notified: 16:15 Consult Notification Comment: spoke with Patricia and she stated she would notify Dr. Sanchez of consult. Consult to Physician [CONS] Routine Comment: renal transplant, known to you Consulting Provider: Chay Zhang When should Consulting Provider be notified: In am Person Notified: shira Date Notified: 11/25/16 Time Notified: 16:27 Consult Notification Comment: at 1640 Marcus called and said that Dr Zhang had only seen pt once and it needed to be called to Dr Pierce who is de ionizer operator. I did call Rosangela at Dr Pierce office. 11/25/16 16:12 Consult to Pharmacy [CONS] Routine Reason for Pharmacy Consult: Adjust Meds Renal Funct 11/25/16 16:39 Consult to Dietitian [CONS] Routine Reason for Dietitian: Other 11/26/16 07:40 Consult to Physician [CONS] Routine Comment: Known to you, nodular pulmonary infiltrates Consulting Provider: Ramon Neri When should Consulting Provider be notified: Now 11/26/16 07:42 Consult to Dietitian [CONS] Routine Reason for Dietitian: Other 11/26/16 09:29 Consult to Wound Care - [place] [CONS] Routine Reason for Wound Care: Wound Care Management Consult Comment: Left foot wounds 11/27/16 12:47 Consult to Physician [CONS] Routine Comment: Consulting Provider: Lucho Rouse Person Notified: Dr. Juan Manuel Dawson Date Notified: 11/27/16 Time Notified: 08:00 Consult Notification Comment: Dr. Neri spoke to Dr. 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 Please evaluate. 12/01/16 10:04 Consult to Physician [CONS] Routine Comment: poss vasculitis Consulting Provider: Rebecca Hopper Person Notified: BROOKS Date Notified: 12/01/16 Time Notified: 10:21 Discharging clinician: Kalyan Lockhart MD Expected date of discharge: 12/09/16
[2016-12-09] MEDS: SODIUM ACETATE 75 MEQ in SODIUM CHLORIDE 0.45% 1,000 ML IV SCH (11:37)
[2016-12-09] MEDS: BACITRACIN OINT 0.9 GM PACK TOP SCH (11:37)
[2016-12-09] MEDS: SODIUM HYPOCHLORITE 0.25% IRRIG 473 ML BOTTLE TOP SCH (11:37)
[2016-12-09 11:57] VITALS: BP 149/97
--- NOTE | 2016-12-21 12:22 | Physician Query Form ---
CLICK EDIT DOCUMENT TO SELECT QUERY ANSWER --> OK --> SIGN I DID NOT ADMIT OR DISCHARGE HIM. I SAW HIM BUT FOR COUPLE DAYS. HE WAS STILL IN HOSPITAL x 10 DAYS AFTER I SAW HIM . Aurea Case RN, CCDS Certified Clinical Child Support Investigator (W) [phone] (X) [phone] [email or web address] PROVIDERS: Make your selection(s) from the choices in EACH section by typing an "x" and enter comments in the comment section. Please use your independent medical judgment in providing your response. This request does not imply that any particular answer is desired or expected. CLINICAL INDICATORS: (Providers should not edit this section) The medical record indicates that the patient was admitted with pneumonia, "significant infection in this left ankle likely septic arthritis", WBC 18.2, Normal Lactic Acid Level, - Negative Blood Cultures, Pulse 95.9, Pulse of 104, Respirations 28 and the patient was in respiratory failure. Please clarify which, if any, of the following is the etiology of the above symptoms and treatment rendered: ( ) Sepsis due to a localized infection, please specify infection: ( ) Severe Sepsis (sepsis with acute organ failure) - Please specify type acute organ failure: ( ) Septic Shock (severe sepsis with hypotension) ( ) SIRS of noninfectious origin ( ) Sepsis due to a device, implant or graft, please specify: ( ) Localized infection only, without systemic illness, please specify infection : ( ) Bacteremia (abnormal lab finding only, does not indicate systemic illness) ( ) Other condition, please specify: ( ) Clinically unable to determine Criteria for Sepsis (SIRS due to an infection) should be based on 2 or more of the following being present: Temperature > 101F or < 96.8F WBC > 12,000 or < 4,000, or > 10% bands Tachycardia HR > 90 beats/minute Tachypnea RR > 20 breaths/minute or PaCO2 > 32mmHg Lactate level > 2.0 mmol/L (>4 is equivalent to severe sepsis) Altered Mental Status Mottling of skin or prolonged capillary refill Non-diabetic hyperglycemia (blood sugar >120 mg/dl) Other evidence of acute organ failure associated with sepsis ( severe sepsis) COMMENTS: PLEASE ALSO DOCUMENT RESPONSE IN PROGRESS NOTES AND/OR DISCHARGE SUMMARY Use of terms such as suspected, likely, or probable (associated with a specific diagnosis that is being evaluated, monitored, or treated as if it exists) are acceptable and can be restated in the discharge summary if not ruled out. MTDD
--- NOTE | 2016-12-24 12:24 | Physician Query Form ---
CLICK EDIT DOCUMENT TO SELECT QUERY ANSWER --> OK --> SIGN Aurea Case RN, CCDS Certified Clinical Tetryl Wringer Operator W) [phone] (f) [phone] [email or web address] PROVIDERS: Make your selection(s) from the choices in EACH section by typing an "x" and enter comments in the comment section. Please use your independent medical judgment in providing your response. This request does not imply that any particular answer is desired or expected. CLINICAL INDICATORS: (Providers should not edit this section) The medical record indicates that the patient was admitted with pneumonia, "significant infection in this left ankle likely septic arthritis", WBC 18.2, Normal Lactic Acid Level, - Negative Blood Cultures, Temp 95.9, Pulse of 104, Respirations 28 and the patient was in respiratory failure. Please clarify which, if any, of the following is the etiology of the above symptoms and treatment rendered: ( ) Sepsis due to a localized infection, please specify infection: (X ) Severe Sepsis (sepsis with acute organ failure) - Please specify type acute organ failure: ( ) Septic Shock (severe sepsis with hypotension) ( ) SIRS of noninfectious origin ( ) Sepsis due to a device, implant or graft, please specify: ( ) Localized infection only, without systemic illness, please specify infection : ( ) Bacteremia (abnormal lab finding only, does not indicate systemic illness) ( ) Other condition, please specify: (x ) Clinically unable to determine Criteria for Sepsis (SIRS due to an infection) should be based on 2 or more of the following being present: Temperature > 101F or < 96.8F WBC > 12,000 or < 4,000, or > 10% bands Tachycardia HR > 90 beats/minute Tachypnea RR > 20 breaths/minute or PaCO2 > 32mmHg Lactate level > 2.0 mmol/L (>4 is equivalent to severe sepsis) Altered Mental Status Mottling of skin or prolonged capillary refill Non-diabetic hyperglycemia (blood sugar >120 mg/dl) Other evidence of acute organ failure associated with sepsis ( severe sepsis) COMMENTS: PLEASE ALSO DOCUMENT RESPONSE IN PROGRESS NOTES AND/OR DISCHARGE SUMMARY Use of terms such as suspected, likely, or probable (associated with a specific diagnosis that is being evaluated, monitored, or treated as if it exists) are acceptable and can be restated in the discharge summary if not ruled out. MTDD
--- NOTE | 2016-12-25 07:16 | Physician Query Form ---
CLICK EDIT DOCUMENT TO SELECT QUERY ANSWER --> OK --> SIGN Aurea Case RN, CCDS Certified Clinical News Production Supervisor W) [phone] (f) [phone] [email or web address] PROVIDERS: Make your selection(s) from the choices in EACH section by typing an "x" and enter comments in the comment section. Please use your independent medical judgment in providing your response. This request does not imply that any particular answer is desired or expected. CLINICAL INDICATORS: (Providers should not edit this section) The medical record indicates that the patient was admitted with pneumonia, "significant infection in this left ankle likely septic arthritis", WBC 18.2, Normal Lactic Acid Level, - Negative Blood Cultures, Pulse 95.9, Pulse of 104, Respirations 28 and the patient was in respiratory failure. Please clarify which, if any, of the following is the etiology of the above symptoms and treatment rendered: ( ) Sepsis due to a localized infection, please specify infection: ( ) Severe Sepsis (sepsis with acute organ failure) - Please specify type acute organ failure: ( ) Septic Shock (severe sepsis with hypotension) ( ) SIRS of noninfectious origin ( ) Sepsis due to a device, implant or graft, please specify: ( ) Localized infection only, without systemic illness, please specify infection : ( ) Bacteremia (abnormal lab finding only, does not indicate systemic illness) ( ) Other condition, please specify: (x ) Clinically unable to determine Criteria for Sepsis (SIRS due to an infection) should be based on 2 or more of the following being present: Temperature > 101F or < 96.8F WBC > 12,000 or < 4,000, or > 10% bands Tachycardia HR > 90 beats/minute Tachypnea RR > 20 breaths/minute or PaCO2 > 32mmHg Lactate level > 2.0 mmol/L (>4 is equivalent to severe sepsis) Altered Mental Status Mottling of skin or prolonged capillary refill Non-diabetic hyperglycemia (blood sugar >120 mg/dl) Other evidence of acute organ failure associated with sepsis ( severe sepsis) COMMENTS: PLEASE ALSO DOCUMENT RESPONSE IN PROGRESS NOTES AND/OR DISCHARGE SUMMARY Use of terms such as suspected, likely, or probable (associated with a specific diagnosis that is being evaluated, monitored, or treated as if it exists) are acceptable and can be restated in the discharge summary if not ruled out. MTDD
== END 2016-12-09 15:25 | DRG 871 ==
LOC: EDUNIT# → EDBD → N.ED 11:36 → N.EDINP 14:41 → SUATTDRO 14:41 → N.EDINP 15:46 → N.5E 16:01 → N.ICU 11-26 08:59 → N.5E 11-30 12:55
PROVIDERS: ADMIT Internal Medicine Cardiovascular Disease; ATTEND Family Medicine